=== PATIENT | female | born 1935 | race Caucasian/White ===

== ENCOUNTER → 2017-12-25 10:55 | Outpatient (CLI) | payer MEDICARE, SELFPAY ==
--- NOTE | 2017-12-25 10:12 | HPBI_ITS ---
MAMMOGRAPHY - BILATERAL SCREENING REASON FOR EXAM: Female, 82 years old. Routine annual screening examination. PERTINENT HISTORY: Aunt with breast cancer. TECHNIQUE: Digital bilateral breast deja (3D mammographic acquisition) in the CC and MLO projections. 2-D mediolateral oblique (MLO) and craniocaudad (CC) views of both breasts were obtained. CAD: Full Field Digital Mammography with Computer Added Detection was performed. COMPARISON: Comparison is made with prior study dated December 15, 2016 and May 06, 2016. FINDINGS: Breast Composition: There are scattered areas of fibroglandular density. There are no dominant masses or suspicious calcifications. Once again, surgical clips are seen in the left axillary region. No other significant abnormalities are identified. There has been no significant change since the prior study. HPBI/SCREENING MAMM (CAD), BILAT IMPRESSION: Stable bilateral screening mammogram. Yearly follow-up mammogram recommended. (A) ASSESSMENT CATEGORY: BIRADS Category 1: Negative. A letter regarding these results will be sent to the patient by the facility within 30 days. Approximately 10% of breast cancers are not detected by mammography. A normal mammogram should not delay biopsy of a clinically suspicious abnormality. [id number] Electronically Signed: Garry Dalal MD at 12:26 EST Tel [phone], Service support ,
== END ==
PROVIDERS: Family Provider Family Medicine; PCP Family Medicine; Visit Provider Family Medicine
DX: Z12.31 Encounter for screening mammogram for malignant neoplasm of breast (principal)
CPT/HCPCS: 77063; 77067

== ENCOUNTER 2018-03-24 10:21 | Emergency (ER) | payer MEDICARE, SELFPAY ==
[2018-03-24 10:23] VITALS: BP 143/72; PULSE 75; RESP 14; TEMP 36.7; O2SAT 99; BMI 27.4
[2018-03-24 10:26] VITALS: BP 143/72; PULSE 74; RESP 14; TEMP 36.7; O2SAT 98
--- NOTE | 2018-03-24 11:04 | RAD_ITS ---
STUDY: X-RAY - RIGHT KNEE REASON FOR EXAM: Female, 82 years old. Pain following a fall. TECHNIQUE: 4 view(s) of the knee. COMPARISON: Comparison is made with prior study dated August 05, 2014. FINDINGS: Normal visualized distal femur. Normal visualized proximal tibia and fibula. Normal proximal tibiofibular articulation. The patient is status post right total knee replacement. There is good alignment. Prepatellar soft tissue swelling. RAD/Knee 4 or More Views IMPRESSION: Prepatellar soft tissue swelling. Status post total knee replacement. Electronically Signed: Garry Dalal MD at 12:25 EDT Tel [phone], Service support ,
--- NOTE | 2018-03-24 11:04 | CT_ITS ---
STUDY: CT BRAIN WITHOUT CONTRAST REASON FOR EXAM: Female, 82 years old. Dizziness. Fall. RADIATION DOSAGE (If Supplied By Facility): CTDIvol = ( 44.99 ) mGy, DLP = ( 745.49 ) mGycm TECHNIQUE: Transaxial CT imaging of the brain was performed without administration of intravenous contrast material. Individualized dose optimization techniques were used for this CT. COMPARISON: None. FINDINGS: Normal soft tissue structures. Normal calvarium. There is mild cerebral atrophy with widening of the extra-axial spaces and ventricular dilatation. Normal white matter tracts of the cerebral hemispheres. Normal basal ganglia and thalami. Normal brainstem. There is mild cerebellar atrophy. There is no intracranial hemorrhage. There are no findings of an acute ischemic infarction. Atherosclerotic calcification of the vertebral arteries and cavernous portion of the internal carotid arteries bilaterally. Normal visualized paranasal sinuses. CT/Brain/Head without Contrast IMPRESSION: Chronic involutional changes of the brain. Electronically Signed: Garry Dalal MD at 12:25 EDT Tel [phone], Service support ,
--- NOTE | 2018-03-24 11:07 | ED.VIS.GEN ---
History of Present Illness Chief Complaint: Fall Informant: Patient Onset: Today - jpta Current Severity: Mild Maximum Severity: Mild Narrative: Patient had a fall after getting up from surgery. She bumped the back of her head and may be twisted or hit her right knee which is a little sore, she has no internal headache or nausea or other focal neurologic symptoms right now. She is alert and oriented. She had back injections, and some type of nerve ablation, she was under general anesthesia for about 30 minutes for that surgery. She recovered uneventfully until she tried to get up and walk to the bathroom, she felt very lightheaded and had either near syncopal or brief syncopal episode, falling and hitting the bed nearby with the back of her head. She is on no anticoagulation. She states that she has been fasting since last night for the surgery, it is 11 AM right now. She took Benadryl prior to the procedure. And she was under general anesthetic. - Past Medical History (1) Dyslipidemia Status: Chronic Comment: bilateral 06/04, Bruna Looney (2) Hypertension Status: Chronic (3) Knee joint replacement status Status: Chronic Past Medical History - Allergies and Home Meds Allergies/Adverse Reactions: Allergies codeine Allergy (Verified 03/24/18 10:22) Rash hydrocodone bitartrate [From Vicodin] Adverse Reaction (Verified 03/24/18 10:22) Nausea meperidine HCl [From Demerol] Adverse Reaction (Verified 03/24/18 10:22) Nausea oxycodone HCl [From Percocet] Adverse Reaction (Verified 03/24/18 10:22) Nausea Home Medications: Home Medications Medication Instructions Recorded Fluticasone 0.05% [Flonase Nasal 1 spray NARES DAILY 12/29/14 [place]] Lansoprazole [Prevacid] 30 mg PO DAILY 12/29/14 Levothyroxine [Synthroid] 50 mcg PO DAILY 12/29/14 Metoprolol(XL)Succ [Toprol Xl 50 mg PO DAILY 12/29/14 (Beta Bhavana)] Nitrofurantoin Macrocrystals 100 mg PO MOWEFR@1000 12/29/14 [Macrobid] Simvastatin [Zocor] 10 mg PO QHS 12/29/14 DiphenhydrAMINE [Benadryl] 25 mg PO Q6H PRN PRN 06/09/15 Vit A/Vit C/Vit E/Zinc/Copper 1 each PO DAILY 06/09/15 [Preservision Areds Softgel] Aspirin 81 mg PO DAILY 08/28/16 Duloxetine Hcl [Cymbalta] 30 mg PO DAILY 03/24/18 Spironolactone [Aldactone] 50 mg PO DAILY 03/24/18 Primary Care Physician: Aaliyah De La Cruz DO [Primary Care Provider] - Surgical History: total knee arthroplasty Lives: Spouse/ Significant Other Smoking Status: Never smoker Review of Systems All systems negative except as indicated Eyes: Denies: Visual changes - bilaterally, Diplopia Cardiovascular: Denies: Chest pain, Palpitations Respiratory: Denies: Dyspnea, Cough Gastrointestinal: Denies: Abdominal pain, Nausea, Vomiting Musculoskeletal: Reports: Extremity Pain - R knee. Denies: Neck pain, Back pain Skin: Reports: Wounds - bruise to back of head. Denies: Rash Neurological: Denies: Headache, Weakness, Parasthesia Physical Exam Vital Signs/Narrative: Vital Signs Temp Pulse Resp BP Pulse Ox 03/24/18 10:26 98.0 F 74 14 143/72 H 98 03/24/18 10:23 98.0 F 75 14 143/72 H 99 General: Well nourished, Well developed Head: Normocephalic, Trauma - occipital scalp contusion w/ small 1-2cm hematoma, no lac, no crepitance/depression Eyes: Perrl, EOMI ENT: Moist mucous membranes, No rhinorrhea Neck: Supple - FROM w/o pain or neuro sx, Nontender Cardiovascular: Regular rate, Regular rhythm, No murmurs Respiratory: No distress, CTA bilaterally, Chest nontender Abdomen: Soft, Nontender, Nondistended, Normal bowel sounds Back: Nontender, Normal Inspection Extremities: No edema, Tenderness - R patella and distal thigh. no hematoma or signs of trauma. FROM at R knee, all ligaments w/o pain or laxity on stressing. Skin: Normal color, No rash Neurological: Alert, Oriented x3, Cranial nerves II-XII grossly intact, Normal Strength, Normal Sensation Psychological: Normal affect Diagnostic/Tx/Re-eval Clinical Impression(s) from Imaging Studies Brain CT 03/24/18 11:04 IMPRESSION: Chronic involutional changes of the brain. Electronically Signed: Garry Dalal MD at 12:25 EDT Tel [phone], Service support , Knee X-Ray 03/24/18 11:04 IMPRESSION: Prepatellar soft tissue swelling. Status post total knee replacement. Electronically Signed: Garry Dalal MD at 12:25 EDT Tel [phone], Service support , - Rhythm Strip Rhythm Strip: Sinus Rhythm Rate: 65 Ectopy: None - EKG 1 Interpretation: Sinus Rhythm, No Acute Injury Pattern, - - inferior Q waves Prior: Unchanged - Medical Decision Making CT and knee x-ray are unremarkable. Reassured about these minor injuries. She drinks some water and we were able to get her up slowly and she felt okay was able to be discharged. I think her symptoms were related to a combination of the anesthesia, being relatively dehydrated because of not drinking this morning prior surgery, and having Benadryl prior to the surgery. Discharged home in stable improved condition. ED Disposition - Plan for ED Patient: Disposition: Home or Assisted Living Chief Complaint: Fall Diagnosis: Closed head injury without concussion, Contusion of right knee, initial encounter, Syncope Instructions: ED Contusion Scalp, ED Near Syncope Vasovagal Referrals: Aaliyah De La Cruz DO [Primary Care Provider] - (2-3 days if not feeling better)
--- NOTE | 2018-03-24 11:11 | EKG12_ITS ---
Test Reason : FALL Blood Pressure : / mmHG Vent. Rate : 067 BPM Atrial Rate : 067 BPM P-R Int : 156 ms QRS Dur : 070 ms QT Int : 406 ms P-R-T Axes : 014 -08 021 degrees QTc Int : 429 ms Normal sinus rhythm Inferior infarct , age undetermined Abnormal ECG Confirmed by SHEYLA TAYLOR, KWABENA ([id number]), communications editor TONI HE ([id number]) on 03/26/2018 1:28:12 PM Referred By: OLE Confirmed By:KWABENA CARRION MD
--- NOTE | 2018-03-24 11:11 | ED.DCSUM_ITS ---
History of Present Illness Chief Complaint: Fall Informant: Patient Onset: Today - jpta Current Severity: Mild Maximum Severity: Mild Narrative: Patient had a fall after getting up from surgery. She bumped the back of her head and may be twisted or hit her right knee which is a little sore, she has no internal headache or nausea or other focal neurologic symptoms right now. She is alert and oriented. She had back injections, and some type of nerve ablation, she was under general anesthesia for about 30 minutes for that surgery. She recovered uneventfully until she tried to get up and walk to the bathroom, she felt very lightheaded and had either near syncopal or brief syncopal episode, falling and hitting the bed nearby with the back of her head. She is on no anticoagulation. She states that she has been fasting since last night for the surgery, it is 11 AM right now. She took Benadryl prior to the procedure. And she was under general anesthetic. - Past Medical History (1) Dyslipidemia Status: Chronic Comment: bilateral 06/04, Bruna Looney (2) Hypertension Status: Chronic (3) Knee joint replacement status Status: Chronic Past Medical History - Allergies and Home Meds Allergies/Adverse Reactions: Allergies codeine Allergy (Verified 03/24/18 10:22) Rash hydrocodone bitartrate [From Vicodin] Adverse Reaction (Verified 03/24/18 10:22) Nausea meperidine HCl [From Demerol] Adverse Reaction (Verified 03/24/18 10:22) Nausea oxycodone HCl [From Percocet] Adverse Reaction (Verified 03/24/18 10:22) Nausea Home Medications: Home Medications Medication Instructions Recorded Fluticasone 0.05% [Flonase Nasal 1 spray NARES DAILY 12/29/14 [place]] Lansoprazole [Prevacid] 30 mg PO DAILY 12/29/14 Levothyroxine [Synthroid] 50 mcg PO DAILY 12/29/14 Metoprolol(XL)Succ [Toprol Xl 50 mg PO DAILY 12/29/14 (Beta Bhavana)] Nitrofurantoin Macrocrystals 100 mg PO MOWEFR@1000 12/29/14 [Macrobid] Simvastatin [Zocor] 10 mg PO QHS 12/29/14 DiphenhydrAMINE [Benadryl] 25 mg PO Q6H PRN PRN 06/09/15 Vit A/Vit C/Vit E/Zinc/Copper 1 each PO DAILY 06/09/15 [Preservision Areds Softgel] Aspirin 81 mg PO DAILY 08/28/16 Duloxetine Hcl [Cymbalta] 30 mg PO DAILY 03/24/18 Spironolactone [Aldactone] 50 mg PO DAILY 03/24/18 Primary Care Physician: Aaliyah De La Cruz DO [Primary Care Provider] - Surgical History: total knee arthroplasty Lives: Spouse/ Significant Other Smoking Status: Never smoker Review of Systems All systems negative except as indicated Eyes: Denies: Visual changes - bilaterally, Diplopia Cardiovascular: Denies: Chest pain, Palpitations Respiratory: Denies: Dyspnea, Cough Gastrointestinal: Denies: Abdominal pain, Nausea, Vomiting Musculoskeletal: Reports: Extremity Pain - R knee. Denies: Neck pain, Back pain Skin: Reports: Wounds - bruise to back of head. Denies: Rash Neurological: Denies: Headache, Weakness, Parasthesia Physical Exam Vital Signs/Narrative: Vital Signs Temp Pulse Resp BP Pulse Ox 03/24/18 10:26 98.0 F 74 14 143/72 H 98 03/24/18 10:23 98.0 F 75 14 143/72 H 99 General: Well nourished, Well developed Head: Normocephalic, Trauma - occipital scalp contusion w/ small 1-2cm hematoma , no lac, no crepitance/depression Eyes: Perrl, EOMI ENT: Moist mucous membranes, No rhinorrhea Neck: Supple - FROM w/o pain or neuro sx, Nontender Cardiovascular: Regular rate, Regular rhythm, No murmurs Respiratory: No distress, CTA bilaterally, Chest nontender Abdomen: Soft, Nontender, Nondistended, Normal bowel sounds Back: Nontender, Normal Inspection Extremities: No edema, Tenderness - R patella and distal thigh. no hematoma or signs of trauma. FROM at R knee, all ligaments w/o pain or laxity on stressing. Skin: Normal color, No rash Neurological: Alert, Oriented x3, Cranial nerves II-XII grossly intact, Normal Strength, Normal Sensation Psychological: Normal affect Diagnostic/Tx/Re-eval Clinical Impression(s) from Imaging Studies Brain CT 03/24/18 11:04 IMPRESSION: Chronic involutional changes of the brain. Electronically Signed: Garry Dalal MD at 12:25 EDT Tel [phone], Service support , Knee X-Ray 03/24/18 11:04 IMPRESSION: Prepatellar soft tissue swelling. Status post total knee replacement. Electronically Signed: Garry Dalal MD at 12:25 EDT Tel [phone], Service support , - Rhythm Strip Rhythm Strip: Sinus Rhythm Rate: 65 Ectopy: None - EKG 1 Interpretation: Sinus Rhythm, No Acute Injury Pattern, - - inferior Q waves Prior: Unchanged - Medical Decision Making CT and knee x-ray are unremarkable. Reassured about these minor injuries. She drinks some water and we were able to get her up slowly and she felt okay was able to be discharged. I think her symptoms were related to a combination of the anesthesia, being relatively dehydrated because of not drinking this morning prior surgery, and having Benadryl prior to the surgery. Discharged home in stable improved condition. ED Disposition - Plan for ED Patient: Disposition: Home or Assisted Living Chief Complaint: Fall Diagnosis: Closed head injury without concussion, Contusion of right knee, initial encounter, Syncope Instructions: ED Contusion Scalp, ED Near Syncope Vasovagal Referrals: Aaliyah De La Cruz DO [Primary Care Provider] - (2-3 days if not feeling better)
[2018-03-24 12:29] VITALS: BP 118/70; PULSE 67; RESP 17; O2SAT 97
[2018-03-24 13:15] VITALS: BP 118/70; PULSE 66; RESP 17; O2SAT 97
== END 2018-03-24 13:29 | disposition home or self-care (01) ==
PROVIDERS: Emergency Provider Emergency Medicine; Family Provider Family Medicine; PCP Family Medicine
DX: S00.03XA Contusion of scalp, initial encounter (principal); S80.01XA Contusion of right knee, initial encounter; W18.39XA Other fall on same level, initial encounter; Y93.01 Activity, walking, marching and hiking; Y92.9 Unspecified place or not applicable; R55 Syncope and collapse; E78.5 Hyperlipidemia, unspecified; I10 Essential (primary) hypertension; Z96.651 Presence of right artificial knee joint; Z79.899 Other long term (current) drug therapy
CPT/HCPCS: 70450; 73564; 93005; 99284

== ENCOUNTER → 2018-03-29 09:56 | Outpatient (CLI) | payer MEDICARE, SELFPAY ==
[2018-03-29 11:06] LABS: AST(SGOT) 19 U/L (15-37); Alanine Aminotransfer ALT/SGPT 29 U/L (13-56); Albumin, Serum 3.9 g/dL (3.2-5.0); Alkaline Phosphatase 54 U/L (45-117); Bilirubin, Direct 0.39 mg/dL (0.00-0.30); Cholesterol 127 mg/dL (200); Globulin 3.1 g/dL (2.2-4.2); High Density Lipoprotein 74 mg/dL; Triglycerides 77 mg/dL; Very Low Density Lipoprotein 15 mg/dL (5-40)
== END ==
PROVIDERS: Physician Assistant Medical; Family Provider Family Medicine; PCP Family Medicine; Visit Provider Internal Medicine Cardiovascular Disease
DX: E78.5 Hyperlipidemia, unspecified (principal); Z79.899 Other long term (current) drug therapy
CPT/HCPCS: 36415; 80061; 80076

== ENCOUNTER → 2018-04-13 08:35 | Outpatient (CLI) | payer MEDICARE, SELFPAY ==
--- NOTE | 2018-04-13 08:35 | DT_ITS ---
This patient was seen during an EMR downtime April 12, 2018 - April 19, 2018. This patient may have a combination of paper and electronic documentation or all paper documentation. All documentation is viewable within the e-chart portion of [employer] for each patient visit.
[2018-04-18 19:24] LABS: Vitamin D,25 Hydroxy 53.8 ng/mL (29.95-100.01)
[2018-04-19 18:57] LABS: ALB/GLOB Ratio 1.4 RATIO (0.9-2.4); AST(SGOT) 17 U/L (15-37); Alkaline Phosphatase 59 U/L (45-117); BUN 28 mg/dL (7-18); BUN/Creat Ratio 26.9 RATIO (10-20); Calcium,Total 8.4 mg/dL (8.5-10.1); Creatinine, Serum 1.04 mg/dL (0.55-1.02); EST Glomerular Filtration Rate 54 mL/min (>60); Est Glom Filt Rate - Afr Amer 65 mL/min (>60); Globulin 2.8 g/dL (2.2-4.2); Glucose 80 mg/dL (74-106); Protein, Total 6.8 g/dL (6.4-8.2)
[2018-04-19 18:58] LABS: Alanine Aminotransfer ALT/SGPT 30 U/L (13-56); Anion Gap 10 (5-15); Chloride 104 mmol/L (98-107); Cholesterol 145 mg/dL (200); High Density Lipoprotein 98 mg/dL; Potassium 4.1 mmol/L (3.5-5.1); Sodium Level 143 mmol/L (136-145); Thyroid Stim Hormone (TSH) 1.89 uIU/mL (0.358-3.74); Triglycerides 72 mg/dL; Very Low Density Lipoprotein 14 mg/dL (5-40)
== END ==
PROVIDERS: Family Provider Family Medicine; PCP Family Medicine; Visit Provider Internal Medicine Endocrinology, Diabetes & Metabolism
DX: E78.2 Mixed hyperlipidemia (principal); E03.8 Other specified hypothyroidism; E55.9 Vitamin D deficiency, unspecified; E83.50 Unspecified disorder of calcium metabolism
CPT/HCPCS: 36415; 80053; 80061; 82306; 84443

== ENCOUNTER 2018-10-05 17:50 | Inpatient (IN) | payer MEDICARE, SELFPAY ==
[2018-10-05 17:51] VITALS: BP 155/71; PULSE 68; RESP 18; TEMP 36.4; O2SAT 99; BMI 28.5
--- NOTE | 2018-10-05 18:13 | CT_ITS ---
STUDY: CT ABDOMEN AND PELVIS WITHOUT CONTRAST REASON FOR EXAM: Female, 82 years old. Left-sided flank pain. RADIATION DOSAGE (If Supplied By Facility): CTDIvol = ( 9.40 ) mGy, DLP = ( 410.95 ) mGycm TECHNIQUE: Transaxial images were obtained from the dome of the diaphragm to the symphysis pubis without oral contrast, and without intravenous contrast. Sagittal and coronal images were reconstructed. Individualized dose optimization techniques were used for this CT. COMPARISON: None. FINDINGS: The visualized lung bases are unremarkable. The visualized heart is mildly enlarged. Normal liver. The gallbladder is contracted. Normal spleen. Normal pancreas. Normal bilateral adrenal glands. Normal right kidney. There is moderate left-sided hydronephrosis and hydroureter secondary to a proximal ureteral calculus near the ureteropelvic junction measuring approximately 8.7 mm in greatest dimension. There is a small hiatal hernia. There is no evidence for dilated bowel, ascites or pneumoperitoneum. The small bowel has a grossly normal appearance. Stool is visible throughout the colon with scattered colonic diverticula. There is non-visualization of the appendix. The abdominal aorta is tortuous with minimal atherosclerotic calcification of the intracranial arteries. Normal inferior vena cava. Normal retroperitoneum. The urinary bladder is not distended. There is absence of the uterus consistent with a prior hysterectomy. 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 There is moderately severe multilevel degenerative disc disease and degenerative arthropathy of the lumbar spine with disc space narrowing and vacuum disc phenomenon. Patient has had laminectomies of L5, L4 and L3. Patient has had surgical fusion of the L3, L4 and L5 vertebral segments with interpedicular screws and rods. CT/Abdomen/Pelvis without Cont IMPRESSION: 1. Moderate left-sided hydronephrosis and hydroureter secondary to proximal ureteral calculus. 2. Colonic diverticulosis. 3. Hiatal hernia. Electronically Signed: Aurea Madrid MD at 19:56 EST , Service support ,
[2018-10-05 18:32] LABS: Mucous, Urine 0 SEEN /hpf (<or=2+)
[2018-10-05] MEDS: Morphine 4 MG/ML Syringe IV ×2 (18:36→20:27)
[2018-10-05] MEDS: Ondansetron 4 MG/2 ML Vial IV ×2 (18:36→18:50)
[2018-10-05 19:15] LABS: Color, Urine Yellow (Yellow); Glucose, Dipstick Normal (Normal); Ketone-Dipstick 5 mg/dl (Negative); Leukocyte Esterase-Dipstick 500 /ul (Negative); Nitrite-Dipstick Negative (Negative); Occult Blood-Urine 150 /ul (Negative); Protein-Dipstick 15 mg/dl (Negative); Specific Gravity, Urine 1.015 (1.002-1.030); Urine Bilirubin Dipstick Negative (Negative); Urine Clarity Sl. Cloudy (Clear); Urine Urobilinogen 1 mg/dl (Normal); Urine pH 6.5 (5.0 - 8.0)
[2018-10-05 19:16] LABS: Bacteria RARE /hpf (None Seen); Red Blood Cells-Urine 0-5 SEEN /hpf (0-5); Squamous Epithelial Cells - UA 0-5 SEEN /hpf (5-10); White Blood Cells 10-25 SEEN /hpf (0-5)
[2018-10-05 19:25] LABS: Anion Gap 6 (5-15); BUN 26 mg/dL (7-18); BUN/Creat Ratio 15.6 RATIO (10-20); Calcium,Total 8.8 mg/dL (8.5-10.1); Chloride 103 mmol/L (98-107); Creatinine, Serum 1.67 mg/dL (0.55-1.02); EST Glomerular Filtration Rate 31 mL/min (>60); Est Glom Filt Rate - Afr Amer 38 mL/min (>60); Estimated Creatinine Clearance 21.48 ml/min; Glucose 105 mg/dL (74-106); Potassium 3.9 mmol/L (3.5-5.1); Sodium Level 138 mmol/L (136-145)
[2018-10-05 19:40] LABS: Absolute Lymphocyte Count 1.97 X10^3/ul (0.83-4.51); Absolute Neutrophil Count 9.5 X10^3/uL (2.0-7.7); Basophil# 0.01 X10^3/uL; Basophil% 0.1 % (0-1); Eosinophil# 0.09 X10^3/uL; Eosinophils% 0.7 % (0-5); Hematocrit 46.3 % (37-47); Hemoglobin 15.9 g/dl (12.0-15.0); Lymphocyte # 1.97 X10^3/ul (4.0); Lymphocyte % 15.7 % (19-41); Mean Corp Hgb Conc 34.3 g/gl (32-36); Mean Corpuscular Hgb 31.1 pg (27.0-32.0); Mean Corpuscular Volume 90.4 fL (81-99); Mean Platelet Vol. 12.5 fl (6.2-12.0); Monocyte# 0.96 X10^3/uL; Monocyte% 7.6 % (0-10); Neutrophil # 9.54 X10^3/uL (2.7-7.7); Neutrophil % 75.8 % (47-70); Platelet Count 205 K/mm3 (150-450); RBC Distribution Width SD 42.8 fl (35.1-43.9); Red Blood Count 5.12 M/mm3 (4.2-5.4); White Blood Count 12.6 K/mm3 (4.4-11.0)
[2018-10-05 19:55] LABS: POSITIVE COUNT NO; POSITIVE DIFFERENTIAL NO; POSITIVE MORPHOLOGY NO
--- NOTE | 2018-10-05 20:17 | ED.DCSUM_ITS ---
- ER Visit Summary Date of Service: 10/05/18 Chief Complaint: Flank pain. History of Present Illness: The patient is a 82 F history of chronic pain management. Mitral valve prolapse. Prior appendectomy, cholecystectomy and hysterectomy. Also prior back surgery with rods. Patient had sudden onset around 1:30 PM this afternoon of left flank pain. Nausea and vomiting x1. No dysuria. No fever. She states this does not feel like a UTI. She called her primary care physician's office who sent her into the ER. She denies any fall or trauma. No weakness to her legs. Physical Examination: Older female vital signs are stable and afebrile. No distress. H EENT exam is unremarkable. Neck nontender. Lungs clear to auscultation bilaterally. Heart regular rhythm no murmur. Abdomen is soft. Mild left-sided tenderness. No peritoneal signs. No pulsatile mass. No hernias. No signs of obstruction. Positive bowel sounds. Patient is moving all 4 extremities. Neurovascular intact. Her back does have reproducible left CVA tenderness. There is no ecchymosis or bruising. No redness or warmth. Neurologically she is awake and alert with no focal motor deficits. Test Results: White count of 12.9. Hemoglobin 15. Electrolytes unremarkable gap is 6. Her BUN is 26 her creatinine is 1.67 previously it was 1. Her urine shows 10-25 white cells 150 occult blood and rare bacteria culture was sent. CT flank shows an 8.7 mm proximal left ureteral stone. With hydroureter and hydronephrosis. Emergency Department Course and Treatment: She was treated with Zofran and morphine for pain. She will be given a second dose of morphine and Zofran. I discussed all test results the patient and her male friend in the room. Treatment Plan: Admit for pain control and possible urologic procedure. I did speak to Dr. Samir Cash of urology and I have the hospitalist on page. Currently the patient is resting comfortably. Disposition: Admission Impression: Acute left flank pain secondary to a left 8.7 mm proximal ureteral stone with hydronephrosis Acute kidney injury This note was generated with [employer] dictation software. It may contain incorrect words, spelling, and punctuation that were not noted in review of the chart prior to signing ED Disposition - Plan for ED Patient: Chief Complaint: Flank Pain Referrals: Aaliyah De La Cruz DO [Primary Care Provider] -
[2018-10-05 20:19] VITALS: BP 127/77; PULSE 82; RESP 16; O2SAT 96
--- NOTE | 2018-10-05 20:21 | PCM.HP.STD ---
Problem List (1) Ureteral calculus, left Status: Acute (2) HUGO (acute kidney injury) Status: Acute History of Present Illness Date of Admission: 10/05/18 Chief Complaint: left flank pain The patient is a 82 year old F with a significant history of CAD; HTN; chronic pain of her back that she follows with Dr. Prieto who presented to the ED because of excruciating left back pain that radiates to her left lower quadrant of her abdomen. The pain started suddenly and has been continuous. Associated with her symptoms is nausea and vomiting. She denies any aggravating factor. At emergency department she received morphine to help with the pain. She denies any fever. ED doctor discussed case with Dr. Cash, urologist who wanted n.p.o. after midnight and possible intervention next day. Left ureteral stone with left hydronephrosis and left hydroureter. Abdominal CT and pelvis confirms Left ureteral stone with left hydronephrosis and left hydroureter We will keep patient n.p.o. and hold her aspirin. Supportive treatment with normal saline IV hydration; IV morphine and IV Zofran. Urology consult. Past Medical History Past Medical History (Chronic Problems): Chronic Problems (Last Reviewed 10/05/18 @ 22:38 by Ramon Cash MD) Palpitation (Chronic) Nonrheumatic mitral (valve) insufficiency (Chronic) Non-rheumatic tricuspid valve insufficiency (Chronic) Hyperlipidemia (Chronic) Hypertension (Chronic) Medical History: Medical History (Last Reviewed 10/05/18 @ 21:14 by Wicho Capellan MD) Nonrheumatic mitral (valve) insufficiency (Chronic) I34.0 Non-rheumatic tricuspid valve insufficiency (Chronic) I36.1 Hyperlipidemia (Chronic) E78.5 Hypertension (Chronic) I10 IBS (irritable bowel syndrome) K58.9 Ureteral reflux N13.70 History of hysterectomy Z90.710 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 Allergies codeine Allergy (Verified 10/05/18 17:56) Rash hydrocodone bitartrate [From Vicodin] Adverse Reaction (Verified 10/05/18 17:56) Nausea meperidine HCl [From Demerol] Adverse Reaction (Verified 10/05/18 17:56) Nausea oxycodone HCl [From Percocet] Adverse Reaction (Verified 10/05/18 17:56) Nausea Home Medications: Ambulatory Orders Medication Instructions Recorded Fluticasone 0.05% [Flonase Nasal 1 spray NARES DAILY 12/29/14 [place]] Lansoprazole [Prevacid] 30 mg PO DAILY 12/29/14 Levothyroxine [Synthroid] 50 mcg PO DAILY 12/29/14 Vit A/Vit C/Vit E/Zinc/Copper 1 ea PO DAILY 06/09/15 [Preservision Areds Softgel] Aspirin 81 mg PO QHS 08/28/16 denosumab 60 mg/mL subcutaneous 60 mg SC [id number] 06/25/18 syringe flaxseed oil 1,000 mg capsule 1,000 mg PO QDAY 06/25/18 magnesium oxide 400 mg (241.3 mg 400 mg PO QDAY tab 06/25/18 magnesium) tablet omega-3 fatty acids 1,000 mg 1,000 mg PO QDAY 06/25/18 capsule pravastatin 20 mg tablet 20 mg PO QHS 06/25/18 Calcium Citrate/Vitamin D3 1 each PO BID 10/05/18 [Citracal-Vit D3 200 mg-250 Tab] Cholecalciferol (Vitamin D3) 1,000 unit PO BID 10/05/18 [Vitamin D3] Cyanocobalamin [Vitamin B12] 1,000 mcg PO DAILY@0800 10/05/18 Gabapentin [Neurontin] 100 mg PO TIDCM 10/05/18 Metoprolol(XL)Succ [Toprol Xl 50 mg PO DAILY 10/05/18 (Beta Bhavana)] Spironolactone [Aldactone] 50 mg PO DAILY 10/05/18 Surgical History: Surgical History (Last Reviewed 10/05/18 @ 21:14 by Wicho Capellan MD) History of ERCP Z98.890 History of appendectomy Z90.49 History of back surgery Z98.890 History of bilateral knee replacement Z96.653 History of partial thyroidectomy Z98.890 History of tonsillectomy and adenoidectomy Z98.890 Hx of cholecystectomy Z90.49 Surgical History: total knee arthroplasty Lives: Spouse/ Significant Other Smoking Status: Never smoker Alcohol: Occasional - *Family History Maternal Family History: Family History (Last Reviewed 10/05/18 @ 21:14 by Wicho Capellan MD) Father Heart disease Aunt Heart disease Grandfather Heart disease Grandmother Heart disease Mother Cancer Review of Systems Constitutional: Denies: Chills, Fever, Weight Change HEENT: Denies: Head Aches, Sinus Congestion, Sinus Drainage Cardiovascular: Denies: Chest Pain, Palpitations Respiratory: Denies: Cough, Shortness of breath at rest, Sputum production Gastrointestinal: Reports: Abdominal Pain, Nausea, Vomiting Genitourinary: Denies: Dysuria Musculoskeletal: Reports: Back Pain. Denies: Joint Pain, Joint Tenderness Skin: Denies: Rash, Wounds Neurological: Denies: Numbness, Tingling, Focal weakness Psychiatric: Denies: Anxiety, Depression, Homicidal Ideations, Suicidal Ideations Hematologic/ Lymphatic: Denies: Easy Bruising, Easy Bleeding VTE Information - Inpt Only VTE Present on Admission: No VTE Mechan Device Prophylaxis: None VTE Pharm Prophylaxis ordered?: Yes Patient Problems: Active and Suspected Problems (Last Reviewed 10/05/18 @ 22:38 by Ramon Cash MD) Ureteral calculus, left (Acute) HUGO (acute kidney injury) (Acute) - Physical Exam General: Alert, Oriented x3, Cooperative HEENT: Atraumatic, PERRLA, EOMI, Normocephalic Neck: Supple, No JVD, Negative Carotid Bruits Lungs: Clear to auscultation, Normal air movement Cardiovascular: Regular rate, No murmurs Abdomen: Bowel Sounds Present, Soft, Non Tender, Tender - Left lower quadrant and left CVA tenderness.. Extremities: No edema, Capillary Refill Less than 3 Seconds Skin: No rashes, No breakdown Musculoskeletal: No Tenderness to Palpation of Joints or Extremities Neurological: Cranial nerves II-XII grossly intact Psych/Mental Status: Normal Affect, Appropriate Vital Signs Temp Pulse Resp BP Pulse Ox 97.5 F L 82 16 127/77 H 96 10/05/18 17:51 10/05/18 20:19 10/05/18 20:19 10/05/18 20:19 10/05/18 20:19 Oxygen Delivery Method Room Air Weight: 73.2 kg Body Mass Index (BMI) 28.5 Laboratory Tests Past 24 Hrs 10/05/18 10/05/18 10/05/18 18:22 18:35 18:35 WBC 12.6 H RBC 5.12 Hgb 15.9 H Hct 46.3 MCV 90.4 MCH 31.1 MCHC 34.3 RDW 13.0 RDW Differential 42.8 Plt Count 205 MPV 12.5 H Immature Gran % (Auto) 0.100 Neut % (Auto) 75.8 H Lymph % (Auto) 15.7 L [place] % (Auto) 7.6 Eos % (Auto) 0.7 Baso % (Auto) 0.1 Absolute Neuts (auto) 9.5 H Absolute Lymphs (auto) 1.97 Total Counted Not Reportable Sodium 138 Potassium 3.9 Chloride 103 Carbon Dioxide 29.0 Anion Gap 6 BUN 26 H Creatinine 1.67 H Estim Creat Clear Calc 21.48 Est GFR (MDRD) Af Amer 38 L Est GFR (MDRD) Non-Af 31 L BUN/Creatinine Ratio 15.6 Glucose 105 Calcium 8.8 Urine Color Yellow Urine Clarity Sl. Cloudy Urine pH 6.5 Ur Specific [place] 1.015 Urine Protein 15 H Urine Glucose (UA) Normal Urine Ketones 5 H Urine Occult Blood 150 H Urine Nitrite Negative Urine Bilirubin Negative Urine Urobilinogen 1 H Ur Leukocyte Esterase 500 H Urine RBC 0-5 SEEN Urine WBC 10-25 SEEN Ur Squamous Epith Cells 0-5 SEEN Urine Bacteria RARE Urine Mucus 0 SEEN Assessment/Plan All Active Problems (Last Reviewed 10/05/18 @ 22:38 by Ramon Cash MD) Ureteral calculus, left (Acute) HUGO (acute kidney injury) (Acute) The patient is a 82 year old F with a significant history of CAD; HTN; chronic pain of her back that she follows with Dr. Prieto; who presented to the ED because of excruciating left back pain that radiates to her left lower quadrant of her abdomen. Left ureteral stone with left hydronephrosis and left hydroureter. Abdominal CT and pelvis confirms Left ureteral stone with left hydronephrosis and left hydroureter We will keep patient n.p.o. and hold her aspirin. Supportive treatment with normal saline IV hydration; IV morphine and IV Zofran. Urology consult. HUGO Baseline creatinine is about 1.2. On admission her creatinine is 1.67. Likely obstructive from ureteral stone. Avoid nephrotoxic's. Urology is planning lithotripsy with possible ureteral stent. Trend BMP HTN On home Aldactone and metoprolol Blood pressure erratic at this time. At the emergency department her blood pressure was 155/71. Patient received IV morphine and her blood pressure was noted to trending down. On the floor her systolic blood pressure was in the 90s. We will hold blood pressure medication at this time. Continue normal saline IV hydration Hypothyroidism Synthroid continued. Hyperlipidemia Pravastatin continued CAD Stable Hold ASA for probable lithotripsy and ureteral stent. Pravastatin continued. DVT Prophylaxis Subcutaneous heparin Code Visit OBSV E&M: 18676 Initial observation care L3
[2018-10-05 21:00] VITALS: BP 127/77; PULSE 82; RESP 16; O2SAT 96
[2018-10-05 21:39] VITALS: BMI 28.3; BMI 28.4
[2018-10-05 22:06] VITALS: BMI 28.3
--- NOTE | 2018-10-05 22:39 | CON.PCM_ITS ---
Reason for Consult Date of Consultation: 10/05/18 Reason for Consultation: Left ureteral calculi with high-grade obstruction History of Present Illness: The patient is a 82 year old female who presented to the emergency room with sudden onset of left severe flank pain CAT scan was done that demonstrated an 8.7 mm stone in the proximal ureter causing high-grade obstruction and hydronephrosis pain was controlled the patient was admitted to the hospital for the obstruction. Past Medical History Past Medical History (Chronic Problems): Chronic Problems (Last Reviewed 10/05/18 @ 21:14 by Wicho Capellan MD) Palpitation (Chronic) Nonrheumatic mitral (valve) insufficiency (Chronic) Non-rheumatic tricuspid valve insufficiency (Chronic) Hyperlipidemia (Chronic) Hypertension (Chronic) Medical History: Medical History (Last Reviewed 10/05/18 @ 22:38 by Ramon Cash MD) Nonrheumatic mitral (valve) insufficiency (Chronic) I34.0 Non-rheumatic tricuspid valve insufficiency (Chronic) I36.1 Hyperlipidemia (Chronic) E78.5 Hypertension (Chronic) I10 IBS (irritable bowel syndrome) K58.9 Ureteral reflux N13.70 History of hysterectomy Z90.710 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 Allergies codeine Allergy (Verified 10/05/18 17:56) Rash hydrocodone bitartrate [From Vicodin] Adverse Reaction (Verified 10/05/18 17:56) Nausea meperidine HCl [From Demerol] Adverse Reaction (Verified 10/05/18 17:56) Nausea oxycodone HCl [From Percocet] Adverse Reaction (Verified 10/05/18 17:56) Nausea Home Medications: Ambulatory Orders Medication Instructions Recorded Fluticasone 0.05% [Flonase Nasal 1 spray NARES DAILY 12/29/14 [place]] Lansoprazole [Prevacid] 30 mg PO DAILY 12/29/14 Levothyroxine [Synthroid] 50 mcg PO DAILY 12/29/14 Vit A/Vit C/Vit E/Zinc/Copper 1 ea PO DAILY 06/09/15 [Preservision Areds Softgel] Aspirin 81 mg PO QHS 08/28/16 denosumab 60 mg/mL subcutaneous 60 mg SC [id number] 06/25/18 syringe flaxseed oil 1,000 mg capsule 1,000 mg PO QDAY 06/25/18 magnesium oxide 400 mg (241.3 mg 400 mg PO QDAY tab 06/25/18 magnesium) tablet omega-3 fatty acids 1,000 mg 1,000 mg PO QDAY 06/25/18 capsule pravastatin 20 mg tablet 20 mg PO QHS 06/25/18 Calcium Citrate/Vitamin D3 1 each PO BID 10/05/18 [Citracal-Vit D3 200 mg-250 Tab] Cholecalciferol (Vitamin D3) 1,000 unit PO BID 10/05/18 [Vitamin D3] Cyanocobalamin [Vitamin B12] 1,000 mcg PO DAILY@0800 10/05/18 Gabapentin [Neurontin] 100 mg PO TIDCM 10/05/18 Metoprolol(XL)Succ [Toprol Xl 50 mg PO DAILY 10/05/18 (Beta Bhavana)] Spironolactone [Aldactone] 50 mg PO DAILY 10/05/18 Surgical History: Surgical History (Last Reviewed 10/05/18 @ 22:38 by Ramon Cash MD) History of ERCP Z98.890 History of appendectomy Z90.49 History of back surgery Z98.890 History of bilateral knee replacement Z96.653 History of partial thyroidectomy Z98.890 History of tonsillectomy and adenoidectomy Z98.890 Hx of cholecystectomy Z90.49 Surgical History: noncontributory, total knee arthroplasty Psychiatric History: No pertinent psych hx 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 Lives: Spouse/ Significant Other Smoking Status: Never smoker Alcohol: Occasional - *Family History Maternal Family History: Family History (Last Reviewed 10/05/18 @ 22:38 by Ramon Cash MD) Father Heart disease Aunt Heart disease Grandfather Heart disease Grandmother Heart disease Mother Cancer Review of Systems Constitutional: Denies: Chills, Fever, Weight Change HEENT: Denies: Head Aches, Sinus Congestion, Sinus Drainage Cardiovascular: Denies: Chest Pain, Palpitations Respiratory: Denies: Cough, Shortness of breath at rest, Sputum production Gastrointestinal: Denies: Abdominal Pain, Nausea, Vomiting Genitourinary: Reports: - - Flank pain left side. Denies: Dysuria Musculoskeletal: Denies: Joint Pain, Joint Tenderness Skin: Denies: Rash, Wounds Neurological: Denies: Numbness, Tingling, Focal weakness Psychiatric: Denies: Anxiety, Depression, Homicidal Ideations, Suicidal Ideations Hematologic/ Lymphatic: Denies: Easy Bruising, Easy Bleeding Physical Exam - Physical Exam Vital Signs Temp 97.5 F L 10/05/18 17:51 Pulse 82 10/05/18 21:00 Resp 16 10/05/18 21:00 BP 127/77 H 10/05/18 21:00 Pulse Ox 96 10/05/18 21:00 Intake & Output 10/03/18 10/04/18 10/05/18 23:59 23:59 23:59 Weight: 72.7 kg General: Alert, Cooperative HEENT: Atraumatic Oral: Moist Mucosa Neck: Supple Lungs: Normal air movement Abdomen: Soft Rectal: Exam deferred Groin: No hernia Skin: No rashes, No breakdown Neurological: Cranial nerves II-XII grossly intact Laboratory Tests Past 24 Hrs 10/05/18 10/05/18 10/05/18 18:22 18:35 18:35 WBC 12.6 H RBC 5.12 Hgb 15.9 H Hct 46.3 MCV 90.4 MCH 31.1 MCHC 34.3 RDW 13.0 RDW Differential 42.8 Plt Count 205 MPV 12.5 H Immature Gran % (Auto) 0.100 Neut % (Auto) 75.8 H Lymph % (Auto) 15.7 L [place] % (Auto) 7.6 Eos % (Auto) 0.7 Baso % (Auto) 0.1 Absolute Neuts (auto) 9.5 H Absolute Lymphs (auto) 1.97 Total Counted Not Reportable Sodium 138 Potassium 3.9 Chloride 103 Carbon Dioxide 29.0 Anion Gap 6 BUN 26 H Creatinine 1.67 H Estim Creat Clear Calc 21.48 Est GFR (MDRD) Af Amer 38 L Est GFR (MDRD) Non-Af 31 L BUN/Creatinine Ratio 15.6 Glucose 105 Calcium 8.8 Urine Color Yellow Urine Clarity Sl. Cloudy Urine pH 6.5 Ur Specific [place] 1.015 Urine Protein 15 H Urine Glucose (UA) Normal Urine Ketones 5 H Urine Occult Blood 150 H Urine Nitrite Negative Urine Bilirubin Negative Urine Urobilinogen 1 H Ur Leukocyte Esterase 500 H Urine RBC 0-5 SEEN Urine WBC 10-25 SEEN Ur Squamous Epith Cells 0-5 SEEN Urine Bacteria RARE Urine Mucus 0 SEEN Assessment/Plan All Active Problems (Last Reviewed 10/05/18 @ 21:14 by Wicho Capellan MD) Ureteral calculus, left (Acute) 82-year-old female with obstructing stone in the left proximal ureter, n.p.o. at midnight, consent for surgery, plan to proceed with left ureteroscopy laser lithotripsy of stone and possible stent placement tomorrow in the operating room.
[2018-10-05] MEDS: 0.9% Normal Saline 1,000 ML 100 ML IV (22:58)
[2018-10-05 23:00] VITALS: BP 114/64; PULSE 115; RESP 18; TEMP 37.6; O2SAT 93
[2018-10-05] MEDS: Heparin Injection (Vial) 5,000 UNIT/ML VIAL 5000 UNIT SC (23:40)
[2018-10-05 23:44] VITALS: BP 94/42; PULSE 108; O2SAT 96
[2018-10-06] VITALS (83 sets, daily range): BP systolic 53–148; BP diastolic 36–84; PULSE 88–123; RESP 12–20; TEMP 36.6–38.2; O2SAT 87–100; BMI 30.9
[2018-10-06] MEDS: 0.9% Normal Saline 1,000 ML 999 ML IV ×3 (01:19→10:56)
--- NOTE | 2018-10-06 05:34 | EKG12_ITS ---
Test Reason : AM EKG Blood Pressure : / mmHG Vent. Rate : 094 BPM Atrial Rate : 094 BPM P-R Int : 134 ms QRS Dur : 072 ms QT Int : 358 ms P-R-T Axes : 030 010 022 degrees QTc Int : 447 ms Normal sinus rhythm Normal ECG No previous ECGs available Confirmed by SHEYLA TAYLOR, KWABENA ([id number]), multimedia editor KALPANA ESPINOZA ([id number]) on 10/08/2018 2:07:59 PM Referred By: Wicho Capellan Confirmed By:KWABENA CARRION MD
[2018-10-06] MEDS: 0.9% NaCl Peripheral Flush Adult/Peds IV ×6 (06:05→23:38)
[2018-10-06] MEDS: Morphine 2 MG/ML Syringe IV (06:05)
[2018-10-06] MEDS: Levothyroxine 50 MCG Tablet PO (06:14)
[2018-10-06 06:24] LABS: Anion Gap 10 (5-15); BUN 32 mg/dL (7-18); Calcium,Total 7.3 mg/dL (8.5-10.1); Chloride 109 mmol/L (98-107); EST Glomerular Filtration Rate 25 mL/min (>60); Est Glom Filt Rate - Afr Amer 31 mL/min (>60); Estimated Creatinine Clearance 17.94 ml/min; Glucose 91 mg/dL (74-106); Sodium Level 143 mmol/L (136-145)
[2018-10-06 07:08] LABS: Absolute Lymphocyte Count 0.28 X10^3/ul (0.83-4.51); Absolute Neutrophil Count 14.5 X10^3/uL (2.0-7.7); Eosinophil# 0.01 X10^3/uL; Eosinophils% 0.1 % (0-5); Hematocrit 38.4 % (37-47); Hemoglobin 12.6 g/dl (12.0-15.0); Lymphocyte # 0.28 X10^3/ul (4.0); Lymphocyte % 1.8 % (19-41); Mean Corp Hgb Conc 32.8 g/gl (32-36); Mean Corpuscular Volume 91.4 fL (81-99); Mean Platelet Vol. 11.7 fl (6.2-12.0); Monocyte# 0.43 X10^3/uL; Monocyte% 2.8 % (0-10); Neutrophil # 14.45 X10^3/uL (2.7-7.7); Platelet Count 104 K/mm3 (150-450); RBC Distribution Width CV 13.1 % (11.6-14.6); RBC Distribution Width SD 43.8 fl (35.1-43.9); White Blood Count 15.2 K/mm3 (4.4-11.0)
[2018-10-06 07:12] LABS: Differential Indicated SCAN CRITERIA MET; POSITIVE COUNT NO; POSITIVE DIFFERENTIAL YES; POSITIVE MORPHOLOGY NO
[2018-10-06 07:28] LABS: Thyroid Stim Hormone (TSH) 0.73 uIU/mL (0.358-3.74)
[2018-10-06] MEDS: Fluticasone 0.05% 1 SPRAY NASAL.SRY NASAL (08:43)
[2018-10-06] MEDS: Ceftriaxone 1 GM/50 ML BAG IV (10:47)
--- NOTE | 2018-10-06 11:10 | PCM.PN.HOSP ---
Patient Problems: Active and Suspected Problems (Last Reviewed 10/05/18 @ 22:38 by Ramon Cash MD) Ureteral calculus, left (Acute) HUGO (acute kidney injury) (Acute) Subjective: Patient seen and examined. She was admitted overnight with a complaint of left flank pain is been managed for left ureteric calculus with hydronephrosis. Patient said pain was well controlled and denied any fever chills, cough or chest pain, shortness of breath, abdominal pain, any diarrhea vomiting. Review of systems otherwise negative. About 2 hours after initial review, I was informed the patient was hypotensive. Blood pressure was running in the 70s systolic initially and did not respond to fluid boluses. She received about a total of 1.5 L but blood pressure was still in the 60s systolic. Patient complained of feeling lethargic and lightheaded but denied any fever chills, cough or chest pain, shortness of breath, abdominal pain, diarrhea vomiting. According to nurse, patient had had a spike in temperature this morning. I had started her on IV ceftriaxone and drawn blood cultures prior to blood pressure dropping. Decision was made to transfer patient up to ICU to be managed for septic shock likely due to infected ureteric calculus. Lactic acid ordered. Vitals/I&O's: Vital Signs Temp Pulse Resp BP Pulse Ox 99.2 F H 88 16 53/37 L 94 10/06/18 10:30 10/06/18 11:00 10/06/18 11:00 10/06/18 11:00 10/06/18 11:00 Oxygen Flow Rate (L/min) 4 Oxygen Delivery Method Nasal Cannula Weight: 160 lb 4.417 oz Body Mass Index (BMI) 28.3 Orthostatic Vital Signs Start: 10/06/18 03:24 Freq: q24h Status: Active Protocol: Activity Type Activity Date Activity User E-Sign Co-Sign Detail Recorded Client Recorded Date Recorded By Document 10/06/18 03:26 MM [id number] 10/06/18 03:27 MM 10/06/18 03:26 Orthostatic Vitals Standing -Blood Pressure (90/60-120/80) 87/56 L -Extremity Use Right Arm -Pulse Rate (60-100) 97 Sitting -Blood Pressure (90/60-120/80) 80/51 L -Extremity Use Right Arm -Pulse Rate (60-100) 94 Lying -Blood Pressure (90/60-120/80) 74/44 L -Extremity Use Right Arm -Pulse Rate (60-100) 91 Intake and Output for Last 24 Hours 10/04/18 10/05/18 10/06/18 23:59 23:59 23:59 Intake Total 591 / 591 1456 / 1456 Output Total 100 / 100 100 / 100 Balance 491 / 491 1356 / 1356 General: Alert, Oriented x3, Cooperative, Lethargic HEENT: Atraumatic, PERRLA, EOMI, Normocephalic Oral: Dry Mucosa Neck: Supple, No JVD, Negative Carotid Bruits Lungs: Clear to auscultation, Normal air movement, No rhonchi, No wheeze, No rales Cardiovascular: Regular rate, Regular Rhythm, Normal S1, Normal S2, No murmurs Abdomen: Bowel Sounds Present, Soft, Non-Distended, No Hepato-splenomegaly, - - mild right lower quadrant tenderness, no guarding or rebound tenderness Extremities: No clubbing, No cyanosis, No edema, Capillary Refill Less than 3 Seconds Skin: No rashes, No breakdown Musculoskeletal: No Tenderness to Palpation of Joints or Extremities Lymphatic: No Cervical, Supraclavicular, or Inguinal Adenopathy Neurological: Cranial nerves II-XII grossly intact, Neuro grossly intact, Motor Exam 5/5 strength throughout Psych/Mental Status: Normal Affect, Appropriate, Alert and oriented to time, place, person, mood and affect Laboratory Results 10/05/18 18:22: Urine Color Yellow, Urine Clarity Sl. Cloudy, Urine pH 6.5, Ur Specific [place] 1.015, Urine Protein 15 H, Urine Glucose (UA) Normal, Urine Ketones 5 H, Urine Occult Blood 150 H, Urine Nitrite Negative, Urine Bilirubin Negative, Urine Urobilinogen 1 H, Ur Leukocyte Esterase 500 H, Urine RBC 0-5 SEEN, Urine WBC 10-25 SEEN, Ur Squamous Epith Cells 0-5 SEEN, Urine Bacteria RARE, Urine Mucus 0 SEEN 10/05/18 18:35: WBC 12.6 H, RBC 5.12, Hgb 15.9 H, Hct 46.3, MCV 90.4, MCH 31.1, MCHC 34.3, RDW 13.0, RDW Differential 42.8, Plt Count 205, MPV 12.5 H, Immature Gran % (Auto) 0.100, Neut % (Auto) 75.8 H, Lymph % (Auto) 15.7 L, [place] % (Auto) 7.6, Eos % (Auto) 0.7, Baso % (Auto) 0.1, Absolute Neuts (auto) 9.5 H, Absolute Lymphs (auto) 1.97, Total Counted Not Reportable 10/05/18 18:35: Sodium 138, Potassium 3.9, Chloride 103, Carbon Dioxide 29.0, Anion Gap 6, BUN 26 H, Creatinine 1.67 H, Estim Creat Clear Calc 21.48, Est GFR (MDRD) Af Amer 38 L, Est GFR (MDRD) Non-Af 31 L, BUN/Creatinine Ratio 15.6, Glucose 105, Calcium 8.8 10/06/18 05:30: WBC 15.2 H, RBC 4.20, Hgb 12.6, Hct 38.4, MCV 91.4, MCH 30.0, MCHC 32.8, RDW 13.1, RDW Differential 43.8, Plt Count 104 L, MPV 11.7, Immature Gran % (Auto) 0.300, Neut % (Auto) 95.0 H, Lymph % (Auto) 1.8 L, [place] % (Auto) 2.8, Eos % (Auto) 0.1, Baso % (Auto) 0.0, Absolute Neuts (auto) 14.5 H, Absolute Lymphs (auto) 0.28 L, Total Counted Not Reportable 10/06/18 05:30: Sodium 143, Potassium 4.0, Chloride 109 H, Carbon Dioxide 24.0, Anion Gap 10, BUN 32 H, Creatinine 2.00 H, Estim Creat Clear Calc 17.94, Est GFR (MDRD) Af Amer 31 L, Est GFR (MDRD) Non-Af 25 L, BUN/Creatinine Ratio 16.0, Glucose 91, Calcium 7.3 L 10/06/18 05:30: TSH 0.73 Diagnostic Data Abdomen/Pelvis CT 10/05/18 18:13 IMPRESSION: 1. Moderate left-sided hydronephrosis and hydroureter secondary to proximal ureteral calculus. 2. Colonic diverticulosis. 3. Hiatal hernia. Electronically Signed: Aurea Madrid MD at 19:56 EST , Service support , Current Medications Fluticasone Propionate (Flonase Nasal [place]) 1 spray NASAL DAILY [facility] Last Admin: 10/06/18 08:43 Dose: 1 spray Gabapentin (Neurontin) 100 mg PO TIDCM [facility] Last Admin: 10/06/18 08:30 Dose: Not Given Heparin Sodium (Porcine) (Heparin Na) 5,000 unit SC Q12 [facility] Last Admin: 10/06/18 08:30 Dose: Not Given Sodium Chloride () 1,000 mls @ 100 mls/hr IV .Q10H [facility] Stop: 10/06/18 20:48 Last Admin: 10/05/18 22:58 Dose: 100 mls/hr Ceftriaxone Sodium (Rocephin) 1 gm in 50 mls @ 100 mls/hr IV Q12 [facility] Last Admin: 10/06/18 10:47 Dose: 100 mls/hr Sodium Chloride () 1,000 mls @ 999 mls/hr IV .Q1H1M ONE Stop: 10/06/18 11:56 Levothyroxine Sodium (Synthroid) 50 mcg PO DAILY@0600 [facility] Last Admin: 10/06/18 06:14 Dose: 50 mcg Magnesium Hydroxide (Milk Of Magnesia) 30 ml PO DAILY PRN PRN PRN Reason: Constipation Morphine Sulfate () 1 - 2 mg IV Q4H PRN PRN PRN Reason: PAIN Last Admin: 10/06/18 06:05 Dose: 2 mg Multivitamins/Minerals (Healthy [facility]) [facility] Ondansetron HCl (Zofran) 4 mg IV Q6H PRN PRN PRN Reason: NAUSEA/VOMITING Pantoprazole Sodium (Protonix) 40 mg PO DAILY [facility] Pravastatin Sodium (Pravachol) 20 mg PO QHS [facility] Sodium Chloride () 5 - 30 ml IV UD PRN PRN Reason: SALINE FLUSH Last Admin: 10/06/18 06:05 Dose: 10 ml Medical Necessity - Tobacco Use Smoking Status: Never smoker Assessment/Plan All Active Problems (Last Reviewed 10/05/18 @ 22:38 by Ramon Cash MD) Ureteral calculus, left (Acute) HUGO (acute kidney injury) (Acute) 1. Septic shock due to infected left ureteric calculi and possible pyelonephritis Patient's temperature has peaked 9 9.6 Fahrenheit today she had had a low-grade fever since admission. She is also tachycardic and white cell count trended up from 12.6 on admission yesterday to 15.2 today. Patient went into shock today with blood pressure going as low as 53/37. blood cultures x 2 ordered; urine culture pending SIRS criteria is 2/4 (tachycardia and leucocytosis) started on IV ceftriaxone 1gram q12 this morning will hydrate with IVF NS @ 30cc/kg/hr per sepsis protocol. Stat lactic acid ordered. Will transfer to ICU emergently May need broadening of antibiotic coverage. Consult jewel waxer May require pressors for hemodynamic support 2. Left ureteric calculi with left hydronephrosis and hydroureter diagnosed per abdominopelvic CT- showed left 8.7mm ureteric stone Currently n.p.o. Aspirin on hold. On IV fluids, IV Zofran IV morphine. Discussed with urology, neurology had wanted to take it down for stent today. I however discussed with Dr. Cash that patient was quite unstable and would need to be stabilized before any surgical intervention. urology on board 3. HUGO likely pre-renal due to septic shock 0.6 on admission at trended up to 2. Baseline is around 1.1. Being hydrated as under 1. will monitor kidney function; will get urine electrolytes 4. Hypertension on aldactone and metoprolol. WIll hold BP meds o/a of septic shock 5. Hyperlipidemia: on pravastatin 6. Hypothyroidism; on synthroid 7. CAD: stable. On aspirin and statin. 8. Osteoporosis: on denosumab 8. DVT prophylaxis: heparin GI prophylaxis: on lansoprazole Code Visit Inpatient E&M: 17311 [facility] L3
--- NOTE | 2018-10-06 11:14 | PN_ITS ---
Patient Problems: Active and Suspected Problems (Last Reviewed 10/05/18 @ 22:38 by Ramon Cash MD) Ureteral calculus, left (Acute) HUGO (acute kidney injury) (Acute) Subjective: Patient seen and examined. She was admitted overnight with a complaint of left flank pain is been managed for left ureteric calculus with hydronephrosis. Patient said pain was well controlled and denied any fever chills, cough or chest pain, shortness of breath, abdominal pain, any diarrhea vomiting. Review of systems otherwise negative. About 2 hours after initial review, I was informed the patient was hypotensive. Blood pressure was running in the 70s systolic initially and did not respond to fluid boluses. She received about a total of 1.5 L but blood pressure was still in the 60s systolic. Patient complained of feeling lethargic and lightheaded but denied any fever chills, cough or chest pain, shortness of breath, abdominal pain, diarrhea vomiting. According to nurse, patient had had a spike in temperature this morning. I had started her on IV ceftriaxone and drawn blood cultures prior to blood pressure dropping. Decision was made to transfer patient up to ICU to be managed for septic shock likely due to infected ureteric calculus. Lactic acid ordered. Vitals/I&O's: Vital Signs Temp Pulse Resp BP Pulse Ox 99.2 F H 88 16 53/37 L 94 10/06/18 10:30 10/06/18 11:00 10/06/18 11:00 10/06/18 11:00 10/06/18 11:00 Oxygen Flow Rate (L/min) 4 Oxygen Delivery Method Nasal Cannula Weight: 160 lb 4.417 oz Body Mass Index (BMI) 28.3 Orthostatic Vital Signs Start: 10/06/18 03:24 Freq: q24h Status: Active Protocol: Activity Type Activity Date Activity User E-Sign Co-Sign Detail Recorded Client Recorded Date Recorded By Document 10/06/18 03:26 MM [id number] 10/06/18 03:27 MM 10/06/18 03:26 Orthostatic Vitals Standing -Blood Pressure (90/60-120/80) 87/56 L -Extremity Use Right Arm -Pulse Rate (60-100) 97 Sitting -Blood Pressure (90/60-120/80) 80/51 L -Extremity Use Right Arm -Pulse Rate (60-100) 94 Lying -Blood Pressure (90/60-120/80) 74/44 L -Extremity Use Right Arm -Pulse Rate (60-100) 91 Intake and Output for Last 24 Hours 10/04/18 10/05/18 10/06/18 23:59 23:59 23:59 Intake Total 591 / 591 1456 / 1456 Output Total 100 / 100 100 / 100 Balance 491 / 491 1356 / 1356 General: Alert, Oriented x3, Cooperative, Lethargic HEENT: Atraumatic, PERRLA, EOMI, Normocephalic Oral: Dry Mucosa Neck: Supple, No JVD, Negative Carotid Bruits Lungs: Clear to auscultation, Normal air movement, No rhonchi, No wheeze, No rales Cardiovascular: Regular rate, Regular Rhythm, Normal S1, Normal S2, No murmurs Abdomen: Bowel Sounds Present, Soft, Non-Distended, No Hepato-splenomegaly, - - mild right lower quadrant tenderness, no guarding or rebound tenderness Extremities: No clubbing, No cyanosis, No edema, Capillary Refill Less than 3 Seconds Skin: No rashes, No breakdown Musculoskeletal: No Tenderness to Palpation of Joints or Extremities Lymphatic: No Cervical, Supraclavicular, or Inguinal Adenopathy Neurological: Cranial nerves II-XII grossly intact, Neuro grossly intact, Motor Exam 5/5 strength throughout Psych/Mental Status: Normal Affect, Appropriate, Alert and oriented to time, place, person, mood and affect Laboratory Results 10/05/18 18:22: Urine Color Yellow, Urine Clarity Sl. Cloudy, Urine pH 6.5, Ur Specific [place] 1.015, Urine Protein 15 H, Urine Glucose (UA) Normal, Urine Ketones 5 H, Urine Occult Blood 150 H, Urine Nitrite Negative, Urine Bilirubin Negative, Urine Urobilinogen 1 H, Ur Leukocyte Esterase 500 H, Urine RBC 0-5 SEEN, Urine WBC 10-25 SEEN, Ur Squamous Epith Cells 0-5 SEEN, Urine Bacteria RARE, Urine Mucus 0 SEEN 10/05/18 18:35: WBC 12.6 H, RBC 5.12, Hgb 15.9 H, Hct 46.3, MCV 90.4, MCH 31.1, MCHC 34.3, RDW 13.0, RDW Differential 42.8, Plt Count 205, MPV 12.5 H, Immature Gran % (Auto) 0.100, Neut % (Auto) 75.8 H, Lymph % (Auto) 15.7 L, [place] % (Auto) 7.6, Eos % (Auto) 0.7, Baso % (Auto) 0.1, Absolute Neuts (auto) 9.5 H, Absolute Lymphs (auto) 1.97, Total Counted Not Reportable 10/05/18 18:35: Sodium 138, Potassium 3.9, Chloride 103, Carbon Dioxide 29.0, Anion Gap 6, BUN 26 H, Creatinine 1.67 H, Estim Creat Clear Calc 21.48, Est GFR (MDRD) Af Amer 38 L, Est GFR (MDRD) Non-Af 31 L, BUN/Creatinine Ratio 15.6, Glucose 105, Calcium 8.8 10/06/18 05:30: WBC 15.2 H, RBC 4.20, Hgb 12.6, Hct 38.4, MCV 91.4, MCH 30.0, MCHC 32.8, RDW 13.1, RDW Differential 43.8, Plt Count 104 L, MPV 11.7, Immature Gran % (Auto) 0.300, Neut % (Auto) 95.0 H, Lymph % (Auto) 1.8 L, [place] % (Auto) 2.8, Eos % (Auto) 0.1, Baso % (Auto) 0.0, Absolute Neuts (auto) 14.5 H, Absolute Lymphs (auto) 0.28 L, Total Counted Not Reportable 10/06/18 05:30: Sodium 143, Potassium 4.0, Chloride 109 H, Carbon Dioxide 24.0, Anion Gap 10, BUN 32 H, Creatinine 2.00 H, Estim Creat Clear Calc 17.94, Est GFR (MDRD) Af Amer 31 L, Est GFR (MDRD) Non-Af 25 L, BUN/Creatinine Ratio 16.0, Glucose 91, Calcium 7.3 L 10/06/18 05:30: TSH 0.73 Diagnostic Data Abdomen/Pelvis CT 10/05/18 18:13 IMPRESSION: 1. Moderate left-sided hydronephrosis and hydroureter secondary to proximal ureteral calculus. 2. Colonic diverticulosis. 3. Hiatal hernia. Electronically Signed: Aurea Madrid MD at 19:56 EST , Service support , Current Medications Fluticasone Propionate (Flonase Nasal [place]) 1 spray NASAL DAILY [facility] Last Admin: 10/06/18 08:43 Dose: 1 spray Gabapentin (Neurontin) 100 mg PO TIDCM [facility] Last Admin: 10/06/18 08:30 Dose: Not Given Heparin Sodium (Porcine) (Heparin Na) 5,000 unit SC Q12 [facility] Last Admin: 10/06/18 08:30 Dose: Not Given Sodium Chloride () 1,000 mls @ 100 mls/hr IV .Q10H [facility] Stop: 10/06/18 20:48 Last Admin: 10/05/18 22:58 Dose: 100 mls/hr Ceftriaxone Sodium (Rocephin) 1 gm in 50 mls @ 100 mls/hr IV Q12 [facility] Last Admin: 10/06/18 10:47 Dose: 100 mls/hr Sodium Chloride () 1,000 mls @ 999 mls/hr IV .Q1H1M [facility] Stop: 10/06/18 11:56 Levothyroxine Sodium (Synthroid) 50 mcg PO DAILY@0600 [facility] Last Admin: 10/06/18 06:14 Dose: 50 mcg Magnesium Hydroxide (Milk Of Magnesia) 30 ml PO DAILY PRN PRN PRN Reason: Constipation Morphine Sulfate () 1 - 2 mg IV Q4H PRN PRN PRN Reason: PAIN Last Admin: 10/06/18 06:05 Dose: 2 mg Multivitamins/Minerals (Healthy Eyes) [facility] Ondansetron HCl (Zofran) 4 mg IV Q6H PRN PRN PRN Reason: NAUSEA/VOMITING Pantoprazole Sodium (Protonix) 40 mg PO DAILY [facility] Pravastatin Sodium (Pravachol) 20 mg PO QHS [facility] Sodium Chloride () 5 - 30 ml IV UD PRN PRN Reason: SALINE FLUSH Last Admin: 10/06/18 06:05 Dose: 10 ml Medical Necessity - Tobacco Use Smoking Status: Never smoker Assessment/Plan All Active Problems (Last Reviewed 10/05/18 @ 22:38 by Ramon Cash MD) Ureteral calculus, left (Acute) HUGO (acute kidney injury) (Acute) 1. Septic shock due to infected left ureteric calculi and possible pyelonephritis * Patient's temperature has peaked 9 9.6 Fahrenheit today she had had a low- grade fever since admission. She is also tachycardic and white cell count trended up from 12.6 on admission yesterday to 15.2 today. * Patient went into shock today with blood pressure going as low as 53/37. * blood cultures x 2 ordered; urine culture pending * SIRS criteria is 2/4 (tachycardia and leucocytosis) * started on IV ceftriaxone 1gram q12 this morning * will hydrate with IVF NS @ 30cc/kg/hr per sepsis protocol. * Stat lactic acid ordered. Will transfer to ICU emergently * May need broadening of antibiotic coverage. * Consult health care consultant * May require pressors for hemodynamic support * 2. Left ureteric calculi with left hydronephrosis and hydroureter * diagnosed per abdominopelvic CT- showed left 8.7mm ureteric stone * Currently n.p.o. Aspirin on hold. On IV fluids, IV Zofran IV morphine. * Discussed with urology, neurology had wanted to take it down for stent today. I however discussed with Dr. Cash that patient was quite unstable and would need to be stabilized before any surgical intervention. * urology on board * 3. HUGO likely pre-renal due to septic shock * 0.6 on admission at trended up to 2. Baseline is around 1.1. * Being hydrated as under 1. * will monitor kidney function; will get urine electrolytes * 4. Hypertension * on aldactone and metoprolol. WIll hold BP meds o/a of septic shock * 5. Hyperlipidemia: on pravastatin 6. Hypothyroidism; on synthroid 7. CAD: stable. On aspirin and statin. 8. Osteoporosis: on denosumab 8. DVT prophylaxis: heparin GI prophylaxis: on lansoprazole Code Visit Inpatient E&M: [id number] [facility] Hosp L3
--- NOTE | 2018-10-06 11:29 | NURSING ---
Called report to Carole MIRANDA in ICU at 1100.
--- NOTE | 2018-10-06 12:11 | RAD_ITS ---
STUDY: X-RAY CHEST REASON FOR EXAM: Female, 82 years old. Central line placement. TECHNIQUE: Single AP portable view of the chest. COMPARISON: Comparison is made with prior examination of December 24, 2016. FINDINGS: A right-sided central line has been placed. The tip is at the junction of the superior vena cava and right atrium. EKG electrodes are seen. There is blunting of the left costophrenic angle with left basilar atelectasis and/or infiltrate. This is new as compared to prior study. There is borderline cardiomegaly. Normal mediastinum and naheed. Normal visualized pulmonary arteries. There is atherosclerotic tortuosity of the aortic arch and descending thoracic aorta. Normal visualized thoracic spine. Normal visualized ribs, clavicles, and shoulders. There is no demonstrated abnormality of the visualized soft tissue structures of the upper abdomen. RAD/CXR for Line Placement IMPRESSION: The tip of the right central line is at the junction of the superior vena cava and right atrium. Pleural parenchymal changes at the left lung base suggestive of either atelectasis and/or early infiltrate. Follow-up is recommended. Electronically Signed: Garry aDlal MD at 12:58 EST Tel [phone], Service support ,
[2018-10-06 12:34] LABS: Lactic Acid 2.3 mmol/L (0.4-2.0)
[2018-10-06 13:00] LABS: International Normalized Ratio 1.4; Prothrombin Time (Protime)PT. 17.2 SECONDS (11.7-14.9)
[2018-10-06 13:02] LABS: Partial Thromboplast Time 54.9 Seconds (24.1-36.2)
--- NOTE | 2018-10-06 13:20 | CASEMGMT ---
LW/POA forms in echart. SW printed forms, placed in chart. LUISA Herrera, GRAIN WEIGHER
--- NOTE | 2018-10-06 14:48 | NURSING ---
[id number] B[address] RE[address]IVEN TO DR RODRIGUEZ AND OR NURSE TAKING PATIENT TO OR AT THIS TIME
[2018-10-06] MEDS: Lidocaine Jelly 2% 20 ML Syringe (URO-JET) 20 APPLIC (15:00)
--- NOTE | 2018-10-06 15:00 | CON.PCM_ITS ---
Problem List (1) Septic shock Status: Acute (2) Ureteral calculus, left Status: Acute (3) HUGO (acute kidney injury) Status: Acute (4) Palpitation Status: Chronic (5) Nonrheumatic mitral (valve) insufficiency Status: Chronic (6) Non-rheumatic tricuspid valve insufficiency Status: Chronic (7) Hyperlipidemia Status: Chronic (8) Hypertension Status: Chronic Reason for Consult Date of Consultation: 10/06/18 Reason for Consultation: Septic shock History of Present Illness: The patient is a 82 year old F, with past medical history listed below, who presented to [facility] on 10/05/2018 secondary to flank pain. Patient reportedly had a sudden onset of left flank pain at 130 on the day of presentation. This was followed by nausea and vomiting. There is no dysuria or fever reported. Patient had called her primary care physician, but was sent to the ER for evaluation. While in the emergency room, patient was noted to have left CVA tenderness. Leukocytosis of 12.9 and an elevated creatinine of 1.67, baseline 1 and a hemoglobin of 15. CT scan of the abdomen had shown an 8.7 mm proximal left ureteral stone with hydroureter and hydronephrosis. Patient was admitted to the regular medical floor and initiated on antibiotics. This morning, patient was noted to have progressive hypotension. Patient had received fluid boluses, but persisted and hypotension. Patient was transferred to the intensive care unit. On my evaluation, patient reported that her pain was still present and unchanged. Patient denied any hematuria, nausea or vomiting. Patient did state that she had some numbness of her left hand, but no change in muscle strength. Given patient's persistent hypotension, a right IJ was inserted and patient was initiated on Levophed therapy. Did discuss with patient's son and significant other at the bedside. Past Medical History Past Medical History (Chronic Problems): Chronic Problems (Last Reviewed 10/05/18 @ 22:38 by Ramon Cash MD) Palpitation (Chronic) Nonrheumatic mitral (valve) insufficiency (Chronic) Non-rheumatic tricuspid valve insufficiency (Chronic) Hyperlipidemia (Chronic) Hypertension (Chronic) Medical History: Medical History (Last Reviewed 10/05/18 @ 22:38 by Ramon Cash MD) Nonrheumatic mitral (valve) insufficiency (Chronic) I34.0 Non-rheumatic tricuspid valve insufficiency (Chronic) I36.1 Hyperlipidemia (Chronic) E78.5 Hypertension (Chronic) I10 IBS (irritable bowel syndrome) K58.9 Ureteral reflux N13.70 History of hysterectomy Z90.710 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 Allergies codeine Allergy (Verified 10/05/18 17:56) Rash hydrocodone bitartrate [From Vicodin] Adverse Reaction (Verified 10/05/18 17:56) Nausea meperidine HCl [From Demerol] Adverse Reaction (Verified 10/05/18 17:56) Nausea oxycodone HCl [From Percocet] Adverse Reaction (Verified 10/05/18 17:56) Nausea Home Medications: Ambulatory Orders Medication Instructions Recorded Fluticasone 0.05% [Flonase Nasal 1 spray NARES DAILY 12/29/14 [place]] Lansoprazole [Prevacid] 30 mg PO DAILY 12/29/14 Levothyroxine [Synthroid] 50 mcg PO DAILY 12/29/14 Vit A/Vit C/Vit E/Zinc/Copper 1 ea PO DAILY 06/09/15 [Preservision Areds Softgel] Aspirin 81 mg PO QHS 08/28/16 denosumab 60 mg/mL subcutaneous 60 mg SC [id number] 06/25/18 syringe flaxseed oil 1,000 mg capsule 1,000 mg PO QDAY 06/25/18 magnesium oxide 400 mg (241.3 mg 400 mg PO QDAY tab 06/25/18 magnesium) tablet omega-3 fatty acids 1,000 mg 1,000 mg PO QDAY 06/25/18 capsule pravastatin 20 mg tablet 20 mg PO QHS 06/25/18 Calcium Citrate/Vitamin D3 1 each PO BID 10/05/18 [Citracal-Vit D3 200 mg-250 Tab] Cholecalciferol (Vitamin D3) 1,000 unit PO BID 10/05/18 [Vitamin D3] Cyanocobalamin [Vitamin B12] 1,000 mcg PO DAILY@0800 10/05/18 Gabapentin [Neurontin] 100 mg PO TIDCM 10/05/18 Metoprolol(XL)Succ [Toprol Xl 50 mg PO DAILY 10/05/18 (Beta Bhavana)] Spironolactone [Aldactone] 50 mg PO DAILY 10/05/18 Surgical History: Surgical History (Last Reviewed 10/05/18 @ 22:38 by Ramon Cash MD) History of ERCP Z98.890 History of appendectomy Z90.49 History of back surgery Z98.890 History of bilateral knee replacement Z96.653 History of partial thyroidectomy Z98.890 History of tonsillectomy and adenoidectomy Z98.890 Hx of cholecystectomy Z90.49 Surgical History: total knee arthroplasty Lives: Spouse/ Significant Other Smoking Status: Never smoker Alcohol: Occasional - *Family History Maternal Family History: Family History (Last Reviewed 10/05/18 @ 22:38 by Ramon Cash MD) Father Heart disease Aunt Heart disease Grandfather Heart disease Grandmother Heart disease Mother Cancer Review of Systems Comment: Review of systems otherwise negative x10 systems Patient Problems: Active and Suspected Problems (Last Reviewed 10/05/18 @ 22:38 by Ramon Cash MD) Ureteral calculus, left (Acute) HUGO (acute kidney injury) (Acute) Septic shock (Acute) Objective: All imaging was personally reviewed. Agree with formal interpretation. Central line note After confirmation of informed consent both IJ's were visualized using ultrasound guidance. The right was chosen. Area was prepped in a sterile fashion. Localized IJ using ultrasound and cannulated using a modified Seldinger technique under direct supervision with ultrasound. Nonpulsatile dark blood was noted. Central line was placed and return was noted from all ports. Central line was secured using 2 interrupted silk sutures. Placement was verified using chest x-ray and no complications including pneumothorax. Nurse was informed of okay to use. - Physical Exam General: Alert, Oriented x3, Cooperative, No apparent distress, Well developed, Well nourished, - - Appears stated age. No conversational dyspnea. HEENT: Atraumatic, PERRLA, EOMI, Normocephalic, - - No scleral icterus or injection noted. Oral: Moist Mucosa, No Gingival or Mucosal Lesions/ Ulcerations Neck: Supple, No JVD, No Nodes, Trachea Midline Lungs: No rhonchi, No wheeze, No rales, Diminished, - - Symmetric expansion. No dullness to percussion. Cardiovascular: Regular rate, Regular Rhythm, Normal S1, Normal S2, No murmurs, No rub noted, No Gallop Abdomen: Bowel Sounds Present, Soft, Non-Distended, Tender - Left flank Extremities: No clubbing, No cyanosis, No edema, Capillary Refill Less than 3 Seconds Skin: No rashes, No breakdown Musculoskeletal: No Tenderness to Palpation of Joints or Extremities Lymphatic: No Cervical, Supraclavicular, or Inguinal Adenopathy Neurological: Cranial nerves II-XII grossly intact, Neuro grossly intact, Motor Exam 5/5 strength throughout Psych/Mental Status: Alert and oriented to time, place, person, mood and affect Vital Signs Temp Pulse Resp BP Pulse Ox 36.9 C 94 16 87/60 L 94 10/06/18 13:05 10/06/18 14:45 10/06/18 14:05 10/06/18 14:45 10/06/18 14:32 Oxygen Flow Rate (L/min) 5 Oxygen Delivery Method Nasal Cannula Weight: 79.3 kg Body Mass Index (BMI) 30.9 Orthostatic Vital Signs Start: 10/06/18 03:24 Freq: q24h Status: Active Protocol: Activity Type Activity Date Activity User E-Sign Co-Sign Detail Recorded Client Recorded Date Recorded By Document 10/06/18 03:26 MM [id number] 10/06/18 03:27 MM 10/06/18 03:26 Orthostatic Vitals Standing -Blood Pressure (90/60-120/80) 87/56 L -Extremity Use Right Arm -Pulse Rate (60-100) 97 Sitting -Blood Pressure (90/60-120/80) 80/51 L -Extremity Use Right Arm -Pulse Rate (60-100) 94 Lying -Blood Pressure (90/60-120/80) 74/44 L -Extremity Use Right Arm -Pulse Rate (60-100) 91 Intake and Output for Last 24 Hours 10/04/18 10/05/18 10/06/18 23:59 23:59 23:59 Intake Total 591 / 591 4863 / 4863 Output Total 100 / 100 100 / 100 Balance 491 / 491 4763 / 4763 Laboratory Tests Past 24 Hrs 10/05/18 10/05/18 10/05/18 18:22 18:35 18:35 WBC 12.6 H RBC 5.12 Hgb 15.9 H Hct 46.3 MCV 90.4 MCH 31.1 MCHC 34.3 RDW 13.0 RDW Differential 42.8 Plt Count 205 MPV 12.5 H Immature Gran % (Auto) 0.100 Neut % (Auto) 75.8 H Lymph % (Auto) 15.7 L [place] % (Auto) 7.6 Eos % (Auto) 0.7 Baso % (Auto) 0.1 Absolute Neuts (auto) 9.5 H Absolute Lymphs (auto) 1.97 Total Counted Not Reportable PT INR APTT Sodium 138 Potassium 3.9 Chloride 103 Carbon Dioxide 29.0 Anion Gap 6 BUN 26 H Creatinine 1.67 H Estim Creat Clear Calc 21.48 Est GFR (MDRD) Af Amer 38 L Est GFR (MDRD) Non-Af 31 L BUN/Creatinine Ratio 15.6 Glucose 105 Lactic Acid Calcium 8.8 TSH Urine Color Yellow Urine Clarity Sl. Cloudy Urine pH 6.5 Ur Specific [place] 1.015 Urine Protein 15 H Urine Glucose (UA) Normal Urine Ketones 5 H Urine Occult Blood 150 H Urine Nitrite Negative Urine Bilirubin Negative Urine Urobilinogen 1 H Ur Leukocyte Esterase 500 H Urine RBC 0-5 SEEN Urine WBC 10-25 SEEN Ur Squamous Epith Cells 0-5 SEEN Urine Bacteria RARE Urine Mucus 0 SEEN 10/06/18 10/06/18 10/06/18 05:30 05:30 05:30 WBC 15.2 H RBC 4.20 Hgb 12.6 Hct 38.4 MCV 91.4 MCH 30.0 MCHC 32.8 RDW 13.1 RDW Differential 43.8 Plt Count 104 L MPV 11.7 Immature Gran % (Auto) 0.300 Neut % (Auto) 95.0 H Lymph % (Auto) 1.8 L [place] % (Auto) 2.8 Eos % (Auto) 0.1 Baso % (Auto) 0.0 Absolute Neuts (auto) 14.5 H Absolute Lymphs (auto) 0.28 L Total Counted Not Reportable PT INR APTT Sodium 143 Potassium 4.0 Chloride 109 H Carbon Dioxide 24.0 Anion Gap 10 BUN 32 H Creatinine 2.00 H Estim Creat Clear Calc 17.94 Est GFR (MDRD) Af Amer 31 L Est GFR (MDRD) Non-Af 25 L BUN/Creatinine Ratio 16.0 Glucose 91 Lactic Acid Calcium 7.3 L TSH 0.73 Urine Color Urine Clarity Urine pH Ur Specific [place] Urine Protein Urine Glucose (UA) Urine Ketones Urine Occult Blood Urine Nitrite Urine Bilirubin Urine Urobilinogen Ur Leukocyte Esterase Urine RBC Urine WBC Ur Squamous Epith Cells Urine Bacteria Urine Mucus 10/06/18 10/06/18 11:50 12:30 WBC RBC Hgb Hct MCV MCH MCHC RDW RDW Differential Plt Count MPV Immature Gran % (Auto) Neut % (Auto) Lymph % (Auto) [place] % (Auto) Eos % (Auto) Baso % (Auto) Absolute Neuts (auto) Absolute Lymphs (auto) Total Counted PT 17.2 H INR 1.4 APTT 54.9 H Sodium Potassium Chloride Carbon Dioxide Anion Gap BUN Creatinine Estim Creat Clear Calc Est GFR (MDRD) Af Amer Est GFR (MDRD) Non-Af BUN/Creatinine Ratio Glucose Lactic Acid 2.3 H Calcium TSH Urine Color Urine Clarity Urine pH Ur Specific [place] Urine Protein Urine Glucose (UA) Urine Ketones Urine Occult Blood Urine Nitrite Urine Bilirubin Urine Urobilinogen Ur Leukocyte Esterase Urine RBC Urine WBC Ur Squamous Epith Cells Urine Bacteria Urine Mucus Clinical Impression(s) from Imaging Studies Abdomen/Pelvis CT 10/05/18 18:13 IMPRESSION: 1. Moderate left-sided hydronephrosis and hydroureter secondary to proximal ureteral calculus. 2. Colonic diverticulosis. 3. Hiatal hernia. Electronically Signed: Aurea Madrid MD at 19:56 EST , Service support , Chest X-Ray 10/06/18 12:11 IMPRESSION: The tip of the right central line is at the junction of the superior vena cava and right atrium. Pleural parenchymal changes at the left lung base suggestive of either atelectasis and/or early infiltrate. Follow-up is recommended. Electronically Signed: Garry Dalal MD at 12:58 EST Tel [phone], Service support , Assessment/Plan Active and Suspected Problems (Last Reviewed 10/05/18 @ 22:38 by Ramon Cash MD) Ureteral calculus, left (Acute) HUGO (acute kidney injury) (Acute) Septic shock (Acute) RECOMMENDATIONS: 1. Limit fluid resuscitation 2. Continue Levophed as necessary 3. Wean oxygen as tolerated 4. Surgical stent placement to relieve obstruction 5. Potential BiPAP rescue 6. Empiric antibiotics IMPRESSIONS: 1. Septic shock secondary to obstructive uropathy She is currently on empiric ceftriaxone. Patient does not have any recent antibiotics that would suggest resistance pattern. Patient has received 30 cc/kg fluid resuscitation. Patient has been placed on pressor therapy. Lactate is slightly elevated and will need to be repeated. Patient is starting to have some rales on exam, so will attempt to hold on continued aggressive fluid res uscitation. 2. Acute kidney injury secondary to septic shock and obstructive uropathy Since baseline creatinine is approximately 1. Patient does have an obstructive uropathy on the left and decreased blood pressure. We will continue to monitor. Patient does not have any indication for renal replacement therapy at this time, but this will need to be followed closely. Patient does have an indwelling Escobar for monitoring urine output. 3. Possible congestive heart failure/CAD Patient has received significant fluids today, but appears to be developing rales on exam. Patient had an echocardiogram in 2014 that showed no significant issues. Will repeat echocardiogram for evaluation of possible congestive heart failure. EKG showed no ST elevations. 4. Elevated PTT Unclear etiology. Patient does not report using anticoagulants at baseline. Patient has had a significant drop in platelets. Will need to monitor for DIC given patient's septic shock. 5. Hypertension/hypothyroidism/osteoporosis/advanced age Complicates care, management, recovery and prognosis. Hold antihypertensive medications given acute status. TIME: 45 minutes critical care time spent addressing patient's septic shock, acute kidney injury, elevated PTT, review of all data and collaboration with care team (11 AM to 3 PM) Code Visit [id number]: [id number] Critical care first hour
[2018-10-06 15:05] LABS: Reflex Lactate? N
--- NOTE | 2018-10-06 15:21 | OP.PCM_ITS ---
Report of Operation Date of Procedure: 10/06/18 Pre-Operative Diagnosis: Left obstructing ureteral calculi with hydronephrosis septic shock, sepsis from stone Post-Operative Diagnosis: Same Surgery/Procedure Performed:: Cystoscopy and left stent placement Description of Surgical Findings:: 82-year-old female presented to the hospital with severe left flank pain from a stone that was causing obstruction in the mid left ureter she is clinically stable and admitted, was admitted for pain control and was put on the schedule for the following day for ureteroscopy and laser however in the morning she spiked a high fever blood pressure dropped she was transferred to the ICU stabilized at this point we decided to place a stent in the left side to unobstruct the kidney and want to treat the stone at a later setting. 82-year-old female taken back to the operating room after induction of MAC local anesthesia catheter was removed I then went into the bladder with a 21 [place] rigid cystourethroscope, and then placed lidocaine jelly into the bladder, I then went into the bladder with a 21 [place] rigid cystourethroscope, I advanced a wire up the left ureter with a Glidewire and then over the Glidewire advanced a stent 6 [place]ian by 26 cm stent pulled the wire and the stent coiled in the kidney bladder good position we then placed the catheter back in the patient's bladder and her anesthesia is being reversed and she is clinically stable she will be transferred back to the ICU. Type of Anesthesia:: Local MAC - Admit VTE Documentation VTE Present on Admission: No
[2018-10-06] MEDS: Gabapentin 100 MG Capsule PO (16:31)
[2018-10-06] MEDS: fentaNYL 100 MCG/2 ML Ampul 50 MCG IV (16:31)
[2018-10-06] MEDS: Pravastatin 20 MG Tablet PO (21:25)
[2018-10-06] MEDS: Heparin Injection (Vial) 5,000 UNIT/ML VIAL 5000 UNIT SC (21:26)
[2018-10-06] MEDS: Piperacil/Tazobactam 3.375 GM/50 ML ML IV (21:26)
[2018-10-06 22:17] LABS: Reflex Lactate? Y
[2018-10-07] VITALS (42 sets, daily range): BP systolic 83–102; BP diastolic 49–79; PULSE 92–104; RESP 11–26; TEMP 36.8–37.7; O2SAT 7–98
[2018-10-07 00:28] LABS: Lactic Acid 2.4 mmol/L (0.4-2.0)
[2018-10-07 04:31] LABS: Hematocrit 38.4 % (37-47); Hemoglobin 12.9 g/dl (12.0-15.0); Mean Corp Hgb Conc 33.6 g/gl (32-36); Mean Corpuscular Hgb 31.2 pg (27.0-32.0); Mean Corpuscular Volume 92.8 fL (81-99); Mean Platelet Vol. 11.9 fl (6.2-12.0); Platelet Count 76 K/mm3 (150-450); RBC Distribution Width CV 13.8 % (11.6-14.6); RBC Distribution Width SD 46.1 fl (35.1-43.9); Red Blood Count 4.14 M/mm3 (4.2-5.4); White Blood Count 24.5 K/mm3 (4.4-11.0)
[2018-10-07 04:43] LABS: BUN 37 mg/dL (7-18); Creatinine, Serum 1.82 mg/dL (0.55-1.02); Estimated Creatinine Clearance 19.71 ml/min; Glucose 59 mg/dL (74-106)
[2018-10-07 04:44] LABS: Anion Gap 10 (5-15); BUN/Creat Ratio 20.3 RATIO (10-20); Calcium,Total 6.7 mg/dL (8.5-10.1); Chloride 110 mmol/L (98-107); EST Glomerular Filtration Rate 28 mL/min (>60); Est Glom Filt Rate - Afr Amer 34 mL/min (>60); Potassium 4.5 mmol/L (3.5-5.1); Sodium Level 141 mmol/L (136-145)
[2018-10-07 05:21] LABS: Differential Indicated MANUAL DIFF; POSITIVE COUNT YES; POSITIVE DIFFERENTIAL YES; POSITIVE MORPHOLOGY YES
[2018-10-07 05:33] LABS: Lymphocyte 8 % (19-41); Metamyelocyte 7 % (0-1); Monocyte 4 % (0-10); Neutrophil-Band 33 % (0-5); Neutrophil-Segmented 48 % (47-70); Total Cells Counted 100 (MANUAL DIFF)
[2018-10-07 05:36] LABS: Absolute Lymphocyte Count 1.96 X10^3/ul (0.83-4.51); Absolute Neutrophil Count 21.6 X10^3/uL (2.0-7.7)
[2018-10-07 05:39] LABS: Platelet Estimate MOD DEC (ADEQ)
[2018-10-07 05:42] LABS: Red Cell Morphology NORM C+C NORMAL (NORM C&C)
[2018-10-07] MEDS: Levothyroxine 50 MCG Tablet PO (06:24)
[2018-10-07] MEDS: Acetaminophen 325 MG Tablet 650 MG PO ×2 (06:35→17:05)
[2018-10-07 06:40] LABS: Bedside Glucose 60 mg/dL (70-110)
--- NOTE | 2018-10-07 07:25 | PCM.PN.HOSP ---
Patient Problems: Active and Suspected Problems (Last Reviewed 10/05/18 @ 22:38 by Ramon Cash MD) Ureteral calculus, left (Acute) HUGO (acute kidney injury) (Acute) Septic shock (Acute) Subjective: Patient was seen and examined. Blood pressure is slightly improved; remains on low-dose Levophed. She feels improved. Complains of left lower quadrant pain. Denies fever or chills. 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s from yesterday growing gram-negative therese lactose spoon maker, repeat blood cultures are pending Objective: General: Alert, Oriented x3, Cooperative HEENT: Atraumatic, PERRLA, EOMI, Normocephalic Oral: Dry Mucosa Neck: Supple, No JVD, Negative Carotid Bruits Lungs: Clear to auscultation, Normal air movement, No rhonchi, No wheeze, No rales Cardiovascular: Regular rate, Regular Rhythm, Normal S1, Normal S2, No murmurs Abdomen: Bowel Sounds Present, Soft, Non-Distended, No Hepato-splenomegaly, - - moderate right lower quadrant tenderness, with guarding but no RBT Extremities: No edema Skin: No rashes, No breakdown Musculoskeletal: No Tenderness to Palpation of Joints or Extremities Lymphatic: No Cervical, Supraclavicular, or Inguinal Adenopathy Neurological: Cranial nerves II-XII grossly intact, Neuro grossly intact, Motor Exam 5/5 strength throughout Psych/Mental Status: Normal Affect, Appropriate, Alert and oriented to time, place, person, mood and affect Vitals/I&O's: Vital Signs Temp Pulse Resp BP Pulse Ox 98.9 F 98 15 99/58 L 97 10/07/18 07:00 10/07/18 07:00 10/07/18 07:00 10/07/18 07:00 10/07/18 07:00 Oxygen Flow Rate (L/min) 2 Oxygen Delivery Method Nasal Cannula Weight: 79.3 kg Body Mass Index (BMI) 30.9 Finger Stick Blood Glucose 60 Orthostatic Vital Signs Start: 10/06/18 03:24 Freq: q24h Status: Active Protocol: Activity Type Activity Date Activity User E-Sign Co-Sign Detail Recorded Client Recorded Date Recorded By Document 10/06/18 03:26 MM [id number] 10/06/18 03:27 MM 10/06/18 03:26 Orthostatic Vitals Standing -Blood Pressure (90/60-120/80 mm Hg) 87/56 L -Extremity Use Right Arm -Pulse Rate (60-100 beats/min) 97 Sitting -Blood Pressure (90/60-120/80 mm Hg) 80/51 L -Extremity Use Right Arm -Pulse Rate (60-100 beats/min) 94 Lying -Blood Pressure (90/60-120/80 mm Hg) 74/44 L -Extremity Use Right Arm -Pulse Rate (60-100 beats/min) 91 Intake and Output for Last 24 Hours 10/05/18 10/06/18 10/07/18 23:59 23:59 23:59 Intake Total 591 / 591 5343 / 5343 471.6 / 471.6 Output Total 100 / 100 650 / 650 695 / 695 Balance 491 / 491 4693 / 4693 -223.4 / -223.4 Microbiology Past 72 Hours 10/06/18 09:01 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 (Wb) - Left Wrist 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 - Preliminary 10/06/18 09:01 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 (Wb) - Right Hand 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 - Preliminary Laboratory Results 10/06/18 05:30: TSH 0.73 10/06/18 11:50: Lactic Acid 2.3 H 10/06/18 12:30: PT 17.2 H, INR 1.4, APTT 54.9 H 10/06/18 16:15: Lactic Acid 2.0 10/06/18 23:40: Lactic Acid 2.4 H 10/07/18 04:00: WBC 24.5 H, RBC 4.14 L, Hgb 12.9, Hct 38.4, MCV 92.8, MCH 31.2, MCHC 33.6, RDW 13.8, RDW Differential 46.1 H, Plt Count 76 L, MPV 11.9, Neut % (Auto) Not Reportable, Absolute Neuts (auto) 21.6 H, Absolute Lymphs (auto) 1.96, Total Counted 100, Neutrophils % (Manual) 48, Band Neutrophils % 33 H, Lymphocytes % (Manual) 8 L, Monocytes % (Manual) 4, Metamyelocytes % 7 H, Diff Path Review March, Platelet Estimate MOD DEC, RBC Morphology NORM C+C 10/07/18 04:00: Sodium 141, Potassium 4.5, Chloride 110 H, Carbon Dioxide 21.0, Anion Gap 10, BUN 37 H, Creatinine 1.82 H, Estim Creat Clear Calc 19.71, Est GFR (MDRD) Af Amer 34 L, Est GFR (MDRD) Non-Af 28 L, BUN/Creatinine Ratio 20.3 H, Glucose 59 L, Calcium 6.7 L 10/07/18 06:32: POC Glucose 60 L Current Medications Acetaminophen (Tylenol) 650 mg PO Q6H PRN PRN PRN Reason: Fever > 100.4 Last Admin: 10/07/18 06:35 Dose: 650 mg Fentanyl Citrate (Sublimaze (100mcg Ampule)) 50 mcg IV Q2H PRN PRN PRN Reason: PAIN Last Admin: 10/06/18 16:31 Dose: 50 mcg Fluticasone Propionate (Flonase Nasal [place]) 1 spray NASAL DAILY [facility] Last Admin: 10/06/18 08:43 Dose: 1 spray Gabapentin (Neurontin) 100 mg PO TIDCM [facility] Last Admin: 10/06/18 16:31 Dose: 100 mg Heparin Sodium (Porcine) (Heparin Na) 5,000 unit SC Q12 [facility] Last Admin: 10/06/18 21:26 Dose: 5,000 unit Norepinephrine Bitartrate 8 mg (/ Dextrose) 258 mls @ 9.68 mls/hr IV .[id number] [facility] Last Admin: 10/06/18 22:36 Dose: 9.68 mls/hr Sodium Chloride () 250 mls @ 15 mls/hr IV .[id number] PRN PRN Reason: SALINE FLUSH Sodium Chloride () 250 mls @ 15 mls/hr IV .[id number] PRN PRN Reason: SALINE FLUSH Piperacillin Sod/Tazobactam Sod (Zosyn) 3.375 gm in 50 mls @ 12.5 mls/hr IV Q12 [facility] Levothyroxine Sodium (Synthroid) 50 mcg PO DAILY@0600 [facility] Last Admin: 10/07/18 06:24 Dose: 50 mcg Magnesium Hydroxide (Milk Of Magnesia) 30 ml PO DAILY PRN PRN PRN Reason: Constipation Morphine Sulfate () 1 - 2 mg IV Q4H PRN PRN PRN Reason: PAIN Last Admin: 10/06/18 06:05 Dose: 2 mg Multivitamins/Minerals (Healthy Eyes) [facility] Last Admin: 10/06/18 11:30 Dose: Not Given Ondansetron HCl (Zofran) 4 mg IV Q6H PRN PRN PRN Reason: NAUSEA/VOMITING Pantoprazole Sodium (Protonix) 40 mg PO DAILY [facility] Last Admin: 10/06/18 11:30 Dose: Not Given Pravastatin Sodium (Pravachol) 20 mg PO QHS [facility] Last Admin: 10/06/18 21:25 Dose: 20 mg Sodium Chloride () 5 - 15 ml IV UD PRN PRN Reason: SALINE FLUSH Last Admin: 10/06/18 23:38 Dose: 10 ml Medical Necessity - Tobacco Use Smoking Status: Never smoker Assessment/Plan All Active Problems (Last Reviewed 10/05/18 @ 22:38 by Ramon Cash MD) Ureteral calculus, left (Acute) HUGO (acute kidney injury) (Acute) Septic shock (Acute) 82-year-old female with past medical history of hypertension, hyperlipidemia, hypothyroidism, CAD omitted with complaints of left flank pain and found to have a left ureteric calculus with left hydronephrosis. Patient subsequently developed hypotension and was admitted to ICU and managed as septic shock. She had cystoscopy and left stent removal done on 10/06/18. 1. Septic shock secondary to infected left ureteric calculi, blood cultures growing gram-negative rods, urine culture pending, WBC count remains high Being managed in ICU, on low-dose Levophed, critical care consulted, will continue on IV Zosyn, will monitor patient 2. Left ureteric calculi with left hydronephrosis/hydroureter, status post cystoscopy and left stent placement, monitor urine output 3. HUGO likely secondary to prerenal/post renal from renal calculus, slightly improved, Baseline creatinine from chart review is 1.0-1.2 Will continue to trend 4. Hypertension, now hypotensive from septic shock, blood pressure meds on hold 5. Thrombocytopenia, acute, drop in blood from 205 on 10/05/18 to 76, will hold Heparin for now, will monitor. 6. Hyperlipidemia, on statin 7. Hypothyroidism, on Synthroid 8. CAD, on aspirin and statin 9. Osteoporosis 10. DVT PPx- Heparin SC 11. GI prophylaxis - On PPI Code Visit Inpatient E&M: [id number] [facility] Hosp
--- NOTE | 2018-10-07 07:26 | PCM.PN.INT ---
Subjective: Patient did okay overnight. Patient has required flushing of her Escobar secondary to sediment a couple times overnight. Patient reports improvement subjectively, but still with body aches. No chest pain is been reported. Patient did report some dizziness this morning, but was found to be hypoglycemic. General: Alert, Oriented x3, Cooperative, No apparent distress, - - Obese. Speaking in full sentences. HEENT: Atraumatic, PERRLA, EOMI, Normocephalic, - - Slight scleral injection without icterus. Oral: No Gingival or Mucosal Lesions/ Ulcerations, Dry Mucosa Neck: Supple, No JVD, No Nodes, Trachea Midline Lungs: Clear to auscultation, Normal air movement, No rhonchi, No wheeze, No rales Cardiovascular: Regular rate, Regular Rhythm, Normal S1, Normal S2, No murmurs, No rub noted, No Gallop Abdomen: Bowel Sounds Present, Soft, Non Tender, Non-Distended, Obese Extremities: No clubbing, No cyanosis, Capillary Refill Less than 3 Seconds, Edema Skin: - - No significant change compared to previous Musculoskeletal: No Tenderness to Palpation of Joints or Extremities Lymphatic: No Cervical, Supraclavicular, or Inguinal Adenopathy Neurological: Cranial nerves II-XII grossly intact, Neuro grossly intact, Motor Exam 5/5 strength throughout Psych/Mental Status: Alert and oriented to time, place, person, mood and affect Vital Signs Temp Pulse Resp BP Pulse Ox 37.2 C 98 15 99/58 L 97 10/07/18 07:00 10/07/18 07:00 10/07/18 07:00 10/07/18 07:00 10/07/18 07:00 Oxygen Flow Rate (L/min) 2 Oxygen Delivery Method Nasal Cannula Weight: 79.3 kg Body Mass Index (BMI) 30.9 Finger Stick Blood Glucose 60 Orthostatic Vital Signs Start: 10/06/18 03:24 Freq: q24h Status: Active Protocol: Activity Type Activity Date Activity User E-Sign Co-Sign Detail Recorded Client Recorded Date Recorded By Document 10/06/18 03:26 MM [id number] 10/06/18 03:27 MM 10/06/18 03:26 Orthostatic Vitals Standing -Blood Pressure (90/60-120/80) 87/56 L -Extremity Use Right Arm -Pulse Rate (60-100) 97 Sitting -Blood Pressure (90/60-120/80) 80/51 L -Extremity Use Right Arm -Pulse Rate (60-100) 94 Lying -Blood Pressure (90/60-120/80) 74/44 L -Extremity Use Right Arm -Pulse Rate (60-100) 91 Intake and Output for Last 24 Hours 10/05/18 10/06/18 10/07/18 23:59 23:59 23:59 Intake Total 591 / 591 5343 / 5343 471.6 / 471.6 Output Total 100 / 100 650 / 650 695 / 695 Balance 491 / 491 4693 / 4693 -223.4 / -223.4 Labs (Last 48 Hours) 10/05/18 10/05/18 10/05/18 18:22 18:35 18:35 WBC 12.6 H RBC 5.12 Hgb 15.9 H Hct 46.3 MCV 90.4 MCH 31.1 MCHC 34.3 RDW 13.0 RDW Differential 42.8 Plt Count 205 MPV 12.5 H Immature Gran % (Auto) 0.100 Neut % (Auto) 75.8 H Lymph % (Auto) 15.7 L [place] % (Auto) 7.6 Eos % (Auto) 0.7 Baso % (Auto) 0.1 Absolute Neuts (auto) 9.5 H Absolute Lymphs (auto) 1.97 Total Counted Not Reportable Neutrophils % (Manual) Band Neutrophils % Lymphocytes % (Manual) Monocytes % (Manual) Metamyelocytes % Diff Path Review Platelet Estimate RBC Morphology PT INR APTT Sodium 138 Potassium 3.9 Chloride 103 Carbon Dioxide 29.0 Anion Gap 6 BUN 26 H Creatinine 1.67 H Estim Creat Clear Calc 21.48 Est GFR (MDRD) Af Amer 38 L Est GFR (MDRD) Non-Af 31 L BUN/Creatinine Ratio 15.6 Glucose 105 Lactic Acid Calcium 8.8 TSH Urine Color Yellow Urine Clarity Sl. Cloudy Urine pH 6.5 Ur Specific [place] 1.015 Urine Protein 15 H Urine Glucose (UA) Normal Urine Ketones 5 H Urine Occult Blood 150 H Urine Nitrite Negative Urine Bilirubin Negative Urine Urobilinogen 1 H Ur Leukocyte Esterase 500 H Urine RBC 0-5 SEEN Urine WBC 10-25 SEEN Ur Squamous Epith Cells 0-5 SEEN Urine Bacteria RARE Urine Mucus 0 SEEN POC Glucose 10/06/18 10/06/18 10/06/18 05:30 05:30 05:30 WBC 15.2 H RBC 4.20 Hgb 12.6 Hct 38.4 MCV 91.4 MCH 30.0 MCHC 32.8 RDW 13.1 RDW Differential 43.8 Plt Count 104 L MPV 11.7 Immature Gran % (Auto) 0.300 Neut % (Auto) 95.0 H Lymph % (Auto) 1.8 L [place] % (Auto) 2.8 Eos % (Auto) 0.1 Baso % (Auto) 0.0 Absolute Neuts (auto) 14.5 H Absolute Lymphs (auto) 0.28 L Total Counted Not Reportable Neutrophils % (Manual) Band Neutrophils % Lymphocytes % (Manual) Monocytes % (Manual) Metamyelocytes % Diff Path Review Platelet Estimate RBC Morphology PT INR APTT Sodium 143 Potassium 4.0 Chloride 109 H Carbon Dioxide 24.0 Anion Gap 10 BUN 32 H Creatinine 2.00 H Estim Creat Clear Calc 17.94 Est GFR (MDRD) Af Amer 31 L Est GFR (MDRD) Non-Af 25 L BUN/Creatinine Ratio 16.0 Glucose 91 Lactic Acid Calcium 7.3 L TSH 0.73 Urine Color Urine Clarity Urine pH Ur Specific [place] Urine Protein Urine Glucose (UA) Urine Ketones Urine Occult Blood Urine Nitrite Urine Bilirubin Urine Urobilinogen Ur Leukocyte Esterase Urine RBC Urine WBC Ur Squamous Epith Cells Urine Bacteria Urine Mucus POC Glucose 10/06/18 10/06/18 10/06/18 11:50 12:30 16:15 WBC RBC Hgb Hct MCV MCH MCHC RDW RDW Differential Plt Count MPV Immature Gran % (Auto) Neut % (Auto) Lymph % (Auto) [place] % (Auto) Eos % (Auto) Baso % (Auto) Absolute Neuts (auto) Absolute Lymphs (auto) Total Counted Neutrophils % (Manual) Band Neutrophils % Lymphocytes % (Manual) Monocytes % (Manual) Metamyelocytes % Diff Path Review Platelet Estimate RBC Morphology PT 17.2 H INR 1.4 APTT 54.9 H Sodium Potassium Chloride Carbon Dioxide Anion Gap BUN Creatinine Estim Creat Clear Calc Est GFR (MDRD) Af Amer Est GFR (MDRD) Non-Af BUN/Creatinine Ratio Glucose Lactic Acid 2.3 H 2.0 Calcium TSH Urine Color Urine Clarity Urine pH Ur Specific [place] Urine Protein Urine Glucose (UA) Urine Ketones Urine Occult Blood Urine Nitrite Urine Bilirubin Urine Urobilinogen Ur Leukocyte Esterase Urine RBC Urine WBC Ur Squamous Epith Cells Urine Bacteria Urine Mucus POC Glucose 10/06/18 10/07/18 10/07/18 23:40 04:00 04:00 WBC 24.5 H RBC 4.14 L Hgb 12.9 Hct 38.4 MCV 92.8 MCH 31.2 MCHC 33.6 RDW 13.8 RDW Differential 46.1 H Plt Count 76 L MPV 11.9 Immature Gran % (Auto) Neut % (Auto) Not Reportable Lymph % (Auto) [place] % (Auto) Eos % (Auto) Baso % (Auto) Absolute Neuts (auto) 21.6 H Absolute Lymphs (auto) 1.96 Total Counted 100 Neutrophils % (Manual) 48 Band Neutrophils % 33 H Lymphocytes % (Manual) 8 L Monocytes % (Manual) 4 Metamyelocytes % 7 H Diff Path Review May foll Platelet Estimate MOD DEC RBC Morphology NORM C+C PT INR APTT Sodium 141 Potassium 4.5 Chloride 110 H Carbon Dioxide 21.0 Anion Gap 10 BUN 37 H Creatinine 1.82 H Estim Creat Clear Calc 19.71 Est GFR (MDRD) Af Amer 34 L Est GFR (MDRD) Non-Af 28 L BUN/Creatinine Ratio 20.3 H Glucose 59 L Lactic Acid 2.4 H Calcium 6.7 L TSH Urine Color Urine Clarity Urine pH Ur Specific [place] Urine Protein Urine Glucose (UA) Urine Ketones Urine Occult Blood Urine Nitrite Urine Bilirubin Urine Urobilinogen Ur Leukocyte Esterase Urine RBC Urine WBC Ur Squamous Epith Cells Urine Bacteria Urine Mucus POC Glucose 10/07/18 06:32 WBC RBC Hgb Hct MCV MCH MCHC RDW RDW Differential Plt Count MPV Immature Gran % (Auto) Neut % (Auto) Lymph % (Auto) [place] % (Auto) Eos % (Auto) Baso % (Auto) Absolute Neuts (auto) Absolute Lymphs (auto) Total Counted Neutrophils % (Manual) Band Neutrophils % Lymphocytes % (Manual) Monocytes % (Manual) Metamyelocytes % Diff Path Review Platelet Estimate RBC Morphology PT INR APTT Sodium Potassium Chloride Carbon Dioxide Anion Gap BUN Creatinine Estim Creat Clear Calc Est GFR (MDRD) Af Amer Est GFR (MDRD) Non-Af BUN/Creatinine Ratio Glucose Lactic Acid Calcium TSH Urine Color Urine Clarity Urine pH Ur Specific [place] Urine Protein Urine Glucose (UA) Urine Ketones Urine Occult Blood Urine Nitrite Urine Bilirubin Urine Urobilinogen Ur Leukocyte Esterase Urine RBC Urine WBC Ur Squamous Epith Cells Urine Bacteria Urine Mucus POC Glucose 60 L Microbiology 10/06/18 09:01 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 (Wb) - Left Wrist 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 - Preliminary 10/06/18 09:01 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 (Wb) - Right Hand 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 - Preliminary Clinical Impression(s) from Imaging Studies Chest X-Ray 10/06/18 12:11 IMPRESSION: The tip of the right central line is at the junction of the superior vena cava and right atrium. Pleural parenchymal changes at the left lung base suggestive of either atelectasis and/or early infiltrate. Follow-up is recommended. Electronically Signed: Garry Dalal MD at 12:58 EST Tel [phone], Service support , Medical Necessity - Tobacco Use Smoking Status: Never smoker Assessment/Plan All Active Problems (Last Reviewed 10/05/18 @ 22:38 by Ramon Cash MD) Ureteral calculus, left (Acute) HUGO (acute kidney injury) (Acute) Septic shock (Acute) RECOMMENDATIONS: 1. Okay to advance p.o. diet 2. Wean Levophed as tolerated 3. Wean oxygen as tolerated 4. Escobar removal per urology 5. Continue empiric antibiotics IMPRESSIONS: 1. Septic shock secondary to obstructive uropathy Patient is currently on empiric Zosyn. Patient does not have any recent antibiotics that would suggest resistance pattern. Patient's pressor requirements has improved overnight. We will continue to wean as tolerated. Would continue to limit fluid boluses given patient's hypoxia overnight. We will continue to wean oxygen as tolerated. 2. Acute kidney injury secondary to septic shock and obstructive uropathy Since baseline creatinine is approximately 1. Patient does have an obstructive uropathy on the left and decreased blood pressure. We will continue to monitor. Stent placed yesterday. Patient has had a need for Escobar irrigation twice overnight. Defer to urology on removal of Escobar catheter. 3. Possible congestive heart failure/CAD Patient has received significant fluids today, but appears to be developing rales on exam. Patient had an echocardiogram in 2014 that showed no significant issues. Echocardiogram is currently pending. EKG showed no ST elevations. 4. Elevated PTT Unclear etiology. Patient does not report using anticoagulants at baseline. Patient has had a significant drop in platelets. Will need to monitor for DIC given patient's septic shock. 5. Hypertension/hypothyroidism/osteoporosis/advanced age/hypoglycemia Complicates care, management, recovery and prognosis. Hold antihypertensive medications given acute status. Unclear etiology of patient's hypoglycemia. Patient has responded to p.o. We will attempt to advance diet and see if this resolves lower blood sugars. TIME: 32 minutes critical care time spent addressing patient's septic shock, acute kidney injury, elevated PTT, review of all data and collaboration with care team (6 AM to 7:30 AM) Code Visit 9xxxx: [id number] Critical care first hour
[2018-10-07] MEDS: Piperacil/Tazobactam 3.375 GM/50 ML ML IV ×2 (10:38→21:25)
[2018-10-07] MEDS: Gabapentin 100 MG Capsule PO (10:38)
[2018-10-07] MEDS: Pantoprazole Sodium 40 MG Tablet PO (10:38)
[2018-10-07] MEDS: 0.9% NaCl Peripheral Flush Adult/Peds IV ×3 (10:39→20:31)
[2018-10-07] MEDS: oxyCODONE 5 MG Tablet PO (11:53)
[2018-10-07] MEDS: Ondansetron 4 MG/2 ML Vial IV ×2 (11:53→17:21)
[2018-10-07 13:04] LABS: Pathologist Review Reviewed
--- NOTE | 2018-10-07 13:06 | CASEMGMT ---
SW met with pt, dgt and significant other in room and completed assessment. Pt lives in single story home with significant other who does not work and is able to assist pt as needed. Prior to hospitalization pt was independent with ADLs and IADLS and is driving. Pt does go to [facility] [facility] 3x week and has not previously had HHS but has been in [facility] in the past. Pt has a shower chair, BSC, WW, and can but is not currently using DME. PCP is Dr. De La Cruz and she also sees Drs. Montilla, Isidro and Concetta (delphi developer). Pt does have a living will and a HC POA on record and pt confirms this information as correct. Pt plans to return to her home upon d/c from [facility]. Pt sig other can assist as needed and pt dgt from [place] is currently here and plans to stay with pt for short time as well. No d/c needs identified at this time. Pt aware that SW will remain available should needs arise. Plan: Home with significant other and daughter, no needs DEVAUGHN Pacheco
--- NOTE | 2018-10-07 17:33 | NURSING ---
PATIENT GIVEN GABAPENTIN AND TYLENOL MEDICATION. SEVERAL MINUTES LATER PATIENT VOMITED UP THE GABAPENTIN CAPSULE. ZOFRAN GIVEN.
[2018-10-07] MEDS: proMETHazine 25 MG/ML Syringe 6.25 MG IV (20:31)
[2018-10-07] MEDS: Pravastatin 20 MG Tablet PO (21:26)
[2018-10-08] VITALS (19 sets, daily range): BP systolic 86–119; BP diastolic 56–76; PULSE 93–106; RESP 11–18; TEMP 36.6–37; O2SAT 90–96
[2018-10-08 04:13] LABS: Absolute Neutrophil Count 18.5 X10^3/uL (2.0-7.7); Basophil# 0.02 X10^3/uL; Basophil% 0.1 % (0-1); Eosinophil# 0.02 X10^3/uL; Eosinophils% 0.1 % (0-5); Hematocrit 35.8 % (37-47); Hemoglobin 12.3 g/dl (12.0-15.0); Lymphocyte % 3.9 % (19-41); Mean Corp Hgb Conc 34.4 g/gl (32-36); Mean Corpuscular Hgb 31.3 pg (27.0-32.0); Mean Corpuscular Volume 91.1 fL (81-99); Monocyte# 0.62 X10^3/uL; Monocyte% 3.1 % (0-10); Neutrophil # 18.45 X10^3/uL (2.7-7.7); Neutrophil % 90.8 % (47-70); POSITIVE COUNT YES; POSITIVE DIFFERENTIAL NO; POSITIVE MORPHOLOGY YES; Platelet Count 71 K/mm3 (150-450); RBC Distribution Width CV 13.5 % (11.6-14.6); RBC Distribution Width SD 44.6 fl (35.1-43.9); Red Blood Count 3.93 M/mm3 (4.2-5.4); White Blood Count 20.3 K/mm3 (4.4-11.0)
[2018-10-08 04:14] LABS: Differential Indicated SCAN CRITERIA MET
[2018-10-08 04:46] LABS: Anion Gap 11 (5-15); BUN 32 mg/dL (7-18); BUN/Creat Ratio 24.6 RATIO (10-20); Calcium,Total 7.1 mg/dL (8.5-10.1); Chloride 111 mmol/L (98-107); EST Glomerular Filtration Rate 42 mL/min (>60); Est Glom Filt Rate - Afr Amer 50 mL/min (>60); Glucose 76 mg/dL (74-106); Magnesium 2.5 mg/dL (1.6-2.6); Phosphorus 1.8 mg/dL (2.5-4.9); Potassium 4.2 mmol/L (3.5-5.1); Sodium Level 144 mmol/L (136-145)
[2018-10-08] MEDS: Levothyroxine 50 MCG Tablet PO (05:20)
--- NOTE | 2018-10-08 07:10 | PN_ITS ---
Subjective: Patient did well overnight. Patient has been off of pressors since yesterday morning. Escobar has been removed. Patient is having polyuria, but denies dysuria. Mild clots have been noted per nursing, but patient states abdominal pain is much improved. Patient was noted to desaturate with sleep, so supplemental oxygen was added overnight. General: Alert, Oriented x3, Cooperative, No apparent distress, - - Obese. Speaking in full sentences. HEENT: Atraumatic, PERRLA, EOMI, Normocephalic Oral: Moist Mucosa, No Gingival or Mucosal Lesions/ Ulcerations Neck: Supple, No JVD, No Nodes, Trachea Midline Lungs: No rhonchi, No wheeze, No rales, Diminished, - - Symmetric expansion. No dullness to percussion. Cardiovascular: Regular rate, Regular Rhythm, Normal S1, Normal S2, No murmurs, No rub noted, No Gallop Abdomen: Bowel Sounds Present, Soft, Non Tender, Non-Distended, Obese Extremities: No clubbing, No cyanosis, Capillary Refill Less than 3 Seconds, Edema Skin: No rashes, No breakdown Musculoskeletal: No Tenderness to Palpation of Joints or Extremities Lymphatic: No Cervical, Supraclavicular, or Inguinal Adenopathy Neurological: Cranial nerves II-XII grossly intact, Neuro grossly intact, Motor Exam 5/5 strength throughout Psych/Mental Status: Alert and oriented to time, place, person, mood and affect Vital Signs Temp Pulse Resp BP Pulse Ox 37.0 C 96 15 106/62 96 10/08/18 00:00 10/08/18 06:00 10/08/18 06:00 10/08/18 06:00 10/08/18 06:00 Oxygen Flow Rate (L/min) 2 Oxygen Delivery Method Nasal Cannula Weight: 79.3 kg Body Mass Index (BMI) 30.9 Finger Stick Blood Glucose 60 Orthostatic Vital Signs Start: 10/06/18 03:24 Freq: q24h Status: Active Protocol: Activity Type Activity Date Activity User E-Sign Co-Sign Detail Recorded Client Recorded Date Recorded By Document 10/06/18 03:26 MM [id number] 10/06/18 03:27 MM 10/06/18 03:26 Orthostatic Vitals Standing -Blood Pressure (90/60-120/80) 87/56 L -Extremity Use Right Arm -Pulse Rate (60-100) 97 Sitting -Blood Pressure (90/60-120/80) 80/51 L -Extremity Use Right Arm -Pulse Rate (60-100) 94 Lying -Blood Pressure (90/60-120/80) 74/44 L -Extremity Use Right Arm -Pulse Rate (60-100) 91 Intake and Output for Last 24 Hours 10/06/18 10/07/18 10/08/18 23:59 23:59 23:59 Intake Total 5343 / 5343 995.1 / 995.1 138.2 / 138.2 Output Total 650 / 650 2620 / 2620 425 / 425 Balance 4693 / 4693 -1624.9 / -1624.9 -286.8 / -286.8 Labs (Last 48 Hours) 10/06/18 10/06/18 10/06/18 05:30 05:30 11:50 WBC 15.2 H RBC 4.20 Hgb 12.6 Hct 38.4 MCV 91.4 MCH 30.0 MCHC 32.8 RDW 13.1 RDW Differential 43.8 Plt Count 104 L MPV 11.7 Immature Gran % (Auto) 0.300 Neut % (Auto) 95.0 H Lymph % (Auto) 1.8 L [place] % (Auto) 2.8 Eos % (Auto) 0.1 Baso % (Auto) 0.0 Absolute Neuts (auto) 14.5 H Absolute Lymphs (auto) 0.28 L Total Counted Not Reportable Neutrophils % (Manual) Band Neutrophils % Lymphocytes % (Manual) Monocytes % (Manual) Metamyelocytes % Diff Path Review Platelet Estimate RBC Morphology PT INR APTT Sodium Potassium Chloride Carbon Dioxide Anion Gap BUN Creatinine Estim Creat Clear Calc Est GFR (MDRD) Af Amer Est GFR (MDRD) Non-Af BUN/Creatinine Ratio Glucose Lactic Acid 2.3 H Calcium Phosphorus Magnesium TSH 0.73 POC Glucose 10/06/18 10/06/18 10/06/18 12:30 16:15 23:40 WBC RBC Hgb Hct MCV MCH MCHC RDW RDW Differential Plt Count MPV Immature Gran % (Auto) Neut % (Auto) Lymph % (Auto) [place] % (Auto) Eos % (Auto) Baso % (Auto) Absolute Neuts (auto) Absolute Lymphs (auto) Total Counted Neutrophils % (Manual) Band Neutrophils % Lymphocytes % (Manual) Monocytes % (Manual) Metamyelocytes % Diff Path Review Platelet Estimate RBC Morphology PT 17.2 H INR 1.4 APTT 54.9 H Sodium Potassium Chloride Carbon Dioxide Anion Gap BUN Creatinine Estim Creat Clear Calc Est GFR (MDRD) Af Amer Est GFR (MDRD) Non-Af BUN/Creatinine Ratio Glucose Lactic Acid 2.0 2.4 H Calcium Phosphorus Magnesium TSH POC Glucose 10/07/18 10/07/18 10/07/18 04:00 04:00 06:32 WBC 24.5 H RBC 4.14 L Hgb 12.9 Hct 38.4 MCV 92.8 MCH 31.2 MCHC 33.6 RDW 13.8 RDW Differential 46.1 H Plt Count 76 L MPV 11.9 Immature Gran % (Auto) Neut % (Auto) Not Reportable Lymph % (Auto) [place] % (Auto) Eos % (Auto) Baso % (Auto) Absolute Neuts (auto) 21.6 H Absolute Lymphs (auto) 1.96 Total Counted 100 Neutrophils % (Manual) 48 Band Neutrophils % 33 H Lymphocytes % (Manual) 8 L Monocytes % (Manual) 4 Metamyelocytes % 7 H Diff Path Review Reviewed Platelet Estimate MOD DEC RBC Morphology NORM C+C PT INR APTT Sodium 141 Potassium 4.5 Chloride 110 H Carbon Dioxide 21.0 Anion Gap 10 BUN 37 H Creatinine 1.82 H Estim Creat Clear Calc 19.71 Est GFR (MDRD) Af Amer 34 L Est GFR (MDRD) Non-Af 28 L BUN/Creatinine Ratio 20.3 H Glucose 59 L Lactic Acid Calcium 6.7 L Phosphorus Magnesium TSH POC Glucose 60 L 10/08/18 10/08/18 04:00 04:00 WBC 20.3 H RBC 3.93 L Hgb 12.3 Hct 35.8 L MCV 91.1 MCH 31.3 MCHC 34.4 RDW 13.5 RDW Differential 44.6 H Plt Count 71 L MPV 12.0 Immature Gran % (Auto) 2.000 H Neut % (Auto) 90.8 H Lymph % (Auto) 3.9 L [place] % (Auto) 3.1 Eos % (Auto) 0.1 Baso % (Auto) 0.1 Absolute Neuts (auto) 18.5 H Absolute Lymphs (auto) 0.80 L Total Counted Not Reportable Neutrophils % (Manual) Band Neutrophils % Lymphocytes % (Manual) Monocytes % (Manual) Metamyelocytes % Diff Path Review May foll Platelet Estimate RBC Morphology PT INR APTT Sodium 144 Potassium 4.2 Chloride 111 H Carbon Dioxide 22.0 Anion Gap 11 BUN 32 H Creatinine 1.30 H Estim Creat Clear Calc 27.60 Est GFR (MDRD) Af Amer 50 L Est GFR (MDRD) Non-Af 42 L BUN/Creatinine Ratio 24.6 H Glucose 76 Lactic Acid Calcium 7.1 L Phosphorus 1.8 L Magnesium 2.5 TSH POC Glucose Microbiology 10/05/18 18:22 Urine, Clean Catch Urine Culture - Final Gram negative therese Mixed Gram Pos & Gram Neg Org 10/06/18 09:01 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 (Wb) - Right Hand 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 Okay to advance p.o. diet 2. Narrow antibiotic spectrum once to but he is available 3. Wean oxygen as tolerated 4. Hold on diuretic therapy for now, possibly Lasix in the future 5. Continue empiric antibiotics 6. Okay to leave the intensive care unit from my perspective IMPRESSIONS: 1. Septic shock secondary to obstructive uropathy Patient is currently on empiric Zosyn. Patient does not have any recent antibiotics that would suggest resistance pattern. Patient's pressor are resolved. Patient does have a gram-negative growing in the urine and blood. Leukocytosis appears to be improving. Await sensitivities and then likely narrow antibiotic spectrum. 2. Acute kidney injury secondary to septic shock and obstructive uropathy Since baseline creatinine is approximately 1. Patient does have an obstructive uropathy on the left and decreased blood pressure. We will continue to monitor. Stent placed during this hospitalization. Mild clots noted, but no signs of obstruction. 3. Possible congestive heart failure/CAD Possibly obtain echocardiogram in the future. If patient is still requiring supplemental oxygen tomorrow, anticipate giving Lasix. Patient is currently in the polyuric phase of ATN. 4. Elevated PTT Unclear etiology. Patient does not report using anticoagulants at baseline. Patient has had a significant drop in platelets. Anticipate discontinuation of Zosyn later today. 5. Hypertension/hypothyroidism/osteoporosis/advanced age/hypoglycemia Complicates care, management, recovery and prognosis. Would continue to hold antihypertensive medications given acute status. Unclear etiology of patient's hypoglycemia. Patient has responded to p.o. We will attempt to advance diet and see if this resolves lower blood sugars. Code Visit Inpatient E&M: 40808 Subs Hosp L3
[2018-10-08] MEDS: Pantoprazole Sodium 40 MG Tablet PO (08:40)
[2018-10-08] MEDS: Gabapentin 100 MG Capsule PO ×3 (08:40→17:37)
[2018-10-08] MEDS: Fluticasone 0.05% 1 SPRAY NASAL.SRY NASAL (08:41)
[2018-10-08] MEDS: 0.9% NaCl Peripheral Flush Adult/Peds IV ×2 (08:49→08:50)
[2018-10-08] MEDS: proMETHazine 25 MG/ML Syringe 6.25 MG IV (08:50)
--- NOTE | 2018-10-08 08:51 | PCM.PN.HOSP ---
Patient Problems: Active and Suspected Problems (Last Reviewed 10/05/18 @ 22:38 by Ramon Cash MD) Ureteral calculus, left (Acute) HUGO (acute kidney injury) (Acute) Septic shock (Acute) Subjective: Patient seen and examined. She feels improved. No fevers or chills. She feels less bloated. Has not moved her bowels. Has been passing gas. She voided a couple of times that was bloody with clots. Objective: Physical exam: General: Alert, Oriented x3, Cooperative HEENT: Atraumatic, PERRLA, EOMI, Normocephalic Oral: Dry Mucosa Neck: Supple, No JVD, Negative Carotid Bruits Lungs: Clear to auscultation, Normal air movement, No rhonchi, No wheeze, No rales Cardiovascular: Regular rate, Regular Rhythm, Normal S1, Normal S2, No murmurs Abdomen: Bowel Sounds Present, Soft, Non-Distended, No Hepato-splenomegaly, - - moderate right lower quadrant tenderness, with guarding but no RBT Extremities: No edema Skin: No rashes, No breakdown Musculoskeletal: No Tenderness to Palpation of Joints or Extremities Lymphatic: No Cervical, Supraclavicular, or Inguinal Adenopathy Neurological: Cranial nerves II-XII grossly intact, Neuro grossly intact, Motor Exam 5/5 strength throughout Psych/Mental Status: Normal Affect, Appropriate, Alert and oriented to time, place, person, mood and affect Vitals/I&O's: Vital Signs Temp Pulse Resp BP Pulse Ox 98.6 F 96 15 106/62 96 10/08/18 00:00 10/08/18 06:00 10/08/18 06:00 10/08/18 06:00 10/08/18 06:00 Oxygen Flow Rate (L/min) 2 Oxygen Delivery Method Nasal Cannula Weight: 79.3 kg Body Mass Index (BMI) 30.9 Finger Stick Blood Glucose 60 Orthostatic Vital Signs Start: 10/06/18 03:24 Freq: q24h Status: Active Protocol: Activity Type Activity Date Activity User E-Sign Co-Sign Detail Recorded Client Recorded Date Recorded By Document 10/06/18 03:26 MM [id number] 10/06/18 03:27 MM 10/06/18 03:26 Orthostatic Vitals Standing -Blood Pressure (90/60-120/80) 87/56 L -Extremity Use Right Arm -Pulse Rate (60-100) 97 Sitting -Blood Pressure (90/60-120/80) 80/51 L -Extremity Use Right Arm -Pulse Rate (60-100) 94 Lying -Blood Pressure (90/60-120/80) 74/44 L -Extremity Use Right Arm -Pulse Rate (60-100) 91 Intake and Output for Last 24 Hours 10/06/18 10/07/18 10/08/18 23:59 23:59 23:59 Intake Total 5343 / 5343 995.1 / 995.1 138.2 / 138.2 Output Total 650 / 650 2620 / 2620 425 / 425 Balance 4693 / 4693 -1624.9 / -1624.9 -286.8 / -286.8 Microbiology Past 72 Hours 10/06/18 09:01 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 (Wb) - Left Wrist 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 - 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 10/06/18 09:01 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 (Wb) - Right Hand 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 - Final Klebsiella pneumoniae sp pneum 10/05/18 18:22 Urine, Clean Catch Urine Culture - Final Gram negative therese Mixed Gram Pos & Gram Neg Org Laboratory Results 10/07/18 04:00: Diff Path Review Reviewed 10/08/18 04:00: WBC 20.3 H, RBC 3.93 L, Hgb 12.3, Hct 35.8 L, MCV 91.1, MCH 31.3, MCHC 34.4, RDW 13.5, RDW Differential 44.6 H, Plt Count 71 L, MPV 12.0, Immature Gran % (Auto) 2.000 H, Neut % (Auto) 90.8 H, Lymph % (Auto) 3.9 L, [place] % (Auto) 3.1, Eos % (Auto) 0.1, Baso % (Auto) 0.1, Absolute Neuts (auto) 18.5 H, Absolute Lymphs (auto) 0.80 L, Total Counted Not Reportable, Diff Path Review March10/08/18 04:00: Sodium 144, Potassium 4.2, Chloride 111 H, Carbon Dioxide 22.0, Anion Gap 11, BUN 32 H, Creatinine 1.30 H, Estim Creat Clear Calc 27.60, Est GFR (MDRD) Af Amer 50 L, Est GFR (MDRD) Non-Af 42 L, BUN/Creatinine Ratio 24.6 H, Glucose 76, Calcium 7.1 L, Phosphorus 1.8 L, Magnesium 2.5 Current Medications Acetaminophen (Tylenol) 650 mg PO Q6H PRN PRN PRN Reason: Fever > 100.4 Last Admin: 10/07/18 17:05 Dose: 650 mg Fentanyl Citrate (Sublimaze (100mcg Ampule)) 50 mcg IV Q2H PRN PRN PRN Reason: PAIN Last Admin: 10/06/18 16:31 Dose: 50 mcg Fluticasone Propionate (Flonase Nasal [place]) 1 spray NASAL DAILY [facility] Last Admin: 10/08/18 08:41 Dose: 1 spray Gabapentin (Neurontin) 100 mg PO TIDCM [facility] Last Admin: 10/08/18 08:40 Dose: 100 mg Norepinephrine Bitartrate 8 mg (/ Dextrose) 258 mls @ 9.68 mls/hr IV .[id number] [facility] Last Admin: 10/07/18 16:11 Dose: Not Given Sodium Chloride () 250 mls @ 15 mls/hr IV .[id number] PRN PRN Reason: SALINE FLUSH Sodium Chloride () 250 mls @ 15 mls/hr IV .[id number] PRN PRN Reason: SALINE FLUSH Piperacillin Sod/Tazobactam Sod (Zosyn) 3.375 gm in 50 mls @ 12.5 mls/hr IV Q12 [facility] Last Admin: 10/07/18 21:25 Dose: 12.5 mls/hr Levothyroxine Sodium (Synthroid) 50 mcg PO DAILY@0600 [facility] Last Admin: 10/08/18 05:20 Dose: 50 mcg Magnesium Hydroxide (Milk Of Magnesia) 30 ml PO DAILY PRN PRN PRN Reason: Constipation Morphine Sulfate () 1 - 2 mg IV Q4H PRN PRN PRN Reason: PAIN Last Admin: 10/06/18 06:05 Dose: 2 mg Multivitamins/Minerals (Healthy [facility]) [facility] Last Admin: 10/08/18 08:40 Dose: 1 tablet Ondansetron HCl (Zofran) 4 mg IV Q6H PRN PRN PRN Reason: NAUSEA/VOMITING Last Admin: 10/07/18 17:21 Dose: 4 mg Oxycodone HCl (Oxyir) 5 mg PO Q4H PRN PRN PRN Reason: SEVERE PAIN (6-10) Last Admin: 10/07/18 11:53 Dose: 5 mg Pantoprazole Sodium (Protonix) 40 mg PO DAILY [facility] Last Admin: 10/08/18 08:40 Dose: 40 mg Pravastatin Sodium (Pravachol) 20 mg PO QHS [facility] Last Admin: 10/07/18 21:26 Dose: 20 mg Promethazine HCl (Phenergan) 6.25 mg IV Q6H PRN PRN PRN Reason: NAUSEA/VOMITING Last Admin: 10/08/18 08:50 Dose: 6.25 mg Sodium Chloride () 5 - 15 ml IV UD PRN PRN Reason: SALINE FLUSH Last Admin: 10/08/18 08:50 Dose: 15 ml Medical Necessity - Tobacco Use Smoking Status: Never smoker Assessment/Plan All Active Problems (Last Reviewed 10/05/18 @ 22:38 by Ramon Cash MD) Ureteral calculus, left (Acute) HUGO (acute kidney injury) (Acute) Septic shock (Acute) 82-year-old female with past medical history of hypertension, hyperlipidemia, hypothyroidism, CAD omitted with complaints of left flank pain and found to have a left ureteric calculus with left hydronephrosis. Patient subsequently developed hypotension and was admitted to ICU and managed as septic shock. She had cystoscopy and left stent removal done on 10/06/18. 1. Septic shock secondary to infected left ureteric calculi, blood cultures growing Klebsiella pneumoniae, pansensitive urine culture growing mixed organisms, WBC count only improvement, off Levophed since 10 AM yesterday, on IV Zosyn Was switched to Levaquin IV 2. Left ureteric calculi with left hydronephrosis/hydroureter, status post cystoscopy and left stent placement, urology consulted, will follow recommendation 3. HUGO likely secondary to prerenal/post renal from renal calculus, resolving, creatinine currently at 1.30 Baseline creatinine from chart review is 1.0-1.2 4. Hypertension, blood pressures on hold on account of septic shock on presentation, will continue to monitor off medications, will resume blood pressure meds when blood pressure climbs up. 5. Thrombocytopenia, acute, likely medication related/sepsis, platelet count is 71 down from 76, heparin discontinued, will discontinue Zosyn also 6. Hyperlipidemia, on statin 7. Hypothyroidism, on Synthroid 8. CAD, on aspirin and statin 9. Osteoporosis 10. DVT PPx- Heparin SC 11. GI prophylaxis - On PPI 12. Disposition: Transfer to [facility] floor; anticipate discharge in 24-48 hours. Code Visit Inpatient E&M: 31336 Subs Hosp L2
--- NOTE | 2018-10-08 08:57 | PN_ITS ---
Patient Problems: Active and Suspected Problems (Last Reviewed 10/05/18 @ 22:38 by Ramon Cash MD) Ureteral calculus, left (Acute) HUGO (acute kidney injury) (Acute) Septic shock (Acute) Subjective: Patient seen and examined. She feels improved. No fevers or chills. She feels less bloated. Has not moved her bowels. Has been passing gas. She voided a couple of times that was bloody with clots. Objective: Physical exam: General: Alert, Oriented x3, Cooperative HEENT: Atraumatic, PERRLA, EOMI, Normocephalic Oral: Dry Mucosa Neck: Supple, No JVD, Negative Carotid Bruits Lungs: Clear to auscultation, Normal air movement, No rhonchi, No wheeze, No rales Cardiovascular: Regular rate, Regular Rhythm, Normal S1, Normal S2, No murmurs Abdomen: Bowel Sounds Present, Soft, Non-Distended, No Hepato-splenomegaly, - - moderate right lower quadrant tenderness, with guarding but no RBT Extremities: No edema Skin: No rashes, No breakdown Musculoskeletal: No Tenderness to Palpation of Joints or Extremities Lymphatic: No Cervical, Supraclavicular, or Inguinal Adenopathy Neurological: Cranial nerves II-XII grossly intact, Neuro grossly intact, Motor Exam 5/5 strength throughout Psych/Mental Status: Normal Affect, Appropriate, Alert and oriented to time, place, person, mood and affect Vitals/I&O's: Vital Signs Temp Pulse Resp BP Pulse Ox 98.6 F 96 15 106/62 96 10/08/18 00:00 10/08/18 06:00 10/08/18 06:00 10/08/18 06:00 10/08/18 06:00 Oxygen Flow Rate (L/min) 2 Oxygen Delivery Method Nasal Cannula Weight: 79.3 kg Body Mass Index (BMI) 30.9 Finger Stick Blood Glucose 60 Orthostatic Vital Signs Start: 10/06/18 03:24 Freq: q24h Status: Active Protocol: Activity Type Activity Date Activity User E-Sign Co-Sign Detail Recorded Client Recorded Date Recorded By Document 10/06/18 03:26 MM [id number] 10/06/18 03:27 MM 10/06/18 03:26 Orthostatic Vitals Standing -Blood Pressure (90/60-120/80) 87/56 L -Extremity Use Right Arm -Pulse Rate (60-100) 97 Sitting -Blood Pressure (90/60-120/80) 80/51 L -Extremity Use Right Arm -Pulse Rate (60-100) 94 Lying -Blood Pressure (90/60-120/80) 74/44 L -Extremity Use Right Arm -Pulse Rate (60-100) 91 Intake and Output for Last 24 Hours 10/06/18 10/07/18 10/08/18 23:59 23:59 23:59 Intake Total 5343 / 5343 995.1 / 995.1 138.2 / 138.2 Output Total 650 / 650 2620 / 2620 425 / 425 Balance 4693 / 4693 -1624.9 / -1624.9 -286.8 / -286.8 Microbiology Past 72 Hours 10/06/18 09:01 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 (Wb) - Left Wrist 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 - 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 10/06/18 09:01 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 (Wb) - Right Hand 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 - Final Klebsiella pneumoniae sp pneum 10/05/18 18:22 Urine, Clean Catch Urine Culture - Final Gram negative therese Mixed Gram Pos & Gram Neg Org Laboratory Results 10/07/18 04:00: Diff Path Review Reviewed 10/08/18 04:00: WBC 20.3 H, RBC 3.93 L, Hgb 12.3, Hct 35.8 L, MCV 91.1, MCH 31.3, MCHC 34.4, RDW 13.5, RDW Differential 44.6 H, Plt Count 71 L, MPV 12.0, Immature Gran % (Auto) 2.000 H, Neut % (Auto) 90.8 H, Lymph % (Auto) 3.9 L, [place] % (Auto) 3.1, Eos % (Auto) 0.1, Baso % (Auto) 0.1, Absolute Neuts (auto) 18.5 H, Absolute Lymphs (auto) 0.80 L, Total Counted Not Reportable, Diff Path Review March10/08/18 04:00: Sodium 144, Potassium 4.2, Chloride 111 H, Carbon Dioxide 22.0, Anion Gap 11, BUN 32 H, Creatinine 1.30 H, Estim Creat Clear Calc 27.60, Est GFR (MDRD) Af Amer 50 L, Est GFR (MDRD) Non-Af 42 L, BUN/Creatinine Ratio 24.6 H, G lucose 76, Calcium 7.1 L, Phosphorus 1.8 L, Magnesium 2.5 Current Medications Acetaminophen (Tylenol) 650 mg PO Q6H PRN PRN PRN Reason: Fever > 100.4 Last Admin: 10/07/18 17:05 Dose: 650 mg Fentanyl Citrate (Sublimaze (100mcg Ampule)) 50 mcg IV Q2H PRN PRN PRN Reason: PAIN Last Admin: 10/06/18 16:31 Dose: 50 mcg Fluticasone Propionate (Flonase Nasal [place]) 1 spray NASAL DAILY [facility] Last Admin: 10/08/18 08:41 Dose: 1 spray Gabapentin (Neurontin) 100 mg PO TIDCM [facility] Last Admin: 10/08/18 08:40 Dose: 100 mg Norepinephrine Bitartrate 8 mg (/ Dextrose) 258 mls @ 9.68 mls/hr IV .[id number] [facility] Last Admin: 10/07/18 16:11 Dose: Not Given Sodium Chloride () 250 mls @ 15 mls/hr IV .[id number] PRN PRN Reason: SALINE FLUSH Sodium Chloride () 250 mls @ 15 mls/hr IV .[id number] PRN PRN Reason: SALINE FLUSH Piperacillin Sod/Tazobactam Sod (Zosyn) 3.375 gm in 50 mls @ 12.5 mls/hr IV Q12 [facility] Last Admin: 10/07/18 21:25 Dose: 12.5 mls/hr Levothyroxine Sodium (Synthroid) 50 mcg PO DAILY@0600 [facility] Last Admin: 10/08/18 05:20 Dose: 50 mcg Magnesium Hydroxide (Milk Of Magnesia) 30 ml PO DAILY PRN PRN PRN Reason: Constipation Morphine Sulfate () 1 - 2 mg IV Q4H PRN PRN PRN Reason: PAIN Last Admin: 10/06/18 06:05 Dose: 2 mg [facility]itamins[facility]inerals [facility] Last Admin: 10/08/18 08:40 Dose: 1 tablet Ondansetron HCl (Zofran) 4 mg IV Q6H PRN PRN PRN Reason: NAUSEA/VOMITING Last Admin: 10/07/18 17:21 Dose: 4 mg Oxycodone HCl (Oxyir) 5 mg PO Q4H PRN PRN PRN Reason: SEVERE PAIN (6-08/18) Last Admin: 10/07/18 11:53 Dose: 5 mg Pantoprazole Sodium (Protonix) 40 mg PO DAILY [facility] Last Admin: 10/08/18 08:40 Dose: 40 mg Pravastatin Sodium (Pravachol) 20 mg PO QHS [facility] Last Admin: 10/07/18 21:26 Dose: 20 mg Promethazine HCl (Phenergan) 6.25 mg IV Q6H PRN PRN PRN Reason: NAUSEA/VOMITING Last Admin: 10/08/18 08:50 Dose: 6.25 mg Sodium Chloride () 5 - 15 ml IV UD PRN PRN Reason: SALINE FLUSH Last Admin: 10/08/18 08:50 Dose: 15 ml Medical Necessity - Tobacco Use Smoking Status: Never smoker Assessment/Plan All Active Problems (Last Reviewed 10/05/18 @ 22:38 by Ramon Cash MD) Ureteral calculus, left (Acute) HUGO (acute kidney injury) (Acute) Septic shock (Acute) 82-year-old female with past medical history of hypertension, hyperlipidemia, hypothyroidism, CAD omitted with complaints of left flank pain and found to have a left ureteric calculus with left hydronephrosis. Patient subsequently developed hypotension and was admitted to ICU and managed as septic shock. She had cystoscopy and left stent removal done on 10/06/18. 1. Septic shock secondary to infected left ureteric calculi, blood cultures growing Klebsiella pneumoniae, pansensitive urine culture growing mixed organisms, WBC count only improvement, off Levophed since 10 AM yesterday, on IV Zosyn Was switched to Levaquin IV 2. Left ureteric calculi with left hydronephrosis/hydroureter, status post cystoscopy and left stent placement, urology consulted, will follow recommendation 3. HUGO likely secondary to prerenal/post renal from renal calculus, resolving, creatinine currently at 1.30 Baseline creatinine from chart review is 1.0-1.2 4. Hypertension, blood pressures on hold on account of septic shock on presentation, will continue to monitor off medications, will resume blood pressure meds when blood pressure climbs up. 5. Thrombocytopenia, acute, likely medication related/sepsis, platelet count is 71 down from 76, heparin discontinued, will discontinue Zosyn also 6. Hyperlipidemia, on statin 7. Hypothyroidism, on Synthroid 8. CAD, on aspirin and statin 9. Osteoporosis 10. DVT PPx- Heparin SC 11. GI prophylaxis - On PPI 12. Disposition: Transfer to [facility] floor; anticipate discharge in 24-48 hours. Code Visit Inpatient E&M: [id number] Subs Hosp L2
--- NOTE | 2018-10-08 09:48 | CASEMGMT ---
SW spoke w/pt, pt's fiance and daughter are also present. SW reviewed discharge plan w/pt and family. Though pt states she is not feeling well this morning, she does feel she will be able to manage at home at discharge. Pt states her fiance will be able to help her at home. SW asked pt about home health care, pt declined referral, states that she goes to [facility] 2-3 times per week at [facility]. SW let pt and family know should any discharge needs arise, SW is available. Otherwise, no homegoing needs anticipated. LUISA Herrera, HOUSE PAINTING INSTRUCTOR
[2018-10-08] MEDS: oxyCODONE 5 MG Tablet PO ×2 (11:27→22:00)
[2018-10-08] MEDS: levoFLOXacin IV 750 MG/150 ML BAG 100 MG IV (12:23)
[2018-10-08 12:25] LABS: Pathologist Review Reviewed
--- NOTE | 2018-10-08 14:31 | NURSING ---
PTS BP 92/65, ASYMPTOMATIC. TEXT TO DR LANGSTON TO MAKE HER AWARE.
--- NOTE | 2018-10-08 15:09 | NURSING ---
DR LANGSTON ON DEPARTMENT, SPOKE TO HER ABOUT PTS BP - ORDERED TO CONTINUE TO MONITOR & ENC PO FLUIDS.
[2018-10-08] MEDS: Pravastatin 20 MG Tablet PO (22:00)
[2018-10-09 02:08] VITALS: BP 112/67; PULSE 87; RESP 16; TEMP 36.3; O2SAT 93
[2018-10-09 03:58] VITALS: PULSE 89
[2018-10-09] MEDS: Levothyroxine 50 MCG Tablet PO (05:04)
[2018-10-09] MEDS: 0.9% NaCl Peripheral Flush Adult/Peds IV (05:05)
[2018-10-09] MEDS: Pantoprazole Sodium 40 MG Tablet PO (05:31)
[2018-10-09 07:53] LABS: Absolute Lymphocyte Count 1.53 X10^3/ul (0.83-4.51); Absolute Neutrophil Count 13.8 X10^3/uL (2.0-7.7); Basophil# 0.03 X10^3/uL; Basophil% 0.2 % (0-1); Eosinophil# 0.15 X10^3/uL; Eosinophils% 0.9 % (0-5); Hematocrit 37.1 % (37-47); Hemoglobin 12.6 g/dl (12.0-15.0); Lymphocyte # 1.53 X10^3/ul (4.0); Mean Corpuscular Hgb 30.2 pg (27.0-32.0); Mean Platelet Vol. 11.4 fl (6.2-12.0); Monocyte# 1.29 X10^3/uL; Monocyte% 7.6 % (0-10); Neutrophil # 13.83 X10^3/uL (2.7-7.7); Neutrophil % 81.2 % (47-70); Platelet Count 87 K/mm3 (150-450); RBC Distribution Width SD 45.7 fl (35.1-43.9); Red Blood Count 4.17 M/mm3 (4.2-5.4)
[2018-10-09 07:55] LABS: Differential Indicated SCAN CRITERIA MET; POSITIVE COUNT NO; POSITIVE DIFFERENTIAL NO; POSITIVE MORPHOLOGY YES
[2018-10-09 08:06] LABS: Anion Gap 8 (5-15); BUN 20 mg/dL (7-18); BUN/Creat Ratio 21.3 RATIO (10-20); Calcium,Total 7.3 mg/dL (8.5-10.1); Chloride 110 mmol/L (98-107); Creatinine, Serum 0.94 mg/dL (0.55-1.02); EST Glomerular Filtration Rate 61 mL/min (>60); Est Glom Filt Rate - Afr Amer 73 mL/min (>60); Estimated Creatinine Clearance 38.17 ml/min; Glucose 82 mg/dL (74-106); Sodium Level 143 mmol/L (136-145)
[2018-10-09 08:18] VITALS: BP 110/70; PULSE 87; RESP 16; TEMP 36.6; O2SAT 94
[2018-10-09] MEDS: Gabapentin 100 MG Capsule PO ×2 (08:22→11:54)
[2018-10-09] MEDS: Fluticasone 0.05% 1 SPRAY NASAL.SRY NASAL (08:22)
--- NOTE | 2018-10-09 08:46 | PCM.PROGNOTE ---
Patient Problems: Active and Suspected Problems (Last Reviewed 10/05/18 @ 22:38 by Ramon Cash MD) Ureteral calculus, left (Acute) HUGO (acute kidney injury) (Acute) Septic shock (Acute) Subjective: Patient transferred out of the intensive care unit yesterday. No hemodynamic instability has been reported. Patient reports subjective improvement in overall condition. Patient reports polyuria has improved. - Physical Exam General: Alert, Oriented x3, Cooperative, No apparent distress, Well developed, Well nourished, - - Speaking in full sentences. HEENT: Atraumatic, PERRLA, EOMI, Normocephalic, - - No scleral icterus or injection noted. Oral: Moist Mucosa, No Gingival or Mucosal Lesions/ Ulcerations Neck: Supple, No JVD, No Nodes, Trachea Midline Lungs: Clear to auscultation, Normal air movement, No rhonchi, No wheeze, No rales Cardiovascular: Regular rate, Regular Rhythm, Normal S1, Normal S2, No murmurs, No rub noted, No Gallop Abdomen: Bowel Sounds Present, Soft, Non Tender, Non-Distended Extremities: No clubbing, No cyanosis, No edema, Capillary Refill Less than 3 Seconds Skin: No rashes, No breakdown Musculoskeletal: No Tenderness to Palpation of Joints or Extremities Lymphatic: No Cervical, Supraclavicular, or Inguinal Adenopathy Neurological: Cranial nerves II-XII grossly intact, Neuro grossly intact, Motor Exam 5/5 strength throughout Psych/Mental Status: Alert and oriented to time, place, person, mood and affect Vital Signs Temp Pulse Resp BP Pulse Ox 36.6 C 87 16 110/70 94 10/09/18 08:18 10/09/18 08:18 10/09/18 08:18 10/09/18 08:18 10/09/18 08:18 Oxygen Flow Rate (L/min) 2 Oxygen Delivery Method Room Air Weight: 79.3 kg Body Mass Index (BMI) 30.9 Finger Stick Blood Glucose 60 Intake and Output for Last 24 Hours 10/07/18 10/08/18 10/09/18 23:59 23:59 23:59 Intake Total 995.1 / 995.1 1958.2 / 1958.2 500 / 500 Output Total 2620 / 2620 2525 / 2525 500 / 500 Balance -1624.9 / -1624.9 -566.8 / -566.8 0 / 0 Microbiology Past 72 Hours 10/06/18 12:30 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 - Preliminary 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 (Wb) - Line Draw No growth in 48 hours. 10/06/18 11:50 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 - Preliminary 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 (Wb) - Anticubital Right No growth in 48 hours. 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 10/06/18 09:01 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 - Final 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 (Wb) - Right Hand Klebsiella pneumoniae sp pneum 10/05/18 18:22 Urine Culture - Final Urine, Clean Catch Gram negative therese Mixed Gram Pos & Gram Neg Org Laboratory Tests Past 24 Hrs 10/08/18 10/09/18 10/09/18 04:00 07:08 07:08 WBC 17.0 H RBC 4.17 L Hgb 12.6 Hct 37.1 MCV 89.0 MCH 30.2 MCHC 34.0 RDW 14.0 RDW Differential 45.7 H Plt Count 87 L MPV 11.4 Immature Gran % (Auto) 1.100 H Neut % (Auto) 81.2 H Lymph % (Auto) 9.0 L Coffey % (Auto) 7.6 Eos % (Auto) 0.9 Baso % (Auto) 0.2 Absolute Neuts (auto) 13.8 H Absolute Lymphs (auto) 1.53 Total Counted Not Reportable Diff Path Review Reviewed Sodium 143 Potassium 4.0 Chloride 110 H Carbon Dioxide 25.0 Anion Gap 8 BUN 20 H Creatinine 0.94 Estim Creat Clear Calc 38.17 Est GFR (MDRD) Af Amer 73 Est GFR (MDRD) Non-Af 61 BUN/Creatinine Ratio 21.3 H Glucose 82 Calcium 7.3 L Medical Necessity - Tobacco Use Smoking Status: Never smoker Assessment/Plan All Active Problems (Last Reviewed 10/05/18 @ 22:38 by Ramon Cash MD) Ureteral calculus, left (Acute) HUGO (acute kidney injury) (Acute) Septic shock (Acute) RECOMMENDATIONS: 1. Okay to transition to p.o. antibiotics from my perspective 2. Okay to reinitiate baseline medications 3. Hemodynamically stable on room air. Will sign off from a critical care perspective 4. No outpatient pulmonary/critical care follow-up as indicated. IMPRESSIONS: 1. Septic shock secondary to obstructive uropathy Patient was transitioned to Levaquin therapy yesterday. Patient appears to be tolerating this well. Likely reasonable to de-escalate patient's pain medication, so fentanyl will be discontinued. Patient can likely reinitiate on home blood pressure medications at this time. 2. Acute kidney injury secondary to septic shock and obstructive uropathy Resolved, but defer to urology on stents with stone. Patient does have an obstructive uropathy on the left and decreased blood pressure. We will continue to monitor. Stent placed during this hospitalization. 3. Possible congestive heart failure/CAD Possibly obtain echocardiogram in the future. No Lasix is indicated. Patient is currently in the polyuric phase of ATN. 4. Elevated PTT Unclear etiology. Patient does not report using anticoagulants at baseline. Consider outpatient repeat to ensure normalization. 5. Hypertension/hypothyroidism/osteoporosis/advanced age/hypoglycemia Complicates care, management, recovery and prognosis. Would continue to hold antihypertensive medications given acute status. Unclear etiology of patient's hypoglycemia. Patient has responded to p.o. Code Visit Inpatient E&M: 05065 Subs Hosp L2
[2018-10-09 11:35] VITALS: BP 114/67; PULSE 87; RESP 16; TEMP 36.9; O2SAT 95
--- NOTE | 2018-10-09 11:35 | DCINST_ITS ---
- Discharge Diagnoses Current Active Problems: Current Active and Chronic Problems (Last Reviewed 10/05/18 @ 22:38 by Ramon Cash MD) Ureteral calculus, left (Acute) HUGO (acute kidney injury) (Acute) Septic shock (Acute) Reason(s) for Visit for Discharge Instructions: Fever, flank pain You will use the following diet at home:: Cardiac Your food should be the consistency of: Regular Your liquids should be the consistency of: Regular/Thin Discharge Activity: Return to Normal Activity Additional Instructions: Complete your antibiotics. Continue to remain active. You may take tylenol for the flank pain or apply some topical analgesic or heating pad to your left flank. Cointinue to be active. Use your walker when ambulating. Follow-up with your primary doctor in 1 week and also your urologist as scheduled. Take note of changes to your blood pressure medications. You should take your BP daily and take your medications when your BP remains above 120-130 consistently. Allergies/Adverse Reactions: Allergies codeine Allergy (Verified 10/05/18 17:56) Rash hydrocodone bitartrate [From Vicodin] Adverse Reaction (Verified 10/05/18 17:56) Nausea meperidine HCl [From Demerol] Adverse Reaction (Verified 10/05/18 17:56) Nausea oxycodone HCl [From Percocet] Adverse Reaction (Verified 10/05/18 17:56) Nausea Medications to take at Discharge Fluticasone 0.05% [Flonase Nasal [place]] 1 spray NARES DAILY 12/29/14 Lansoprazole [Prevacid] 30 mg PO DAILY 12/29/14 Levothyroxine [Synthroid] 50 mcg PO DAILY 12/29/14 Vit A/Vit C/Vit E/Zinc/Copper [Preservision Areds Softgel] 1 ea PO DAILY 06/09/15 Aspirin 81 mg PO QHS 08/28/16 denosumab 60 mg/mL subcutaneous syringe 60 mg SC [id number] 06/25/18 flaxseed oil 1,000 mg capsule 1,000 mg PO QDAY 06/25/18 magnesium oxide 400 mg (241.3 mg magnesium) tablet 400 mg PO QDAY tab 06/25/18 omega-3 fatty acids 1,000 mg capsule 1,000 mg PO QDAY 06/25/18 pravastatin 20 mg tablet 20 mg PO QHS 06/25/18 Calcium Citrate/Vitamin D3 [Citracal-Vit D3 200 mg-250 Tab] 1 each PO BID 10/05/18 Cholecalciferol (Vitamin D3) [Vitamin D3] 1,000 unit PO BID 10/05/18 Cyanocobalamin [Vitamin B12] 1,000 mcg PO DAILY@0800 10/05/18 Gabapentin [Neurontin] 100 mg PO TIDCM 10/05/18 Acetaminophen [Tylenol Tablet] 650 mg PO Q6H PRN PRN tablet 10/09/18 Levofloxacin [Levaquin] 750 mg PO QODAY #4 tablet 10/09/18 Metoprolol(XL)Succ [Toprol Xl (Beta Bhavana)] 12.5 mg PO DAILY #30 tablet 10/09/18 The following prescriptions were given: Levofloxacin [Levaquin] 750 mg PO DAILY #7 tablet Primary Care Physician: Aaliyah De La Cruz DO [Primary Care Provider] - Please follow up with your Primary Care Physician in: within 1-2 weeks Test Results: Test results from this visit will be discussed in further detail at your follow- up appointment, if applicable. Please Follow Up With: Ramon Cash MD When: as scheduled Proposed Discharge Date: 10/09/18
--- NOTE | 2018-10-09 12:02 | PCM.DC.SUM ---
Discharge Date and Diagnosis - Problem List Patient Problems: Active and Suspected Problems (Last Reviewed 10/05/18 @ 22:38 by Ramon Cash MD) Ureteral calculus, left (Acute) HUGO (acute kidney injury) (Acute) Septic shock (Acute) Date of Admission: 10/05/18 Date of Discharge: 10/09/18 - Primary Discharge Diagnosis Active and Suspected Problems (Last Reviewed 10/05/18 @ 22:38 by Ramon Cash MD) Septic shock Ureteral calculus, left (Acute) HUGO (acute kidney injury) (Acute) Thrombocytopenia - Secondary Discharge Diagnosis Chronic Problems (Last Reviewed 10/05/18 @ 22:38 by Ramon Cash MD) Palpitation (Chronic) Nonrheumatic mitral (valve) insufficiency (Chronic) Non-rheumatic tricuspid valve insufficiency (Chronic) Hyperlipidemia (Chronic) Hypertension (Chronic) Hospital Course and Treatment Imaging Results: Clinical Impression(s) from Imaging Studies Abdomen/Pelvis CT 10/05/18 18:13 IMPRESSION: 1. Moderate left-sided hydronephrosis and hydroureter secondary to proximal ureteral calculus. 2. Colonic diverticulosis. 3. Hiatal hernia. Electronically Signed: Aurea Madrid MD at 19:56 EST , Service support , Chest X-Ray 10/06/18 12:11 IMPRESSION: The tip of the right central line is at the junction of the superior vena cava and right atrium. Pleural parenchymal changes at the left lung base suggestive of either atelectasis and/or early infiltrate. Follow-up is recommended. Electronically Signed: Garry Dalal MD at 12:58 EST Tel [phone], Service support , Critical care Urology Operations: None Procedures: - - Cystoscopy with left stent placement on 10/06/18 Summary of Care Provided: 2-year-old female with past medical history of hypertension, hyperlipidemia, hypothyroidism, CAD omitted with complaints of left flank pain and found to have a left ureteric calculus with left hydronephrosis. Patient subsequently developed hypotension and was admitted to ICU and managed as septic shock. She had cystoscopy and left stent removal done on 10/06/18. Hospital management was as follows: 1. Septic shock secondary to infected left ureteric calculi, blood cultures growing Klebsiella pneumoniae, pansensitive urine culture growing mixed organisms, WBC count was elevated, trended down with treatment, patient was managed in the ICU on a low-dose Levophed. Improved after 48 hours of treatment. Started initially on IV Zosyn, transitioned to IV Levaquin and discharged with p.o. Levaquin renal dosed 2. Left ureteric calculi with left hydronephrosis/hydroureter, status post cystoscopy and left stent placement, urology consulted, will up in the outpatient for renal stent removal. 3. HUGO likely secondary to prerenal/post renal from renal calculus, resolved, patient's baseline creatinine is between 1.0-1.2. She was admitted with a creatinine of 1.67 that increased to 2.0. Creatinine improved with hydration and stent placement. It is less likely that patient had ATN. Creatinine at discharge was 0.94. She was encouraged to keep hydrating herself. Repeat blood work within a week 4. Hypertension: Patient was initially hypotensive on arrival, home blood pressure medications were held, patient remained relatively hypotensive, she was asymptomatic. On discharge, she was prescribed metoprolol 12.5 mg p.o. daily, she was asked to measure her blood pressure every day, and start on the above medication if she gets blood pressure readings more than 120s and 130s. She will follow-up with her primary care doctor within a week for blood pressure evaluation. 5. Thrombocytopenia, acute, likely medication related/sepsis. Platelet count on admission was around 200, dropped to the 70s with IV antibiotics and heparin , these were discontinued, platelet count increased. Patient Problems: Active and Suspected Problems (Last Reviewed 10/05/18 @ 22:38 by Ramon Cash MD) Ureteral calculus, left (Acute) HUGO (acute kidney injury) (Acute) Septic shock (Acute) Subjective: On the day of discharge, patient felt improved. Has been ambulating with a walker. Denied any fever or chills or dizziness. Has slight right flank pain. Objective: Physical exam: General: Alert, Oriented x3, Cooperative HEENT: Atraumatic, PERRLA, EOMI, Normocephalic Oral: Dry Mucosa Neck: Supple, No JVD, Negative Carotid Bruits Lungs: Clear to auscultation, Normal air movement, No rhonchi, No wheeze, No rales Cardiovascular: Regular rate, Regular Rhythm, Normal S1, Normal S2, No murmurs Abdomen: Bowel Sounds Present, Soft, Non-Distended, No Hepato-splenomegaly, - - mild right lower quadrant tenderness, without guarding or rebound tenderness Extremities: No edema Skin: No rashes, No breakdown Musculoskeletal: No Tenderness to Palpation of Joints or Extremities Lymphatic: No Cervical, Supraclavicular, or Inguinal Adenopathy Neurological: Cranial nerves II-XII grossly intact, Neuro grossly intact, Motor Exam 5/5 strength throughout Psych/Mental Status: Normal Affect, Appropriate, Alert and oriented to time, place, person, mood and affect - Physical Exam Vital Signs Temp Pulse Resp BP Pulse Ox 97.9 F 87 16 110/70 94 10/09/18 08:18 10/09/18 08:18 10/09/18 08:18 10/09/18 08:18 10/09/18 08:18 Oxygen Flow Rate (L/min) 2 Oxygen Delivery Method Room Air Weight: 79.3 kg Body Mass Index (BMI) 30.9 Finger Stick Blood Glucose 60 Intake and Output for Last 24 Hours 10/07/18 10/08/18 10/09/18 23:59 23:59 23:59 Intake Total 995.1 / 995.1 1958.2 / 1958.2 620 / 620 Output Total 2620 / 2620 2525 / 2525 1000 / 1000 Balance -1624.9 / -1624.9 -566.8 / -566.8 -380 / -380 Microbiology Past 72 Hours 10/06/18 12:30 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 - Preliminary 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 (Wb) - Line Draw No growth in 48 hours. 10/06/18 11:50 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 - Preliminary 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 (Wb) - Anticubital Right No growth in 48 hours. 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 10/06/18 09:01 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 - Final 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 (Wb) - Right Hand Klebsiella pneumoniae sp pneum 10/05/18 18:22 Urine Culture - Final Urine, Clean Catch Gram negative therese Mixed Gram Pos & Gram Neg Org Laboratory Tests Past 24 Hrs 10/08/18 10/09/18 10/09/18 04:00 07:08 07:08 WBC 17.0 H RBC 4.17 L Hgb 12.6 Hct 37.1 MCV 89.0 MCH 30.2 MCHC 34.0 RDW 14.0 RDW Differential 45.7 H Plt Count 87 L MPV 11.4 Immature Gran % (Auto) 1.100 H Neut % (Auto) 81.2 H Lymph % (Auto) 9.0 L Wright % (Auto) 7.6 Eos % (Auto) 0.9 Baso % (Auto) 0.2 Absolute Neuts (auto) 13.8 H Absolute Lymphs (auto) 1.53 Total Counted Not Reportable Diff Path Review Reviewed Sodium 143 Potassium 4.0 Chloride 110 H Carbon Dioxide 25.0 Anion Gap 8 BUN 20 H Creatinine 0.94 Estim Creat Clear Calc 38.17 Est GFR (MDRD) Af Amer 73 Est GFR (MDRD) Non-Af 61 BUN/Creatinine Ratio 21.3 H Glucose 82 Calcium 7.3 L Discharge Diet: Low fat/ Low Cholesterol, 2000 mg Sodium Diet Discharge Activity: Return to Normal Activity Home Medications: Medications to take at Discharge Fluticasone 0.05% [Flonase Nasal [place]] 1 spray NARES DAILY 12/29/14 Lansoprazole [Prevacid] 30 mg PO DAILY 12/29/14 Levothyroxine [Synthroid] 50 mcg PO DAILY 12/29/14 Vit A/Vit C/Vit E/Zinc/Copper [Preservision Areds Softgel] 1 ea PO DAILY 06/09/15 Aspirin 81 mg PO QHS 08/28/16 denosumab 60 mg/mL subcutaneous syringe 60 mg SC [id number] 06/25/18 flaxseed oil 1,000 mg capsule 1,000 mg PO QDAY 06/25/18 magnesium oxide 400 mg (241.3 mg magnesium) tablet 400 mg PO QDAY tab 06/25/18 omega-3 fatty acids 1,000 mg capsule 1,000 mg PO QDAY 06/25/18 pravastatin 20 mg tablet 20 mg PO QHS 06/25/18 Calcium Citrate/Vitamin D3 [Citracal-Vit D3 200 mg-250 Tab] 1 each PO BID 10/05/18 Cholecalciferol (Vitamin D3) [Vitamin D3] 1,000 unit PO BID 10/05/18 Cyanocobalamin [Vitamin B12] 1,000 mcg PO DAILY@0800 10/05/18 Gabapentin [Neurontin] 100 mg PO TIDCM 10/05/18 Acetaminophen [Tylenol Tablet] 650 mg PO Q6H PRN PRN tablet 10/09/18 Levofloxacin [Levaquin] 750 mg PO QODAY #4 tablet 10/09/18 Metoprolol(XL)Succ [Toprol Xl (Beta Bhavana)] 12.5 mg PO DAILY #30 tablet 10/09/18 Following Prescrptions Were Given to Patient: Levofloxacin [Levaquin] 750 mg PO QODAY #4 tablet Metoprolol(XL)Succ [Toprol Xl (Beta Bhavana)] 12.5 mg PO DAILY #30 tablet Primary Care Physician: Aaliyah De La Cruz DO [Primary Care Provider] - Please follow up with your Primary Care Physician in: within 1-2 weeks Please Follow Up With: Ramon Cash MD When: as scheduled Disposition: Home Minutes spent on discharge:: 40 Patient Condition:: Stable Medical Necessity - Tobacco Use Smoking Status: Never smoker Tobacco Use: Non-smoker Meaningful Use Info Meaningful Use Diagnoses (Choose all that apply): None applicable Code Visit Inpatient E&M: 94098 Disch Hosp
--- NOTE | 2018-10-11 12:18 | CASEMGMT ---
RN CM Discharge Follow-up Phone Call: SURINDER: Michael Strata: 4 Call Date: 10/11/18 Discharge Date: 10/09/18 Time of Call: 1215 Duration: 0 ? Admitting Diagnosis: Sepsis secondary to infected ureteral calculi This RN CM attempted to contact pt in regard to discharge follow-up. Voicemail received an message left requesting a return call if pt has questions or concerns. Keiry Carrillo RN
--- NOTE | 2018-10-11 12:47 | CASEMGMT ---
This RN CM received a return call from pt. Pt expressed concerns regarding her discharge and her blood pressure. Pt reports having had taken her blood pressure repeatedly this AM with readings obtained with the systolic running 130's-140's. Pt states she has taken her 1/2 tab of Toprol (equal to 12.5mg) as prescribed upon discharge. Pt states she has also had a headache this AM for which she has taken tylenol and she has swelling of her feet and is not able to see her ankles. Pt states she is off of the diuretic that she had taken prior to admission as directed at discharge. Pt states she has made an appointment with her PCP Dr. De La Cruz for 10/14 and has called them this morning in regard to the swelling of her feet, her blood pressure and her headache. She is awaiting a return call. Pt states she has been laying on the couch with her feet elevated. No SOB noted during the conversation. Reassured pt regarding her blood pressure and encouraged pt to continue to elevate feet and await direction from Dr. De La Cruz in regard to her diuretic. Pt states they do have the order for a recheck of her labs. Discussed levaquin dosing. Pt was able to obtain the antibiotic and noted the bottle reads to take every other day. Pt's daughter did get on the phone and read the bottle to me. Pt is taking it in this manner. Pt states prescription was submitted erroneously to [facility] and requested this RN contact [facility] to cancel this order. This RN has placed a call to [facility] to cancel this order. Time of call: 0925 Duration: 15 minutes + call to [facility] Keiry Carrillo RN
== END 2018-10-09 13:10 | disposition home or self-care (01) | DRG 659 ==
LOC: ED 18:34 → MS3 21:03 → ICU 10-06 11:33 → MS2 10-08 09:58
PROVIDERS: Anesthesiology; Internal Medicine Critical Care Medicine; Student in an Organized Health Care Education/Training Program; Urology; Admitting Provider Hospitalist; Emergency Provider Emergency Medicine; Family Provider Family Medicine; PCP Family Medicine; Referring Provider Hospitalist; Visit Provider Internal Medicine
PROC: 0TJ98ZZ Inspection of Ureter, Via Natural or Artificial Opening Endoscopic (ICD-10-PCS; CPT 52352; principal; 2018-10-06 09:55)
DX: N17.9 Acute kidney failure, unspecified (principal); A41.59 Other Gram-negative sepsis; R65.21 Severe sepsis with septic shock; N13.6 Pyonephrosis; D69.6 Thrombocytopenia, unspecified; E03.9 Hypothyroidism, unspecified; E16.2 Hypoglycemia, unspecified; E78.5 Hyperlipidemia, unspecified; I10 Essential (primary) hypertension; I25.10 Atherosclerotic heart disease of native coronary artery without angina pectoris; I36.1 Nonrheumatic tricuspid (valve) insufficiency; M81.0 Age-related osteoporosis without current pathological fracture; Z79.82 Long term (current) use of aspirin; Z90.49 Acquired absence of other specified parts of digestive tract; Z90.710 Acquired absence of both cervix and uterus; Z79.899 Other long term (current) drug therapy
CPT/HCPCS: 36415; 71045; 74176; 76000; 80048; 81001; 82962; 83605; 83735; 84100; 84443; 85025; 85610; 85730; 87040; 87077; 87086; 87088; 87186; 93005; 97162; 97165; 97530; 97535; 99285; J7030; J7040; A4216; C1751; C1769; C2617; J2405

== ENCOUNTER → 2018-10-13 13:56 | Outpatient (CLI) | payer MEDICARE, SELFPAY ==
[2018-10-06 11:30] VITALS: BMI 30.9
[2018-10-13 15:31] LABS: Anion Gap 7 (5-15); BUN 15 mg/dL (7-18); BUN/Creat Ratio 15.6 RATIO (10-20); Calcium,Total 8.5 mg/dL (8.5-10.1); Chloride 106 mmol/L (98-107); Creatinine, Serum 0.96 mg/dL (0.55-1.02); EST Glomerular Filtration Rate 59 mL/min (>60); Est Glom Filt Rate - Afr Amer 71 mL/min (>60); Glucose 89 mg/dL (74-106); Potassium 3.5 mmol/L (3.5-5.1); Sodium Level 141 mmol/L (136-145)
== END ==
PROVIDERS: Family Provider Family Medicine; PCP Family Medicine; Referring Provider Internal Medicine; Visit Provider Internal Medicine
DX: N17.9 Acute kidney failure, unspecified (principal)
CPT/HCPCS: 36415; 80048

== ENCOUNTER → 2018-10-21 15:09 | Outpatient (CLI) | payer MEDICARE, SELFPAY ==
[2018-10-06 11:30] VITALS: BMI 30.9
[2018-10-21 17:24] LABS: Absolute Lymphocyte Count 2.17 X10^3/ul (0.83-4.51); Absolute Neutrophil Count 2.8 X10^3/uL (2.0-7.7); Basophil# 0.02 X10^3/uL; Basophil% 0.3 % (0-1); Eosinophil# 0.08 X10^3/uL; Eosinophils% 1.4 % (0-5); Hematocrit 40.4 % (37-47); Hemoglobin 13.4 g/dl (12.0-15.0); Lymphocyte # 2.17 X10^3/ul (4.0); Lymphocyte % 37.9 % (19-41); Mean Corp Hgb Conc 33.2 g/gl (32-36); Mean Corpuscular Hgb 30.4 pg (27.0-32.0); Mean Corpuscular Volume 91.6 fL (81-99); Mean Platelet Vol. 11.5 fl (6.2-12.0); Monocyte# 0.67 X10^3/uL; Monocyte% 11.7 % (0-10); Neutrophil # 2.77 X10^3/uL (2.7-7.7); Neutrophil % 48.4 % (47-70); Platelet Count 488 K/mm3 (150-450); RBC Distribution Width SD 45.7 fl (35.1-43.9); Red Blood Count 4.41 M/mm3 (4.2-5.4); White Blood Count 5.7 K/mm3 (4.4-11.0)
[2018-10-21 17:25] LABS: POSITIVE COUNT NO; POSITIVE DIFFERENTIAL NO; POSITIVE MORPHOLOGY NO
[2018-10-21 18:22] LABS: Anion Gap 10 (5-15); BUN 15 mg/dL (7-18); BUN/Creat Ratio 13.5 RATIO (10-20); Calcium,Total 8.7 mg/dL (8.5-10.1); Chloride 107 mmol/L (98-107); Creatinine, Serum 1.11 mg/dL (0.55-1.02); EST Glomerular Filtration Rate 50 mL/min (>60); Est Glom Filt Rate - Afr Amer 60 mL/min (>60); Glucose 87 mg/dL (74-106); Potassium 4.1 mmol/L (3.5-5.1); Sodium Level 142 mmol/L (136-145)
--- OUTSIDE RECORDS SUMMARY | 2018-12-07 12:47 | XMS RPT_ITS ---
:1935 Author Organization OHIP Support Name Relationship Address Phone LES, BOBBY Unavailable [address] + [place] [address] R Unavailable Unavailable Unavailable LES, BOBBY Unavailable [address] + [place] [address] R Unavailable Unavailable Unavailable LES, BOBBY Unavailable [address] + [place] [address] R Unavailable Unavailable Unavailable LES, BOBBY Unavailable [address] + [place] [address] R Unavailable Unavailable Unavailable LES, BOBBY Unavailable [address] + [place] [address] R Unavailable Unavailable Unavailable LES, BOBBY Unavailable [address] + [place] [address] R Unavailable Unavailable Unavailable LES, BOBBY Unavailable [address] + [place] [address] R Unavailable Unavailable Unavailable LES, BOBBY Unavailable [address] + [place] [address] R Unavailable Unavailable Unavailable LES, BOBBY Unavailable [address] + [place] [address] R Unavailable Unavailable Unavailable LES, BOBBY Unavailable [address] + [place] [address] R Unavailable Unavailable Unavailable LES, BOBBY Unavailable [address] + [place] [address] R Unavailable Unavailable Unavailable LES, BOBBY Unavailable [address] + [place] [address] R Unavailable Unavailable Unavailable LES, BOBBY Unavailable [address] + [place] [address] R Unavailable Unavailable Unavailable LES, BOBBY Unavailable [address] + [place] [address] R Unavailable Unavailable Unavailable LES, BOBBY Unavailable [address] + [place] [address] R Unavailable Unavailable Unavailable LES, BOBBY Unavailable [address] + [place] [address] R Unavailable Unavailable Unavailable LES, BOBBY Unavailable [address] + [place] [address] R Unavailable Unavailable Unavailable LES, BOBBY Unavailable [address] + [place] [address] R Unavailable Unavailable Unavailable LES, BOBBY Unavailable [address] + [place] [address] R Unavailable Unavailable Unavailable LES, BOBBY Unavailable [address] + [place] [address] R Unavailable Unavailable Unavailable LES, BOBBY Unavailable [address] + [place] [address] R Unavailable Unavailable Unavailable LES, BOBBY Unavailable [address] + [place] [address] R Unavailable Unavailable Unavailable LES, BOBBY Unavailable [address] + [place] [address] R Unavailable Unavailable Unavailable LES, BOBBY Unavailable [address] + [place] [address] R Unavailable Unavailable Unavailable Care Team Providers Name Role Phone Malys, Aaliyah Attending Unavailable Malys, Aaliyah Referring Unavailable Malys, Aaliyah Primary Care Unavailable Malys, Aaliyah Attending Unavailable Malys, Aaliyah Primary Care Unavailable Malys, Aaliyah Referring Unavailable Geoff Murray Attending Unavailable Malys, Aaliyah Primary Care Unavailable Eladia, Iker Attending Unavailable Wicoh Capellan Referring Unavailable Arnaud Schneider Attending Unavailable Arnaud Schneider Referring Unavailable Malys, Aaliyah Primary Care Unavailable Ramon Cash Attending Unavailable ShaileshRamon Referring Unavailable Malys, Aaliyah Primary Care Unavailable Malys, Aaliyah Attending Unavailable Malys, Aaliyah Referring Unavailable Malys, Aaliyah Primary Care Unavailable Malys, Aaliyah Primary Care Unavailable RAFFY HANDY Attending Unavailable Eladia, Iker Attending Unavailable [place], [place] Referring Unavailable Malys, Aaliyah Primary Care Unavailable WARREN SANCHEZ Attending Unavailable WARREN SANCHEZ Referring Unavailable Malys, Aaliyah Primary Care Unavailable Negin Frazier Attending Unavailable EladiaIker fuchs Attending Unavailable Malys, Aaliyah Referring Unavailable Malys, Aaliyah Primary Care Unavailable Malys, Aaliyah Primary Care Unavailable Agyepong, Iwcho Admitting Unavailable Agyepong, Wicho Referring Unavailable Shailesh, Frank Consulting Unavailable Paintsil, Pitkin Attending Unavailable Wily, Leonel Consulting Unavailable Agyepong, Wicho Admitting Unavailable Agyepong, Wicho Attending Unavailable Agyepong, Wicho Referring Unavailable Malys, Aaliyah Primary Care Unavailable Shailesh, Frank Consulting Unavailable Agyepong, Wicho Consulting Unavailable Agyepong, Wicho Admitting Unavailable Koram, Viri Jada Attending Unavailable Agyepong, Wicho Referring Unavailable Malys, Aaliyah Primary Care Unavailable Shailesh, Frank Consulting Unavailable Koram, Viri Jada Consulting Unavailable Agyepong, Wicho Admitting Unavailable Wily, Leonel Attending Unavailable Agyepong, Wicho Referring Unavailable Malys, Aaliyah Primary Care Unavailable Shailesh, Frank Consulting Unavailable Wily, Leonel Consulting Unavailable Koram, Viri Jada Consulting Unavailable Agyepong, Wicho Admitting Unavailable Paintsil, Pitkin Attending Unavailable Agyepong, Wicho Referring Unavailable Malys, Aaliyah Primary Care Unavailable Shailesh, Frank Consulting Unavailable Wily, Leonel Consulting Unavailable Paintsil, Pitkin Consulting Unavailable Agyepong, Wicho Admitting Unavailable Wily, Leonel Attending Unavailable Agyepong, Wicho Referring Unavailable Malys, Aaliyah Primary Care Unavailable Shailesh, Frank Consulting Unavailable Wily, Leonel Consulting Unavailable Paintsil, Pitkin Consulting Unavailable Agyepong, Wicho Admitting Unavailable Wily, Leonel Attending Unavailable Agyepong, Wicho Referring Unavailable Malys, Aaliyah Primary Care Unavailable Shailesh, Frank Consulting Unavailable Wily, Leonel Consulting Unavailable Paintsil, Pitkin Consulting Unavailable Agyepong, Wicho Admitting Unavailable Paintsil, Pitkin Attending Unavailable Agyepong, Wicho Referring Unavailable Malys, Aaliyah Primary Care Unavailable Shailesh, Frank Consulting Unavailable Wily, Leonel Consulting Unavailable Paintsil, Pitkin Consulting Unavailable Agyepong, Wicho Admitting Unavailable Wily, Leonel Attending Unavailable Agyepong, Wicho Referring Unavailable Malys, Aaliyah Primary Care Unavailable Shailesh, Frank Consulting Unavailable Wily, Leonel Consulting Unavailable Paintsil, Pitkin Consulting Unavailable Agyepong, Wicho Admitting Unavailable Paintsil, Pitkin Attending Unavailable Agyepong, Wicho Referring Unavailable Malys, Aaliyah Primary Care Unavailable Shailesh, Frank Consulting Unavailable Wily, Leonel Consulting Unavailable Paintsil, Pitkin Consulting Unavailable Paintsil, Pitkin Attending Unavailable Paintsil, Pitkin Referring Unavailable Malys, Aaliyah Primary Care Unavailable Shailesh, Ramon Dawson Attending Unavailable Shailesh, Frank Referring Unavailable Malys, Aaliyah Primary Care Unavailable PROBLEMS PROBLEMS DATE TYPE CONDITION / CODE ATTENDING STATUS SOURCE 11/15/2018 Unknown N20.0 - Calculus of Ramon Cash Active [place] kidney / [facility] N20.0(ICD-10) Hospital Repository 11/15/2018 Unknown R82.998 - Other ShaileshRamon Active [place] abnormal findings in [facility] urine / Hospital R82.998(ICD-10) Repository 10/21/2018 Unknown A41.9 - Sepsis, Malys, Aaliyah Active [place] unspecified organism Community / A41.9(ICD-10) Hospital Repository 10/21/2018 Unknown N17.9 - Acute kidney Malys, Aaliyah Active [place] failure, unspecified Community / N17.9(ICD-10) Hospital Repository 06/25/2018 Unknown I10 - Essential Eladia, [place] Active [place] (primary) Community hypertension / Hospital I10(ICD-10) Repository 06/25/2018 Unknown E78.5 - Eladia, [place] Active [place] Hyperlipidemia, Community unspecified / Hospital E78.5(ICD-10) Repository 05/05/2018 Unknown 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 Submit a new specimen if indicated. Performed By: #### M100.0650 #### [facility] [address] [place], [address] ABDOMEN SINGLE VIEW Observed: 11/15/2018 Status: F Source: [place] 12:08 PM [facility] REPOSITORY [facility] Imaging Services [address] [place] [address] Abdomen Single View MR#: [id number] Acct: [id number] Name: VLADIMIR BARAJAS Rep #: [id number] : 1935 F 83 From: Rell Moyer DO PCP: Aaliyah De La Cruz DO Status: REG CLI Study: Abdomen Single View Date of Exam: 11/15/18 Exam# [id number] Ordering Dr: Ramon Cash MD STUDY: X-RAY - ABDOMEN/PELVIS REASON FOR EXAM: Female, 83 years old. Left-sided kidney stone, follow-up TECHNIQUE: Single AP view of the abdomen / pelvis. COMPARISON: None. FINDINGS: There is a moderate amount of colonic fecal material. There is no demonstrated free abdominal air. The visualized liver, spleen and kidneys are grossly normal in size and morphology. No clearly evident left-sided renal stone. Normal soft tissue structures. Postsurgical changes of the lumbar spine RAD/Abdomen Single View IMPRESSION: Mild constipation. No clearly identified left renal or ureteral stone. Electronically Signed: Rell Moyer DO at 12:46 EST Tel , Service support , CC: Ramon Cash MD; Aaliyah De La Cruz DO Billing Representative: Signed SHOULDER MIN 2 VIEWS Observed: 11/11/2018 Status: F Source: [place] 1:23 PM [facility] REPOSITORY [facility] Imaging Services [address] [place] [address] Shoulder min 2 Views MR#: [id number] Acct: [id number] Name: VLADIMIR BARAJAS Rep #: [id number] : 1935 F 83 From: Stephen Langston MD PCP: Aaliyah De La Cruz DO Status: REG CLI Study: Shoulder min 2 Views Date of Exam: 11/11/18 Exam# [id number] Ordering Dr: [place]ud Schneider MD STUDY: X-RAY - RIGHT SHOULDER REASON FOR EXAM: Female, 83 years old. Pain TECHNIQUE: 4 view(s) of the shoulder. COMPARISON: None. FINDINGS: There is no evidence of fracture or dislocation. There are mild degenerative changes. There are no radiodense foreign bodies. RAD/Shoulder min 2 Views IMPRESSION: No fracture or dislocation. Mild degenerative changes. Electronically Signed: Stephen Langston, at 15:34 EST Tel , Service support , CC: Ar[place]ud Schneider; Aaliyah De La Cruz DO Billing Representative: Signed OPERATIVE REPORT Observed: 10/29/2018 Status: F Source: [place] 12:49 PM [facility] REPOSITORY [facility] Medical Records Department [address] [place] [address] Operative Report 10/29/18 1247 MR#: [id number] Acct: [id number] Name: VLADIMIR ABRAJAS Rep #: [id number] : 1935 83 From: Ramon Cash MD PCP: Aaliyah De La Cruz DO Status: REG SDC Y Location: [place] [address] Report of Operation Date of Procedure: 10/29/18 Pre-Operative Diagnosis: Left ureteral calculi at the left UPJ status post stent Post-Operative Diagnosis: Same Surgery/Procedure Performed:: Cystoscopy, left ureteroscopy laser lithotripsy of stone and removal of stent Description of Surgical Findings:: 83-year-old female taken back to the operating room after smooth induction of general anesthesia she was placed supine on the table, urethra and vaginal area prepped and draped in usual sterile fashion, went into the bladder with a 21 Martiniquais rigid cystourethroscope, grabbed the existing stent, advanced a wire up the stent left the wire in place next to the wire went in with the flexible ureteroscope was able to get up the ureter all the way there is no stone along the course of the ureter and in the UPJ in the left side there was a stone I used a 200 m laser fiber with energy settings of 0.6 J and 10 Hz and laser the stone little tiny pieces there is also some small fragments in the upper pole midpole these were laser little tiny pieces once a stent was dissected successfully lasered on the left tiny pieces that should pass on her own work my way down the ureter remove the wire drain the bladder and the patient anesthetic was reversed taken back to PACU good condition she will follow-up in a few weeks. Type of Anesthesia:: General Drains: none - Admit VTE Documentation VTE Present on Admission: No VTE Mechan Device Prophylaxis: SCD's 10/29/18 1249 <Electronically signed by Ramon Cash MD> Date Ramon Cash MD CC: Ramon Cash MD; Aaliyah De La Cruz DO Signed DISCHARGE INSTRUCTION Observed: 10/29/2018 Status: F Source: [place] 12:47 PM [facility] REPOSITORY [facility] Medical Records Department [address] [place] [address] Instructions for Home/Discharge Instructions 10/29/18 1246 MR#: [id number] Acct: [id number] Name: VLADIMIR BARAJAS Rep #: [id number] : 1935 83 From: Ramon Cash MD PCP: Aaliyah De La Cruz DO Status: REG [facility] Discharge Diet: Light diet - advance as tolerated Discharge Activity: Return to Normal Activity Call your doctor if you observe: Fever of 101 or Higher Instructions: Treating Kidney Stones: Ureteroscopic Stone Removal Allergies/Adverse Reactions: Allergies codeine Allergy (Verified 10/22/18 13:32) Rash hydrocodone bitartrate [From Vicodin] Adverse Reaction (Verified 10/22/18 13:32) Nausea meperidine HCl [From Demerol] Adverse Reaction (Verified 10/22/18 13:32) Nausea morphine Adverse Reaction (Verified 10/22/18 13:32) Vomiting oxycodone HCl [From Percocet] Adverse Reaction (Verified 10/22/18 13:32) Nausea Medications to take at Discharge Fluticasone 0.05% [Flonase Nasal [place]] 1 spray NARES DAILY 12/29/14 Lansoprazole [Prevacid] 30 mg PO DAILY 12/29/14 Levothyroxine [Synthroid] 50 mcg PO DAILY 12/29/14 Vit A/Vit C/Vit E/Zinc/Copper [Preservision Areds Softgel] 1 ea PO BID 06/09/15 Aspirin 81 mg PO QHS 08/28/16 denosumab 60 mg/mL subcutaneous syringe 60 mg SC [id number] 06/25/18 flaxseed oil 1,000 mg capsule 1,000 mg PO QDAY 06/25/18 magnesium oxide 400 mg (241.3 mg magnesium) tablet 400 mg PO QDAY tab 06/25/18 omega-3 fatty acids 1,000 mg capsule 1,000 mg PO QDAY 06/25/18 pravastatin 20 mg tablet 20 mg PO QHS 06/25/18 Calcium Citrate/Vitamin D3 [Citracal-Vit D3 200 mg-250 Tab] 1 each PO BID 10/05/18 Cholecalciferol (Vitamin D3) [Vitamin D3] 1,000 unit PO BID 10/05/18 Cyanocobalamin [Vitamin B12] 1,000 mcg PO DAILY@0800 10/05/18 Gabapentin [Neurontin] 200 mg PO TIDCM 10/05/18 Acetaminophen [Tylenol Tablet] 650 mg PO Q6H PRN PRN tablet 10/09/18 Glucosam/Roberto-Msm1/C/Martín/Bosw [Osteo Bi-Flex Caplet] 1 each PO BID 10/22/18 Metoprolol Succinate [Toprol Xl] 50 mg PO DAILY 10/22/18 Spironolactone [Aldactone] 50 mg PO DAILY 10/22/18 Primary Care Physician: Aaliyah De La Cruz DO [Primary Care Provider] - Test Results: Test results from this visit will be discussed in further detail at your follow-up appointment, if applicable. Please Follow Up With: Ramon Cash MD When: in 2 weeks, please call to make an appointment. 10/29/18 1247 <Electronically signed by Ramon Cash MD> Date Ramon Cash MD CC: Aaliyah De La Cruz DO Signed CBC W/DIFF, AUTOMATED Collected: 10/26/2018 Status: F Source: [place] 10:49 AM [facility] REPOSITORY TYPE CODE TESTS RESULT OUT OF RANGE REFERENCE UNITS LAB L100.1000 4.4-11.0 K/mm3 Normal WBC 5.4 LAB L100.1200 4.2-5.4 M/mm3 Normal RBC 4.85 LAB L100.1300 12.0-15.0 g/dl Normal HGB 14.3 LAB L100.1400 37-47 % Normal HCT 44.1 LAB L100.1500 81-99 fL Normal MCV 90.9 LAB L100.1600 27.0-32.0 pg Normal MCH 29.5 LAB L100.1700 32-36 g/gl Normal MCHC 32.4 LAB L100.1810 11.6-14.6 % Normal RDW CV 13.6 LAB L100.1820 35.1-43.9 fl High RDW SD 44.9 LAB L100.1900 150-450 K/mm3 Normal PLT 397 LAB L100.2000 6.2-12.0 fl Normal MPV 11.2 LAB L100.2100 47-70 % Normal NEUT% 51.0 LAB L100.2200 19-41 % Normal LY% 35.1 LAB L100.2300 0-10 % High MONO% 12.2 LAB L100.2400 0-5 % Normal EO% 1.3 LAB L100.2500 0-1 % Normal BASO% 0.2 LAB L100.2550 0.0-0.9 % Normal IM GRAN % 0.200 Result Comment: IG% - Immature Granulocytes (promyelocytes, myelocytes and metamyelocytes) > 1% indicates that a LEFT SHIFT is Present. LAB L100.2620 2.0-7.7 X10 3/uL Normal Absolute Neut 2.8 LAB L100.2720 0.83-4.51 X10 3/ul Normal Absolute Lymph 1.90 Performed By: #### L100.0100 #### [facility] [address] [place], [address] BASIC METABOLIC Collected: 10/26/2018 Status: F Source: [place] PROFILE (BMP) 10:49 AM [facility] REPOSITORY TYPE CODE TESTS RESULT OUT OF RANGE REFERENCE UNITS LAB L501.0100 74-106 mg/dL Normal GLU 90 Result Comment: Please note revised GLUCOSE reference range effective 2017. LAB L501.1000 7-18 mg/dL Normal BUN 13 LAB L501.1100 0.55-1.02 mg/dL High CREAT,SERUM 1.12 Result Comment: The validity of the calculated GFR AND GFRAA in patients over 70 years has not been determined. Clinical correlation is essential. LAB L501.1110 >60 mL/min Low EST GFR 49 Result Comment: Non- GFR Calc LAB L501.1115 >60 mL/min Normal EST GFR - AA 60 Result Comment: GFR Calc LAB L501.1300 10-20 RATIO Normal BUN/CRE 11.6 LAB L501.2200 8.5-10.1 mg/dL CA Normal 9.3 LAB L501.5300 136-145 mmol/L NA Normal 141 LAB L501.5600 3.5-5.1 mmol/L K Normal 4.1 LAB L501.5900 98-107 mmol/L CL Normal 102 LAB L501.6100 21.0-32.0 mmol/L Normal CO2 30.0 LAB L501.6200 5-15 Normal GAP 9 Performed By: #### L500.2500 #### [facility] [address] [place], [address] CBC W/DIFF, AUTOMATED Collected: 10/21/2018 Status: F Source: [place] 3:26 PM [facility] REPOSITORY TYPE CODE TESTS RESULT OUT OF RANGE REFERENCE UNITS LAB L100.1000 4.4-11.0 K/mm3 Normal WBC 5.7 LAB L100.1200 4.2-5.4 M/mm3 Normal RBC 4.41 LAB L100.1300 12.0-15.0 g/dl Normal HGB 13.4 LAB L100.1400 37-47 % Normal HCT 40.4 LAB L100.1500 81-99 fL Normal MCV 91.6 LAB L100.1600 27.0-32.0 pg Normal MCH 30.4 LAB L100.1700 32-36 g/gl Normal MCHC 33.2 LAB L100.1810 11.6-14.6 % Normal RDW CV 14.0 LAB L100.1820 35.1-43.9 fl High RDW SD 45.7 LAB L100.1900 150-450 K/mm3 High PLT 488 LAB L100.2000 6.2-12.0 fl Normal MPV 11.5 LAB L100.2100 47-70 % Normal NEUT% 48.4 LAB L100.2200 19-41 % Normal LY% 37.9 LAB L100.2300 0-10 % High MONO% 11.7 LAB L100.2400 0-5 % Normal EO% 1.4 LAB L100.2500 0-1 % Normal BASO% 0.3 LAB L100.2550 0.0-0.9 % Normal IM GRAN % 0.300 Result Comment: IG% - Immature Granulocytes (promyelocytes, myelocytes and metamyelocytes) > 1% indicates that a LEFT SHIFT is Present. LAB L100.2620 2.0-7.7 X10 3/uL Normal Absolute Neut 2.8 LAB L100.2720 0.83-4.51 X10 3/ul Normal Absolute Lymph 2.17 Performed By: #### L100.0100 #### [facility] [address] [place], [place], [id number] BASIC METABOLIC Collected: 10/21/2018 Status: F Source: [place] PROFILE (BMP) 3:26 PM [facility] REPOSITORY TYPE CODE TESTS RESULT OUT OF RANGE REFERENCE UNITS LAB L501.0100 74-106 mg/dL Normal GLU 87 Result Comment: Please note revised GLUCOSE reference range effective 2017. LAB L501.1000 7-18 mg/dL Normal BUN 15 LAB L501.1100 0.55-1.02 mg/dL High CREAT,SERUM 1.11 Result Comment: The validity of the calculated GFR AND GFRAA in patients over 70 years has not been determined. Clinical correlation is essential. LAB L501.1110 >60 mL/min Low EST GFR 50 Result Comment: Non- GFR Calc LAB L501.1115 >60 mL/min Normal EST GFR - AA 60 Result Comment: GFR Calc LAB L501.1300 10-20 RATIO Normal BUN/CRE 13.5 LAB L501.2200 8.5-10.1 mg/dL CA Normal 8.7 LAB L501.5300 136-145 mmol/L NA Normal 142 LAB L501.5600 3.5-5.1 mmol/L K Normal 4.1 LAB L501.5900 98-107 mmol/L CL Normal 107 LAB L501.6100 21.0-32.0 mmol/L Normal CO2 25.0 LAB L501.6200 5-15 Normal GAP 10 Performed By: #### L500.2500 #### [facility] [address] [place], [address] BASIC METABOLIC Collected: 10/13/2018 Status: F Source: [place] PROFILE (BMP) 2:00 PM [facility] REPOSITORY Order Comment: Send Results To: pcp Reason for Laboratory Test FOLLOW-UP ON HUGO TYPE CODE TESTS RESULT OUT OF RANGE REFERENCE UNITS LAB L501.0100 74-106 mg/dL Normal GLU 89 Result Comment: Please note revised GLUCOSE reference range effective 2017. LAB L501.1000 7-18 mg/dL Normal BUN 15 LAB L501.1100 0.55-1.02 mg/dL Normal CREAT,SERUM 0.96 Result Comment: The validity of the calculated GFR AND GFRAA in patients over 70 years has not been determined. Clinical correlation is essential. LAB L501.1110 >60 mL/min Low EST GFR 59 Result Comment: Non- GFR Calc LAB L501.1115 >60 mL/min Normal EST GFR - AA 71 Result Comment: GFR Calc LAB L501.1300 10-20 RATIO Normal BUN/CRE 15.6 LAB L501.2200 8.5-10.1 mg/dL CA Normal 8.5 LAB L501.5300 136-145 mmol/L NA Normal 141 LAB L501.5600 3.5-5.1 mmol/L K Normal 3.5 LAB L501.5900 98-107 mmol/L CL Normal 106 LAB L501.6100 21.0-32.0 mmol/L Normal CO2 28.0 LAB L501.6200 5-15 Normal GAP 7 Performed By: #### L500.2500 #### [facility] [address] [facility] [place], [address] DISCHARGE SUMMARY Observed: 10/09/2018 Status: F Source: [place] 1:02 PM [facility] REPOSITORY [facility] Medical Records Department [address] [place] [address] Discharge Summary 10/09/18 1202 MR#: [id number] Acct: [id number] Name: VLADIMIR BARAJAS Rep #: [id number] : 1935 82 From: Roseann Lentz MD PCP: Aaliyah De La Cruz DO Status: ADM IN Location: [place] [id number] Discharge Date and Diagnosis - Problem List Patient Problems: Active and Suspected Problems (Last Reviewed 10/05/18 @ 22:38 by Ramon Cash MD) Ureteral calculus, left (Acute) HUGO (acute kidney injury) (Acute) Septic shock (Acute) Date of Admission: 10/05/18 Date of Discharge: 10/09/18 - Primary Discharge Diagnosis Active and Suspected Problems (Last Reviewed 10/05/18 @ 22:38 by Ramon Cash MD) Septic shock Ureteral calculus, left (Acute) HUGO (acute kidney injury) (Acute) Thrombocytopenia - Secondary Discharge Diagnosis Chronic Problems (Last Reviewed 10/05/18 @ 22:38 by Ramon Cash MD) Palpitation (Chronic) Nonrheumatic mitral (valve) insufficiency (Chronic) Non-rheumatic tricuspid valve insufficiency (Chronic) Hyperlipidemia (Chronic) Hypertension (Chronic) Hospital Course and Treatment Imaging Results: Clinical Impression(s) from Imaging Studies Abdomen/Pelvis CT 10/05/18 18:13 IMPRESSION: 1. Moderate left-sided hydronephrosis and hydroureter secondary to proximal ureteral calculus. 2. Colonic diverticulosis. 3. Hiatal hernia. Electronically Signed: Aurea Madrid MD at 19:56 EST , Service support , Chest X-Ray 10/06/18 12:11 IMPRESSION: The tip of the right central line is at the junction of the superior vena cava and right atrium. Pleural parenchymal changes at the left lung base suggestive of either atelectasis and/or early infiltrate. Follow-up is recommended. Electronically Signed: Garry Dalal MD at 12:58 EST Tel [phone], Service support , Critical care Urology Operations: None Procedures: - - Cystoscopy with left stent placement on 10/06/18 Summary of Care Provided: 2-year-old female with past medical history of hypertension, hyperlipidemia, hypothyroidism, CAD omitted with complaints of left flank pain and found to have a left ureteric calculus with left hydronephrosis. Patient subsequently developed hypotension and was admitted to ICU and managed as septic shock. She had cystoscopy and left stent removal done on 10/06/18. Hospital management was as follows: 1. Septic shock secondary to infected left ureteric calculi, blood cultures growing Klebsiella pneumoniae, pansensitive urine culture growing mixed organisms, WBC count was elevated, trended down with treatment, patient was managed in the ICU on a low-dose Levophed. Improved after 48 hours of treatment. Started initially on IV Zosyn, transitioned to IV Levaquin and discharged with p.o. Levaquin renal dosed 2. Left ureteric calculi with left hydronephrosis/hydroureter, status post cystoscopy and left stent placement, urology consulted, will up in the outpatient for renal stent removal. 3. HUGO likely secondary to prerenal/post renal from renal calculus, resolved, patient's baseline creatinine is between 1.0-1.2. She was admitted with a creatinine of 1.67 that increased to 2.0. Creatinine improved with hydration and stent placement. It is less likely that patient had ATN. Creatinine at discharge was 0.94. She was encouraged to keep hydrating herself. Repeat blood work within a week 4. Hypertension: Patient was initially hypotensive on arrival, home blood pressure medications were held, patient remained relatively hypotensive, she was asymptomatic. On discharge, she was prescribed metoprolol 12.5 mg p.o. daily, she was asked to measure her blood pressure every day, and start on the above medication if she gets blood pressure readings more than 120s and 130s. She will follow-up with her primary care doctor within a week for blood pressure evaluation. 5. Thrombocytopenia, acute, likely medication related/sepsis. Platelet count on admission was around 200, dropped to the 70s with IV antibiotics and heparin , these were discontinued, platelet count increased. Patient Problems: Active and Suspected Problems (Last Reviewed 10/05/18 @ 22:38 by Ramon Cash MD) Ureteral calculus, left (Acute) HUGO (acute kidney injury) (Acute) Septic shock (Acute) Subjective: On the day of discharge, patient felt improved. Has been ambulating with a walker. Denied any fever or chills or dizziness. Has slight right flank pain. Objective: Physical exam: General: Alert, Oriented x3, Cooperative HEENT: Atraumatic, PERRLA, EOMI, Normocephalic Oral: Dry Mucosa Neck: Supple, No JVD, Negative Carotid Bruits Lungs: Clear to auscultation, Normal air movement, No rhonchi, No wheeze, No rales Cardiovascular: Regular rate, Regular Rhythm, Normal S1, Normal S2, No murmurs Abdomen: Bowel Sounds Present, Soft, Non-Distended, No Hepato- splenomegaly, - - mild right lower quadrant tenderness, without guarding or rebound tenderness Extremities: No edema Skin: No rashes, No breakdown Musculoskeletal: No Tenderness to Palpation of Joints or Extremities Lymphatic: No Cervical, Supraclavicular, or Inguinal Adenopathy Neurological: Cranial nerves II-XII grossly intact, Neuro grossly intact, Motor Exam 5/5 strength throughout Psych/Mental Status: Normal Affect, Appropriate, Alert and oriented to time, place, person, mood and affect - Physical Exam Vital Signs Temp Pulse Resp BP Pulse Ox 97.9 F 87 16 110/70 94 10/09/18 08:18 10/09/18 08:18 10/09/18 08:18 10/09/18 08:18 10/09/18 08:18 Oxygen Flow Rate (L/min) 2 Oxygen Delivery Method Room Air Weight: 79.3 kg Body Mass Index (BMI) 30.9 Finger Stick Blood Glucose 60 Intake and Output for Last 24 Hours Microbiology Past 72 Hours 10/06/18 12:30 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 - Preliminary 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 (Wb) - Line Draw No growth in 48 hours. 10/06/18 11:50 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 - Preliminary Laboratory Tests Past 24 Hrs Discharge Diet: Low fat/ Low Cholesterol, 2000 mg Sodium Diet Discharge Activity: Return to Normal Activity Home Medications: Medications to take at Discharge Fluticasone 0.05% [Flonase Nasal [place]] 1 spray NARES DAILY 12/29/14 Lansoprazole [Prevacid] 30 mg PO DAILY 12/29/14 Levothyroxine [Synthroid] 50 mcg PO DAILY 12/29/14 Vit A/Vit C/Vit E/Zinc/Copper [Preservision Areds Softgel] 1 ea PO DAILY 06/09/15 Aspirin 81 mg PO QHS 08/28/16 denosumab 60 mg/mL subcutaneous syringe 60 mg SC [id number] 06/25/18 flaxseed oil 1,000 mg capsule 1,000 mg PO QDAY 06/25/18 magnesium oxide 400 mg (241.3 mg magnesium) tablet 400 mg PO QDAY tab 06/25/18 omega-3 fatty acids 1,000 mg capsule 1,000 mg PO QDAY 06/25/18 pravastatin 20 mg tablet 20 mg PO QHS 06/25/18 Calcium Citrate/Vitamin D3 [Citracal-Vit D3 200 mg-250 Tab] 1 each PO BID 10/05/18 Cholecalciferol (Vitamin D3) [Vitamin D3] 1,000 unit PO BID 10/05/18 Cyanocobalamin [Vitamin B12] 1,000 mcg PO DAILY@0800 10/05/18 Gabapentin [Neurontin] 100 mg PO TIDCM 10/05/18 Acetaminophen [Tylenol Tablet] 650 mg PO Q6H PRN PRN tablet 10/09/18 Levofloxacin [Levaquin] 750 mg PO QODAY #4 tablet 10/09/18 Metoprolol(XL)Succ [Toprol Xl (Beta Krysten)] 12.5 mg PO DAILY #30 tablet 10/09/18 Following Prescrptions Were Given to Patient: Levofloxacin [Levaquin] 750 mg PO QODAY #4 tablet Metoprolol(XL)Succ [Toprol Xl (Beta Krysten)] 12.5 mg PO DAILY #30 tablet Primary Care Physician: Aaliyah De La Cruz DO [Primary Care Provider] - Please follow up with your Primary Care Physician in: within 1-2 weeks Please Follow Up With: Ramon Cash MD When: as scheduled Disposition: Home Minutes spent on discharge:: 40 Patient Condition:: Stable Medical Necessity - Tobacco Use Smoking Status: Never smoker Tobacco Use: Non-smoker Meaningful Use Info Meaningful Use Diagnoses (Choose all that apply): None applicable Code Visit Inpatient E AND M: 42856 Disch Hosp 10/09/18 1302 <Electronically signed by Roseann Lentz MD> Date Roseann Lentz MD Cosigner Signature (if applicable): Date CC: Roseann Lentz MD; Aaliyah De La Cruz DO Signed DISCHARGE INSTRUCTION Observed: 10/09/2018 Status: F Source: [place] 12:01 PM [facility] [place] REPOSITORY [facility] Medical Records Department [address] [place] [id number] Instructions for Home/Discharge Instructions 10/09/18 1135 MR#: [id number] Acct: [id number] Name: VLADIMIR BARAJAS Rep #: [id number] : 1935 82 From: Roseann Lentz MD PCP: Aaliyah De La Cruz DO Status: ADM IN - Discharge Diagnoses Current Active Problems: Current Active and Chronic Problems (Last Reviewed 10/05/18 @ 22:38 by Ramon Cash MD) Ureteral calculus, left (Acute) HUGO (acute kidney injury) (Acute) Septic shock (Acute) Reason(s) for Visit for Discharge Instructions: Fever, flank pain You will use the following diet at home:: Cardiac Your food should be the consistency of: Regular Your liquids should be the consistency of: Regular/Thin Discharge Activity: Return to Normal Activity Additional Instructions: Complete your antibiotics. Continue to remain active. You may take tylenol for the flank pain or apply some topical analgesic or heating pad to your left flank. Cointinue to be active. Use your walker when ambulating. Follow- up with your primary doctor in 1 week and also your urologist as scheduled. Take note of changes to your blood pressure medications. You should take your BP daily and take your medications when your BP remains above 120-130 consistently. Allergies/Adverse Reactions: Allergies codeine Allergy (Verified 10/05/18 17:56) Rash hydrocodone bitartrate [From Vicodin] Adverse Reaction (Verified 10/05/18 17:56) Nausea meperidine HCl [From Demerol] Adverse Reaction (Verified 10/05/18 17:56) Nausea oxycodone HCl [From Percocet] Adverse Reaction (Verified 10/05/18 17:56) Nausea Medications to take at Discharge Fluticasone 0.05% [Flonase Nasal [place]] 1 spray NARES DAILY 12/29/14 Lansoprazole [Prevacid] 30 mg PO DAILY 12/29/14 Levothyroxine [Synthroid] 50 mcg PO DAILY 12/29/14 Vit A/Vit C/Vit E/Zinc/Copper [Preservision Areds Softgel] 1 ea PO DAILY 06/09/15 Aspirin 81 mg PO QHS 08/28/16 denosumab 60 mg/mL subcutaneous syringe 60 mg SC [id number] 06/25/18 flaxseed oil 1,000 mg capsule 1,000 mg PO QDAY 06/25/18 magnesium oxide 400 mg (241.3 mg magnesium) tablet 400 mg PO QDAY tab 06/25/18 omega-3 fatty acids 1,000 mg capsule 1,000 mg PO QDAY 06/25/18 pravastatin 20 mg tablet 20 mg PO QHS 06/25/18 Calcium Citrate/Vitamin D3 [Citracal-Vit D3 200 mg-250 Tab] 1 each PO BID 10/05/18 Cholecalciferol (Vitamin D3) [Vitamin D3] 1,000 unit PO BID 10/05/18 Cyanocobalamin [Vitamin B12] 1,000 mcg PO DAILY@0800 10/05/18 Gabapentin [Neurontin] 100 mg PO TIDCM 10/05/18 Acetaminophen [Tylenol Tablet] 650 mg PO Q6H PRN PRN tablet 10/09/18 Levofloxacin [Levaquin] 750 mg PO QODAY #4 tablet 10/09/18 Metoprolol(XL)Succ [Toprol Xl (Beta Krysten)] 12.5 mg PO DAILY #30 tablet 10/09/18 The following prescriptions were given: Levofloxacin [Levaquin] 750 mg PO DAILY #7 tablet Primary Care Physician: Aaliyah De La Cruz DO [Primary Care Provider] - Please follow up with your Primary Care Physician in: within 1-2 weeks Test Results: Test results from this visit will be discussed in further detail at your follow-up appointment, if applicable. Please Follow Up With: Ramon Cash MD When: as scheduled Proposed Discharge Date: 10/09/18 10/09/18 1201 <Electronically signed by Roseann Lentz MD> Date Roseann Lentz MD CC: Leonel Julien MD; Ramon Cash MD; Aaliyah De La Cruz DO CBC W/DIFF, AUTOMATED Collected: 10/09/2018 Status: F Source: [place] 7:08 AM [facility] REPOSITORY TYPE CODE TESTS RESULT OUT OF RANGE REFERENCE UNITS LAB L100.1000 4.4-11.0 K/mm3 High WBC 17.0 LAB L100.1200 4.2-5.4 M/mm3 Low RBC 4.17 LAB L100.1300 12.0-15.0 g/dl Normal HGB 12.6 LAB L100.1400 37-47 % Normal HCT 37.1 LAB L100.1500 81-99 fL Normal MCV 89.0 LAB L100.1600 27.0-32.0 pg Normal MCH 30.2 LAB L100.1700 32-36 g/gl Normal MCHC 34.0 LAB L100.1810 11.6-14.6 % Normal RDW CV 14.0 LAB L100.1820 35.1-43.9 fl High RDW SD 45.7 LAB L100.1900 150-450 K/mm3 Low PLT 87 LAB L100.2000 6.2-12.0 fl Normal MPV 11.4 LAB L100.2100 47-70 % High NEUT% 81.2 LAB L100.2200 19-41 % Low LY% 9.0 LAB L100.2300 0-10 % Normal MONO% 7.6 LAB L100.2400 0-5 % Normal EO% 0.9 LAB L100.2500 0-1 % Normal BASO% 0.2 LAB L100.2550 0.0-0.9 % High IM GRAN % 1.100 Result Comment: IG% - Immature Granulocytes (promyelocytes, myelocytes and metamyelocytes) > 1% indicates that a LEFT SHIFT is Present. LAB L100.2620 2.0-7.7 X10 3/uL High Absolute Neut 13.8 LAB L100.2720 0.83-4.51 X10 3/ul Normal Absolute Lymph 1.53 Performed By: #### L100.0100 #### [facility] [address] [place], [address] BASIC METABOLIC Collected: 10/09/2018 Status: F Source: [place] PROFILE ([facility]) 7:08 AM [facility] REPOSITORY TYPE CODE TESTS RESULT OUT OF RANGE REFERENCE UNITS LAB L501.0100 74-106 mg/dL Normal GLU 82 Result Comment: Please note revised GLUCOSE reference range effective 2017. LAB L501.1000 7-18 mg/dL High BUN 20 LAB L501.1100 0.55-1.02 mg/dL Normal CREAT,SERUM 0.94 Result Comment: The validity of the calculated GFR AND GFRAA in patients over 70 years has not been determined. Clinical correlation is essential. LAB L501.1110 >60 mL/min Normal EST GFR 61 Result Comment: Non- GFR Calc LAB L501.1115 >60 mL/min Normal EST GFR - AA 73 Result Comment: GFR Calc LAB L501.1255 ml/min Normal Estimated CRCL 38.17 LAB L501.1300 10-20 RATIO High BUN/CRE 21.3 LAB L501.2200 8.5-10 mg/dL Low .1 CA 7.3 LAB L501.5300 136-14 mmol/L Normal 5 NA 143 LAB L501.5600 3.5-5. mmol/L Normal 1 K 4.0 LAB L501.5900 98-107 mmol/L High CL 110 LAB L501.6100 21.0-3 mmol/L Normal 2.0 CO2 25.0 LAB L501.6200 5-15 Normal GAP 8 Performed By: #### L500.2500 #### [facility] [address] [place], [address] 12 LEAD ELECTROCARDIOGRAM Observed: 10/08/2018 Status: F Source: [place] 2:08 PM [facility] [place] REPOSITORY [facility] Cardiovascular Services [address] [place] [address] 12 Lead EKG 10/06/18 0545 MR#: [id number] Acct: [id number] Name: VLADIMIR BARAJAS Rep #: [id number] : 1935 82 From: Iker Montilla MD Attending Dr: Roseann Lentz MD Status: ADM IN Ordering Dr: Davion Girard MD Date: 10/06/18 Location: [facility] [place] Sex: F C Admitted: 10/05/18 Test Reason : AM EKG Blood Pressure : / mmHG Vent. Rate : 094 BPM Atrial Rate : 094 BPM P-R Int : 134 ms QRS Dur : 072 ms QT Int : 358 ms P-R-T Axes : 030 010 022 degrees QTc Int : 447 ms Normal sinus rhythm Normal ECG No previous ECGs available Confirmed by ELADIA TAYLOR, IKER ([id number]), content editor KALPANA ESPINOZA ([id number]) on 10/08/2018 2:07:59 PM Referred By: Wicho Capellan Confirmed By:IKER MONTILLA MD 10/08/18 1408 Date Iker Montilla MD CC: Roseann Lentz MD; Davion Girard MD; Wicho Capellan MD; Aaliyah De La Cruz DO Signed CBC W/DIFF, AUTOMATED Collected: 10/08/2018 Status: C Source: [place] 4:00 AM [facility] [place] REPOSITORY TYPE CODE TESTS RESULT OUT OF RANGE REFERENCE UNITS LAB L100.1000 4.4-11.0 K/mm3 High WBC 20.3 LAB L100.1200 4.2-5.4 M/mm3 Low RBC 3.93 LAB L100.1300 12.0-15.0 g/dl Normal HGB 12.3 LAB L100.1400 37-47 % Low HCT 35.8 LAB L100.1500 81-99 fL Normal MCV 91.1 LAB L100.1600 27.0-32.0 pg Normal MCH 31.3 LAB L100.1700 32-36 g/gl Normal MCHC 34.4 LAB L100.1810 11.6-14.6 % Normal RDW CV 13.5 LAB L100.1820 35.1-43.9 fl High RDW SD 44.6 LAB L100.1900 150-450 K/mm3 Low PLT 71 LAB L100.2000 6.2-12.0 fl Normal MPV 12.0 LAB L100.2100 47-70 % High NEUT% 90.8 LAB L100.2200 19-41 % Low LY% 3.9 LAB L100.2300 0-10 % Normal MONO% 3.1 LAB L100.2400 0-5 % Normal EO% 0.1 LAB L100.2500 0-1 % Normal BASO% 0.1 LAB L100.2550 0.0-0.9 % High IM GRAN % 2.000 Result Comment: IG% - Immature Granulocytes (promyelocytes, myelocytes and metamyelocytes) > 1% indicates that a LEFT SHIFT is Present. LAB L100.2620 2.0-7.7 X10 3/uL High Absolute Neut 18.5 LAB L100.2720 0.83-4.51 X10 3/ul Low Absolute Lymph 0.80 LAB L100.9900 Normal PATH REV Reviewed Result Comment: Neutrophilic leukocytosis with left shift. Thrombocytopenia. Clinical correlation necessary. Daron Vance M.D. 10/08/18 AMENDED REPORT 10/08/18 1225 PATH REV previously reported as: March haley Performed By: #### L100.0100 #### [facility] [address] [place], [address] BASIC METABOLIC Collected: 10/08/2018 Status: F Source: [place] PROFILE (B[place]) 4:00 AM [facility] REPOSITORY TYPE CODE TESTS RESULT OUT OF RANGE REFERENCE UNITS LAB L501.0100 74-106 mg/dL Normal GLU 76 Result Comment: Please note revised GLUCOSE reference range effective 2017. LAB L501.1000 7-18 mg/dL High BUN 32 LAB L501.1100 0.55-1.02 mg/dL High CREAT,SERUM 1.30 Result Comment: The validity of the calculated GFR AND GFRAA in patients over 70 years has not been determined. Clinical correlation is essential. LAB L501.1110 >60 mL/min Low EST GFR 42 Result Comment: Non- GFR Calc LAB L501.1115 >60 mL/min Low EST GFR - AA 50 Result Comment: GFR Calc LAB L501.1255 ml/min Normal Estimated CRCL 27.60 LAB L501.1300 10-20 RATIO High BUN/CRE 24.6 LAB L501.2200 8.5-10 mg/dL Low .1 CA 7.1 LAB L501.5300 136-14 mmol/L Normal 5 NA 144 LAB L501.5600 3.5-5. mmol/L Normal 1 K 4.2 LAB L501.5900 98-107 mmol/L High CL 111 LAB L501.6100 21.0-3 mmol/L Normal 2.0 CO2 22.0 LAB L501.6200 5-15 Normal GAP 11 Performed By: #### L500.2500, L501.2300, L501.5200 #### [facility] [address] [place], [place], [id number] PHOSPHORUS Collected: 10/08/2018 Status: F Source: [place] 4:00 AM [facility] REPOSITORY TYPE CODE TESTS RESULT OUT OF RANGE REFERENCE UNITS LAB L501.2300 2.5-4.9 mg/dL Low PHOS 1.8 Performed By: #### L500.2500, L501.2300, L501.5200 #### [facility] [address] [place], [place], [address] MAGNESIUM Collected: 10/08/2018 Status: F Source: [place] 4:00 AM [facility] REPOSITORY TYPE CODE TESTS RESULT OUT OF RANGE REFERENCE UNITS LAB L501.5200 1.6-2.6 mg/dL Normal MG 2.5 Performed By: #### L500.2500, L501.2300, L501.5200 #### [facility] [address] [place], [address] BEDSIDE GLUCOSE Collected: 10/07/2018 Status: F Source: [place] 6:32 AM [facility] REPOSITORY TYPE CODE TESTS RESULT OUT OF REFERENCE UNITS RANGE LAB L501.080 70-110 mg/dL Low BEDSIDE GLU 60 Result Comment: MANAGEMENT OF PATIENT CARE PER NURSING PROTOCOL Performed By: #### L501.080 #### [facility] Point of Care [address] [place] [address] CONSULTATION Observed: 10/07/2018 Status: F Source: [place] 5:44 AM [facility] REPOSITORY [facility] Medical Records Department [address] [facility] [place] [address] Consultation 10/06/18 1456 MR#: [id number] Acct: [id number] Name: VLADIMIR BARAJAS Rep #: [id number] : 1935 82 From: Leonel Julien MD PCP: Aaliyah De La Cruz DO Status: ADM IN Y Location: ICU ICU- Problem List (1) Septic shock Status: Acute (2) Ureteral calculus, left Status: Acute (3) HUGO (acute kidney injury) Status: Acute (4) Palpitation Status: Chronic (5) Nonrheumatic mitral (valve) insufficiency Status: Chronic (6) Non-rheumatic tricuspid valve insufficiency Status: Chronic (7) Hyperlipidemia Status: Chronic (8) Hypertension Status: Chronic Reason for Consult Date of Consultation: 10/06/18 Reason for Consultation: Septic shock History of Present Illness: The patient is a 82 year old F, with past medical history listed below, who presented to [facility] on 10/05/2018 secondary to flank pain. Patient reportedly had a sudden onset of left flank pain at 130 on the day of presentation. This was followed by nausea and vomiting. There is no dysuria or fever reported. Patient had called her primary care physician, but was sent to the ER for evaluation. While in the emergency room, patient was noted to have left CVA tenderness. Leukocytosis of 12.9 and an elevated creatinine of 1.67, baseline 1 and a hemoglobin of 15. CT scan of the abdomen had shown an 8.7 mm proximal left ureteral stone with hydroureter and hydronephrosis. Patient was admitted to the regular medical floor and initiated on antibiotics. This morning, patient was noted to have progressive hypotension. Patient had received fluid boluses, but persisted and hypotension. Patient was transferred to the intensive care unit. On my evaluation, patient reported that her pain was still present and unchanged. Patient denied any hematuria, nausea or vomiting. Patient did state that she had some numbness of her left hand, but no change in muscle strength. Given patient's persistent hypotension, a right IJ was inserted and patient was initiated on Levophed therapy. Did discuss with patient's son and significant other at the bedside. Past Medical History Past Medical History (Chronic Problems): Chronic Problems (Last Reviewed 10/05/18 @ 22:38 by Ramon Cash MD) Palpitation (Chronic) Nonrheumatic mitral (valve) insufficiency (Chronic) Non-rheumatic tricuspid valve insufficiency (Chronic) Hyperlipidemia (Chronic) Hypertension (Chronic) Medical History: Medical History (Last Reviewed 10/05/18 @ 22:38 by Ramon Cash MD) Nonrheumatic mitral (valve) insufficiency (Chronic) I34.0 Non-rheumatic tricuspid valve insufficiency (Chronic) I36.1 Hyperlipidemia (Chronic) E78.5 Hypertension (Chronic) I10 IBS (irritable bowel syndrome) K58.9 Ureteral reflux N13.70 History of hysterectomy Z90.710 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 Allergies codeine Allergy (Verified 10/05/18 17:56) Rash hydrocodone bitartrate [From Vicodin] Adverse Reaction (Verified 10/05/18 17:56) Nausea meperidine HCl [From Demerol] Adverse Reaction (Verified 10/05/18 17:56) Nausea oxycodone HCl [From Percocet] Adverse Reaction (Verified 10/05/18 17:56) Nausea Home Medications: Ambulatory Orders Medication Instructions Recorded Fluticasone 0.05% [Flonase Nasal 1 spray NARES DAILY 12/29/14 Surgical History: Surgical History (Last Reviewed 10/05/18 @ 22:38 by Ramon Cash MD) History of ERCP Z98.890 History of appendectomy Z90.49 History of back surgery Z98.890 History of bilateral knee replacement Z96.653 History of partial thyroidectomy Z98.890 History of tonsillectomy and adenoidectomy Z98.890 Hx of cholecystectomy Z90.49 Surgical History: total knee arthroplasty Lives: Spouse/ Significant Other Smoking Status: Never smoker Alcohol: Occasional - *Family History Maternal Family History: Family History (Last Reviewed 10/05/18 @ 22:38 by Ramon Cash MD) Father Heart disease Aunt Heart disease Grandfather Heart disease Grandmother Heart disease Mother Cancer Review of Systems Comment: Review of systems otherwise negative x10 systems Patient Problems: Active and Suspected Problems (Last Reviewed 10/05/18 @ 22:38 by Ramon Cash MD) Ureteral calculus, left (Acute) HUGO (acute kidney injury) (Acute) Septic shock (Acute) Objective: All imaging was personally reviewed. Agree with formal interpretation. Central line note After confirmation of informed consent both IJ's were visualized using ultrasound guidance. The right was chosen. Area was prepped in a sterile fashion. Localized IJ using ultrasound and cannulated using a modified Seldinger technique under direct supervision with ultrasound. Nonpulsatile dark blood was noted. Central line was placed and return was noted from all ports. Central line was secured using 2 interrupted silk sutures. Placement was verified using chest x-ray and no complications including pneumothorax. Nurse was informed of okay to use. - Physical Exam General: Alert, Oriented x3, Cooperative, No apparent distress, Well developed, Well nourished, - - Appears stated age. No conversational dyspnea. HEENT: Atraumatic, PERRLA, EOMI, Normocephalic, - - No scleral icterus or injection noted. Oral: Moist Mucosa, No Gingival or Mucosal Lesions/ Ulcerations Neck: Supple, No JVD, No Nodes, Trachea Midline Lungs: No rhonchi, No wheeze, No rales, Diminished, - - Symmetric expansion. No dullness to percussion. Cardiovascular: Regular rate, Regular Rhythm, Normal S1, Normal S2, No murmurs, No rub noted, No Gallop Abdomen: Bowel Sounds Present, Soft, Non-Distended, Tender - Left flank Extremities: No clubbing, No cyanosis, No edema, Capillary Refill Less than 3 Seconds Skin: No rashes, No breakdown Musculoskeletal: No Tenderness to Palpation of Joints or Extremities Lymphatic: No Cervical, Supraclavicular, or Inguinal Adenopathy Neurological: Cranial nerves II-XII grossly intact, Neuro grossly intact, Motor Exam 5/5 strength throughout Psych/Mental Status: Alert and oriented to time, place, person, mood and affect Vital Signs Temp Pulse Resp BP Pulse Ox 36.9 C 94 16 87/60 L 94 10/06/18 13:05 10/06/18 14:45 10/06/18 14:05 10/06/18 14:45 10/06/18 14:32 Oxygen Flow Rate (L/min) 5 Oxygen Delivery Method Nasal Cannula Weight: 79.3 kg Body Mass Index (BMI) 30.9 Orthostatic Vital Signs Start: 10/06/18 03:24 Freq: q24h Status: Active Protocol: Activity Type Activity Date Activity User E-Sign Co-Sign Detail Recorded Client Recorded Date Recorded By Document 10/06/18 03:26 MM [id number] 10/06/18 03:27 MM Orthostatic Vitals Standing -Blood Pressure (90/60-120/80) 87/56 L -Extremity Use Right Arm -Pulse Rate (60-100) 97 Sitting -Blood Pressure (90/60-120/80) 80/51 L Intake and Output for Last 24 Hours Intake Total 591 / 591 4863 / 4863 Output Total 100 / 100 100 / 100 Balance 491 / 491 4763 / 4763 Laboratory Tests Past 24 Hrs WBC 12.6 H RBC 5.12 Hgb 15.9 H Hct 46.3 WBC 15.2 H RBC 4.20 Hgb 12.6 Hct 38.4 MCV 91.4 MCH 30.0 MCHC 32.8 RDW 13.1 RDW Differential 43.8 WBC RBC Hgb Hct MCV MCH MCHC RDW RDW Differential Plt Count MPV Immature Gran % (Auto) Clinical Impression(s) from Imaging Studies Abdomen/Pelvis CT 10/05/18 18:13 IMPRESSION: 1. Moderate left-sided hydronephrosis and hydroureter secondary to proximal ureteral calculus. 2. Colonic diverticulosis. 3. Hiatal hernia. Electronically Signed: Aurea Madrid MD at 19:56 EST , Service support , Chest X-Ray 10/06/18 12:11 IMPRESSION: The tip of the right central line is at the junction of the superior vena cava and right atrium. Pleural parenchymal changes at the left lung base suggestive of either atelectasis and/or early infiltrate. Follow-up is recommended. Electronically Signed: Garry Dalal MD at 12:58 EST Tel [phone], Service support , Assessment/Plan Active and Suspected Problems (Last Reviewed 10/05/18 @ 22:38 by Ramon Cash MD) Ureteral calculus, left (Acute) HUGO (acute kidney injury) (Acute) Septic shock (Acute) RECOMMENDATIONS: 1. Limit fluid resuscitation 2. Continue Levophed as necessary 3. Wean oxygen as tolerated 4. Surgical stent placement to relieve obstruction 5. Potential BiPAP rescue 6. Empiric antibiotics IMPRESSIONS: 1. Septic shock secondary to obstructive uropathy She is currently on empiric ceftriaxone. Patient does not have any recent antibiotics that would suggest resistance pattern. Patient has received 30 cc/kg fluid resuscitation. Patient has been placed on pressor therapy. Lactate is slightly elevated and will need to be repeated. Patient is starting to have some rales on exam, so will attempt to hold on continued aggressive fluid resuscitation. 2. Acute kidney injury secondary to septic shock and obstructive uropathy Since baseline creatinine is approximately 1. Patient does have an obstructive uropathy on the left and decreased blood pressure. We will continue to monitor. Patient does not have any indication for renal replacement therapy at this time, but this will need to be followed closely. Patient does have an indwelling Escobar for monitoring urine output. 3. Possible congestive heart failure/CAD Patient has received significant fluids today, but appears to be developing rales on exam. Patient had an echocardiogram in 2014 that showed no significant issues. Will repeat echocardiogram for evaluation of possible congestive heart failure. EKG showed no ST elevations. 4. Elevated PTT Unclear etiology. Patient does not report using anticoagulants at baseline. Patient has had a significant drop in platelets. Will need to monitor for DIC given patient's septic shock. 5. Hypertension/hypothyroidism/osteoporosis/advanced age Complicates care, management, recovery and prognosis. Hold antihypertensive medications given acute status. TIME: 45 minutes critical care time spent addressing patient's septic shock, acute kidney injury, elevated PTT, review of all data and collaboration with care team (11 AM to 3 PM) Code Visit 9xxxx: [id number] Critical care first hour 10/07/18 0544 <Electronically signed by Leonel Julien MD> Date Leonel Julien MD Cosigner Signature (if applicable): Date CC: Leonel Julien MD; Wicho Capellan MD; Ramon Cash MD; Aaliyah De La Cruz DO Signed BASIC METABOLIC Collected: 10/07/2018 Status: F Source: IRENA PROFILE (BMP) 4:00 AM [facility] REPOSITORY TYPE CODE TESTS RESULT OUT OF RANGE REFERENCE UNITS LAB L501.0100 74-106 mg/dL Low GLU 59 Result Comment: Please note revised GLUCOSE reference range effective 2017. LAB L501.1000 7-18 mg/dL High BUN 37 LAB L501.1100 0.55-1.02 mg/dL High CREAT,SERUM 1.82 Result Comment: The validity of the calculated GFR AND GFRAA in patients over 70 years has not been determined. Clinical correlation is essential. LAB L501.1110 >60 mL/min Low EST GFR 28 Result Comment: Non- GFR Calc LAB L501.1115 >60 mL/min Low EST GFR - AA 34 Result Comment: GFR Calc LAB L501.1255 ml/min Normal Estimated CRCL 19.71 LAB L501.1300 10-20 RATIO High BUN/CRE 20.3 LAB L501.2200 8.5-10 mg/dL Low .1 CA 6.7 LAB L501.5300 136-14 mmol/L Normal 5 NA 141 LAB L501.5600 3.5-5. mmol/L Normal 1 K 4.5 LAB L501.5900 98-107 mmol/L High CL 110 LAB L501.6100 21.0-3 mmol/L Normal 2.0 CO2 21.0 LAB L501.6200 5-15 Normal GAP 10 Performed By: #### L500.2500 #### [facility] [address] [place], [place], [id number] CBC W/DIFF, AUTOMATED Collected: 10/07/2018 Status: C Source: IRENA 4:00 AM [facility] REPOSITORY TYPE CODE TESTS RESULT OUT OF RANGE REFERENCE UNITS LAB L100.1000 4.4-11.0 K/mm3 High WBC 24.5 LAB L100.1200 4.2-5.4 M/mm3 Low RBC 4.14 LAB L100.1300 12.0-15.0 g/dl Normal HGB 12.9 LAB L100.1400 37-47 % Normal HCT 38.4 LAB L100.1500 81-99 fL Normal MCV 92.8 LAB L100.1600 27.0-32.0 pg Normal MCH 31.2 LAB L100.1700 32-36 g/gl Normal MCHC 33.6 LAB L100.1810 11.6-14.6 % Normal RDW CV 13.8 LAB L100.1820 35.1-43.9 fl High RDW SD 46.1 LAB L100.1900 150-450 K/mm3 Low 76 PLT LAB L100.2000 6.2-12.0 fl Normal MPV 11.9 LAB L100.3100 MANUAL DIFF Normal CELLS COUNTED 100 LAB L100.3200 47-70 % 48 Normal SEGS LAB L100.3300 0-5 % High 33 BAND LAB L100.3400 0-1 % High 7 META LAB L100.3800 19-41 % Low 8 LYMPH LAB L100.3900 0-10 % 4 Normal MONOCYTE LAB L100.2620 2.0-7.7 X10 3/uL High Absolute Neut 21.6 LAB L100.2720 0.83-4.51 X10 3/ul Normal Absolute Lymph 1.96 LAB L100.5500 ADEQ Normal PLT EST MOD DEC LAB L100.7000 NORM C AND C NORMAL Normal RED CELL MORPH NORM C+C LAB L100.9900 Normal PATH REV Reviewed Result Comment: Leukocytosis and Neutrophilic left shift. Thrombocytopenia. Clinical correlation necessary. Daron Vance M.D. 10/07/18 AMENDED REPORT 10/07/18 1304 PATH REV previously reported as: May foll Performed By: #### L100.0100 #### [facility] [address] [facility] [place], [address] LACTIC ACID Collected: 10/06/2018 Status: F Source: S[place] 11:40 PM [facility] REPOSITORY TYPE CODE TESTS RESULT OUT OF REFERENCE UNITS RANGE LAB L503.6005 0.4-2.0 mmol/L High LACTIC ACID 2.4 Result Comment: Critical Result(s) Called at: 00:29:41 10/07/2018 by: TRIPP LIZARRAGA to Theresa Salamanca Performed By: #### L503.6005 #### [facility] [address] [place], [address] LACTIC ACID Collected: 10/06/2018 Status: F Source: [place] 4:15 PM [facility] REPOSITORY Order Comment: Yes/No query for Sepsis Lactate Rule Y TYPE CODE TESTS RESULT OUT OF RANGE REFERENCE UNITS LAB L503.6005 0.4-2.0 mmol/L Normal LACTIC ACID 2.0 Result Comment: [facility] BY [facility] 10-06-18 AT 1839PM READ BACK BY SAME Performed By: #### L503.6005 #### [facility] [address] [facility] [place], [address] OPERATIVE REPORT Observed: 10/06/2018 Status: F Source: [place] 3:21 PM [facility] REPOSITORY [facility] Medical Records Department [address] [place] [address] Operative Report 10/06/18 1518 MR#: [id number] Acct: [id number] Name: VLADIMIR BARAJAS Rep #: [id number] : 1935 82 From: Ramon Cash MD PCP: Aaliyah De La Cruz DO Status: ADM IN Y Location: ICU ICU09- Report of Operation Date of Procedure: 10/06/18 Pre-Operative Diagnosis: Left obstructing ureteral calculi with hydronephrosis septic shock, sepsis from stone Post-Operative Diagnosis: Same Surgery/Procedure Performed:: Cystoscopy and left stent placement Description of Surgical Findings:: 82-year-old female presented to the hospital with severe left flank pain from a stone that was causing obstruction in the mid left ureter she is clinically stable and admitted, was admitted for pain control and was put on the schedule for the following day for ureteroscopy and laser however in the morning she spiked a high fever blood pressure dropped she was transferred to the ICU stabilized at this point we decided to place a stent in the left side to unobstruct the kidney and want to treat the stone at a later setting. 82-year-old female taken back to the operating room after induction of MAC local anesthesia catheter was removed I then went into the bladder with a 21 Martiniquais rigid cystourethroscope, and then placed lidocaine jelly into the bladder, I then went into the bladder with a 21 Martiniquais rigid cystourethroscope, I advanced a wire up the left ureter with a Glidewire and then over the Glidewire advanced a stent 6 Martiniquais by 26 cm stent pulled the wire and the stent coiled in the kidney bladder good position we then placed the catheter back in the patient's bladder and her anesthesia is being reversed and she is clinically stable she will be transferred back to the ICU. Type of Anesthesia:: Local MAC - Admit VTE Documentation VTE Present on Admission: No 10/06/18 1521 <Electronically signed by Ramon Cash MD> Date Ramon Cash MD CC: Wicho Capellan MD; Ramon Cash MD; Aaliyah De La Cruz DO Signed PROTHROMBIN TIME W/INR Collected: 10/06/2018 Status: F Source: S[place] 12:30 PM [facility] REPOSITORY TYPE CODE TESTS RESULT OUT OF RANGE REFERENCE UNITS LAB L300.4150 11.7-14.9 SECONDS High PROTIME 17.2 LAB L300.4200 Normal INR 1.4 Performed By: #### L300.3900, L300.4310 #### [facility] [address] [place], [address] PARTIAL THROMBOPLAST Collected: 10/06/2018 Status: F Source: [place] TIME 12:30 PM [facility] REPOSITORY TYPE CODE TESTS RESULT OUT OF REFERENCE UNITS RANGE LAB L300.4310 24.1-36.2 Seconds High PTT 54.9 Performed By: #### L300.3900, L300.4310 #### [facility] [address] [place], [address] Observed: 10/06/2018 Status: F Source: IRENA CULTURE, BLOOD (WB) 12:30 PM [facility] REPOSITORY Has pt arrived? Y BC No growth in 5 days. Performed By: #### M200.1000 #### [facility] [address] [place], [address] CXR FOR LINE PLACEMENT Observed: 10/06/2018 Status: F Source: IRENA 12:12 PM [facility] REPOSITORY [facility] Imaging Services [address] [place] [address] CXR for Line Placement MR#: [id number] Acct: [id number] Name: VLADIMIR BARAJAS Rep #: [id number] : 1935 F 82 From: Garry Dalal MD PCP: Aaliyah De La Cruz DO Status: ADM IN Study: CXR for Line Placement Date of Exam: 10/06/18 Exam# [id number] Ordering Dr: Leonel Julien MD STUDY: X-RAY CHEST REASON FOR EXAM: Female, 82 years old. Central line placement. TECHNIQUE: Single AP portable view of the chest. COMPARISON: Comparison is made with prior examination of December 24, 2016. FINDINGS: A right-sided central line has been placed. The tip is at the junction of the superior vena cava and right atrium. EKG electrodes are seen. There is blunting of the left costophrenic angle with left basilar atelectasis and/or infiltrate. This is new as compared to prior study. There is borderline cardiomegaly. Normal mediastinum and naheed. Normal visualized pulmonary arteries. There is atherosclerotic tortuosity of the aortic arch and descending thoracic aorta. Normal visualized thoracic spine. Normal visualized ribs, clavicles, and shoulders. There is no demonstrated abnormality of the visualized soft tissue structures of the upper abdomen. RAD/CXR for Line Placement IMPRESSION: The tip of the right central line is at the junction of the superior vena cava and right atrium. Pleural parenchymal changes at the left lung base suggestive of either atelectasis and/or early infiltrate. Follow-up is recommended. Electronically Signed: Garry Dalal MD at 12:58 EST Tel [phone], Service support , CC: Leonel Julien MD; Aaliyah De La Cruz DO Billing Representative: Signed LACTIC ACID Collected: 10/06/2018 Status: F Source: IRENA 11:50 AM [facility] REPOSITORY Order Comment: Yes/No query for Sepsis Lactate Rule Y TYPE CODE TESTS RESULT OUT OF REFERENCE UNITS RANGE LAB L503.6005 0.4-2.0 mmol/L High LACTIC ACID 2.3 Result Comment: Critical Result(s) Called at: 12:33:42 10/06/2018 by: Danny Cardoso to Cuate Bang RN (ICU). Performed By: #### L503.6005 #### [facility] [address] [facility] [place], [address] Observed: 10/06/2018 Status: F Source: IRENA CULTURE, BLOOD (WB) 11:50 AM [facility] REPOSITORY Has pt arrived? Y BC No growth in 5 days. Performed By: #### M200.1000 #### [facility] [address] [facility] [facility] [place], [address] Observed: 10/06/2018 Status: F Source: IRENA CULTURE, BLOOD (WB) 9:01 AM [facility] REPOSITORY Has pt arrived? Y BC CORRECTED ANAEROBIC GRAM STAIN: GRAM NEGATIVE RODS RESULTS CALLED TO SAIRAORROW 10/06/181956 Aggie Blair. REPORT READ BACK BY SAME. CORRECTED AEROBIC BOTTLE GRAM STAIN: GRAM NEGATIVE RODS CORRECTED GRAM STAIN RESULTS CALLED TO ELIGIO ALVAREZ 10/07/18 08 Carla Rodriguez. REPORT READ BACK BY SAME. ORGANISM 1: Klebsiella pneumoniae sp pneum Amount Growth Growth Klebsiella pneumoniae sp pneum: REACTION Amikacin $ <=2 S Amoxacillin/Clavulanic Acid $ <=2 S Ampicillin $ >=32 R Ampicillin/Sulbactam $ 4 S Aztreonam $$$ <=1 S Cefazolin $ <=4 S Cefepime $ <=1 S Ceftriaxone $ <=1 S Ciprofloxacin $ <=0.25 S ESBL - Ertapenim $$$ <=0.5 S Gentamicin $ <=1 S Imipenem *NF <=0.25 S Levofloxacin $ <=0.12 S Meropenem $ <=0.25 S Piperacillin/Tazobactam $$ <=4 S Tobramycin $ <=1 S Trimethoprim/Sulfametho $ >=320 R (NF) indicates non-formulary drug at [facility]. Approval by Infectious Disease Specialist required before non-formulary drugs may be ordered and/or dispensed. Performed By: #### M200.1000 #### [facility] [address] [place], [address] Observed: 10/06/2018 Status: F Source: SPOKANE CULTURE, BLOOD (WB) 9:01 AM [facility] REPOSITORY Has pt arrived? Y BC CORRECTED ANAEROBIC BOTTLE GRAM STAIN: GRAM NEGATIVE RODS RESULTS CALLED TO DMORROW 10/06/18 195 Aggie Blair. REPORT READ BACK BY SAME. CORRECTED AEROBIC BOTTLE GRAM STAIN: GRAM NEGATIVE RODS CORRECTED GRAM STAIN RESULTS CALLED TO ELIGIO ALVAREZ 10/07/18 0825 Carla Rodriguez. 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, [address] BASIC METABOLIC Collected: 10/06/2018 Status: F Source: IRENA PROFILE (BMP) 5:30 AM [facility] REPOSITORY TYPE CODE TESTS RESULT OUT OF RANGE REFERENCE UNITS LAB L501.0100 74-106 mg/dL Normal GLU 91 Result Comment: Please note revised GLUCOSE reference range effective 2017. LAB L501.1000 7-18 mg/dL High BUN 32 LAB L501.1100 0.55-1.02 mg/dL High CREAT,SERUM 2.00 Result Comment: The validity of the calculated GFR AND GFRAA in patients over 70 years has not been determined. Clinical correlation is essential. LAB L501.1110 >60 mL/min Low EST GFR 25 Result Comment: Non- GFR Calc LAB L501.1115 >60 mL/min Low EST GFR - AA 31 Result Comment: GFR Calc LAB L501.1255 ml/min Normal Estimated CRCL 17.94 LAB L501.1300 10-20 RATIO Normal BUN/CRE 16.0 LAB L501.2200 8.5-10 mg/dL Low .1 CA 7.3 LAB L501.5300 136-14 mmol/L Normal 5 NA 143 LAB L501.5600 3.5-5. mmol/L Normal 1 K 4.0 LAB L501.5900 98-107 mmol/L High CL 109 LAB L501.6100 21.0-3 mmol/L Normal 2.0 CO2 24.0 LAB L501.6200 5-15 Normal GAP 10 Performed By: #### L500.2500 #### [facility] [address] [place], [place], [address] CBC W/DIFF, AUTOMATED Collected: 10/06/2018 Status: F Source: [place] 5:30 AM [facility] REPOSITORY TYPE CODE TESTS RESULT OUT OF RANGE REFERENCE UNITS LAB L100.1000 4.4-11.0 K/mm3 High WBC 15.2 LAB L100.1200 4.2-5.4 M/mm3 Normal RBC 4.20 LAB L100.1300 12.0-15.0 g/dl Normal HGB 12.6 LAB L100.1400 37-47 % Normal HCT 38.4 LAB L100.1500 81-99 fL Normal MCV 91.4 LAB L100.1600 27.0-32.0 pg Normal MCH 30.0 LAB L100.1700 32-36 g/gl Normal MCHC 32.8 LAB L100.1810 11.6-14.6 % Normal RDW CV 13.1 LAB L100.1820 35.1-43.9 fl Normal RDW SD 43.8 LAB L100.1900 150-450 K/mm3 Low PLT 104 LAB L100.2000 6.2-12.0 fl Normal MPV 11.7 LAB L100.2100 47-70 % High NEUT% 95.0 LAB L100.2200 19-41 % Low LY% 1.8 LAB L100.2300 0-10 % Normal MONO% 2.8 LAB L100.2400 0-5 % Normal EO% 0.1 LAB L100.2500 0-1 % Normal BASO% 0.0 LAB L100.2550 0.0-0.9 % Normal IM GRAN % 0.300 Result Comment: IG% - Immature Granulocytes (promyelocytes, myelocytes and metamyelocytes) > 1% indicates that a LEFT SHIFT is Present. LAB L100.2620 2.0-7.7 X10 3/uL High Absolute Neut 14.5 LAB L100.2720 0.83-4.51 X10 3/ul Low Absolute Lymph 0.28 Performed By: #### L100.0100 #### [facility] [address] [place], [address] THYROID STIM HORMONE Collected: 10/06/2018 Status: F Source: SPOKANE (TSH) 5:30 AM [facility] REPOSITORY Order Comment: Comments: pt having surgery add on to AM lab TYPE CODE TESTS RESULT OUT OF RANGE REFERENCE UNITS LAB L501.9520 0.358-3.74 uIU/mL Normal TSH 0.73 Performed By: #### L501.9520 #### [facility] [address] [place], [address] HISTORY AND PHYSICAL Observed: 10/06/2018 Status: F Source: IRENA EXAM 3:18 AM [facility] REPOSITORY [facility] Medical Records Department [address] [place] [address] History and Physical 10/05/182020 MR#: [id number] Acct: [id number] Name: VLADIMIR BARAJAS Rep #: [id number] : 1935 82 From: Wicho Capellan MD PCP: Aaliyah De La Cruz DO Status: ADM PATRIZIA Y Location: [place] [address] Problem List (1) Ureteral calculus, left Status: Acute (2) HUGO (acute kidney injury) Status: Acute History of Present Illness Date of Admission: 10/05/18 Chief Complaint: left flank pain The patient is a 82 year old F with a significant history of CAD; HTN; chronic pain of her back that she follows with Dr. Prieto who presented to the ED because of excruciating left back pain that radiates to her left lower quadrant of her abdomen. The pain started suddenly and has been continuous. Associated with her symptoms is nausea and vomiting. She denies any aggravating factor. At emergency department she received morphine to help with the pain. She denies any fever. ED doctor discussed case with Dr. Cash, urologist who wanted n.p.o. after midnight and possible intervention next day. Left ureteral stone with left hydronephrosis and left hydroureter. Abdominal CT and pelvis confirms Left ureteral stone with left hydronephrosis and left hydroureter We will keep patient n.p.o. and hold her aspirin. Supportive treatment with normal saline IV hydration; IV morphine and IV Zofran. Urology consult. Past Medical History Past Medical History (Chronic Problems): Chronic Problems (Last Reviewed 10/05/18 @ 22:38 by Ramon Cash MD) Palpitation (Chronic) Nonrheumatic mitral (valve) insufficiency (Chronic) Non-rheumatic tricuspid valve insufficiency (Chronic) Hyperlipidemia (Chronic) Hypertension (Chronic) Medical History: Medical History (Last Reviewed 10/05/18 @ 21:14 by Wicho Capellan MD) Nonrheumatic mitral (valve) insufficiency (Chronic) I34.0 Non-rheumatic tricuspid valve insufficiency (Chronic) I36.1 Hyperlipidemia (Chronic) E78.5 Hypertension (Chronic) I10 IBS (irritable bowel syndrome) K58.9 Ureteral reflux N13.70 History of hysterectomy Z90.710 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 Allergies codeine Allergy (Verified 10/05/18 17:56) Rash hydrocodone bitartrate [From Vicodin] Adverse Reaction (Verified 10/05/18 17:56) Nausea meperidine HCl [From Demerol] Adverse Reaction (Verified 10/05/18 17:56) Nausea oxycodone HCl [From Percocet] Adverse Reaction (Verified 10/05/18 17:56) Nausea Home Medications: Ambulatory Orders Medication Instructions Recorded Fluticasone 0.05% [Flonase Nasal 1 spray NARES DAILY 12/29/14 Surgical History: Surgical History (Last Reviewed 10/05/18 @ 21:14 by Wicho Capellan MD) History of ERCP Z98.890 History of appendectomy Z90.49 History of back surgery Z98.890 History of bilateral knee replacement Z96.653 History of partial thyroidectomy Z98.890 History of tonsillectomy and adenoidectomy Z98.890 Hx of cholecystectomy Z90.49 Surgical History: total knee arthroplasty Lives: Spouse/ Significant Other Smoking Status: Never smoker Alcohol: Occasional - *Family History Maternal Family History: Family History (Last Reviewed 10/05/18 @ 21:14 by Wicho Capellan MD) Father Heart disease Aunt Heart disease Grandfather Heart disease Grandmother Heart disease Mother Cancer Review of Systems Constitutional: Denies: Chills, Fever, Weight Change HEENT: Denies: Head Aches, Sinus Congestion, Sinus Drainage Cardiovascular: Denies: Chest Pain, Palpitations Respiratory: Denies: Cough, Shortness of breath at rest, Sputum production Gastrointestinal: Reports: Abdominal Pain, Nausea, Vomiting Genitourinary: Denies: Dysuria Musculoskeletal: Reports: Back Pain. Denies: Joint Pain, Joint Tenderness Skin: Denies: Rash, Wounds Neurological: Denies: Numbness, Tingling, Focal weakness Psychiatric: Denies: Anxiety, Depression, Homicidal Ideations, Suicidal Ideations Hematologic/ Lymphatic: Denies: Easy Bruising, Easy Bleeding VTE Information - Inpt Only VTE Present on Admission: No VTE Mechan Device Prophylaxis: None VTE Pharm Prophylaxis ordered?: Yes Patient Problems: Active and Suspected Problems (Last Reviewed 10/05/18 @ 22:38 by Ramon Cash MD) Ureteral calculus, left (Acute) HUGO (acute kidney injury) (Acute) - Physical Exam General: Alert, Oriented x3, Cooperative HEENT: Atraumatic, PERRLA, EOMI, Normocephalic Neck: Supple, No JVD, Negative Carotid Bruits Lungs: Clear to auscultation, Normal air movement Cardiovascular: Regular rate, No murmurs Abdomen: Bowel Sounds Present, Soft, Non Tender, Tender - Left lower quadrant and left CVA tenderness.. Extremities: No edema, Capillary Refill Less than 3 Seconds Skin: No rashes, No breakdown Musculoskeletal: No Tenderness to Palpation of Joints or Extremities Neurological: Cranial nerves II-XII grossly intact Psych/Mental Status: Normal Affect, Appropriate Vital Signs Temp Pulse Resp BP Pulse Ox 97.5 F L 82 16 127/77 H 96 10/05/18 17:51 10/05/18 20:19 10/05/18 20:19 10/05/18 20:19 10/05/18 20:19 Oxygen Delivery Method Room Air Weight: 73.2 kg Body Mass Index (BMI) 28.5 Laboratory Tests Past 24 Hrs Assessment/Plan All Active Problems (Last Reviewed 10/05/18 @ 22:38 by Ramon Cash MD) Ureteral calculus, left (Acute) HUGO (acute kidney injury) (Acute) The patient is a 82 year old F with a significant history of CAD; HTN; chronic pain of her back that she follows with Dr. Prieto; who presented to the ED because of excruciating left back pain that radiates to her left lower quadrant of her abdomen. Left ureteral stone with left hydronephrosis and left hydroureter. Abdominal CT and pelvis confirms Left ureteral stone with left hydronephrosis and left hydroureter We will keep patient n.p.o. and hold her aspirin. Supportive treatment with normal saline IV hydration; IV morphine and IV Zofran. Urology consult. HUGO Baseline creatinine is about 1.2. On admission her creatinine is 1.67. Likely obstructive from ureteral stone. Avoid nephrotoxic's. Urology is planning lithotripsy with possible ureteral stent. Trend BMP HTN On home Aldactone and metoprolol Blood pressure erratic at this time. At the emergency department her blood pressure was 155/71. Patient received IV morphine and her blood pressure was noted to trending down. On the floor her systolic blood pressure was in the 90s. We will hold blood pressure medication at this time. Continue normal saline IV hydration Hypothyroidism Synthroid continued. Hyperlipidemia Pravastatin continued CAD Stable Hold ASA for probable lithotripsy and ureteral stent. Pravastatin continued. DVT Prophylaxis Subcutaneous heparin Code Visit OBSV E AND M: [id number] Initial observation care L3 10/06/188 <Electronically signed by Wicho Capellan MD> Date Wicho Capellan MD Cosigner Signature: Date (if applicable) CC: Wicho Capellan MD; Aaliyah De La Cruz DO Signed EMERGENCY DEPARTMENT Observed: 10/05/2018 Status: F Source: [place] SUMMARY 11:04 PM [facility] REPOSITORY [facility] Medical Records Department [address] [place] [address] Emergency Department Summary 10/05/182011 MR#: [id number] Acct: [id number] Name: VLADIMIR BARAJAS Rep #: [id number] : 1935 82 From: Arnaud Newby MD PCP: Aaliyah De La Cruz DO Status: ADM PATRIZIA - ER Visit Summary Date of Service: 10/05/18 Chief Complaint: Flank pain. History of Present Illness: The patient is a 82 F history of chronic pain management. Mitral valve prolapse. Prior appendectomy, cholecystectomy and hysterectomy. Also prior back surgery with rods. Patient had sudden onset around 1:30 PM this afternoon of left flank pain. Nausea and vomiting x1. No dysuria. No fever. She states this does not feel like a UTI. She called her primary care physician's office who sent her into the ER. She denies any fall or trauma. No weakness to her legs. Physical Examination: Older female vital signs are stable and afebrile. No distress. H EENT exam is unremarkable. Neck nontender. Lungs clear to auscultation bilaterally. Heart regular rhythm no murmur. Abdomen is soft. Mild left-sided tenderness. No peritoneal signs. No pulsatile mass. No hernias. No signs of obstruction. Positive bowel sounds. Patient is moving all 4 extremities. Neurovascular intact. Her back does have reproducible left CVA tenderness. There is no ecchymosis or bruising. No redness or warmth. Neurologically she is awake and alert with no focal motor deficits. Test Results: White count of 12.9. Hemoglobin 15. Electrolytes unremarkable gap is 6. Her BUN is 26 her creatinine is 1.67 previously it was 1. Her urine shows 10-25 white cells 150 occult blood and rare bacteria culture was sent. CT flank shows an 8.7 mm proximal left ureteral stone. With hydroureter and hydronephrosis. Emergency Department Course and Treatment: She was treated with Zofran and morphine for pain. She will be given a second dose of morphine and Zofran. I discussed all test results the patient and her male friend in the room. Treatment Plan: Admit for pain control and possible urologic procedure. I did speak to Dr. Samir Cash of urology and I have the hospitalist on page. Currently the patient is resting comfortably. Disposition: Admission Impression: Acute left flank pain secondary to a left 8.7 mm proximal ureteral stone with hydronephrosis Acute kidney injury This note was generated with [employer]vest dictation software. It may contain incorrect words, spelling, and punctuation that were not noted in review of the chart prior to signing ED Disposition - Plan for ED Patient: Chief Complaint: Flank Pain Referrals: Aaliyah De La Cruz, [Primary Care Provider] - What to do if you have Problems For any increased pain, shortness of breath, bleeding, nausea or vomiting, chest pain, or any unexpected problems, contact your Primary Care Provider. Call [facility] ([phone]) or report to the closest Emergency Room. Call 911 if necessary. 10/05/18 4131 <Electronically signed by Arnaud Newby MD> Date Arnaud Newby MD Cosigner Signature (If Indicated): Date CC: Aaliyah De La Cruz DO CONSULTATION Observed: 10/05/2018 Status: F Source: [place] 10:39 PM [facility] REPOSITORY [facility] Medical Records Department [address] [place] [address] Consultation 10/05/182236 MR#: [id number] Acct: [id number] Name: VLADIMIR BARAJAS Rep #: [id number] : 1935 82 From: Ramon Cash MD PCP: Aaliyah De La Cruz DO Status: ADM PATRIZIA Y Location: LA3 [id number] Reason for Consult Date of Consultation: 10/05/18 Reason for Consultation: Left ureteral calculi with high-grade obstruction History of Present Illness: The patient is a 82 year old female who presented to the emergency room with sudden onset of left severe flank pain CAT scan was done that demonstrated an 8.7 mm stone in the proximal ureter causing high-grade obstruction and hydronephrosis pain was controlled the patient was admitted to the hospital for the obstruction. Past Medical History Past Medical History (Chronic Problems): Chronic Problems (Last Reviewed 10/05/18 @ 21:14 by Wicho Capellan MD) Palpitation (Chronic) Nonrheumatic mitral (valve) insufficiency (Chronic) Non-rheumatic tricuspid valve insufficiency (Chronic) Hyperlipidemia (Chronic) Hypertension (Chronic) Medical History: Medical History (Last Reviewed 10/05/18 @ 22:38 by Ramon Cash MD) Nonrheumatic mitral (valve) insufficiency (Chronic) I34.0 Non-rheumatic tricuspid valve insufficiency (Chronic) I36.1 Hyperlipidemia (Chronic) E78.5 Hypertension (Chronic) I10 IBS (irritable bowel syndrome) K58.9 Ureteral reflux N13.70 History of hysterectomy Z90.710 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 Allergies codeine Allergy (Verified 10/05/18 17:56) Rash hydrocodone bitartrate [From Vicodin] Adverse Reaction (Verified 10/05/18 17:56) Nausea meperidine HCl [From Demerol] Adverse Reaction (Verified 10/05/18 17:56) Nausea oxycodone HCl [From Percocet] Adverse Reaction (Verified 10/05/18 17:56) Nausea Home Medications: Ambulatory Orders Medication Instructions Recorded Fluticasone 0.05% [Flonase Nasal 1 spray NARES DAILY 12/29/14 Surgical History: Surgical History (Last Reviewed 10/05/18 @ 22:38 by Ramon Cash MD) History of ERCP Z98.890 History of appendectomy Z90.49 History of back surgery Z98.890 History of bilateral knee replacement Z96.653 History of partial thyroidectomy Z98.890 History of tonsillectomy and adenoidectomy Z98.890 Hx of cholecystectomy Z90.49 Surgical History: noncontributory, total knee arthroplasty Psychiatric History: No pertinent psych hx [employer]ER History: No pertinent [employer] history Lives: Spouse/ Significant Other Smoking Status: Never smoker Alcohol: Occasional - *Family History Maternal Family History: Family History (Last Reviewed 10/05/18 @ 22:38 by Ramon Cash MD) Father Heart disease Aunt Heart disease Grandfather Heart disease Grandmother Heart disease Mother Cancer Review of Systems Constitutional: Denies: Chills, Fever, Weight Change HEENT: Denies: Head Aches, Sinus Congestion, Sinus Drainage Cardiovascular: Denies: Chest Pain, Palpitations Respiratory: Denies: Cough, Shortness of breath at rest, Sputum production Gastrointestinal: Denies: Abdominal Pain, Nausea, Vomiting Genitourinary: Reports: - - Flank pain left side. Denies: Dysuria Musculoskeletal: Denies: Joint Pain, Joint Tenderness Skin: Denies: Rash, Wounds Neurological: Denies: Numbness, Tingling, Focal weakness Psychiatric: Denies: Anxiety, Depression, Homicidal Ideations, Suicidal Ideations Hematologic/ Lymphatic: Denies: Easy Bruising, Easy Bleeding Physical Exam - Physical Exam Vital Signs Temp 97.5 F L 10/05/18 17:51 Pulse 82 10/05/18 21:00 Resp 16 10/05/18 21:00 BP 127/77 H 10/05/18 21:00 Pulse Ox 96 10/05/18 21:00 Intake AND Output Weight: 72.7 kg General: Alert, Cooperative HEENT: Atraumatic Oral: Moist Mucosa Neck: Supple Lungs: Normal air movement Abdomen: Soft Rectal: Exam deferred Groin: No hernia Skin: No rashes, No breakdown Neurological: Cranial nerves II-XII grossly intact Laboratory Tests Past 24 Hrs Assessment/Plan All Active Problems (Last Reviewed 10/05/18 @ 21:14 by Wicho Capellan MD) Ureteral calculus, left (Acute) 82-year-old female with obstructing stone in the left proximal ureter, n.p.o. at midnight, consent for surgery, plan to proceed with left ureteroscopy laser lithotripsy of stone and possible stent placement tomorrow in the operating room. 10/05/18 8482 <Electronically signed by Ramon Cash MD> Date Ramon Cash MD Cosigner Signature (if applicable): Date CC: Wicho Capellan MD; Ramon Cash MD; Aaliyah De La Cruz DO Signed BASIC METABOLIC Collected: 10/05/2018 Status: F Source: [place] PROFILE ([facility]) 6:35 PM [facility] REPOSITORY TYPE CODE TESTS RESULT OUT OF RANGE REFERENCE UNITS LAB L501.0100 74-106 mg/dL Normal GLU 105 Result Comment: Fasting Glucose result from 100 to 125 mg/dL suggests IMPAIRED HOMEOSTASIS per A.D.A. criteria. Please note revised GLUCOSE reference range effective 2017. LAB L501.1000 7-18 mg/dL High BUN 26 LAB L501.1100 0.55-1.02 mg/dL High CREAT,SERUM 1.67 Result Comment: The validity of the calculated GFR AND GFRAA in patients over 70 years has not been determined. Clinical correlation is essential. LAB L501.1110 >60 mL/min Low EST GFR 31 Result Comment: Non- GFR Calc LAB L501.1115 >60 mL/min Low EST GFR - AA 38 Result Comment: GFR Calc LAB L501.1255 ml/min Normal Estimated CRCL 21.48 LAB L501.1300 10-20 RATIO Normal BUN/CRE 15.6 LAB L501.2200 8.5-10 mg/dL Normal .1 CA 8.8 LAB L501.5300 136-14 mmol/L Normal 5 NA 138 LAB L501.5600 3.5-5. mmol/L Normal 1 K 3.9 Result Comment: Moderate Hemolysis, Result may be falsely increased. LAB L501.5900 98-107 mmol/L Normal CL 103 LAB L501.6100 21.0-32.0 mmol/L Normal CO2 29.0 LAB L501.6200 5-15 Normal 6 GAP Performed By: #### L500.2500 #### [facility] [address] [place], [place], [address] CBC W/DIFF, AUTOMATED Collected: 10/05/2018 Status: F Source: [place] 6:35 PM [facility] REPOSITORY TYPE CODE TESTS RESULT OUT OF RANGE REFERENCE UNITS LAB L100.1000 4.4-11.0 K/mm3 High WBC 12.6 LAB L100.1200 4.2-5.4 M/mm3 Normal RBC 5.12 LAB L100.1300 12.0-15.0 g/dl High HGB 15.9 LAB L100.1400 37-47 % Normal HCT 46.3 LAB L100.1500 81-99 fL Normal MCV 90.4 LAB L100.1600 27.0-32.0 pg Normal MCH 31.1 LAB L100.1700 32-36 g/gl Normal MCHC 34.3 LAB L100.1810 11.6-14.6 % Normal RDW CV 13.0 LAB L100.1820 35.1-43.9 fl Normal RDW SD 42.8 LAB L100.1900 150-450 K/mm3 Normal PLT 205 LAB L100.2000 6.2-12.0 fl High MPV 12.5 LAB L100.2100 47-70 % High NEUT% 75.8 LAB L100.2200 19-41 % Low LY% 15.7 LAB L100.2300 0-10 % Normal MONO% 7.6 LAB L100.2400 0-5 % Normal EO% 0.7 LAB L100.2500 0-1 % Normal BASO% 0.1 LAB L100.2550 0.0-0.9 % Normal IM GRAN % 0.100 Result Comment: IG% - Immature Granulocytes (promyelocytes, myelocytes and metamyelocytes) > 1% indicates that a LEFT SHIFT is Present. LAB L100.2620 2.0-7.7 X10 3/uL High Absolute Neut 9.5 LAB L100.2720 0.83-4.51 X10 3/ul Normal Absolute Lymph 1.97 Performed By: #### L100.0100 #### [facility] [address] [place], [place], [address] URINALYSIS, COMPLETE Collected: 10/05/2018 Status: F Source: [place] 6:22 PM [facility] REPOSITORY Order Comment: Order Date: 10/05/18 How was Urine Obtained? CLEAN CATCH TYPE CODE TESTS RESULT OUT OF RANGE REFERENCE UNITS LAB L400.3000 Yellow COLOR Normal Yellow LAB L400.3050 Clear Normal CLARITY Sl. Cloudy LAB L400.3200 Normal mg/dl Normal GLUCOSE, UR Normal LAB L400.3300 Negative mg/dL Normal BILIRUBIN URINE Negative LAB L400.3400 Negative mg/dl High 5 KETONE UR LAB L400.3465 1.002-1.030 Normal SP.GR. DIPSTX 1.015 LAB L400.3550 5.0 - 8.0 pH UR Normal 6.5 LAB L400.3600 Negative mg/dl High PROT 15 DIPSTX LAB L400.3700 Normal mg/dl High 1 UROBILI LAB L400.3750 Negative Normal NITRITE UR Negative LAB L400.3780 Negative /ul High OCCULT BLOOD-UR 150 LAB L400.3800 Negative /ul High LEUK ESTERASE 500 LAB L400.4050 0-5 /hpf WBC Normal 10-25 SEEN LAB L400.4100 0-5 /hpf Normal RBC-UA 0-5 SEEN LAB L400.4150 5-10 /hpf SQUAM Normal EPI 0-5 SEEN LAB L400.4300 None Seen /hpf Normal BACTERIA RARE LAB L400.4350 <or=2+ /hpf 0 Normal MUCUS, URINE SEEN Performed By: #### L400.0001 #### [facility] [address] [place] [address]. [place], [place], [id number] Observed: 10/05/2018 Status: F Source: [place] CULTURE, URINE 6:22 PM [facility] REPOSITORY Order Date: 10/05/18 Urine Culture ORGANISM 1: Gram negative therese [place] Count 80,000-100,000 ORGANISM 2: Mixed Gram Pos AND Gram Neg Org [place] Count 1000-10,000 MIX CULTURE Mixed contaminants. Submit a new specimen if indicated. Performed By: #### M100.0650 #### [facility] [address] [place] [address], [id number] ABDOMEN/PELVIS WITHOUT Observed: 10/05/2018 Status: F Source: [place] CONT 6:15 PM [facility] REPOSITORY [facility] Imaging Services [address] [place] [address] Abdomen/Pelvis without Cont MR#: [id number] Acct: [id number] Name: VLADIMIR BARAJAS Rep #: [id number] : 1935 F 82 From: Aurea Madrid MD PCP: Aaliyah De La Cruz DO Status: REG ER Study: Abdomen/Pelvis without Cont Date of Exam: 10/05/18 Exam# [id number] Ordering Dr: Arnaud Newby MD STUDY: CT ABDOMEN AND PELVIS WITHOUT CONTRAST REASON FOR EXAM: Female, 82 years old. Left-sided flank pain. RADIATION DOSAGE (If Supplied By Facility): CTDIvol = ( 9.40 ) mGy, DLP = ( 410.95 ) mGycm TECHNIQUE: Transaxial images were obtained from the dome of the diaphragm to the symphysis pubis without oral contrast, and without intravenous contrast. Sagittal and coronal images were reconstructed. Individualized dose optimization techniques were used for this CT. COMPARISON: None. FINDINGS: The visualized lung bases are unremarkable. The visualized heart is mildly enlarged. Normal liver. The gallbladder is contracted. Normal spleen. Normal pancreas. Normal bilateral adrenal glands. Normal right kidney. There is moderate left-sided hydronephrosis and hydroureter secondary to a proximal ureteral calculus near the ureteropelvic junction measuring approximately 8.7 mm in greatest dimension. There is a small hiatal hernia. There is no evidence for dilated bowel, ascites or pneumoperitoneum. The small bowel has a grossly normal appearance. Stool is visible throughout the colon with scattered colonic diverticula. There is non-visualization of the appendix. The abdominal aorta is tortuous with minimal atherosclerotic calcification of the intracranial arteries. Normal inferior vena cava. Normal retroperitoneum. The urinary bladder is not distended. There is absence of the uterus consistent with a prior hysterectomy. 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 There is moderately severe multilevel degenerative disc disease and degenerative arthropathy of the lumbar spine with disc space narrowing and vacuum disc phenomenon. Patient has had laminectomies of L5, L4 and L3. Patient has had surgical fusion of the L3, L4 and L5 vertebral segments with interpedicular screws and rods. CT/Abdomen/Pelvis without Cont IMPRESSION: 1. Moderate left-sided hydronephrosis and hydroureter secondary to proximal ureteral calculus. 2. Colonic diverticulosis. 3. Hiatal hernia. Electronically Signed: Aurea Madrid MD at 19:56 EST , Service support , CC: Arnaud Newby MD; Aaliyah De La Cruz DO Billing Representative: Signed CARDIOLOGY VISIT Observed: 06/25/2018 Status: F Source: [place] REPORT 10:27 AM [facility] REPOSITORY [facility] [address] [place] [address]. [address] [place] [address] OFFICE VISIT Date of Service: 06/25/18 MR#: [id number] Acct: [id number] Name: VLADIMIR BARAJAS Rep #: [id number] : 1935 Provider: Iker Montilla MD Age/Sex: 82/F Location: [place] Status: Signed HPI HPI Chief Complaint: Follow-up visit. Details: VLADIMIR BARAJAS, is a 82 F who presents to the office today for a follow-up visit. She is a lady with no documented obstructive coronary disease a history of palpitations who has successfully undergone knee surgery. She returns for routine follow-up visit she does have a history of hypertension. She denies any chest pain or shortness breath or paroxysmal nocturnal dyspnea or pedal edema. She has not had any neck arm or jaw discomfort suggest angina no other major cardiac complaints. Her physical exam today demonstrates clear lung rios regular rate and rhythm and no pedal edema her blood pressure is under excellent control. Intake Vital Signs06/25/18 Height 5 ft 3 in 06/25/18 Weight: 153 lb 06/25/18 Body Mass Index (BMI) 27.1 06/25/18 Blood Pressure 124/60 06/25/18 Respiratory Rate 18 06/25/18 Pulse Rate 74 Intake Visit Reasons: 6 M FU (9 mo we r/s from 5-24) Allergies codeine Allergy (Verified 06/25/18 10:05) Rash hydrocodone bitartrate [From Vicodin] Adverse Reaction (Verified 06/25/18 10:05) Nausea meperidine HCl [From Demerol] Adverse Reaction (Verified 06/25/18 10:05) Nausea oxycodone HCl [From Percocet] Adverse Reaction (Verified 06/25/18 10:05) Nausea Medications Fluticasone 0.05% [Flonase Nasal [place]] 1 spray NARES DAILY 12/29/14 [History Confirmed 06/25/18] Lansoprazole [Prevacid] 30 mg PO DAILY 12/29/14 [History Confirmed 06/25/18] Levothyroxine [Synthroid] 50 mcg PO DAILY 12/29/14 [History Confirmed 06/25/18] Nitrofurantoin Macrocrystals [Macrobid] 100 mg PO MOWEFR@1000 12/29/14 [History Confirmed 06/25/18] DiphenhydrAMINE [Benadryl] 25 mg PO Q6H PRN PRN 06/09/15 [History Confirmed 06/25/18] Vit A/Vit C/Vit E/Zinc/Copper [Preservision Areds Softgel] 1 ea PO DAILY 06/09/15 [History Confirmed 06/25/18] Aspirin 81 mg PO DAILY 08/28/16 [History Confirmed 06/25/18] Duloxetine Hcl [Cymbalta] 30 mg PO DAILY 03/24/18 [History Confirmed 06/25/18] metoprolol succinate ER 50 mg tablet,extended release 24 hr 50 mg PO DAILY #90 tab 04/09/18 [Rx Confirmed 06/25/18] denosumab 60 mg/mL subcutaneous syringe 60 mg SC [id number] 06/25/18 [History Confirmed 06/25/18] flaxseed oil 1,000 mg capsule 1,000 mg PO QDAY 06/25/18 [History Confirmed 06/25/18] magnesium oxide 400 mg tablet 400 mg PO QDAY tab 06/25/18 [History Confirmed 06/25/18] omega-3 fatty acids 1,000 mg capsule 1,000 mg PO QDAY 06/25/18 [History Confirmed 06/25/18] pravastatin 20 mg tablet 20 mg PO QDAY 06/25/18 [History Confirmed 06/25/18] spironolactone 50 mg tablet 50 mg PO DAILY #90 tab 06/25/18 [Rx Confirmed 06/25/18] REPLACED BY [facility] Medical History Nonrheumatic mitral (valve) insufficiency (Chronic) Non-rheumatic tricuspid valve insufficiency (Chronic) Hyperlipidemia (Chronic) Hypertension (Chronic) IBS (irritable bowel syndrome) (Chronic) Ureteral reflux (Chronic) Parathyroid adenoma (Resolved) Surgical History History of ERCP (Resolved) History of appendectomy (Resolved) History of back surgery (Resolved) History of bilateral knee replacement (Resolved) History of hysterectomy (Resolved) History of partial thyroidectomy (Resolved) History of tonsillectomy and adenoidectomy (Resolved) Hx of cholecystectomy (Resolved) Family History Father Heart disease Aunt Heart disease Grandfather Heart disease Grandmother Heart disease Mother Cancer Social History Smoking Status: Never smoker alcohol intake: current alcohol intake frequency: holidays/special occasions only Alcohol type: wine, beer ROS Const Const: Negative for fatigue, weakness, difficulty sleeping, frequent falls, excessive sweating or headache(s) Eyes Eyes: Negative for loss of peripheral vision, transient loss of vision, blurry vision, tunnel vision or double vision ENT ENT: Negative for headache(s), dizziness, Nosebleed/epistaxis or balance problems Cardio Chest Pain: No Palpitations: Yes (Occasional) feels like its: skipping Edema: None Muscle aches with walking: None Resp Respiratory: Negative for SOB with activity, SOB at rest, SOB orthopnea\SOB lying down, paroxysmal nocturnal dyspnea or Cough GI GI: Negative nausea, heartburn, black,tarry stools or vomiting : Negative for hematuria Musc Musc: Negative for muscle aches/ myalgia, muscle weakness, joint pain (chronic back pain) or balance problems Skin Skin: Negative non-healing lesions, unusual bruising or rash Neuro Neuro: Negative for weakness, frequent falls, headache(s), blurry vision, double vision, dizziness, lightheadedness, orthostatic symptoms, near syncope, syncope or lack of coordination Gerry Hematologic/Lymphatic: Negative for easy bruising or easy bleeding Endo Endo: Negative for fatigue, excessive sweating or increased thirst/drinking Psych Psych: Negative for anxiety or depression Allergy Allergy/Immunology: Negative for hives, Negative for rash Cardiology Exam Const Appearance: cooperative, healthy appearing, well developed, well groomed and no acute distress Nutritional Appearance: well nourished and average body habitus Orientation: alert, awake and oriented x3 Head Head: normal to inspection, normocephalic and atraumatic Ears: hearing grossly normal bilaterally and external ears normal Nose: external nose normal, nasal mucous membranes and turbinates normal, nares normal, septum normal, no nasal discharge Face and Sinus: face symmetric Mouth: oral mucosae normal, tongue normal, oropharynx normal and moist mucous membranes Teeth and gingiva: dentition normal Throat: posterior oropharynx normal, tonsils normal and uvula midline Eyes General: appearance normal, both eyes and all related structures Eyelids: eyelids normal Conjunctivae: conjunctivae normal Pupils: PERRL, normal by confrontation and accommodation normal EOM: EOM intact bilaterally Neck Neck: normal visual inspection, trachea midline and no JVD JVD: +5 Carotids: normal carotid upstroke and bounding pulses Chest Chest inspection: normal inspection of the chest, symmetric chest movement and normal respiratory effort Auscultation: Bilateral: Clear to Auscultation Cardio Palpation: normal PMI Rate: regular rate Rhythm: regular rhythm Heart sounds: S1 normal, S2 normal and normal, physiologic split S2; negative rub, gallop or murmur GI GI: normal to inspection, soft, no hepatosplenomegaly and bowel sounds present Neuro General: alert, awake, oriented x3, no focal sensory deficit, gait normal and moves all extremities Skin Skin: no rashes or lesions noted Extremities Pulses: Normal: Right Femoral Pulse, Left Femoral Pulse, Right Dorsalis Pedis Pulse, Left Dorsalis Pedis Pulse, Right Posterior Tibial Pulse, Left Posterior Tibial Pulse, Right Radial Pulse, Left Radial Pulse Lower Extremity Edema: None: Bilateral Musculoskel Musculoskeletal: No joint tenderness Psych Psychological: normal affect Assessment AND Plan 1. Hypertension I10 Plan Her blood pressure appears to be under excellent control on her current regimen. My recommendation is for her to continue the same without as making any changes. She is still on the spironolactone together with the beta-krysten. 2. Hyperlipidemia E78.5 Plan Her lipid profile is excellent with a total cholesterol 145, LDL of 33 and HDL of 98. She will remain on the low-dose of the statin as well as omega-3 fish oil and I will like to see her again on a yearly basis. Plan Detail Other Medications New: Follow Up 1 Year (geriatrics physician) Coding Level of Care Code Off vis,est,level 3 Diagnoses Hypertension I10 Hyperlipidemia E78.5 Coding Level of Care Code Off vis,est,level 3 Diagnoses Hypertension I10 Hyperlipidemia E78.5 06/25/18 1027 <Electronically signed by Iker Montilla MD> Date Iker Montilla MD Cosigner Signature: Date (if applicable) CC: Aaliyah De La Cruz DO DOWNTIME REPORT Observed: 04/29/2018 Status: F Source: [place] 12:16 PM [facility] REPOSITORY [facility] Medical Records Department [address] [place] [address] Downtime Report MR#: [id number] Acct: [id number] Name: VLADIMIR BARAJAS Rep #: [id number] : 1935 82 From: Dimitry Madrid PCP: Aaliyah De La Cruz DO Status: REG CLI This patient was seen during an EMR downtime April 12, 2018 - April 19, 2018. This patient may have a combination of paper and electronic documentation or all paper documentation. All documentation is viewable within the e-chart portion of [facility] for each patient visit. COMPREHENSIVE METABOLIC Collected: 04/13/2018 Status: F Source: [place] [facility] 12:00 AM [facility] REPOSITORY Order Comment: RESULT(S) PREVIOUSLY REPORTED ON MANUAL REQUISITION DURING DOWNTIME. TYPE CODE TESTS RESULT OUT OF RANGE REFERENCE UNITS LAB L501.0100 74-106 mg/dL Normal GLU 80 Result Comment: Please note revised GLUCOSE reference range effective 2017. LAB L501.1000 7-18 mg/dL High BUN 28 LAB L501.1100 0.55-1.02 mg/dL High CREAT,SERUM 1.04 Result Comment: The validity of the calculated GFR AND GFRAA in patients over 70 years has not been determined. Clinical correlation is essential. LAB L501.1110 >60 mL/min Low EST GFR 54 LAB L501.1115 >60 mL/min Normal EST GFR - AA 65 LAB L501.1300 10-20 RATIO High BUN/CRE 26.9 LAB L501.1500 6.4-8.2 g/dL Normal T PROT 6.8 LAB L501.1800 3.2-5.0 g/dL Normal ALB 4.0 LAB L501.1950 2.2-4.2 g/dL Normal GLOB 2.8 LAB L501.2000 0.9-2.4 RATIO Normal A/G 1.4 LAB L501.2200 8.5-10.1 mg/dL Low CA 8.4 LAB L501.4100 15-37 U/L Normal AST 17 LAB L501.4305 45-117 U/L Normal ALK P 59 LAB L501.4405 13-56 U/L Normal ALT 30 LAB L501.4600 0.20-1.00 mg/dL High T BILI 1.40 LAB L501.5300 136-145 mmol/L Normal NA 143 LAB L501.5600 3.5-5.1 mmol/L Normal K 4.1 LAB L501.5900 98-107 mmol/L Normal CL 104 LAB L501.6100 21.0-32.0 mmol/L Normal CO2 29.0 LAB L501.6200 5-15 Normal GAP 10 Performed By: #### L500.4050, L500.4100, L501.9520 #### [facility] [address] [place], [place], [address] LIPID PROFILE Collected: 04/13/2018 Status: F Source: [place] 12:00 AM [facility] REPOSITORY Order Comment: RESULT(S) PREVIOUSLY REPORTED ON MANUAL REQUISITION DURING DOWNTIME. TYPE CODE TESTS RESULT OUT OF RANGE REFERENCE UNITS LAB L501.4900 200 mg/dL Normal CHOL 145 Result Comment: <200 mg/dL Desirable 200-240 mg/dL Borderline >240 mg/dL High Risk LAB L501.5000 mg/dL Normal TRIG 72 Result Comment: The drugs N-Acetylcysteine and Metamizole may falsely depress this assay. Serum Triglycerides Reference Interval Normal <150 mg/dL Borderline high 150 - 199 mg/dL High 200 - 499 mg/dL Very High > or = 500 mg/dL LAB L501.6400 mg/dL Normal HDL 98 Result Comment: The drugs N-Acetylcysteine and Metamizole may falsely depress this assay. Reference Range HDL <40 mg/dL Low HDL Cholesterol HDL >or= 60 mg/dL High HDL Cholesterol LAB L501.6500 0-130 mg/dL Normal LDL 33 LAB L501.6600 5-40 mg/dL Normal VLDL 14 Performed By: #### L500.4050, L500.4100, L501.9520 #### [facility] [address] [place], [place], [address] THYROID STIM HORMONE Collected: 04/13/2018 Status: F Source: [place] (TSH) 12:00 AM [facility] REPOSITORY Order Comment: RESULT(S) PREVIOUSLY REPORTED ON MANUAL REQUISITION DURING DOWNTIME. TYPE CODE TESTS RESULT OUT OF RANGE REFERENCE UNITS LAB L501.9520 0.358-3.74 uIU/mL Normal TSH 1.89 Performed By: #### L500.4050, L500.4100, L501.9520 #### [facility] [address] [place], [place], [address] VITAMIN D,25 HYDROXY Collected: 04/13/2018 Status: F Source: IRE[place] 12:00 AM [facility] REPOSITORY TYPE CODE TESTS RESULT OUT OF RANGE REFERENCE UNITS LAB L506.1000 29.95-100.01 ng/mL Normal Vitamin D 53.8 25-OH Result Comment: Vitamin D 25(OH) Status Range Deficiency <20 ng/mL (50nmol/L) Insuffciency 20 - 30 ng/mL (50 - 75 nmol/L) Sufficiency 30 - 100 ng/mL (75 - 250 nmol/L) Toxicity >100 ng/mL (>250 nmol/L) Performed By: #### L506.1000 #### [facility] [address] [place], [place], [address] LIVER PROFILE Collected: 03/29/2018 Status: F Source: IRE[place] 10:02 AM [facility] REPOSITORY Order Comment: Order Date: 03/28/17 Order Info: 0788-1 - *Hepatic Function Panel Order Info: [id number] - *Lipid Profile CC PCP Comments: 12 hours fasting, may have water. TYPE CODE TESTS RESULT OUT OF RANGE REFERENCE UNITS LAB L501.1500 6.4-8.2 g/dL Normal T PROT 7.0 LAB L501.1800 3.2-5.0 g/dL Normal ALB 3.9 LAB L501.1950 2.2-4.2 g/dL Normal GLOB 3.1 LAB L501.4100 15-37 U/L Normal AST 19 LAB L501.4305 45-117 U/L Normal ALK P 54 LAB L501.4405 13-56 U/L Normal ALT 29 LAB L501.4600 0.20-1.00 mg/dL High T BILI 1.60 LAB L501.4700 0.00-0.30 mg/dL High D BILI 0.39 Performed By: #### L500.3400 #### [facility] [address] [place], [address] LIPID PROFILE Collected: 03/29/2018 Status: F Source: IRENA 10:02 AM [facility] REPOSITORY Order Comment: Order Date: 03/28/17 Order Info: 0788-1 - *Hepatic Function Panel Order Info: [id number] - *Lipid Profile CC PCP Comments: 12 hours fasting, may have water. TYPE CODE TESTS RESULT OUT OF RANGE REFERENCE UNITS LAB L501.4900 200 mg/dL Normal CHOL 127 Result Comment: <200 mg/dL Desirable 200-240 mg/dL Borderline >240 mg/dL High Risk LAB L501.5000 mg/dL Normal TRIG 77 Result Comment: The drugs N-Acetylcysteine and Metamizole may falsely depress this assay. Serum Triglycerides Reference Interval Normal <150 mg/dL Borderline high 150 - 199 mg/dL High 200 - 499 mg/dL Very High > or = 500 mg/dL LAB L501.6400 mg/dL Normal HDL 74 Result Comment: The drugs N-Acetylcysteine and Metamizole may falsely depress this assay. Reference Range HDL <40 mg/dL Low HDL Cholesterol HDL >or= 60 mg/dL High HDL Cholesterol LAB L501.6500 0-130 mg/dL Normal LDL 38 LAB L501.6600 5-40 mg/dL Normal VLDL 15 Performed By: #### L500.4100 #### [facility] [address] [place], [address] 12 LEAD ELECTROCARDIOGRAM Observed: 03/26/2018 Status: F Source: [place] 1:28 PM [facility] Cardiovascular Services [address] [place] [address] 12 Lead EKG 03/24/18 1156 MR#: [id number] Acct: [id number] Name: KARLVLADIMIR Hernandez Rep #: [id number] : 1935 82 From: Iker Montilla MD Attending Dr: Status: DEP ER Ordering Dr: Raffy Handy MD Date: 03/24/18 Location: ED Sex: F C Admitted: Test Reason : FALL Blood Pressure : / mmHG Vent. Rate : 067 BPM Atrial Rate : 067 BPM P-R Int : 156 ms QRS Dur : 070 ms QT Int : 406 ms P-R-T Axes : 014 -08 021 degrees QTc Int : 429 ms Normal sinus rhythm Inferior infarct , age undetermined Abnormal ECG Confirmed by ELADIA TAYLOR, IKER ([id number]), content editor TONI MADRID ([id number]) on 03/26/2018 1:28:12 PM Referred By: OLE Confirmed By:IKER MONTILLA MD 03/26/18 1328 Date Iker Montilla MD CC: RAFFY HANDY MD; Aaliyah Pulido EMERGENCY DEPARTMENT Observed: 03/24/2018 Status: F Source: [place] SUMMARY 12:43 PM [facility] Medical Records Department [address] [address] Emergency Department Summary 03/24/18 1107 MR#: [id number] Acct: [id number] Name: VLADIMIR BARAJAS Rep #: [id number] : 1935 82 From: Raffy Handy MD PCP: Aaliyah De La Cruz DO Status: REG ER History of Present Illness Chief Complaint: Fall Informant: Patient Onset: Today - jpta Current Severity: Mild Maximum Severity: Mild Narrative: Patient had a fall after getting up from surgery. She bumped the back of her head and may be twisted or hit her right knee which is a little sore, she has no internal headache or nausea or other focal neurologic symptoms right now. She is alert and oriented. She had back injections, and some type of nerve ablation, she was under general anesthesia for about 30 minutes for that surgery. She recovered uneventfully until she tried to get up and walk to the bathroom, she felt very lightheaded and had either near syncopal or brief syncopal episode, falling and hitting the bed nearby with the back of her head. She is on no anticoagulation. She states that she has been fasting since last night for the surgery, it is 11 AM right now. She took Benadryl prior to the procedure. And she was under general anesthetic. - Past Medical History (1) Dyslipidemia Status: Chronic Comment: bilateral 06/04, Bruna Looney (2) Hypertension Status: Chronic (3) Knee joint replacement status Status: Chronic Past Medical History - Allergies and Home Meds Allergies/Adverse Reactions: Allergies codeine Allergy (Verified 03/24/18 10:22) Rash hydrocodone bitartrate [From Vicodin] Adverse Reaction (Verified 03/24/18 10:22) Nausea meperidine HCl [From Demerol] Adverse Reaction (Verified 03/24/18 10:22) Nausea oxycodone HCl [From Percocet] Adverse Reaction (Verified 03/24/18 10:22) Nausea Home Medications: Home Medications Medication Instructions Recorded Fluticasone 0.05% [Flonase Nasal 1 spray NARES DAILY 12/29/14 Primary Care Physician: Aaliyah De La Cruz DO [Primary Care Provider] - Surgical History: total knee arthroplasty Lives: Spouse/ Significant Other Smoking Status: Never smoker Review of Systems All systems negative except as indicated Eyes: Denies: Visual changes - bilaterally, Diplopia Cardiovascular: Denies: Chest pain, Palpitations Respiratory: Denies: Dyspnea, Cough Gastrointestinal: Denies: Abdominal pain, Nausea, Vomiting Musculoskeletal: Reports: Extremity Pain - R knee. Denies: Neck pain, Back pain Skin: Reports: Wounds - bruise to back of head. Denies: Rash Neurological: Denies: Headache, Weakness, Parasthesia Physical Exam Vital Signs/Narrative: Vital Signs 03/24/18 10:26 98.0 F 74 14 143/72 H 98 03/24/18 10:23 98.0 F 75 14 143/72 H 99 General: Well nourished, Well developed Head: Normocephalic, Trauma - occipital scalp contusion w/ small 1-2cm hematoma, no lac, no crepitance/depression Eyes: Perrl, EOMI ENT: Moist mucous membranes, No rhinorrhea Neck: Supple - FROM w/o pain or neuro sx, Nontender Cardiovascular: Regular rate, Regular rhythm, No murmurs Respiratory: No distress, CTA bilaterally, Chest nontender Abdomen: Soft, Nontender, Nondistended, Normal bowel sounds Back: Nontender, Normal Inspection Extremities: No edema, Tenderness - R patella and distal thigh. no hematoma or signs of trauma. FROM at R knee, all ligaments w/o pain or laxity on stressing. Skin: Normal color, No rash Neurological: Alert, Oriented x3, Cranial nerves II-XII grossly intact, Normal Strength, Normal Sensation Psychological: Normal affect Diagnostic/Tx/Re-eval Clinical Impression(s) from Imaging Studies Brain CT 03/24/18 11:04 IMPRESSION: Chronic involutional changes of the brain. Electronically Signed: Garry Dalal MD at 12:25 EDT Tel [phone], Service support , Knee X-Ray 03/24/18 11:04 IMPRESSION: Prepatellar soft tissue swelling. Status post total knee replacement. Electronically Signed: Garry Dalal MD at 12:25 EDT Tel [phone], Service support , - Rhythm Strip Rhythm Strip: Sinus Rhythm Rate: 65 Ectopy: None - EKG 1 Interpretation: Sinus Rhythm, No Acute Injury Pattern, - - inferior Q waves Prior: Unchanged - Medical Decision Making CT and knee x-ray are unremarkable. Reassured about these minor injuries. She drinks some water and we were able to get her up slowly and she felt okay was able to be discharged. I think her symptoms were related to a combination of the anesthesia, being relatively dehydrated because of not drinking this morning prior surgery, and having Benadryl prior to the surgery. Discharged home in stable improved condition. ED Disposition - Plan for ED Patient: Disposition: Home or Assisted Living Chief Complaint: Fall Diagnosis: Closed head injury without concussion, Contusion of right knee, initial encounter, Syncope Instructions: ED Contusion Scalp, ED Near Syncope Vasovagal Referrals: Aaliyah De La Cruz DO [Primary Care Provider] - (2-3 days if not feeling better) What to do if you have Problems For any increased pain, shortness of breath, bleeding, nausea or vomiting, chest pain, or any unexpected problems, contact your Primary Care Provider. Call [facility] ([phone]) or report to the closest Emergency Room. Call 911 if necessary. 03/24/18 1243 <Electronically signed by Raffy Handy MD> Date Raffy Handy MD Cosigner Signature (If Indicated): Date CC: Aaliyah De La Cruz DO KNEE 4 OR MORE Observed: 03/24/2018 Status: F Source: [facility] 11:05 AM [facility] REPOSITORY [facility] Imaging Services [address] [place] [address] Knee 4 or More Views MR#: [id number] Acct: [id number] Name: VLADIMIR BARAJAS Rep #: [id number] : 1935 F 82 From: Garry Dalal MD PCP: Aaliyah De La Cruz DO Status: REG ER Study: Knee 4 or More Views Date of Exam: 03/24/18 Exam# [id number] Ordering Dr: Raffy Handy MD STUDY: X-RAY - RIGHT KNEE REASON FOR EXAM: Female, 82 years old. Pain following a fall. TECHNIQUE: 4 view(s) of the knee. COMPARISON: Comparison is made with prior study dated August 05, 2014. FINDINGS: Normal visualized distal femur. Normal visualized proximal tibia and fibula. Normal proximal tibiofibular articulation. The patient is status post right total knee replacement. There is good alignment. Prepatellar soft tissue swelling. RAD/Knee 4 or More Views IMPRESSION: Prepatellar soft tissue swelling. Status post total knee replacement. Electronically Signed: Garry Dalal MD at 12:25 EDT Tel [phone], Service support , CC: RAFFY HANDY MD; Aaliyah De La Cruz DO Billing Representative: Signed BRAIN/HEAD WITHOUT Observed: 03/24/2018 Status: F Source: [place] CONTRAST 11:05 AM [facility] REPOSITORY [facility] Imaging Services [address] [place] [address] Brain/Head without Contrast MR#: [id number] Acct: [id number] Name: VLADIMIR BARAJAS Rep #: [id number] : 1935 F 82 From: Garry Dalal MD PCP: Aaliyah De La Cruz DO Status: REG ER Study: Brain/Head without Contrast Date of Exam: 03/24/18 Exam# [id number] Ordering Dr: Raffy Handy MD STUDY: CT BRAIN WITHOUT CONTRAST REASON FOR EXAM: Female, 82 years old. Dizziness. Fall. RADIATION DOSAGE (If Supplied By Facility): CTDIvol = ( 44.99 ) mGy, DLP = ( 745.49 ) mGycm TECHNIQUE: Transaxial CT imaging of the brain was performed without administration of intravenous contrast material. Individualized dose optimization techniques were used for this CT. COMPARISON: None. FINDINGS: Normal soft tissue structures. Normal calvarium. There is mild cerebral atrophy with widening of the extra- axial spaces and ventricular dilatation. Normal white matter tracts of the cerebral hemispheres. Normal basal ganglia and thalami. Normal brainstem. There is mild cerebellar atrophy. There is no intracranial hemorrhage. There are no findings of an acute ischemic infarction. Atherosclerotic calcification of the vertebral arteries and cavernous portion of the internal carotid arteries bilaterally. Normal visualized paranasal sinuses. CT/Brain/Head without Contrast IMPRESSION: Chronic involutional changes of the brain. Electronically Signed: Garry Dalal MD at 12:25 EDT Tel [phone], Service support , CC: RAFFY HANDY MD; Aaliyah De La Cruz DO Billing Representative: Signed SCREENING MAMM (CAD), Observed: 12/25/2017 Status: F Source: [place] BILAT 10:12 AM [facility] REPOSITORY [facility] Imaging Services [address] [place] [address] SCREENING MAMM (CAD), BILAT MR#: [id number] Acct: [id number] Name: VLADIMIR BARAJAS Rep #: [id number] : 1935 F 82 From: Garry Dalal MD PCP: Aaliyah De La Cruz DO Status: REG CL Study: SCREENING MAMM (CAD), BILAT Date of Exam: 12/25/17 Exam# [id number] Ordering Dr: Aaliyah De La Cruz DO MAMMOGRAPHY - BILATERAL SCREENING REASON FOR EXAM: Female, 82 years old. Routine annual screening examination. PERTINENT HISTORY: Aunt with breast cancer. TECHNIQUE: Digital bilateral breast deja (3D mammographic acquisition) in the CC and MLO projections. 2-D mediolateral oblique (MLO) and craniocaudad (CC) views of both breasts were obtained. CAD: Full Field Digital Mammography with Computer Added Detection was performed. COMPARISON: Comparison is made with prior study dated December 15, 2016 and May 06, 2016. FINDINGS: Breast Composition: There are scattered areas of fibroglandular density. There are no dominant masses or suspicious calcifications. Once again, surgical clips are seen in the left axillary region. No other significant abnormalities are identified. There has been no significant change since the prior study. HPBI/SCREENING MAMM (CAD), BILAT IMPRESSION: Stable bilateral screening mammogram. Yearly follow-up mammogram recommended. (A) ASSESSMENT CATEGORY: BIRADS Category 1: Negative. A letter regarding these results will be sent to the patient by the facility within 30 days. Approximately 10% of breast cancers are not detected by mammography. A normal mammogram should not delay biopsy of a clinically suspicious abnormality. [id number] Electronically Signed: Garry Dalal MD at 12:26 EST Tel [phone], Service support , CC: Aaliyah De La Cruz DO Billing Representative: Signed ALLERGIES ALLERGIES DATE TYPE / CODE NAME / CODE REACTION SEVERITY SOURCE 10/22/2018 Drug meperidine Nausea Unknown [place] Allergy/416 HCl/[id number](RXN [address]) Repository 10/22/2018 Drug hydrocodone Nausea Unknown [place] Allergy/416 bitartrate/U991968 [place] [address]([place] [address]([facility] ED CT) Repository 10/22/2018 Drug oxycodone Nausea Unknown [place] Allergy/416 HCl/[id number](RXN [address]) Repository 10/22/2018 Drug codeine/[id number] Rash Unknown [place] Allergy/416 (RXNORM) [place] 282832([facility] ED CT) Repository 10/22/2018 Drug morphine/[id number] Vomiting Unknown [place] Allergy/416 5(RXNORM) [place] [address]([facility]) Repository ENCOUNTERS ENCOUNTERS ADMIT/DISCHARGE ACCOUNT ADMITTING ENCOUNTER LOCATION SOURCE NUMBER CLASS 11/15/2018 [id number] Ambulatory [place] [facility] ing:RAD.FUTUR Repository E 11/11/2018 [id number] Ambulatory [place] 9 [facility] ing:LAB Repository 10/29/2018/ [id number] Ambulatory [place] 8 9 [facility] ing:SDC Repository 10/26/2018 [id number] Ambulatory [place] 1 [facility] ing:LAB.FUTUR Repository E 10/21/2018 [id number] Ambulatory [place] 6 [facility] ing:LAB Repository 10/13/2018 [id number] Ambulatory [place] 5 [facility] ing:LAB Repository 10/05/2018/ [id number] Ambulatory BMSBuilding:W [place] 8 4 [facility] Repository 10/05/2018/ [id number] [place], Inpatient [place] 8 5 [place] Encounter [facility] ing:DB1Drxg: Repository RW667Niw: 1 10/05/2018 [id number] [place], Ambulatory BMSBuilding:B [place] 4 [place] MS.[facility] Repository 10/05/2018 [id number] [place], Ambulatory BMSBuilding:B [place] 2 [place] MS.[facility] Repository 10/05/2018 [id number] [place], Ambulatory BMSBuilding:B [place] 2 [place] MS.[facility] Repository 10/05/2018 [id number] [place], Ambulatory BMSBuilding:B [place] 2 [place] [facility] 10/05/2018 [id number] [place], Ambulatory BMSBuilding:B [place] 5 [place] [facility] 10/05/2018 [id number] [place], Ambulatory BMSBuilding:B [place] 1 [place] MS.[facility] Repository 10/05/2018 [id number] [place], Ambulatory BMSBuilding:B [place] 1 [place] MS.CF.[facility] Repository 10/05/2018 [id number] [place], Ambulatory BMSBuilding:B [place] 7 [place] MS.[facility] Repository 10/05/2018 [id number] [place], Ambulatory BMSBuilding:B [place] 8 [place] MS.[facility] Repository 06/25/2018/ [id number] Ambulatory BMSBuilding:B [place] 8 8 [facility] Repository 06/16/2018 [id number] Ambulatory BMSBuilding:B [place] 9 [facility] Repository 04/13/2018 [id number] Ambulatory [place] 7 [facility] ing:LAB Repository 03/29/2018 [id number] Ambulatory [place] 3 [facility] ing:LAB Repository 03/24/2018/ [id number] Emergency [place] 8 4 [facility] ing:ED Repository 12/25/2017 [id number] Ambulatory [place] 8 [facility] ing:BI Repository 12/22/2017 [id number] Ambulatory [place] 1 [facility] ing:LAB.FUTUR Repository E PAYERS PAYERS ENCOUNTER GUARANTOR PAYER SUBSCRIBER SOURCE 11/15/2018 VLADIMIR A Primary VLADIMIR A [place] [id number] DEER Insurance:AETNA ISOMDOB: [facility] Number: [id number] [address]Xld: [id number] Repository Date:3734-04-00[address] [address]ZE: 11/15/2018 Secondary NOT GIVENUNK [place] Insurance:SELF PAY [facility] Number: Effective Repository Date:2018-11-11 11/11/2018 VLADIMIR A Primary VLADIMIR [place] [id number] DEER Insurance:AETNA ISOMDOB: [facility] Number: [id number] Hospital [address]Ujv: [id number] Repository Date:3634-56-83[address]) [address] [address]FY: 11/11/2018 Secondary NOT GIVENUNK [place] Insurance:SELF PAY [facility] Number: Effective Repository Date:2018-11-11 10/29/2018 VLADIMIR A Primary VLADIMIR [place] [id number] DEER Insurance:AETNA [facility] Number: [id number] [place] [address]Ifl: [id number] Repository Date:9007-98-32[address] () [address] [place] [address]PV: 10/29/2018 Secondary NOT GIVENUNK [place] Insurance:SELF PAY [facility] Number: Effective Repository Date:2018-10-08 10/26/2018 VLADIMIR A Primary VLADIMIR [place] [id number] DEER Insurance:AETNA [facility]OMDOB[facility] Number: [id number] [place] [address]Jxd: [id number] Repository Date:1940-43-31[address]T [address] () [address] [address]YZ: 10/26/2018 Secondary NOT GIVENUNK [place] Insurance:SELF PAY [facility] Number: Effective Repository Date:2018-10-25 10/21/2018 VLADIMIR A Primary VLADIMIR [place] [id number] DEER Insurance:AETNA [facility]OMDOB: [facility] Number: [id number] [place] [address]Kkf: [id number] Repository Date:7535-60-47CA [address] () [address] [address]NV: 10/21/2018 Secondary NOT GIVENUNK [place] Insurance:SELF PAY [facility] Number: Effective Repository Date:2018-10-21 10/13/2018 VLADIMIR A Primary VLADIMIR A [place] [id number] DEER Insurance:AETNA ISOMDOB: [facility] Dipak REYESicrussell Number: [id number] Hospital [address]Dgw: [id number] Repository Date:2835-24-91SX [address] () [place] [address]VN: 10/13/2018 Secondary NOT GIVENUNK [place] Insurance:SELF PAY [facility] Number: Effective Repository Date:2018-10-13 10/05/2018 VLADIMIR A Primary VLADIMIR A [place] [id number] [place] Insurance:AETNA ISOMDOB: [facility] GERA, [facility] Number: [id number] Hospital [address]Omp: [id number] Repository Date:4968-60-07XH [address] () [place], [place] [address]NP: 10/05/2018 Secondary NOT GIVENUNK [place] Insurance:SELF PAY [facility] Number: Effective Repository Date:2018-10-05 10/05/2018 VLADIMIR A Primary VLADIMIR A [place] [id number] [place] Insurance:AETNA ISOMDOB: [facility] GERA [facility] Number: [id number] Hospital [place] [address]Vdr: [id number] Repository Date:0424-66-16XT [address] () [place] [address]CX: 10/05/2018 Secondary NOT GIVENUNK [place] Insurance:SELF PAY [facility] Number: Effective Repository Date:2018-10-05 10/05/2018 VLADIMIR A Primary VLADIMIR A [place] [id number] DEER Insurance:AETNA ISOMDOB: [facility] GERA, TRICIAPolic Number: [id number] [place] [address]Sjn: [id number] Repository Date:5740-23-32QF [address] ([address]) [address] [address]BZ: 10/05/2018 Secondary NOT GIVENUNK [place] Insurance:SELF PAY [facility] Number: Effective Repository Date:2018-10-05 10/05/2018 VLADIMIR A Primary VLADIMIR [place] [id number] DEER Insurance:AETNA [facility]: [id number] Hospital [address]Oda: [id number] Repository Date:6846-55-67DQ [address]) [address] [address]EL: 10/05/2018 Secondary NOT GIVENUNK [place] Insurance:SELF PAY [facility] Number: Effective Repository Date:2018-10-05 10/05/2018 VLADIMIR A Primary VLADIMIR [place] [id number] [place] Insurance:AETNA [facility] Number: [id number] Hospital [place] [address]Ixp: [id number] Repository Date:7793-58-29XY [address] ([address]) [place], [place] [address]LF: 10/05/2018 Secondary NOT GIVENUNK [place] Insurance:SELF PAY [facility] Number: Effective Repository Date:2018-10-05 10/05/2018 VLADIMIR A Primary VLADIMIR [place] [id number] DEER Insurance:AETNA [facility]OMDOB: [facility] Number: [id number] [place] [address]Kcx: [id number] Repository Date:6500-19-14FF [address] () [id number] [address]FD: 10/05/2018 Secondary NOT GIVENUNK [place] Insurance:SELF PAY [facility] Number: Effective Repository Date:2018-10-05 10/05/2018 VLADIMIR A Primary VLADIMIR A [place] [id number] [place]ER Insurance:AETNA ISOMDOB: [facility] Peggy REYES Number: [id number] Hospital [address]Ekm: [id number] Repository Date:5652-83-20TK [address] () [address], [place] [address]MX: 10/05/2018 Secondary NOT GIVENUNK [place] Insurance:SELF PAY [facility] Number: Effective Repository Date:2018-10-05 10/05/2018 VLADIMIR A Primary VLADIMIR A [place] [id number] [place] Insurance:AETNA ISOMDOB: [facility] HERBTRICIASelect [facility] Number: [id number] Hospital [address]Ryv: [id number] Repository Date:4310-42-08IO [address] () [place] [address]WM: 10/05/2018 Secondary NOT GIVENUNK Irena Insurance:SELF PAY [facility] Number: Effective Repository Date:2018-10-05 10/05/2018 VLADIMIR A Primary VLADIMIR A Irena [id number] DEER Insurance:AETNA ISOMDOB: [facility] SYMONE [facility] Number: [id number] Hospital [address]Kty: [id number] Repository Date:[id number] [address] () [place] [address]WO: 10/05/2018 Secondary NOT GIVENUNK Irena Insurance:SELF PAY [facility] Number: Effective Repository Date:2018-10-05 10/05/2018 VLADIMIR A Primary VLADIMIR A [place] [id number] DEER Insurance:AETNA ISOMDOB: [facility] GERA, [facility] Number: [id number] [place] [address]Pru: [id number] Repository Date:0730-45-93AB [address] ([address]) [id number] [address]ZH: 10/05/2018 Secondary NOT GIVENUNK [place] Insurance:SELF PAY [facility] INS[facility]ANCESelect [facility] Number: Effective Repository Date:2018-10-05 10/05/2018 VLADIMIR A Primary VLAIDMIR Degroot [place] [id number] DEER Insurance:AETNA ISOMDOB: [facility] MARCIA, TRIC[facility]ADign[facility] Hospitalicy Number: [id number] [address]Pkz: [id number] Repository Date:6871-80-71DK [address] () [id number] [place] [address]FX: 10/05/2018 Secondary NOT GIVENUNK [place] Insurance:SELF PAY [facility] Number: Effective Repository Date:2018-10-05 06/25/2018 VLADIMIR A Primary VLADIMIR A [place] [id number] DEER Insurance:AETNA ISOMDOB: [facility] MARCIA TRICIAPolicy Number: [id number] [place] [address]Vwc: [id number] Repository Date:3385-09-67ZD [address] () [id number] [address]OH: 06/25/2018 Secondary NOT GIVENUNK Irena Insurance:SELF PAY [facility] Number: Effective Repository Date:2018-03-26 06/16/2018 VLADIMIR A Primary VLADIMIR A Irena [id number] DEER Insurance:AETNA ISOMDOB: [facility] MARCIA, TRICIAPolicy Number: [id number] Hospital [place] [id number]: [id number] Repository Date:0665-95-56BF [address] () [address] [address]QF: 06/16/2018 Secondary NOT GIVENUNK [place] Insurance:SELF PAY [facility] Number: Effective Repository Date:2018-06-16 04/13/2018 VLADIMIR A Primary VLADIMIR A [place] [id number] DEER Insurance:AETNA ISOMDOB: [facility] Dipak ASHBYicrussell Number: [id number] Hospital [address]Wvh: [id number] Repository Date:1526-43-87ZO [address] () [place] [address]QH: 04/13/2018 Secondary NOT GIVENUNK [place] Insurance:SELF PAY [facility] Number: Effective Repository Date:2018-04-13 03/29/2018 VLADIMIR A Primary VLADIMIR A Irena [id number] DEER Insurance:AETNA ISOMDOB: [facility] TR[facility]AS[facility] Number: [id number] Hospital [address]Pty: [id number] Repository Date:9607-62-48HC [address] () [place], [place] [address]CZ: 03/29/2018 Secondary NOT GIVENUNK Irena Insurance:SELF PAY [facility] Number: Effective Repository Date:2018-03-29 03/24/2018 Vladimir A Primary Vladimir A [place] [id number] [place] Insurance:AETNA IsomDOB: [facility] gera [facility] Number: [id number] [place] [address]Fzi: [id number] Repository Date:9690-44-87OB [address] () [place], [place] [address]IF: 03/24/2018 Secondary NOT GIVENUNK Irena Insurance:SELF PAY [facility] Number: Effective Repository Date:2018-03-24 12/25/2017 Vladimir A Primary Vladimir A Irena [id number] [place] Insurance:AETNA [facility] Number: [id number] [place] [address]Npr: [id number] Repository Date:2642-26-33ER [address] () [id number] JESUS M[place] [address]TB: 12/25/2017 Secondary NOT GIVENUNK Irena Insurance:SELF PAY [facility] Number: Effective Repository Date:2017-12-02 12/22/2017 Vladimir A Primary NOT GIVENUNK [place] [id number] [place] Insurance:SELF PAY [facility] [address]Rud[facility] Number: Effective Repository Date:2017-12-22 ()
== END ==
PROVIDERS: Family Provider Family Medicine; PCP Family Medicine; Referring Provider Family Medicine; Visit Provider Family Medicine
DX: A41.9 Sepsis, unspecified organism (principal); N17.9 Acute kidney failure, unspecified
CPT/HCPCS: 36415; 80048; 85025

== ENCOUNTER → 2018-10-26 10:44 | Outpatient (CLI) | payer MEDICARE, SELFPAY ==
[2018-10-06 11:30] VITALS: BMI 30.9
[2018-10-26 11:41] LABS: Absolute Neutrophil Count 2.8 X10^3/uL (2.0-7.7); Basophil# 0.01 X10^3/uL; Basophil% 0.2 % (0-1); Eosinophil# 0.07 X10^3/uL; Eosinophils% 1.3 % (0-5); Hematocrit 44.1 % (37-47); Hemoglobin 14.3 g/dl (12.0-15.0); Lymphocyte % 35.1 % (19-41); Mean Corp Hgb Conc 32.4 g/gl (32-36); Mean Corpuscular Hgb 29.5 pg (27.0-32.0); Mean Corpuscular Volume 90.9 fL (81-99); Mean Platelet Vol. 11.2 fl (6.2-12.0); Monocyte# 0.66 X10^3/uL; Monocyte% 12.2 % (0-10); Neutrophil # 2.77 X10^3/uL (2.7-7.7); POSITIVE COUNT NO; POSITIVE DIFFERENTIAL NO; POSITIVE MORPHOLOGY NO; Platelet Count 397 K/mm3 (150-450); RBC Distribution Width CV 13.6 % (11.6-14.6); RBC Distribution Width SD 44.9 fl (35.1-43.9); Red Blood Count 4.85 M/mm3 (4.2-5.4); White Blood Count 5.4 K/mm3 (4.4-11.0)
[2018-10-26 12:04] LABS: Anion Gap 9 (5-15); BUN 13 mg/dL (7-18); BUN/Creat Ratio 11.6 RATIO (10-20); Calcium,Total 9.3 mg/dL (8.5-10.1); Chloride 102 mmol/L (98-107); Creatinine, Serum 1.12 mg/dL (0.55-1.02); EST Glomerular Filtration Rate 49 mL/min (>60); Est Glom Filt Rate - Afr Amer 60 mL/min (>60); Glucose 90 mg/dL (74-106); Potassium 4.1 mmol/L (3.5-5.1); Sodium Level 141 mmol/L (136-145)
--- OUTSIDE RECORDS SUMMARY | 2019-01-27 18:53 | XMS RPT_ITS ---
:1935 Author Organization OHIP Support Name Relationship Address Phone ELS, BOBBY Unavailable [address] + [place] [address] R Unavailable Unavailable Unavailable LES, BOBBY Unavailable [address] + [place] [address] R Unavailable Unavailable Unavailable LES, BOBBY Unavailable [address] + [place] [address] R Unavailable Unavailable Unavailable LES, BOBBY Unavailable [address] + [place] [address] R Unavailable Unavailable Unavailable LES, BOBBY Unavailable [address] + [place] [address] R Unavailable Unavailable Unavailable LES, BOBBY Unavailable [address] + [place] [address] R Unavailable Unavailable Unavailable LES, BOBBY Unavailable [address] + [place] [address] R Unavailable Unavailable Unavailable LES, BOBBY Unavailable [address] + [place] [address] R Unavailable Unavailable Unavailable LES, BOBBY Unavailable [address] + [place] [address] R Unavailable Unavailable Unavailable LES, BOBBY Unavailable [address] + [place] [address] R Unavailable Unavailable Unavailable LES, BOBBY Unavailable [address] + [place] [address] R Unavailable Unavailable Unavailable LES, BOBBY Unavailable [address] + [place] [address] R Unavailable Unavailable Unavailable LES, BOBBY Unavailable [address] + [place] [address] R Unavailable Unavailable Unavailable LES, BOBBY Unavailable [address] + [place] [address] R Unavailable Unavailable Unavailable LES, BOBBY Unavailable [address] + [place] [address] R Unavailable Unavailable Unavailable LES, BOBBY Unavailable [address] + [place] [address] R Unavailable Unavailable Unavailable LES, BOBBY Unavailable [address] + [place] [address] R Unavailable Unavailable Unavailable LES, BOBBY Unavailable [address] + [place] [address] R Unavailable Unavailable Unavailable LES, BOBBY Unavailable [address] + [place] [address] R Unavailable Unavailable Unavailable LES, BOBBY Unavailable [address] + [place] [address] R Unavailable Unavailable Unavailable LES, BOBBY Unavailable [address] + [place] [address] R Unavailable Unavailable Unavailable LES, BOBBY Unavailable [address] + [place] [address] R Unavailable Unavailable Unavailable LES, BOBBY Unavailable [address] + [place] [address] R Unavailable Unavailable Unavailable LES, BOBBY Unavailable [address] + [place] [address] R Unavailable Unavailable Unavailable Care Team Providers Name Role Phone Malys, Aaliyah Attending Unavailable Malys, Aaliyah Referring Unavailable Malys, Aaliyah Primary Care Unavailable Malys, Aaliyah Attending Unavailable Malys, Aaliyah Primary Care Unavailable Malys, Aaliyah Referring Unavailable Eladia, Hodges Attending Unavailable Wicho Capellan Referring Unavailable Arnaud Schneider Attending Unavailable Arnaud Schneider Referring Unavailable Malys, Aaliyah Primary Care Unavailable Geoff Murray Attending Unavailable Malys, Aaliyah Primary Care Unavailable Malys, Aaliyah Attending Unavailable Malys, Aaliyah Referring Unavailable Malys, Aaliyah Primary Care Unavailable Malys, Aaliyah Primary Care Unavailable RAFFY HANDY Attending Unavailable Eladia, Hodges Attending Unavailable Eladia, Iker Referring Unavailable Malys, Aaliyah Primary Care Unavailable WARREN SANCHEZ Attending Unavailable WARREN SANCHEZ Referring Unavailable Malys, Aaliyah Primary Care Unavailable Negin Frazier Attending Unavailable Iker Montilla Attending Unavailable Malys, Aaliyah Referring Unavailable Malys, Aaliyah Primary Care Unavailable ShaileshRamon Attending Unavailable Shailesh, Ramon Dawson Referring Unavailable Malys, Aaliyah Primary Care Unavailable Malys, Aaliyah Primary Care Unavailable Agyepong, Wicho Admitting Unavailable Agyepong, Wicho Referring Unavailable Shailesh, Ramon Dawson Consulting Unavailable Paintsil, [place] Attending Unavailable Wily, Leonel Consulting Unavailable Agyepong, Wicho Admitting Unavailable Agyepong, Wicho Attending Unavailable Agyepong, Wicho Referring Unavailable Malys, Aaliyah Primary Care Unavailable Shailesh, Ramon Dawson Consulting Unavailable Agyepong, Wicho Consulting Unavailable Agyepong, Wicho Admitting Unavailable Koram, Viri Jada Attending Unavailable Agyepong, Wicho Referring Unavailable Malys, Aaliyah Primary Care Unavailable Shailesh, Ramon Dawson Consulting Unavailable Koram, Viri Jada Consulting Unavailable Agyepong, Wicho Admitting Unavailable Wily, Leonel Attending Unavailable Agyepong, Wicho Referring Unavailable Malys, Aaliyah Primary Care Unavailable Shailesh, Ramon Dawson Consulting Unavailable Wily, Leonel Consulting Unavailable Koram, Viri Jada Consulting Unavailable Agyepong, Wicho Admitting Unavailable Paintsil, [place] Attending Unavailable Agyepong, Wicho Referring Unavailable Malys, Aaliyah Primary Care Unavailable Shailesh, Ramon Dawson Consulting Unavailable Wily, Leonel Consulting Unavailable Paintsil, [place] Consulting Unavailable Agyepong, Wicho Admitting Unavailable Wily, Leonel Attending Unavailable Agyepong, Wicho Referring Unavailable Malys, Aaliyah Primary Care Unavailable Shailesh, Ramon Dawson Consulting Unavailable Wily, Leonel Consulting Unavailable Paintsil, [place] Consulting Unavailable Agyepong, Wicho Admitting Unavailable Wily, Leonel Attending Unavailable Agyepong, Wicho Referring Unavailable Malys, Aaliyah Primary Care Unavailable Shailesh, Frank Consulting Unavailable Wily, Leonel Consulting Unavailable Paintsil, [place] Consulting Unavailable Agyepong, Wicho Admitting Unavailable Paintsil, [place] Attending Unavailable Agyepong, Wicho Referring Unavailable Malys, Aaliyah Primary Care Unavailable Shailesh, Ramon Dawson Consulting Unavailable Wily, Leonel Consulting Unavailable Paintsil, [place] Consulting Unavailable Agyepong, Wicho Admitting Unavailable Wily, Leonel Attending Unavailable Agyepong, Wicho Referring Unavailable Malys, Aaliyah Primary Care Unavailable Shailesh, Frank Consulting Unavailable Wily, Leonel Consulting Unavailable Paintsil, [place] Consulting Unavailable Agyepong, Wicho Admitting Unavailable Paintsil, [place] Attending Unavailable Agyepong, Wicho Referring Unavailable Malys, Aaliyah Primary Care Unavailable Shailesh, Frank Consulting Unavailable Wily, Leonel Consulting Unavailable Paintsil, [place] Consulting Unavailable Paintsil, [place] Attending Unavailable Paintsil, [place] Referring Unavailable Malys, Aaliyah Primary Care Unavailable Shailesh, Ramon Dawson Attending Unavailable Shailesh, Frank Referring Unavailable Malys, Aaliyah Primary Care Unavailable PROBLEMS PROBLEMS DATE TYPE CONDITION / CODE ATTENDING STATUS SOURCE 11/15/2018 Unknown N20.0 - Calculus of Ramon Cash Active [place] kidney / [facility] N20.0(ICD-10) Hospital Repository 11/15/2018 Unknown R82.998 - Other ShaileshRamon Active [place] abnormal findings in [facility] urine / Hospital R82.998(ICD-10) Repository 10/21/2018 Unknown A41.9 - Sepsis, Malys, Aaliyah Active [place] unspecified organism Community / A41.9(ICD-10) Hospital Repository 10/21/2018 Unknown N17.9 - Acute kidney Malys, Aaliyah Active [place] failure, unspecified Community / N17.9(ICD-10) Hospital Repository 06/25/2018 Unknown I10 - Essential Eladia, Hodges Active [place] (primary) Community hypertension / Hospital I10(ICD-10) Repository 06/25/2018 Unknown E78.5 - Eladia, I[place] Active [place] Hyperlipidemia, Community unspecified / Hospital E78.5(ICD-10) Repository 05/05/2018 Unknown 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 Submit a new specimen if indicated. Performed By: #### M100.0650 #### [facility] [address] [place], [address] ABDOMEN SINGLE VIEW Observed: 11/15/2018 Status: F Source: [place] 12:08 PM [facility] REPOSITORY [facility] Imaging Services [address] [place] [address] Abdomen Single View MR#: [id number] Acct: [id number] Name: VLADIMIR BARAJAS Rep #: [id number] : 1935 F 83 From: Rell Moyer DO PCP: Aaliyah De La Cruz DO Status: REG CLI Study: Abdomen Single View Date of Exam: 11/15/18 Exam# [id number] Ordering Dr: Ramon Cash MD STUDY: X-RAY [...] Cash MD; Aaliyah De La Cruz DO Tool Shaper Set Up Operator: Signed SHOULDER MIN 2 VIEWS Observed: 11/11/2018 Status: F Source: [place] 1:23 PM [facility] Imaging Services [address] [place] [address] Shoulder min 2 Views MR#: [id number] Acct: [id number] Name: VLADIMIR BARAJAS Rep #: [id number] : 1935 F 83 From: Stephen Langston MD PCP: Aaliyah De La Cruz DO Status: REG CLI Study: Shoulder min 2 Views Date of Exam: 11/11/18 Exam# [id number] Ordering Dr: Arnaud Schneider MD STUDY: X-RAY [...] Arnaud Schneider; Aaliyah De La Cruz DO Tool Shaper Set Up Operator: Signed OPERATIVE REPORT Observed: 10/29/2018 Status: F Source: [place] 12:49 PM [facility] Medical Records Department [address] [facility] [place] [address] Operative Report 10/29/18 1247 MR#: [id number] Acct: [id number] Name: VLADIMIR BARAJAS Rep #: [id number] : 1935 83 From: Ramon Cash MD PCP: Aaliyah De La Cruz DO Status: REG SDC Y Location: [place] [address] Report of Operation Date of Procedure: 10/29/18 [...] went into the bladder with a 21 Jordanian rigid cystourethroscope, grabbed the existing stent, advanced [...] 10/29/2018 Status: F Source: [place] 12:47 PM [facility] Medical Records Department [address] [place] [address] Instructions for Home/Discharge Instructions 10/29/18 1246 MR#: [id number] Acct: [id number] Name: VLADIMIR BARAJAS Rep #: [id number] : 1935 83 From: Ramon Cash MD PCP: Aaliyah De La Cruz DO Status: REG [facility] Discharge Diet: Light diet - advance as [...] take at Discharge Fluticasone 0.05% [Flonase Nasal [place]] 1 spray NARES DAILY 12/29/14 Lansoprazole [Prevacid] 30 mg PO DAILY 12/29/14 Levothyroxine [Synthroid] 50 mcg PO DAILY 12/29/14 Vit A/Vit C/Vit E/Zinc/Copper [Preservision Areds Softgel] 1 ea PO BID 06/09/15 Aspirin 81 mg PO QHS 08/28/16 denosumab 60 mg/mL subcutaneous syringe 60 mg SC [id number] 06/25/18 flaxseed oil 1,000 mg capsule 1,000 [...] 10/26/2018 Status: F Source: [place] 10:49 AM [facility] REPOSITORY TYPE CODE TESTS RESULT OUT OF [...] Lymph 1.90 Performed By: #### L100.0100 #### [facility] [address] [facility] [address] [place], [address] BASIC METABOLIC Collected: 10/26/2018 Status: F Source: [place] PROFILE (BMP) 10:49 AM [facility] REPOSITORY TYPE CODE TESTS RESULT OUT OF [...] GAP 9 Performed By: #### L500.2500 #### [facility] [address] [place], [address] CBC W/DIFF, AUTOMATED Collected: 10/21/2018 Status: F Source: [place] 3:26 PM [facility] REPOSITORY TYPE CODE TESTS RESULT OUT OF [...] Lymph 2.17 Performed By: #### L100.0100 #### [facility] [address] [place], [place], [id number] BASIC METABOLIC Collected: 10/21/2018 Status: F Source: [place] PROFILE (BMP) 3:26 PM [facility] REPOSITORY TYPE CODE TESTS RESULT OUT OF [...] GAP 10 Performed By: #### L500.2500 #### [facility] [address] [place], [address] BASIC METABOLIC Collected: 10/13/2018 Status: F Source: [place] PROFILE (BMP) 2:00 PM [facility] REPOSITORY Order Comment: Send Results To: pcp [...] GAP 7 Performed By: #### L500.2500 #### [facility] [address] [facility] [place], [address] DISCHARGE SUMMARY Observed: 10/09/2018 Status: F Source: [place] 1:02 PM [facility] REPOSIT[facility] Medical Records Department [address] [place] [address] Discharge Summary 10/09/18 1202 MR#: [id number] Acct: [id number] Name: VLADIMIR BARAJAS Rep #: [id number] : 1935 82 From: Roseann Lentz MD PCP: Aaliyah De La Cruz DO Status: ADM IN Location: [place] [id number] Discharge Date and Diagnosis - Problem List [...] Garry Dalal MD at 12:58 EST Tel [phone], Service support , Critical care Urology Operations: [...] take at Discharge Fluticasone 0.05% [Flonase Nasal [place]] 1 spray NARES DAILY 12/29/14 Lansoprazole [Prevacid] 30 mg PO DAILY 12/29/14 Levothyroxine [Synthroid] 50 mcg PO DAILY 12/29/14 Vit A/Vit C/Vit E/Zinc/Copper [Preservision Areds Softgel] 1 ea PO DAILY 06/09/15 Aspirin 81 mg PO QHS 08/28/16 denosumab 60 mg/mL subcutaneous syringe 60 mg SC [id number] 06/25/18 flaxseed oil 1,000 mg capsule 1,000 [...] applicable Code Visit Inpatient E AND M: 96972 Disch Hosp 10/09/18 1302 <Electronically signed by Roseann Lentz MD> Date Roseann Lentz MD Cosigner Signature (if applicable): Date CC: Roseann Lentz MD; Aaliyah De La Cruz DO Signed DISCHARGE INSTRUCTION Observed: 10/09/2018 Status: F Source: [place] 12:01 PM [facility] REPOSITORY [facility] Medical Records Department [address] [place] [address] Instructions for Home/Discharge Instructions 10/09/18 1135 MR#: [id number] Acct: [id number] Name: VLADIMIR BARAJAS Rep #: [id number] : 1935 82 From: Roseann Lentz MD [...] take at Discharge Fluticasone 0.05% [Flonase Nasal [place]] 1 spray NARES DAILY 12/29/14 Lansoprazole [Prevacid] 30 mg PO DAILY 12/29/14 Levothyroxine [Synthroid] 50 mcg PO DAILY 12/29/14 Vit A/Vit C/Vit E/Zinc/Copper [Preservision Areds Softgel] 1 ea PO DAILY 06/09/15 Aspirin 81 mg PO QHS 08/28/16 denosumab 60 mg/mL subcutaneous syringe 60 mg SC [id number] 06/25/18 flaxseed oil 1,000 mg capsule 1,000 [...] 10/09/2018 Status: F Source: [place] 7:08 AM [facility] REPOSITORY TYPE CODE TESTS RESULT OUT OF [...] Lymph 1.53 Performed By: #### L100.0100 #### [facility] [address] [place], [address] BASIC METABOLIC Collected: 10/09/2018 Status: F Source: [place] PROFILE ([facility]) 7:08 AM [facility] REPOSITORY TYPE CODE TESTS RESULT OUT OF [...] GAP 8 Performed By: #### L500.2500 #### [facility] [address] [place], [address] 12 LEAD ELECTROCARDIOGRAM Observed: 10/08/2018 Status: F Source: [place] 2:08 PM [facility] REPOSIT[facility] Cardiovascular Services [address] [place] [address] 12 Lead EKG 10/06/18 0545 MR#: [id number] Acct: [id number] Name: VLADIMIR BARAJAS Rep #: [id number] : 1935 82 From: I[place] Montilla MD Attending Dr: Roseann Lentz MD Status: ADM IN Ordering Dr: Davion Girard MD Date: 10/06/18 Location: [facility] Sex: F C Admitted: 10/05/18 Test Reason [...] available Confirmed by ELADIA TAYLOR, IKER ([id number]), online editor KALPANA ESPINOZA ([id number]) on 10/08/2018 2:07:59 PM Referred By: Wicho Capellan Confirmed By:IKER MONTILLA MD 10/08/18 1408 Date [place] Montilla MD CC: Roseann Lentz MD; Davion Girard MD; Wicho Capellan MD; Aaliyah De La Cruz DO Signed CBC W/DIFF, AUTOMATED Collected: 10/08/2018 Status: C Source: [place] 4:00 AM [facility] REPOSITORY TYPE CODE TESTS RESULT OUT OF [...] March haley Performed By: #### L100.0100 #### [facility] [address] [place], [address] BASIC METABOLIC Collected: 10/08/2018 Status: F Source: [place] PROFILE (BMP) 4:00 AM [facility] REPOSITORY TYPE CODE TESTS RESULT OUT OF [...] Performed By: #### L500.2500, L501.2300, L501.5200 #### [facility] [address] [place], [place], [address] PHOSPHORUS Collected: 10/08/2018 Status: F Source: [place] 4:00 AM [facility] REPOSITORY TYPE CODE TESTS RESULT OUT OF RANGE REFERENCE UNITS LAB L501.2300 2.5-4.9 mg/dL Low PHOS 1.8 Performed By: #### L500.2500, L501.2300, L501.5200 #### [facility] [address] [place], [place], [address] MAGNESIUM Collected: 10/08/2018 Status: F Source: [place] 4:00 AM [facility] REPOSITORY TYPE CODE TESTS RESULT OUT OF RANGE REFERENCE UNITS LAB L501.5200 1.6-2.6 mg/dL Normal MG 2.5 Performed By: #### L500.2500, L501.2300, L501.5200 #### [facility] [address] [place], [address] BEDSIDE GLUCOSE Collected: 10/07/2018 Status: F Source: [place] 6:32 AM [facility] REPOSITORY TYPE CODE TESTS RESULT OUT OF REFERENCE UNITS RANGE LAB L501.080 70-110 mg/dL Low BEDSIDE GLU 60 Result Comment: MANAGEMENT OF PATIENT CARE PER NURSING PROTOCOL Performed By: #### L501.080 #### [facility] Point of Care [address] [facility] [place] [address] CONSULTATION Observed: 10/07/2018 Status: F Source: [place] 5:44 AM [facility] REPOSIT[facility] Medical Records Department [address] [facility] [place] [address] Consultation 10/06/18 1456 MR#: [id number] Acct: [id number] Name: VLADIMIR BARAJAS Rep #: [id number] : 1935 82 From: Leonel Julien MD [...] medical history listed below, who presented to [facility] on 10/05/2018 secondary to flank pain. [...] Date Recorded By Document 10/06/18 03:26 MM [id number] 10/06/18 03:27 MM Orthostatic Vitals Standing -Blood [...] Garry Dalal MD at 12:58 EST Tel [phone], Service support , Assessment/Plan Active and Suspected [...] AM to 3 PM) Code Visit 9xxxx: [id number] Critical care first hour 10/07/18 0544 <Electronically signed by Leonel Julien MD> Date Leonel Julien MD Cosigner Signature (if applicable): Date CC: Leonel Julien MD; Wicho Capellan MD; Ramon Cash MD; Aaliyah De La Cruz DO Signed BASIC METABOLIC Collected: 10/07/2018 Status: F Source: [place] PROFILE (BMP) 4:00 AM [facility] REPOSITORY TYPE CODE TESTS RESULT OUT OF [...] GAP 10 Performed By: #### L500.2500 #### [facility] [address] [place], [place], [address] CBC W/DIFF, AUTOMATED Collected: 10/07/2018 Status: C Source: [place] 4:00 AM [facility] REPOSITORY TYPE CODE TESTS RESULT OUT OF [...] May foll Performed By: #### L100.0100 #### [facility] [address] [facility] [place], [address] LACTIC ACID Collected: 10/06/2018 Status: F Source: [place] 11:40 PM [facility] REPOSITORY TYPE CODE TESTS RESULT OUT OF REFERENCE UNITS RANGE LAB L503.6005 0.4-2.0 mmol/L High LACTIC ACID 2.4 Result Comment: Critical Result(s) Called at: 00:29:41 10/07/2018 by: TRIPP LIZARRAGA to Theresa Salamanca Performed By: #### L503.6005 #### [facility] [address] [place], [address] LACTIC ACID Collected: 10/06/2018 Status: F Source: [place] 4:15 PM [facility] REPOSITORY Order Comment: Yes/No query for Sepsis Lactate Rule Y TYPE CODE TESTS RESULT OUT OF RANGE REFERENCE UNITS LAB L503.6005 0.4-2.0 mmol/L Normal LACTIC ACID 2.0 Result Comment: [facility]ICAL [facility] BY [facility] 10-06-18 AT 1839PM READ BACK BY SAME Performed By: #### L503.6005 #### [facility] [address] [facility] [place], [address] OPERATIVE REPORT Observed: 10/06/2018 Status: F Source: [place] 3:21 PM [facility] REPOSIT[facility] Medical Records Department [address] [place] [address] Operative Report 10/06/18 1518 MR#: [id number] Acct: [id number] Name: VLADIMIR BARAJAS Rep #: [id number] : 1935 82 From: Ramon Cash MD [...] went into the bladder with a 21 Jordanian rigid cystourethroscope, and then placed lidocaine jelly into the bladder, I then went into the bladder with a 21 Jordanian rigid cystourethroscope, I advanced a wire up the left ureter with a Glidewire and then over the Glidewire advanced a stent 6 Jordanian by 26 cm stent pulled the wire [...] TIME W/INR Collected: 10/06/2018 Status: F Source: [place] 12:30 PM [facility] REPOSITORY TYPE CODE TESTS RESULT OUT OF RANGE REFERENCE UNITS LAB L300.4150 11.7-14.9 SECONDS High PROTIME 17.2 LAB L300.4200 Normal INR 1.4 Performed By: #### L300.3900, L300.4310 #### [facility] [address] [place], [address] PARTIAL THROMBOPLAST Collected: 10/06/2018 Status: F Source: [place] TIME 12:30 PM [facility] REPOSITORY TYPE CODE TESTS RESULT OUT OF REFERENCE UNITS RANGE LAB L300.4310 24.1-36.2 Seconds High PTT 54.9 Performed By: #### L300.3900, L300.4310 #### [facility] [address] [place], [address] Observed: 10/06/2018 Status: F Source: [place] CULTURE, BLOOD (WB) 12:30 PM [facility] REPOSITORY Has pt arrived? Y BC No growth in 5 days. Performed By: #### M200.1000 #### [facility] [address] [place], [address] CXR FOR LINE PLACEMENT Observed: 10/06/2018 Status: F Source: [place] 12:12 PM [facility] REPOSITORY [facility] Imaging Services [address] [place] [address] CXR for Line Placement MR#: [id number] Acct: [id number] Name: VLADIMIR BARAJAS Rep #: [id number] : 1935 F 82 From: Garry Dalal MD PCP: Aaliyah De La Cruz DO Status: ADM IN Study: CXR for Line Placement Date of Exam: 10/06/18 Exam# [id number] Ordering Dr: Leonel Julien MD STUDY: X-RAY [...] Garry Dalal MD at 12:58 EST Tel [phone], Service support , CC: Leonel Julien MD; Aaliyah De La Cruz DO Tool Shaper Set Up Operator: Signed LACTIC ACID Collected: 10/06/2018 Status: F Source: [place] 11:50 AM [facility] REPOSITORY Order Comment: Yes/No query for Sepsis Lactate Rule Y TYPE CODE TESTS RESULT OUT OF REFERENCE UNITS RANGE LAB L503.6005 0.4-2.0 mmol/L High LACTIC ACID 2.3 Result Comment: Critical Result(s) Called at: 12:33:42 10/06/2018 by: Danny Cardoso to Cuate Bang RN (ICU). Performed By: #### L503.6005 #### [facility] [address] [facility] [place], [address] Observed: 10/06/2018 Status: F Source: [place] CULTURE, BLOOD (WB) 11:50 AM [facility] REPOSITORY Has pt arrived? Y BC No growth in 5 days. Performed By: #### M200.1000 #### [facility] [address] [facility] [place], [address] Observed: 10/06/2018 Status: F Source: [place] CULTURE, BLOOD (WB) 9:01 AM [facility] REPOSITORY Has pt arrived? Y BC CORRECTED [...] >=320 R (NF) indicates non-formulary drug at [facility]. Approval by Infectious Disease Specialist required before non-formulary drugs may be ordered and/or dispensed. Performed By: #### M200.1000 #### [facility] [address] [facility] [place], [address] Observed: 10/06/2018 Status: F Source: [place] CULTURE, BLOOD (WB) 9:01 AM [facility] REPOSITORY Has pt arrived? Y BC CORRECTED ANAEROBIC BOTTLE GRAM STAIN: GRAM NEGATIVE RODS RESULTS CALLED TO DMORROW 10/06/18 195 Aggie Blair. REPORT READ BACK BY SAME. CORRECTED AEROBIC BOTTLE GRAM STAIN: GRAM NEGATIVE RODS CORRECTED GRAM STAIN RESULTS CALLED TO ELIGIO ALVAREZ 10/07/18 0825 Carla Rodriguez. 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 [address] [address] [place], [address] BASIC METABOLIC Collected: 10/06/2018 Status: F Source: IRENA PROFILE (BMP) 5:30 AM [facility] REPOSITORY TYPE CODE TESTS RESULT OUT OF [...] GAP 10 Performed By: #### L500.2500 #### [facility] [address] [place], [place], [address] CBC W/DIFF, AUTOMATED Collected: 10/06/2018 Status: F Source: [place] 5:30 AM [facility] REPOSITORY TYPE CODE TESTS RESULT OUT OF [...] Lymph 0.28 Performed By: #### L100.0100 #### [facility] [address] [place], [address] THYROID STIM HORMONE Collected: 10/06/2018 Status: F Source: [place] (TSH) 5:30 AM [facility] REPOSITORY Order Comment: Comments: pt having surgery add on to AM lab TYPE CODE TESTS RESULT OUT OF RANGE REFERENCE UNITS LAB L501.9520 0.358-3.74 uIU/mL Normal TSH 0.73 Performed By: #### L501.9520 #### [facility] [address] [place], [address] HISTORY AND PHYSICAL Observed: 10/06/2018 Status: F Source: IRENA EXAM 3:18 AM [facility] REPOSITORY [facility] Medical Records Department [address] [place] [address] History and Physical 10/05/182020 MR#: [id number] Acct: [id number] Name: VLADIMIR BARAJAS Rep #: [id number] : 1935 82 From: Wicho Capellan MD PCP: Aaliyah De La Cruz DO Status: ADM PATRIZIA Y Location: [place] [address] Problem List (1) Ureteral calculus, left Status: [...] heparin Code Visit OBSV E AND M: 88351 Initial observation care L3 10/06/188 <Electronically signed by Wicho Capellan MD> Date Wicho Capellan MD Cosigner Signature: Date (if applicable) CC: [place]o Capellan MD; Aaliyah De La Cruz DO Signed EMERGENCY DEPARTMENT Observed: 10/05/2018 Status: F Source: [place] SUMMARY 11:04 PM [facility] REPOSITORY [facility] Medical Records Department [address] [place] [address] Emergency Department Summary 10/05/182011 MR#: [id number] Acct: [id number] Name: VLADIMIR BARAJAS Rep #: [id number] : 1935 82 From: Arnaud Newby MD [...] kidney injury This note was generated with Object[employer] dictation software. It may contain incorrect words, [...] your Primary Care Provider. Call [facility] ([phone]) or report to the closest Emergency Room. Call 911 if necessary. 10/05/18 9354 <Electronically signed by Arnaud Newby MD> Date Arnaud Newby MD Cosigner Signature (If Indicated): Date CC: Aaliyah De La Cruz DO CONSULTATION Observed: 10/05/2018 Status: F Source: [place] 10:39 PM [facility] REPOSITORY [facility] Medical Records Department [address] [place] [address] Consultation 10/05/182236 MR#: [id number] Acct: [id number] Name: VLADIMIR BARAJAS Rep #: [id number] : 1935 82 From: Ramon Cash MD PCP: Aaliyah De La Cruz DO Status: ADM PATRIZIA Y Location: MD3 [id number] Reason for Consult Date of Consultation: 10/05/18 [...] arthroplasty Psychiatric History: No pertinent psych hx 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 10/05/18 2005 <Electronically signed by Ramon Cash MD> Date Ramon Cash MD Cosigner Signature (if applicable): Date CC: [place]o Capellan MD; Ramon Cash MD; Aaliyah De La Cruz DO Signed BASIC METABOLIC Collected: 10/05/2018 Status: F Source: [place] PROFILE ([facility]) 6:35 PM [facility] REPOSITORY TYPE CODE TESTS RESULT OUT OF [...] 6 GAP Performed By: #### L500.2500 #### [facility] [address] [place], [place], [address] CBC W/DIFF, AUTOMATED Collected: 10/05/2018 Status: F Source: IRENA 6:35 PM [facility] REPOSITORY TYPE CODE TESTS RESULT OUT OF [...] Lymph 1.97 Performed By: #### L100.0100 #### [facility] [address] [place], [place], [address] URINALYSIS, COMPLETE Collected: 10/05/2018 Status: F Source: IRENA 6:22 PM [facility] REPOSITORY Order Comment: Order Date: 10/05/18 How [...] URINE SEEN Performed By: #### L400.0001 #### [facility] [address] [place] [address]. [place], [place], [id number] Observed: 10/05/2018 Status: F Source: IRENA CULTURE, URINE 6:22 PM [facility] REPOSITORY Order Date: 10/05/18 Urine Culture ORGANISM 1: Gram negative therese [place] Count 80,000-100,000 ORGANISM 2: Mixed Gram Pos AND Gram Neg Org [place] Count 1000-10,000 MIX CULTURE Mixed contaminants. Submit a new specimen if indicated. Performed By: #### M100.0650 #### [facility] [address] [place] [address], [id number] ABDOMEN/PELVIS WITHOUT Observed: 10/05/2018 Status: F Source: IRENA CONT 6:15 PM [facility] REPOSITORY [facility] Imaging Services [address] [place] [address] Abdomen/Pelvis without Cont MR#: [id number] Acct: [id number] Name: VLADIMIR BARAJAS Rep #: [id number] : 1935 F 82 From: Aurea Madrid MD PCP: Aaliyah De La Cruz DO Status: REG ER Study: Abdomen/Pelvis without Cont Date of Exam: 10/05/18 Exam# [id number] Ordering Dr: Arnaud Newby MD STUDY: CT [...] Newby MD; Aaliyah De La Cruz DO Tool Shaper Set Up Operator: Signed CARDIOLOGY VISIT Observed: 06/25/2018 Status: F Source: [place] REPORT 10:27 AM [facility] REPOSITORY [facility] [address] [place] [address]. [address] [place] [address] OFFICE VISIT Date of Service: 06/25/18 MR#: [id number] Acct: [id number] Name: VLADIMIR BARAJAS Rep #: [id number] : 1935 Provider: Iker Montilla MD Age/Sex: 82/F Location: [facility] Status: Signed HPI HPI Chief Complaint: Follow-up [...] 10:05) Nausea Medications Fluticasone 0.05% [Flonase Nasal [place]] 1 spray NARES DAILY 12/29/14 [History Confirmed [...] 60 mg/mL subcutaneous syringe 60 mg SC [id number] 06/25/18 [History Confirmed 06/25/18] flaxseed oil 1,000 [...] DAILY #90 tab 06/25/18 [Rx Confirmed 06/25/18] [facility], [facility] Medical History Nonrheumatic mitral (valve) insufficiency (Chronic) [...] Other Medications 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: 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) Coding Level of Care Code Off vis,est,level 3 Diagnoses Hypertension I10 Hyperlipidemia E78.5 Coding Level of Care Code Off vis,est,level 3 Diagnoses Hypertension I10 Hyperlipidemia E78.5 06/25/18 1027 <Electronically signed by Iker Montilla MD> Date Iker Montilla MD Cosigner Signature: Date (if applicable) CC: Aaliyah De La Cruz DO DOWNTIME REPORT Observed: 04/29/2018 Status: F Source: IRENA 12:16 PM [facility] REPOSITORY [facility] Medical Records Department [address] [place] [address] Downtime Report MR#: [id number] Acct: [id number] Name: VLADIMIR BARAJAS Rep #: [id number] : 1935 82 From: Dimitry Madrid PCP: Aaliyah De La Cruz DO Status: REG CLI This patient was seen during an EMR downtime April 12, 2018 - April 19, 2018. This patient may have a combination of paper and electronic documentation or all paper documentation. All documentation is viewable within the e-chart portion of [employer] for each patient visit. COMPREHENSIVE METABOLIC Collected: 04/13/2018 Status: F Source: IRENA [facility] 12:00 AM [facility] REPOSITORY Order Comment: RESULT(S) PREVIOUSLY REPORTED ON [...] Performed By: #### L500.4050, L500.4100, L501.9520 #### [facility] [address] [place], [place], [address] LIPID PROFILE Collected: 04/13/2018 Status: F Source: [place] 12:00 AM [facility] REPOSITORY Order Comment: RESULT(S) PREVIOUSLY REPORTED ON [...] Performed By: #### L500.4050, L500.4100, L501.9520 #### [facility] [address] [place], [place], [address] THYROID STIM HORMONE Collected: 04/13/2018 Status: F Source: IRENA (TSH) 12:00 AM [facility] REPOSITORY Order Comment: RESULT(S) PREVIOUSLY REPORTED ON MANUAL REQUISITION DURING DOWNTIME. TYPE CODE TESTS RESULT OUT OF RANGE REFERENCE UNITS LAB L501.9520 0.358-3.74 uIU/mL Normal TSH 1.89 Performed By: #### L500.4050, L500.4100, L501.9520 #### [facility] [address] [place], [place], [address] VITAMIN D,25 HYDROXY Collected: 04/13/2018 Status: F Source: IRENA 12:00 AM [facility] REPOSITORY TYPE CODE TESTS RESULT OUT OF RANGE REFERENCE UNITS LAB L506.1000 29.95-100.01 ng/mL Normal Vitamin D 53.8 25-OH Result Comment: Vitamin D 25(OH) Status Range Deficiency <20 ng/mL (50nmol/L) Insuffciency 20 - 30 ng/mL (50 - 75 nmol/L) Sufficiency 30 - 100 ng/mL (75 - 250 nmol/L) Toxicity >100 ng/mL (>250 nmol/L) Performed By: #### L506.1000 #### [facility] [address] [place], [place], [address] LIVER PROFILE Collected: 03/29/2018 Status: F Source: IRENA 10:02 AM [facility] REPOSITORY Order Comment: Order Date: 03/28/17 Order Info: 0788-1 - *Hepatic Function Panel Order Info: 23281-8 - *Lipid Profile CC PCP Comments: 12 [...] BILI 0.39 Performed By: #### L500.3400 #### [facility] [address] [place], [address] LIPID PROFILE Collected: 03/29/2018 Status: F Source: IRENA 10:02 AM [facility] REPOSITORY Order Comment: Order Date: 03/28/17 Order Info: 0788-1 - *Hepatic Function Panel Order Info: 65795-5 - *Lipid Profile CC PCP Comments: 12 [...] VLDL 15 Performed By: #### L500.4100 #### [facility] [address] [place], [address] 12 LEAD ELECTROCARDIOGRAM Observed: 03/26/2018 Status: F Source: [place] 1:28 PM [facility] Cardiovascular Services [address] [place] [address] 12 Lead EKG 03/24/18 1156 MR#: [id number] Acct: [id number] Name: KARLVLADIMIR Hernandez Rep #: [id number] : 1935 82 From: Iker Montilla MD [...] ECG Confirmed by ELADIA TAYLOR, IKER ([id number]), online editor TONI MADRID ([id number]) on 03/26/2018 1:28:12 PM Referred By: OLE Confirmed By:IKER MONTILLA MD 03/26/18 1328 Date Iker Montilla MD CC: RAFFY HANDY MD; Aaliyah Pulido EMERGENCY DEPARTMENT Observed: 03/24/2018 Status: F Source: [place] SUMMARY 12:43 PM [facility] Medical Records Department [address] [address] Emergency Department Summary 03/24/18 1107 MR#: [id number] Acct: [id number] Name: VLADIMIR BARAJAS Rep #: [id number] : 1935 82 From: Raffy Handy MD [...] Garry Dalal MD at 12:25 EDT Tel [phone], Service support , Knee X-Ray 03/24/18 11:04 IMPRESSION: Prepatellar soft tissue swelling. Status post total knee replacement. Electronically Signed: Garry Dalal MD at 12:25 EDT Tel [phone], Service support , - Rhythm Strip Rhythm [...] your Primary Care Provider. Call [facility] ([phone]) or report to the closest Emergency Room. Call 911 if necessary. 03/24/18 1243 <Electronically signed by Raffy Handy MD> Date Raffy Handy MD Cosigner Signature (If Indicated): Date CC: Aaliyah De La Cruz DO KNEE 4 OR MORE Observed: 03/24/2018 Status: F Source: [facility] 11:05 AM [facility] REPOSITORY [facility] Imaging Services [address] [place] [address] Knee 4 or More Views MR#: [id number] Acct: [id number] Name: VLADIMIR BARAJAS Rep #: [id number] : 1935 F 82 From: Garry Dalal MD PCP: Aaliyah De La Cruz DO Status: REG ER Study: Knee 4 or More Views Date of Exam: 03/24/18 Exam# [id number] Ordering Dr: Raffy Handy MD STUDY: X-RAY [...] Garry Dalal MD at 12:25 EDT Tel [phone], Service support , CC: RAFFY HANDY MD; Aaliyah De La Cruz DO Tool Shaper Set Up Operator: Signed BRAIN/HEAD WITHOUT Observed: 03/24/2018 Status: F Source: IRENA CONTRAST 11:05 AM [facility] REPOSITORY [facility] Imaging Services [address] [place] [address] Brain/Head without Contrast MR#: [id number] Acct: [id number] Name: VLADIMIR BARAJAS Rep #: [id number] : 1935 F 82 From: Garry Dalal MD PCP: Aaliyah De La Cruz DO Status: REG ER Study: Brain/Head without Contrast Date of Exam: 03/24/18 Exam# [id number] Ordering Dr: Raffy Handy MD STUDY: CT [...] Garry Dalal MD at 12:25 EDT Tel [phone], Service support , CC: RAFFY HANDY MD; Aaliyah De La Cruz DO Tool Shaper Set Up Operator: Signed SCREENING MAMM (CAD), Observed: 12/25/2017 Status: F Source: [place] BILAT 10:12 AM [facility] REPOSITORY [facility] Imaging Services [address] [place] [address] SCREENING MAMM (CAD), BILAT MR#: [id number] Acct: [id number] Name: VLADIMIR BARAJAS Rep #: [id number] : 1935 F 82 From: Garry Dalal MD PCP: Aaliyah De La Cruz DO Status: REG CL Study: SCREENING MAMM (CAD), BILAT Date of Exam: 12/25/17 Exam# [id number] Ordering Dr: Aaliyah De La Cruz DO [...] delay biopsy of a clinically suspicious abnormality. [id number] Electronically Signed: Garry Dalal MD at 12:26 EST Tel [phone], Service support , CC: Aaliyah De La Cruz DO Tool Shaper Set Up Operator: Signed ALLERGIES ALLERGIES DATE TYPE / CODE NAME / CODE REACTION SEVERITY SOURCE 10/22/2018 Drug meperidine Nausea Unknown [place] Allergy/416 HCl/[id number](RXN [address]) Repository 10/22/2018 Drug hydrocodone Nausea Unknown [place] Allergy/416 bitartrate/O967083 [place] [address]([place] [address]([facility] ED CT) Repository 10/22/2018 Drug oxycodone Nausea Unknown [place] Allergy/416 HCl/[id number](RXN [address]) Repository 10/22/2018 Drug codeine/[id number] Rash Unknown [place] Allergy/416 (RXNORM) [place] [address]([facility] ED CT) Repository 10/22/2018 Drug morphine/R66588744 Vomiting Unknown [place] Allergy/416 5(RXNORM) [place] [address]([facility]) Repository ENCOUNTERS ENCOUNTERS ADMIT/DISCHARGE ACCOUNT ADMITTING ENCOUNTER LOCATION SOURCE NUMBER CLASS 11/15/2018 [id number] Ambulatory [place] 2 [facility] ing:RAD.FUTUR Repository E 11/11/2018 [id number] Ambulatory [place] 9 [facility] ing:LAB Repository 10/29/2018/ [id number] Ambulatory [place] I[place] 8 9 [facility] ing:SDC Repository 10/26/2018 [id number] Ambulatory [place]rena 1 [facility] ing:LAB.FUTUR Repository E 10/21/2018 [id number] Ambulatory [place] 6 [facility] ing:LAB Repository 10/13/2018 [id number] Ambulatory [place] 5 [facility] ing:LAB Repository 10/05/2018/ [id number] Ambulatory BMSBuilding:W [place] 8 4 [facility] Repository 10/05/2018/ [id number] Agyepong, Inpatient [place] I[place] 8 5 [place] Encounter [facility] ing:SD3Xquu: Repository XK125Kux: 1 10/05/2018 [id number] Agyepong, Ambulatory BMSBuilding:B [place] 4 [place] MS.[facility] Repository 10/05/2018 [id number] [place], Ambulatory BMSBuilding:B [place] 2 [place] MS.CF.[facility] Repository 10/05/2018 [id number] Agyep[place], Ambulatory BMSBuilding:B [place] 2 [place] MS.[facility] Repository 10/05/2018 [id number] [place], Ambulatory BMSBuilding:B [place] 2 [place] [facility] 10/05/2018 [id number] Agyep[place], Ambulatory BMSBuilding:B [place] 5 [place] [facility] 10/05/2018 [id number] Agyep[place], Ambulatory BMSBuilding:B [place] 1 [place] MS.[facility] Repository 10/05/2018 [id number] Agyep[place], Ambulatory BMSBuilding:B [place] 1 [place] MS.CF.[facility] Repository 10/05/2018 [id number] Agyepong, Ambulatory BMSBuilding:B [place] 7 [place] MS.[facility] Repository 10/05/2018 [id number] Agyep[place], Ambulatory BMSBuilding:B [place] 8 [place] MS.[facility] Repository 06/25/2018/ [id number] Ambulatory BMSBuilding:B [place] 8 8 MS.[facility] Repository 06/16/2018 [id number] Ambulatory BMSBuilding:B [place] 9 MS.[facility] Repository 04/13/2018 [id number] Ambulatory [place] 7 [facility] ing:LAB Repository 03/29/2018 [id number] Ambulatory [place] 3 [facility] ing:LAB Repository 03/24/2018/ [id number] Emergency [place] Irena 8 4 [facility] ing:ED Repository 12/25/2017 [id number] Ambulatory [place]rena 8 [facility] ing:BI Repository 12/22/2017 [id number] Ambulatory [place] 1 [facility] ing:LAB.FUTUR Repository E PAYERS PAYERS ENCOUNTER GUARANTOR PAYER SUBSCRIBER SOURCE 11/15/2018 VLADIMIR A Primary VLADIMIR A [place] [id number] DEER Insurance:AETNA ISOMDOB: [facility] Number: [id number] [facility] [address]Ixk: [id number] Repository Date:5704-19-20[address] [address]WL: 11/15/2018 Secondary NOT GIVENUNK [place] Insurance:SELF PAY [facility] Number: Effective Repository Date:2018-11-11 11/11/2018 VLADIMIR A Primary VLADIMIR Degroot [place] [id number] DEER Insurance:AETNA ISOMDOB: [facility] Number: [id number] New Mexico Medical Center [address]Urg: [id number] Repository Date:1959-76-81[address] [place] [address]RC: 11/11/2018 Secondary NOT GIVENUNK [place] Insurance:SELF PAY [facility] Number: Effective Repository Date:2018-11-11 10/29/2018 VLADIMIR A Primary VLADIMIR [place] [id number] DEER Insurance:AETNA [facility] Number: [id number] [place] [address]Mbr: [id number] Repository Date:5520-24-61[address] [place] [address]HI: 10/29/2018 Secondary NOT GIVENUNK [place] Insurance:SELF PAY [facility] Number: Effective Repository Date:2018-10-08 10/26/2018 VLADIMIR A Primary VLADIMIR Degroot [place] [id number] DEER Insurance:AETNA ISOMDOB: [facility] Number: [id number] [place] [address]Kka: [id number] Repository Date:6257-78-00GM [address] () [address] [place] [address]ZE: 10/26/2018 Secondary NOT GIVENUNK [place] Insurance:SELF PAY [facility] Number: Effective Repository Date:2018-10-25 10/21/2018 VLADIMIR A Primary VLADIMIR [place] [id number] DEER Insurance:AETNA ISOMDOB: [facility] Number: [id number] [place] [address]Qqo: [id number] Repository Date:6045-65-07PM [address] () [address] [place] [address]QL: 10/21/2018 Secondary NOT GIVENUNK [place] Insurance:SELF PAY [facility] Number: Effective Repository Date:2018-10-21 10/13/2018 VLADIMIR A Primary VLADIMIR A [place] [id number] DEER Insurance:AETNA ISOMDOB: [facility] Dipak REYESicrussell Number: [id number] New Mexico Medical Center [address]Rai: [id number] Repository Date:8022-68-48LU [address] () [place] [address]BT: 10/13/2018 Secondary NOT GIVENUNK [place] Insurance:SELF PAY [facility] Number: Effective Repository Date:2018-10-13 10/05/2018 VLADIMIR A Primary VLADIMIR A [place] [id number] DEER Insurance:AETNA ISOMDOB: [facility] GERA, [facility] Number: [id number] [facility] Medical Center [address]Omd: [id number] Repository Date:9527-78-25EV [address] () [place], [place] [address]FZ: 10/05/2018 Secondary NOT GIVENUNK [place] Insurance:SELF PAY [facility] Number: Effective Repository Date:2018-10-05 10/05/2018 VLADIMIR A Primary VLADIMIR A [place] [id number] DEER Insurance:AETNA ISOMDOB: [facility] GERA [facility] Phoenixic[facility]ussell Number: [id number] Hospital [place] [address]Ihg: [id number] Repository Date:1141-05-35HE [address] () [place], [place] [address]UY: 10/05/2018 Secondary NOT GIVENUNK [place] Insurance:SELF PAY [facility] Number: Effective Repository Date:2018-10-05 10/05/2018 VLADIMIR A Primary VLADIMIR A [place] [id number] DEER Insurance:AETNA ISOMDOB: [facility] GERA, TRICIAPolic Number: [id number] [place] [address]Dff: [id number] Repository Date:6560-70-88XH [address]OX (HP) [address] [address]UM: 10/05/2018 Secondary NOT GIVENUNK [place] Insurance:SELF PAY [facility] Number: Effective Repository Date:2018-10-05 10/05/2018 VLADIMIR A Primary VLADIMIR Deg[place] [id number] DEER Insurance:AETNA [facility]OMDOB[facility] Number: [id number] New Mexico Medical Center [address]Yno: [id number] Repository Date:7557-53-62OF [address] ([address]) [address] [address]LA: 10/05/2018 Secondary NOT GIVENUNK [place] Insurance:SELF PAY [facility] Number: Effective Repository Date:2018-10-05 10/05/2018 VLADIMIR A Primary VLADIMIR Degroot [place] [id number] DEER Insurance:AETNA [facility] Number: [id number] [place] [address]Pqc: [id number] Repository Date:9099-97-94OS [address] ([address]) [place] [address]OT: 10/05/2018 Secondary NOT GIVENUNK [place] Insurance:SELF PAY [facility] Number: Effective Repository Date:2018-10-05 10/05/2018 VLADIMIR A Primary VLADIMIR Degroot [place] [id number] DEER Insurance:AETNA ISOMDOB: [facility] Number: [id number] [place] [address]Nvx: [id number] Repository Date:4080-77-22YS [address] () [address]QE [place] [address]EQ: 10/05/2018 Secondary NOT GIVENUNK [place] Insurance:SELF PAY [facility] Number: Effective Repository Date:2018-10-05 10/05/2018 VLADIMIR A Primary VLADIMIR A [place] [id number] DEER Insurance:AETNA ISOMDOB: [facility] Peggy REYES Number: [id number] New Mexico Medical Center [address]Ypl: [id number] Repository Date:1429-56-88IS [address] () [place] [address]AR: 10/05/2018 Secondary NOT GIVENUNK [place] Insurance:SELF PAY [facility] Number: Effective Repository Date:2018-10-05 10/05/2018 VLADIMIR A Primary VLADIMIR A [place] [id number] DEER Insurance:AETNA ISOMDOB: [facility] HERBTRICIAThe Children'S Hospital Foundation Number: [id number] New [facility] Medical Center [address]Bak: [id number] Repository Date:7428-32-37DE [address] () [place] [address]JX: 10/05/2018 Secondary NOT GIVENUNK [place] Insurance:SELF PAY [facility] Number: Effective Repository Date:2018-10-05 10/05/2018 VLADIMIR A Primary VLADIMIR A [place] [id number] DEER Insurance:AETNA ISOMDOB: [facility] SYMONE TRICIAThe [facility] Number: [id number] [facility] Medical Center [address]Cbh: [id number] Repository Date:0252-74-27NR [address] () [place], [place] [address]HK: 10/05/2018 Secondary NOT GIVENUNK [place] Insurance:SELF PAY [facility] Number: Effective Repository Date:2018-10-05 10/05/2018 VLADIMIR A Primary VLADIMIR A [place] [id number] DEER Insurance:AETNA ISOMDOB: [facility] GERA, TRICIAVeter[facility] Health Administration [facility] Phoenixic Number: [id number] [place] [address]Ooi: [id number] Repository Date:5902-26-72VJ [address] ([address]) [address] [address]MD: 10/05/2018 Secondary NOT GIVENUNK [place] Insurance:SELF PAY [facility] Number: Effective Repository Date:2018-10-05 10/05/2018 VLADIMIR A Primary VLADIMIR [place] [id number] DEER Insurance:AETNA ISOMDOB: [facility] MARCIA, [facility] [place] Number: [id number] [place] [id number]: [id number] Repository Date:[id number] [address] () [address] [place] [phone]: 10/05/2018 Secondary NOT GIVENUNK [place] Insurance:SELF PAY [facility] Number: Effective Repository Date:2018-10-05 06/25/2018 VLADIMIR A Primary VLADIMIR A [place] [id number] DEER Insurance:AETNA ISOMDOB: [facility] MARCIA TRICIAPolicy Number: [id number] Hospital [place] [id number]: [id number] Repository Date:[id number] [address] () [id number] [address]SV: 06/25/2018 Secondary NOT GIVENUNK [place] Insurance:SELF PAY [facility] Number: Effective Repository Date:2018-03-26 06/16/2018 VLADIMIR A Primary VLADIMIR A [place] [id number] [place] Insurance:AETNA ISOMDOB: [facility] MARCIA, TRICIAPolicy Number: [id number] Hospital [place] [id number]: [id number] Repository Date:[id number] [address] () [id number] [place] [id number]: 06/16/2018 Secondary NOT GIVENUNK [place] Insurance:SELF PAY [facility] Number: Effective Repository Date:2018-06-16 04/13/2018 VLADIMIR A Primary VLADIMIR A [place] [id number] DEER Insurance:AETNA ISOMDOB: [facility] Dipak ASHBYicrussell Number: [id number] [facility] [address]Olw: [id number] Repository Date:[id number] [address] () [place] [address]RF: 04/13/2018 Secondary NOT GIVENUNK [place] Insurance:SELF PAY [facility] Number: Effective Repository Date:2018-04-13 03/29/2018 VLADIMIR A Primary VLADIMIR A [place] [id number] [place] Insurance:AETNA ISOMDOB: [facility] Number: [id number] [facility] Medical [facility] [address]Mkp: [id number] Repository Date:[id number] [address] () [place], [place] [address]KB: 03/29/2018 Secondary NOT GIVENUNK [place] Insurance:SELF PAY [facility] Number: Effective Repository Date:2018-03-29 03/24/2018 Vladimir A Primary Vladimir A [place] [id number] [place] Insurance:AETNA IsomDOB: [facility] gera [facility] Number: [id number] [place] [id number]: [id number] Repository Date:[id number] [address] () [place], [place] [address]CD: 03/24/2018 Secondary NOT GIVENUNK [place] Insurance:SELF PAY [facility] Number: Effective Repository Date:2018-03-24 12/25/2017 Vladimir A Primary Vladimir A [place] [id number] [place] Insurance:AETNA [facility]DOB[facility] Number: [id number] [place] [id number]: [id number] Repository Date:[id number] [address] () [id number] JESUS MALLORY [id number]: 12/25/2017 Secondary NOT GIVENUNK [place] Insurance:SELF PAY [facility] Number: Effective Repository Date:2017-12-02 12/22/2017 Vladimir A Primary NOT GIVENUNK [place] [id number] [place] Insurance:SELF PAY [facility] [address]Gbv: Number: Effective Repository Date:2017-12-22 ()
== END ==
PROVIDERS: Family Provider Family Medicine; PCP Family Medicine; Referring Provider Family Medicine; Visit Provider Family Medicine
DX: A41.9 Sepsis, unspecified organism (principal); N17.9 Acute kidney failure, unspecified
CPT/HCPCS: 36415; 80048; 85025

== ENCOUNTER 2018-10-29 07:42 | Day surgery (SDC) | payer MEDICARE, SELFPAY ==
[2018-10-06 11:30] VITALS: BMI 30.9
[2018-10-29] VITALS (7 sets, daily range): BP systolic 98–131; BP diastolic 57–70; PULSE 53–71; RESP 16; TEMP 36.2–36.8; O2SAT 95–99; BMI 27.2
[2018-10-29] MEDS: Cefazolin 2 GM in 0.9% Normal Saline 100 ML IV (12:20)
--- NOTE | 2018-10-29 12:47 | DCINST_ITS ---
Discharge Diet: Light diet - advance as tolerated Discharge Activity: Return to Normal Activity Call your doctor if you observe: Fever of 101 or Higher Instructions: Treating Kidney Stones: Ureteroscopic Stone Removal Allergies/Adverse Reactions: Allergies codeine Allergy (Verified 10/22/18 13:32) Rash hydrocodone bitartrate [From Vicodin] Adverse Reaction (Verified 10/22/18 13:32) Nausea meperidine HCl [From Demerol] Adverse Reaction (Verified 10/22/18 13:32) Nausea morphine Adverse Reaction (Verified 10/22/18 13:32) Vomiting oxycodone HCl [From Percocet] Adverse Reaction (Verified 10/22/18 13:32) Nausea Medications to take at Discharge Fluticasone 0.05% [Flonase Nasal [place]] 1 spray NARES DAILY 12/29/14 Lansoprazole [Prevacid] 30 mg PO DAILY 12/29/14 Levothyroxine [Synthroid] 50 mcg PO DAILY 12/29/14 Vit A/Vit C/Vit E/Zinc/Copper [Preservision Areds Softgel] 1 ea PO BID 06/09/15 Aspirin 81 mg PO QHS 08/28/16 denosumab 60 mg/mL subcutaneous syringe 60 mg SC [id number] 06/25/18 flaxseed oil 1,000 mg capsule 1,000 mg PO QDAY 06/25/18 magnesium oxide 400 mg (241.3 mg magnesium) tablet 400 mg PO QDAY tab 06/25/18 omega-3 fatty acids 1,000 mg capsule 1,000 mg PO QDAY 06/25/18 pravastatin 20 mg tablet 20 mg PO QHS 06/25/18 Calcium Citrate/Vitamin D3 [Citracal-Vit D3 200 mg-250 Tab] 1 each PO BID 10/05/18 Cholecalciferol (Vitamin D3) [Vitamin D3] 1,000 unit PO BID 10/05/18 Cyanocobalamin [Vitamin B12] 1,000 mcg PO DAILY@0800 10/05/18 Gabapentin [Neurontin] 200 mg PO TIDCM 10/05/18 Acetaminophen [Tylenol Tablet] 650 mg PO Q6H PRN PRN tablet 10/09/18 Glucosam/Roberto-Msm1/C/Martín/Bosw [Osteo Bi-Flex Caplet] 1 each PO BID 10/22/18 Metoprolol Succinate [Toprol Xl] 50 mg PO DAILY 10/22/18 Spironolactone [Aldactone] 50 mg PO DAILY 10/22/18 Primary Care Physician: Aaliyah De La Cruz DO [Primary Care Provider] - Test Results: Test results from this visit will be discussed in further detail at your follow- up appointment, if applicable. Please Follow Up With: Ramon Cash MD When: in 2 weeks, please call to make an appointment.
--- NOTE | 2018-10-29 12:49 | OP.PCM_ITS ---
Report of Operation Date of Procedure: 10/29/18 Pre-Operative Diagnosis: Left ureteral calculi at the left UPJ status post stent Post-Operative Diagnosis: Same Surgery/Procedure Performed:: Cystoscopy, left ureteroscopy laser lithotripsy of stone and removal of stent Description of Surgical Findings:: 83-year-old female taken back to the operating room after smooth induction of general anesthesia she was placed supine on the table, urethra and vaginal area prepped and draped in usual sterile fashion, went into the bladder with a 21 [place] rigid cystourethroscope, grabbed the existing stent, advanced a wire up the stent left the wire in place next to the wire went in with the flexible ureteroscope was able to get up the ureter all the way there is no stone along the course of the ureter and in the UPJ in the left side there was a stone I used a 200 ?m laser fiber with energy settings of 0.6 J and 10 Hz and laser the stone little tiny pieces there is also some small fragments in the upper pole midpole these were laser little tiny pieces once a stent was dissected successfully lasered on the left tiny pieces that should pass on her own work my way down the ureter remove the wire drain the bladder and the patient anesthetic was reversed taken back to PACU good condition she will follow-up in a few weeks. Type of Anesthesia:: General Drains: none - Admit VTE Documentation VTE Present on Admission: No VTE Mechan Device Prophylaxis: SCD's
== END 2018-10-29 15:08 | disposition home or self-care (01) ==
LOC: SDC 07:51 → AC 08:20
PROVIDERS: Family Provider Family Medicine; PCP Family Medicine; Referring Provider Urology; Visit Provider Urology
PROC: 0TJ98ZZ Inspection of Ureter, Via Natural or Artificial Opening Endoscopic (ICD-10-PCS; CPT 52352; principal; 2018-10-29 09:50)
DX: N20.1 Calculus of ureter (principal); N28.1 Cyst of kidney, acquired; Q62.7 Congenital vesico-uretero-renal reflux; I10 Essential (primary) hypertension; E78.00 Pure hypercholesterolemia, unspecified; E03.9 Hypothyroidism, unspecified; E55.9 Vitamin D deficiency, unspecified; K21.9 Gastro-esophageal reflux disease without esophagitis; M81.0 Age-related osteoporosis without current pathological fracture; Z87.442 Personal history of urinary calculi; Z87.440 Personal history of urinary (tract) infections; Z79.899 Other long term (current) drug therapy; Z79.82 Long term (current) use of aspirin
CPT/HCPCS: 00862; 52353; J7120; C1769; J2405

== ENCOUNTER → 2018-11-11 13:15 | Outpatient (CLI) | payer MEDICARE, SELFPAY ==
[2018-10-29 08:08] VITALS: BMI 27.2
--- NOTE | 2018-11-11 13:22 | RAD_ITS ---
STUDY: X-RAY - RIGHT SHOULDER REASON FOR EXAM: Female, 83 years old. Pain TECHNIQUE: 4 view(s) of the shoulder. COMPARISON: None. FINDINGS: There is no evidence of fracture or dislocation. There are mild degenerative changes. There are no radiodense foreign bodies. RAD/Shoulder min 2 Views IMPRESSION: No fracture or dislocation. Mild degenerative changes. Electronically Signed: Stephen Langston, at 15:34 EST Tel , Service support ,
== END ==
PROVIDERS: Family Provider Family Medicine; PCP Family Medicine; Referring Provider Anesthesiology Pain Medicine; Visit Provider Anesthesiology Pain Medicine
DX: M19.011 Primary osteoarthritis, right shoulder (principal)
CPT/HCPCS: 73030

== ENCOUNTER → 2018-11-15 10:42 | Outpatient (CLI) | payer MEDICARE, SELFPAY ==
[2018-10-29 08:08] VITALS: BMI 27.2
--- NOTE | 2018-11-15 12:08 | RAD_ITS ---
STUDY: X-RAY - ABDOMEN/PELVIS REASON FOR EXAM: Female, 83 years old. Left-sided kidney stone, follow-up TECHNIQUE: Single AP view of the abdomen / pelvis. COMPARISON: None. FINDINGS: There is a moderate amount of colonic fecal material. There is no demonstrated free abdominal air. The visualized liver, spleen and kidneys are grossly normal in size and morphology. No clearly evident left-sided renal stone. Normal soft tissue structures. Postsurgical changes of the lumbar spine RAD/Abdomen Single View IMPRESSION: Mild constipation. No clearly identified left renal or ureteral stone. Electronically Signed: Rell Moyer DO at 12:46 EST Tel , Service support ,
== END ==
PROVIDERS: Family Provider Family Medicine; PCP Family Medicine; Referring Provider Urology; Visit Provider Urology
DX: N20.0 Calculus of kidney (principal); R82.998 Other abnormal findings in urine
CPT/HCPCS: 74018; 87086; 87088

== ENCOUNTER → 2018-12-13 13:10 | Outpatient (CLI) | payer MEDICARE, SELFPAY ==
[2018-10-29 08:08] VITALS: BMI 27.2
[2018-12-13 14:16] LABS: Vitamin D,25 Hydroxy 47.7 ng/mL (29.95-100.01)
[2018-12-13 14:17] LABS: PTHIN 35.1 pg/mL (18.4-80.1)
[2018-12-13 14:18] LABS: ALB/GLOB Ratio 1.2 RATIO (0.9-2.4); AST(SGOT) 23 U/L (15-37); Alanine Aminotransfer ALT/SGPT 30 U/L (13-56); Albumin, Serum 3.8 g/dL (3.2-5.0); Alkaline Phosphatase 57 U/L (45-117); Anion Gap 7 (5-15); BUN 17 mg/dL (7-18); BUN/Creat Ratio 15.2 RATIO (10-20); Calcium,Total 8.4 mg/dL (8.5-10.1); Chloride 108 mmol/L (98-107); Creatinine, Serum 1.12 mg/dL (0.55-1.02); EST Glomerular Filtration Rate 49 mL/min (>60); Est Glom Filt Rate - Afr Amer 60 mL/min (>60); Globulin 3.2 g/dL (2.2-4.2); Glucose 91 mg/dL (74-106); Potassium 4.1 mmol/L (3.5-5.1); Sodium Level 141 mmol/L (136-145); Thyroid Stim Hormone (TSH) 1.39 uIU/mL (0.358-3.74)
== END ==
PROVIDERS: Family Provider Family Medicine; PCP Family Medicine; Referring Provider Internal Medicine Endocrinology, Diabetes & Metabolism; Visit Provider Internal Medicine Endocrinology, Diabetes & Metabolism
DX: N17.9 Acute kidney failure, unspecified (principal); E03.8 Other specified hypothyroidism; E21.1 Secondary hyperparathyroidism, not elsewhere classified; E55.9 Vitamin D deficiency, unspecified
CPT/HCPCS: 36415; 80053; 82306; 83970; 84443

== ENCOUNTER → 2019-01-18 08:05 | Outpatient (CLI) | payer MEDICARE, SELFPAY ==
[2018-10-29 08:08] VITALS: BMI 27.2
== END ==
PROVIDERS: Family Provider Family Medicine; PCP Family Medicine; Referring Provider Nurse Practitioner Adult Health; Visit Provider Nurse Practitioner Adult Health
DX: N20.0 Calculus of kidney (principal)

== ENCOUNTER → 2019-01-25 14:29 | Outpatient (CLI) | payer MEDICARE, SELFPAY ==
[2018-10-29 08:08] VITALS: BMI 27.2
--- NOTE | 2019-01-25 15:11 | BI_ITS ---
MAMMOGRAPHY - BILATERAL SCREENING 3-D LUDY SYNTHESIS REASON FOR EXAM: Female, 83 years old. Bilateral Screening 3-D tomosynthesis PERTINENT HISTORY: Family history of breast cancer in maternal aunt at age 80. Left lymph node removed in December 2010.. TECHNIQUE: 2-D mammograms and 3-D Ludy synthesis of the breast (s) were performed. CAD was performed. COMPARISON: December 25, 2017, December 15, 2016 FINDINGS: The breast composition is almost entirely fat. Scattered benign calcifications are stable. No dense spiculated masses or suspicious microcalcifications are identified. No architectural distortion is identified. There is no skin thickening or retraction. There are stable surgical clips in the left axilla. There has been no significant change since the prior study. BI/SCREENING MAMM (CAD), BILAT IMPRESSION: No mammographic signs of malignancy. Routine yearly mammograms recommended. ASSESSMENT CATEGORY: BIRADS Category 2: Benign. A letter regarding these results will be sent to the patient by the facility within 30 days. FOLLOW UP RECOMMENDATION: Yearly follow up mammogram recommended. (A) Approximately 10% of breast cancers are not detected by mammography. A normal mammogram should not delay biopsy of a clinically suspicious abnormality. Electronically Signed: Sly Child MD at 12:43 EDT , Service support ,
[2019-01-25 16:34] LABS: ALB/GLOB Ratio 1.3 RATIO (0.9-2.4); AST(SGOT) 20 U/L (15-37); Alanine Aminotransfer ALT/SGPT 27 U/L (13-56); Albumin, Serum 3.8 g/dL (3.2-5.0); Alkaline Phosphatase 51 U/L (45-117); Anion Gap 4 (5-15); BUN 19 mg/dL (7-18); BUN/Creat Ratio 16.5 RATIO (10-20); Calcium,Total 8.2 mg/dL (8.5-10.1); Chloride 108 mmol/L (98-107); Creatinine, Serum 1.15 mg/dL (0.55-1.02); EST Glomerular Filtration Rate 48 mL/min (>60); Est Glom Filt Rate - Afr Amer 58 mL/min (>60); Glucose 96 mg/dL (74-106); Magnesium 2.3 mg/dL (1.6-2.6); Potassium 4.1 mmol/L (3.5-5.1); Protein, Total 6.8 g/dL (6.4-8.2); Sodium Level 140 mmol/L (136-145); Thyroid Stim Hormone (TSH) 0.97 uIU/mL (0.358-3.74)
== END ==
PROVIDERS: Family Provider Family Medicine; PCP Family Medicine; Referring Provider Family Medicine; Visit Provider Family Medicine
DX: Z12.31 Encounter for screening mammogram for malignant neoplasm of breast (principal); E03.8 Other specified hypothyroidism; M81.0 Age-related osteoporosis without current pathological fracture; E61.2 Magnesium deficiency
CPT/HCPCS: 36415; 77063; 77067; 80053; 83735; 84443

== ENCOUNTER → 2019-02-07 12:37 | Outpatient (CLI) | payer MEDICARE, SELFPAY ==
[2018-10-29 08:08] VITALS: BMI 27.2
[2019-02-07 12:52] LABS: Bacteria 0 SEEN /hpf (None Seen); Mucous, Urine 0 SEEN /hpf (<or=2+); Red Blood Cells-Urine 0 SEEN /hpf (0-5)
[2019-02-07 14:26] LABS: Color, Urine Yellow (Yellow); Glucose, Dipstick Normal (Normal); Ketone-Dipstick Negative (Negative); Leukocyte Esterase-Dipstick Negative /ul (Negative); Nitrite-Dipstick Negative (Negative); Occult Blood-Urine Negative /ul (Negative); Protein-Dipstick Negative (Negative); Specific Gravity, Urine 1.005 (1.002-1.030); Urine Bilirubin Dipstick Negative (Negative); Urine Clarity Clear (Clear); Urine Urobilinogen Normal (Normal)
[2019-02-07 14:46] LABS: Squamous Epithelial Cells - UA 0-5 SEEN /hpf (5-10); White Blood Cells 0-5 SEEN /hpf (0-5)
[2019-02-07 14:51] LABS: Anion Gap 8 (5-15); BUN 20 mg/dL (7-18); BUN/Creat Ratio 17.5 RATIO (10-20); Calcium,Total 8.6 mg/dL (8.5-10.1); Chloride 105 mmol/L (98-107); Creatinine, Serum 1.14 mg/dL (0.55-1.02); EST Glomerular Filtration Rate 48 mL/min (>60); Est Glom Filt Rate - Afr Amer 59 mL/min (>60); Glucose 86 mg/dL (74-106); Potassium 4.2 mmol/L (3.5-5.1); Sodium Level 141 mmol/L (136-145)
== END ==
PROVIDERS: Family Provider Family Medicine; PCP Family Medicine
DX: E03.8 Other specified hypothyroidism (principal); M81.0 Age-related osteoporosis without current pathological fracture
CPT/HCPCS: 36415; 80048; 81001

== ENCOUNTER → 2019-03-29 15:24 | Outpatient (CLI) | payer MEDICARE, SELFPAY ==
[2018-10-29 08:08] VITALS: BMI 27.2
[2019-03-25 10:58] LABS: BUN 17 mg/dL (7-18); Creatinine, Serum 1.32 mg/dL (0.55-1.02); Glucose 94 mg/dL (74-106)
[2019-03-25 10:59] LABS: Anion Gap 6 (5-15); BUN/Creat Ratio 12.9 RATIO (10-20); Calcium,Total 9.7 mg/dL (8.5-10.1); Chloride 105 mmol/L (98-107); EST Glomerular Filtration Rate 41 mL/min (>60); Est Glom Filt Rate - Afr Amer 49 mL/min (>60); Potassium 4.6 mmol/L (3.5-5.1); Sodium Level 141 mmol/L (136-145)
--- NOTE | 2019-03-29 15:38 | MRI_ITS ---
STUDY: MRI LUMBAR SPINE WITHOUT CONTRAST REASON FOR EXAM: Female, 83 years old. Post laminectomy syndrome. Degenerative disc disease. TECHNIQUE: Standardized fat and water weighted pulse sequences were obtained in the sagittal and axial planes. COMPARISON: November 04, 2016. FINDINGS: Lumbar lordosis fairly well preserved. Minimal stable scoliosis. Conus medullaris terminates normally at the T12-L1 level. No acute fracture line. No dislocation. No acute cortical destruction. Posterior spinal fixation at L3 and L4 with multilevel corresponding laminectomy. Thin postoperative seroma at the region of the surgical site (sagittal image 9 series 2). T12-L1: Minimal endplate spondylosis. Shallow disc bulge without central canal narrowing. Facet joint arthrosis. Normal central canal and bilateral lateral recesses. Normal bilateral intervertebral neural foramina. L1-2: Moderate end plate spondylosis. Right paracentral disc protrusion without central canal narrowing. Facet joint arthrosis. Right lateral recess narrowing with impingement. Right neural foraminal narrowing with impingement. Grade 1 degenerative spondylolisthesis. L2-3: Moderate/severe endplate spondylosis. Disc bulge with mild/moderate central canal narrowing. Facet joint arthrosis/bone graft. Bilateral lateral recess narrowing without impingement. Bilateral neural foraminal narrowing with impingement. Grade 1 degenerative spondylolisthesis. L3-4: Mild end plate spondylosis. Shallow disc bulge with central canal decompression. Facet joint arthrosis/bone graft. Normal central canal and bilateral lateral recesses. Bilateral neural foraminal narrowing without impingement. L4-5: Mild end plate spondylosis. Disc bulge with central canal decompression. Facet joint arthrosis/bone graft. Normal central canal and bilateral lateral recesses. Bilateral neural foraminal narrowing with impingement on the left. Vacuum phenomenon. L5-S1: Moderate and plate spondylosis. Central cephalad disc extrusion with canal decompression. Facet joint arthrosis. Normal central canal and bilateral lateral recesses. Bilateral neural foraminal narrowing with impingement. Vacuum phenomenon. Postsurgical scar. Paraspinal muscle atrophy. Normal aorta. Bilateral extrarenal pelvis versus small parapelvic cysts. MRI/Spine Lumbar (Routine) IMPRESSION: Multilevel intervertebral disc disease with central canal narrowing predominating at L2-3 Multilevel neural foraminal narrowing with impingement of the right L1, bilateral L2, left L4 and bilateral L5 nerve roots Multilevel lateral recess narrowing with impingement of the right descending L2 nerve root Multilevel degenerative/postsurgical changes, as above Electronically Signed: Tyrell Brady DO at 11:19 EDT Tel , Service support ,
== END ==
PROVIDERS: Family Provider Family Medicine; PCP Family Medicine; Referring Provider Anesthesiology Pain Medicine; Visit Provider Anesthesiology Pain Medicine
DX: Z01.812 Encounter for preprocedural laboratory examination (principal); M51.37 Other intervertebral disc degeneration, lumbosacral region; M96.1 Postlaminectomy syndrome, not elsewhere classified
CPT/HCPCS: 36415; 72148; 80048

== ENCOUNTER → 2019-05-09 10:50 | Outpatient (CLI) | payer MEDICARE, SELFPAY ==
[2018-10-29 08:08] VITALS: BMI 27.2
[2019-05-09 11:31] LABS: BUN 18 mg/dL (7-18); Creatinine, Serum 1.24 mg/dL (0.55-1.02); EST Glomerular Filtration Rate 44 mL/min (>60); Est Glom Filt Rate - Afr Amer 53 mL/min (>60)
== END ==
PROVIDERS: Family Provider Family Medicine; PCP Family Medicine; Referring Provider Urology; Visit Provider Urology
DX: R94.4 Abnormal results of kidney function studies (principal)
CPT/HCPCS: 36415; 82565; 84520

== ENCOUNTER → 2019-05-23 | Outpatient (CLI) | payer MEDICARE, SELFPAY ==
[2018-10-29 08:08] VITALS: BMI 27.2
[2019-05-23 12:54] LABS: Vitamin D,25 Hydroxy 53.6 ng/mL (29.95-100.01)
[2019-05-23 13:01] LABS: ALB/GLOB Ratio 1.1 RATIO (0.9-2.4); AST(SGOT) 19 U/L (15-37); Alanine Aminotransfer ALT/SGPT 30 U/L (13-56); Albumin, Serum 3.8 g/dL (3.2-5.0); Alkaline Phosphatase 55 U/L (45-117); Anion Gap 8 (5-15); BUN 19 mg/dL (7-18); BUN/Creat Ratio 16.2 RATIO (10-20); Calcium,Total 8.9 mg/dL (8.5-10.1); Chloride 104 mmol/L (98-107); Cholesterol 153 mg/dL (200); Creatinine, Serum 1.17 mg/dL (0.55-1.02); EST Glomerular Filtration Rate 47 mL/min (>60); Est Glom Filt Rate - Afr Amer 57 mL/min (>60); Globulin 3.4 g/dL (2.2-4.2); Glucose 94 mg/dL (74-106); High Density Lipoprotein 85 mg/dL; Potassium 4.2 mmol/L (3.5-5.1); Protein, Total 7.2 g/dL (6.4-8.2); Sodium Level 139 mmol/L (136-145); Thyroid Stim Hormone (TSH) 1.27 uIU/mL (0.358-3.74); Triglycerides 87 mg/dL; Very Low Density Lipoprotein 17 mg/dL (5-40)
== END | disposition home or self-care (01) ==
LOC: BFHLAB 10:28
PROVIDERS: PCP Internal Medicine Endocrinology, Diabetes & Metabolism; Visit Provider Family Medicine
DX: E03.8 Other specified hypothyroidism (principal); E78.5 Hyperlipidemia, unspecified; E55.9 Vitamin D deficiency, unspecified
CPT/HCPCS: 36415; 80053; 80061; 82306; 84443

== ENCOUNTER → 2019-11-18 11:14 | Outpatient (CLI) | payer MEDICARE, SELFPAY ==
[2019-06-28 10:11] VITALS: BMI 28.5
[2019-11-18 13:07] LABS: ALB/GLOB Ratio 1.3 RATIO (0.9-2.4); AST(SGOT) 19 U/L (15-37); Alanine Aminotransfer ALT/SGPT 38 U/L (13-56); Alkaline Phosphatase 48 U/L (45-117); Anion Gap 4 (5-15); BUN 16 mg/dL (7-18); BUN/Creat Ratio 15.8 RATIO (10-20); Calcium,Total 8.9 mg/dL (8.5-10.1); Chloride 106 mmol/L (98-107); Creatinine, Serum 1.01 mg/dL (0.55-1.02); EST Glomerular Filtration Rate 56 mL/min (>60); Est Glom Filt Rate - Afr Amer 67 mL/min (>60); Globulin 3.1 g/dL (2.2-4.2); Glucose 92 mg/dL (74-106); Potassium 3.8 mmol/L (3.5-5.1); Protein, Total 7.1 g/dL (6.4-8.2); Sodium Level 138 mmol/L (136-145); Thyroid Stim Hormone (TSH) 1.32 uIU/mL (0.358-3.74); Vitamin D,25 Hydroxy 63.7 ng/mL (29.95-100.01)
== END ==
PROVIDERS: Family Provider Family Medicine; PCP Family Medicine; Referring Provider Internal Medicine Endocrinology, Diabetes & Metabolism; Visit Provider Internal Medicine Endocrinology, Diabetes & Metabolism
DX: E03.8 Other specified hypothyroidism (principal); E55.9 Vitamin D deficiency, unspecified
CPT/HCPCS: 36415; 80053; 82306; 84443

== ENCOUNTER → 2020-01-06 11:34 | Outpatient (CLI) | payer MEDICARE, SELFPAY ==
[2019-06-28 10:11] VITALS: BMI 28.5
--- NOTE | 2020-01-06 11:36 | RAD_ITS ---
STUDY: X-RAY CHEST REASON FOR EXAM: Female, 84 years old. PRODUCTIVE COUGH, CONGESTION X 3 DAYS TECHNIQUE: PA and lateral views of the chest. COMPARISON: 12/24/2016 FINDINGS: The lungs are clear and expanded. There is no demonstrated pleural abnormality. Normal size heart. Normal mediastinum and naheed. Normal visualized pulmonary arteries. Normal visualized aortic arch and descending thoracic aorta. Normal visualized thoracic spine. Normal visualized ribs, clavicles, and shoulders. There is no demonstrated abnormality of the visualized soft tissue structures of the upper abdomen. RAD/Chest PA and Lateral IMPRESSION: Normal x-ray examination of the chest. Electronically Signed: Rell Moyer DO at 12:00 EST Tel , Service support ,
== END ==
PROVIDERS: PCP Family Medicine; Referring Provider Family Medicine; Visit Provider Family Medicine
DX: R05 Cough (principal)
CPT/HCPCS: 71046

== ENCOUNTER → 2020-03-01 09:42 | Outpatient (CLI) | payer MEDICARE, SELFPAY ==
[2019-06-28 10:11] VITALS: BMI 28.5
--- NOTE | 2020-03-01 09:43 | BI_ITS ---
MAMMOGRAPHY - BILATERAL SCREENING REASON FOR EXAM: Female, 84 years old. Routine annual screening examination. PERTINENT HISTORY: Aunt with breast cancer. TECHNIQUE: Digital bilateral breast ludy (3D mammographic acquisition) in the CC and MLO projections. 2-D mediolateral oblique (MLO) and craniocaudad (CC) views of both breasts were obtained. CAD: Full Field Digital Mammography with Computer Added Detection was performed. COMPARISON: Comparison is made with prior examination of January 25, 2019 and December 25, 2017. FINDINGS: Breast Composition: The breasts are almost entirely fatty. There are no dominant masses or suspicious calcifications. Surgical clips are seen in the left axillary region. No other significant abnormalities are identified. There has been no significant change since the prior study. BI/SCREEN MAMM (CAD) W/LUDY BILAT IMPRESSION: Stable bilateral screening mammogram. Yearly follow-up mammogram recommended. (A) ASSESSMENT CATEGORY: BIRADS Category 2: Benign. A letter regarding these results will be sent to the patient by the facility within 30 days. Approximately 10% of breast cancers are not detected by mammography. A normal mammogram should not delay biopsy of a clinically suspicious abnormality. [id number] Electronically Signed: Garry Dalal, at 13:42 EDT , Service support ,
== END ==
PROVIDERS: PCP Family Medicine; Referring Provider Family Medicine; Visit Provider Family Medicine
DX: Z12.31 Encounter for screening mammogram for malignant neoplasm of breast (principal)
CPT/HCPCS: 77063; 77067

== ENCOUNTER 2020-03-12 06:45 | Day surgery (SDC) | payer MEDICARE, SELFPAY ==
[2019-06-28 10:11] VITALS: BMI 28.5
[2020-03-12 07:05] VITALS: BP 135/72; PULSE 71; RESP 15; TEMP 37; O2SAT 98; BMI 27.8
[2020-03-12] MEDS: Lactated Ringers 1,000 ML 100 ML IV (07:19)
--- NOTE | 2020-03-12 08:10 | RAD_ITS ---
PROCEDURE: Left sacroiliac joint injection. DATE OF EXAMINATION: March 12, 2020. INDICATION: Female, 84 years old. Chronic pain. FLUOROSCOPY TIME (if supplied): (8 seconds) minutes/seconds Intraoperative imaging provided for left sacroiliac joint injection. RAD/Fluoro Guided Needle Placement IMPRESSION: Intraoperative imaging provided for left SI joint injection. Electronically Signed: Garry Dalal, at 10:18 EDT , Service support ,
--- NOTE | 2020-03-12 08:25 | RAD_ITS ---
PROCEDURE: Right sacroiliac joint injection. DATE OF EXAMINATION: March 12, 2020. INDICATION: Female, 84 years old. Pain. FLUOROSCOPY TIME (if supplied): (8 seconds) minutes/seconds Intraoperative imaging provided for right SI joint injection. RAD/Fluoro Guided Needle Placement IMPRESSION: Intraoperative imaging provided for right SI joint injection. Electronically Signed: Garry Dalal, at 10:17 EDT , Service support ,
[2020-03-12] MEDS: Bupivacaine 0.25% 30 ML Vial (08:30)
[2020-03-12] MEDS: MethylPREDNISolone Acetate 80 MG/ML Vial (08:30)
[2020-03-12 08:40] VITALS: BP 101/52; BP 135/72; PULSE 68; RESP 16; TEMP 36.6; O2SAT 100
[2020-03-12 08:45] VITALS: BP 112/61; BP 135/72; PULSE 64; RESP 16; O2SAT 100
--- NOTE | 2020-03-12 08:49 | PCM.OPRPT ---
Report of Operation Description of Surgical Findings:: PREOPERATIVE DIAGNOSES: 1. Sacroiliitis. 2. Sacroiliac joint dysfunction. POSTOPERATIVE DIAGNOSES: 1. Sacroiliitis. 2. Sacroiliac joint dysfunction. PROCEDURE PERFORMED: Bilateral sacroiliac joint steroid injection under fluoroscopy guidance. ANESTHESIA: MAC. BLOOD LOSS: Minimal. COMPLICATIONS: None. DESCRIPTION OF PROCEDURE: History and physical of today was reviewed. Risks and benefits of the procedure were explained. The patient understood and agreed to the procedure. Informed consent was obtained. IV inserted per routine protocol. The patient was taken to the operating room and placed in the prone position with a pillow positioned underneath the abdomen. The lower back and buttock area was prepped and draped in a sterile fashion using iodine x3. Under fluoroscopy guidance on an AP view, the bilateral SI joint was visualized. The skin and subcutaneous tissue was anesthetized with approximately 3 mL of 1% lidocaine using a 25-gauge regular needle. Under direct visualization with fluoroscopy at approximately 15-degree angle, using a 22-gauge 3-1/2-inch spinal needle, the needle was advanced via the skin. The tip of the needle was maneuvered and directed towards the inferior one-third of the posterior SI joint. Once the tip of the needle was at the vicinity of the joint, after negative aspiration for blood or CSF, a total of 1 mL of contrast was injected to confirm correct placement of the needle as well as cephalocaudal spread. Confirmation was obtained on AP as well as oblique view. After repeated negative aspiration and confirmation, a total of 10 mL of preservative-free 0.25% Marcaine with 80 mg of Depo-Medrol was injected in and around the SI joint in divided doses. The needle was then removed intact. The patient experienced no sign or symptoms of intrathecal or intravascular injection. The patient experienced no paresthesia. The procedure was completed without any apparent difficulty or any complications. The patient appeared to tolerate it well. ASSESSMENT AND PLAN: This is an 84-year-old female with sacroiliitis, sacroiliac joint dysfunction status post bilateral sacroiliac joint steroid injection under fluoroscopic guidance patient will continue her current medications, patient will phone approximately 2 weeks for reevaluation.
[2020-03-12 08:50] VITALS: BP 117/61; BP 135/72; PULSE 64; RESP 16; O2SAT 96
[2020-03-12 08:55] VITALS: BP 116/61; BP 135/72; PULSE 64; RESP 16; TEMP 36.6; O2SAT 97
[2020-03-12 09:20] VITALS: BP 135/72
== END 2020-03-12 09:34 | disposition home or self-care (01) ==
LOC: SDC 06:47 → AC 06:47
PROVIDERS: PCP Family Medicine; Referring Provider Family Medicine; Visit Provider Anesthesiology Pain Medicine
PROC: 3E0U3GC Introduction of Other Therapeutic Substance into Joints, Percutaneous Approach (ICD-10-PCS; CPT 27096; principal; 2020-03-12 08:05)
DX: M46.1 Sacroiliitis, not elsewhere classified (principal); M53.3 Sacrococcygeal disorders, not elsewhere classified; I10 Essential (primary) hypertension; K21.9 Gastro-esophageal reflux disease without esophagitis; E78.00 Pure hypercholesterolemia, unspecified; E07.9 Disorder of thyroid, unspecified; E11.9 Type 2 diabetes mellitus without complications; J45.909 Unspecified asthma, uncomplicated; M79.7 Fibromyalgia; M19.90 Unspecified osteoarthritis, unspecified site; M41.9 Scoliosis, unspecified; G47.33 Obstructive sleep apnea (adult) (pediatric); M81.0 Age-related osteoporosis without current pathological fracture; Z79.899 Other long term (current) drug therapy; Z79.82 Long term (current) use of aspirin
CPT/HCPCS: 64451; 76000; 77002; J7120

== ENCOUNTER → 2020-03-22 09:18 | Outpatient (CLI) | payer MEDICARE, SELFPAY ==
[2020-03-12 07:05] VITALS: BMI 27.8
[2020-03-22 10:52] LABS: AST(SGOT) 16 U/L (15-37); Alanine Aminotransfer ALT/SGPT 26 U/L (13-56); Alkaline Phosphatase 52 U/L (45-117); Bilirubin, Direct 0.45 mg/dL (0.00-0.30); Cholesterol 169 mg/dL (200); Globulin 3.3 g/dL (2.2-4.2); High Density Lipoprotein 108 mg/dL; Protein, Total 7.3 g/dL (6.4-8.2); Triglycerides 68 mg/dL; Very Low Density Lipoprotein 14 mg/dL (5-40)
== END ==
PROVIDERS: PCP Family Medicine; Referring Provider Internal Medicine Cardiovascular Disease; Visit Provider Internal Medicine Cardiovascular Disease
DX: E78.00 Pure hypercholesterolemia, unspecified (principal); E78.5 Hyperlipidemia, unspecified
CPT/HCPCS: 36415; 80061; 80076

== ENCOUNTER → 2020-04-30 09:29 | Outpatient (CLI) | payer MEDICARE, SELFPAY ==
[2020-03-29 10:38] VITALS: BMI 27.4
[2020-04-30 10:55] LABS: ALB/GLOB Ratio 1.2 RATIO (0.9-2.4); AST(SGOT) 17 U/L (15-37); Alanine Aminotransfer ALT/SGPT 28 U/L (13-56); Albumin, Serum 3.7 g/dL (3.2-5.0); Alkaline Phosphatase 56 U/L (45-117); Anion Gap 4 (5-15); BUN 21 mg/dL (7-18); BUN/Creat Ratio 19.3 RATIO (10-20); Chloride 107 mmol/L (98-107); Creatinine, Serum 1.09 mg/dL (0.55-1.02); EST Glomerular Filtration Rate 51 mL/min (>60); Est Glom Filt Rate - Afr Amer 61 mL/min (>60); Globulin 3.2 g/dL (2.2-4.2); Glucose 110 mg/dL (74-106); Potassium 3.8 mmol/L (3.5-5.1); Protein, Total 6.9 g/dL (6.4-8.2); Sodium Level 141 mmol/L (136-145); Thyroid Stim Hormone (TSH) 1.43 uIU/mL (0.358-3.74)
== END ==
PROVIDERS: PCP Family Medicine; Referring Provider Internal Medicine Endocrinology, Diabetes & Metabolism; Visit Provider Internal Medicine Endocrinology, Diabetes & Metabolism
DX: E03.8 Other specified hypothyroidism (principal)
CPT/HCPCS: 36415; 80053; 84443

== ENCOUNTER → 2020-05-04 08:21 | Outpatient (CLI) | payer MEDICARE, SELFPAY ==
[2020-03-29 10:38] VITALS: BMI 27.4
--- NOTE | 2020-05-04 08:25 | CT_ITS ---
STUDY: CT LEFT ANKLE WITHOUT CONTRAST REASON FOR EXAM: Female, 84 years old. FALL MARCH 03, PAIN SINCE, NUMBNESS, WEAKNESS RADIATION DOSAGE (If Supplied By Facility): CTDIvol = ( 6.13 ) mGy, DLP = ( 181.15 ) mGycm TECHNIQUE: Thin section transaxial imaging of the ankle was obtained, with sagittal and coronal reconstructed images. Individualized dose optimization techniques were used for this CT. COMPARISON: None. FINDINGS: Normal visualized distal tibia and fibula. Normal tibiotalar articulation and talar dome. Normal talus, calcaneus, navicular and cuboid tarsal bones. Normal subtalar, talonavicular and calcaneocuboid articulations. Normal navicular-cuneiform, cuneiform tarsal bones and intercuneiform articulations. Normal tarsometatarsal articulations and visualized metatarsi. There is minor anteromedial soft tissue swelling of the distal lower leg. There is no demonstrated acute fracture. CT/Extremity Lower without Contra IMPRESSION: Normal CT examination of the left ankle. Electronically Signed: Surjit Xiao MD at 14:56 EDT , Service support ,
== END ==
PROVIDERS: PCP Family Medicine; Referring Provider Family Medicine; Visit Provider Family Medicine
DX: M25.572 Pain in left ankle and joints of left foot (principal); R20.8 Other disturbances of skin sensation; S99.912A Unspecified injury of left ankle, initial encounter
CPT/HCPCS: 73700

== ENCOUNTER → 2020-06-13 10:37 | Outpatient (CLI) | payer MEDICARE, SELFPAY ==
[2020-03-29 10:38] VITALS: BMI 27.4
--- NOTE | 2020-06-13 10:51 | ART_ITS ---
Reason For Study: PERONEAL TENDONITIS Procedure A bilateral lower extremity continuous wave Doppler with analog waveform analysis,segmental pressures,and ankle brachial indexes without exercise. Left Segmental Pressures Left brachial= N/AmmHg. Left posterior tibial artery = 167mmHg. Left dorsalis pedis artery = 166mmHg. Left digit = 136 mmHg. The left dorsalis pedis waveforms are triphasic. The left posterior tibial artery waveforms are triphasic. Right Segmental Pressures Right brachial= 146mmHg. Right posterior tibial artery = 174mmHg. Right dorsalis pedis artery = 185mmHg. Right digit = 135 mmHg. The right dorsalis pedis waveforms are triphasic. The right posterior tibial artery waveforms are triphasic. Indices The right ankle brachial index by the posterior tibial artery is 1.19. The right ankle brachial index by the dorsalis pedis is 1.27. The right digital-brachial index is .92. The left ankle brachial index by the posterior tibial artery is 1.14. The left ankle brachial index by the dorsalis pedis is 1.14. The left digital-brachial index is .93. Interpretation Summary Triphasic Doppler waveforms are noted at ankle level bilaterally. Pulse-volume recordings appear satisfactory at all levels bilaterally, including low-thigh, calf, ankle, and digital levels bilaterally. Resting ankle-brachial indices are normal bilaterally. Digital-brachial indices are normal bilaterally. There is no evidence of significant arterial occlusive disease in the lower extremities bilaterally. Ordering Physician: Leo Madrid Referring Physician: PURVI LYMAN Performed By: KESHAWN MALIK RDCS
== END ==
PROVIDERS: PCP Family Medicine; Referring Provider Podiatrist Foot & Ankle Surgery; Visit Provider Podiatrist Foot & Ankle Surgery
DX: M76.72 Peroneal tendinitis, left leg (principal); I73.9 Peripheral vascular disease, unspecified
CPT/HCPCS: 93923

== ENCOUNTER → 2020-07-12 12:12 | Outpatient (CLI) | payer MEDICARE, SELFPAY ==
[2020-03-29 10:38] VITALS: BMI 27.4
--- NOTE | 2020-07-12 12:19 | MRI_ITS ---
STUDY: MRI LEFT ANKLE WITHOUT CONTRAST REASON FOR EXAM: Ankle pain and swelling, fall 03/04/2020. TECHNIQUE: Standardized fat and water weighted pulse sequences were obtained in all 3 orthogonal planes. COMPARISON: CT images 05/04/2020. FINDINGS: There is edema in the subcutis adipose space. Normal posterior tibialis tendon. Normal flexor digitorum longus tendon. Normal flexor hallucis longus tendon. There is a longitudinal split of the perimalleolar peroneus brevis tendon (T2 axial images 11-18). Normal peroneus longus tendon. Normal tibialis anterior tendon. Normal extensor hallucis longus tendon. Normal extensor digitorum longus tendons. Normal Achilles tendon and teno-osseous insertion. There is thickening and interstitial edema of the central cord of the plantar fascia (inversion recovery sagittal image 9). Normal plantar calcaneal tubercles. Normal intrinsic muscles of the rearfoot. Normal distal tibiofibular syndesmotic ligamentous complex. Normal lateral ligamentous complex. Normal subtalar ligaments and sinus tarsi. Normal deltoid ligamentous complexes. Normal plantar calcaneonavicular (spring) ligament. Normal tibiotalar articulation. Normal talar dome. There is a small posterior subtalar joint effusion (inversion recovery sagittal images 13, 14). Normal talonavicular articulation. Normal calcaneocuboid articulation. Normal navicular-cuneiform articulations. There is bone edema of the proximal second and third metatarsals (inversion recovery sagittal images 9, 11). MRI/Lower Ext Joint Only (Routine) IMPRESSION: Longitudinal split of the peroneus brevis tendon. Plantar fasciitis. Bone edema of the proximal second and third metatarsals, a stress phenomenon. Small posterior subtalar joint effusion. Electronically Signed: Lyndon Chakraborty MD at 14:15 EDT Tel , Service support ,
== END ==
PROVIDERS: PCP Family Medicine; Referring Provider Family Medicine; Visit Provider Podiatrist Foot & Ankle Surgery
DX: M76.72 Peroneal tendinitis, left leg (principal)
CPT/HCPCS: 73721

== ENCOUNTER → 2020-07-23 09:40 | Outpatient (CLI) | payer MEDICARE, SELFPAY ==
[2020-03-29 10:38] VITALS: BMI 27.4
--- NOTE | 2020-07-23 12:07 | NEURO_ITS ---
NCS and/or EMG Patient Report Ordering Doctor: Leo Madrid DATE OF SERVICE: 07/23/20 Indication: History of chronic lower back pain status post decompression and fusion approximately 10 years ago. Now with constant low back discomfort with occasional radiation to the posterior lower extremities. The patient also repor ts a tightness around her left lower leg. She has pain involving both heels and the arches of both feet. Findings: Nerve conduction studies were performed in the right and left lower extremity. The right peroneal motor study recording the extensor digitorum brevis showed a normal amplitude, normal distal latency and normal conduction velocity. No conduction block or focal slowing was present across the fibular neck. The right tibial motor study recording the abductor hallucis brevis showed a normal amplitude, normal distal latency and normal conduction velocity. Right sural sensory response showed a normal amplitude and conduction velocity. Right superficial peroneal sensory response showed a normal amplitude and conduction velocity. Right plantar sensory responses were not obtainable. The left peroneal motor study recording the extensor digitorum brevis showed a markedly reduced amplitude, normal distal latency and normal conduction velocity. No conduction block or focal slowing was present across the fibular neck. The left peroneal motor study recording the tibialis anterior showed a normal amplitude, normal distal latency and normal conduction velocity. No conduction block or focal slowing was present across the fibular neck. The left tibial motor study recording the abductor hallucis brevis showed a reduced amplitude, normal distal latency and normal conduction velocity. Left left tibial amplitude was significantly reduced compared to the right. Left sural sensory response showed a normal amplitude and conduction velocity. Left superficial peroneal sensory response showed a normal amplitude and conduction velocity. Left plantar sensory responses were not obtainable. Needle EMG of the left lower extremity was performed. The lumbar paraspinal muscles were not examined due to the patient's history of lumbar surgery. No denervation was present in any distal muscles. The extensor hallucis longus and tensor fascia abi revealed motor units which were large amplitude and long duration with normal recruitment. The medial gastrocnemius muscle demonstrated similar morphological changes, but recruitment could not be assessed due to poor activation. The vastus medialis motor units were unremarkable. Needle EMG of the right lower extremity was performed. The lumbar paraspinal muscles were not examined due to the patient's history of lumbar surgery. No denervation was present in any distal muscles. The extensor hallucis longus, medial gastrocnemius and tibialis posterior revealed motor units which were large amplitude and long duration with with reduced recruitment. The vastus medialis motor units were unremarkable. Impression: This is an abnormal study. 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 There was no active denervation to suggest ongoing axonal injury. There is no evidence of peripheral polyneuropathy of either the right or left lower extremity. The absent plantar responses are not considered to be pathological given the patient's age. Please note: the stimulator induced significant local tenderness at the calcaneus bilaterally. Rakesh Mott D.O.
== END ==
PROVIDERS: PCP Family Medicine; Referring Provider Podiatrist Foot & Ankle Surgery; Visit Provider Podiatrist Foot & Ankle Surgery
DX: G60.3 Idiopathic progressive neuropathy (principal); M79.672 Pain in left foot
CPT/HCPCS: 95886; 95913

== ENCOUNTER → 2020-09-18 09:55 | Outpatient (CLI) | payer MEDICARE, SELFPAY ==
[2020-03-29 10:38] VITALS: BMI 27.4
[2020-09-18 10:48] LABS: AST(SGOT) 19 U/L (15-37); Alanine Aminotransfer ALT/SGPT 35 U/L (13-56); Albumin, Serum 3.9 g/dL (3.2-5.0); Alkaline Phosphatase 68 U/L (45-117); Bilirubin, Direct 0.35 mg/dL (0.00-0.30); Cholesterol 144 mg/dL (200); High Density Lipoprotein 82 mg/dL; Protein, Total 6.9 g/dL (6.4-8.2); Triglycerides 77 mg/dL; Very Low Density Lipoprotein 15 mg/dL (5-40)
== END ==
PROVIDERS: PCP Family Medicine; Referring Provider Internal Medicine Cardiovascular Disease; Visit Provider Internal Medicine Cardiovascular Disease
DX: E78.00 Pure hypercholesterolemia, unspecified (principal); E78.5 Hyperlipidemia, unspecified
CPT/HCPCS: 36415; 80061; 80076

== ENCOUNTER → 2020-11-13 09:16 | Outpatient (CLI) | payer MEDICARE, SELFPAY ==
[2020-03-29 10:38] VITALS: BMI 27.4
[2020-11-13 10:39] LABS: Vitamin D,25 Hydroxy 64.2 ng/mL
[2020-11-13 10:50] LABS: ALB/GLOB Ratio 1.1 RATIO (0.9-2.4); AST(SGOT) 16 U/L (15-37); Alanine Aminotransfer ALT/SGPT 29 U/L (13-56); Albumin, Serum 3.6 g/dL (3.2-5.0); Alkaline Phosphatase 82 U/L (45-117); Anion Gap 6 (5-15); BUN 14 mg/dL (7-18); BUN/Creat Ratio 12.7 RATIO (10-20); Calcium,Total 8.8 mg/dL (8.5-10.1); Chloride 105 mmol/L (98-107); Cholesterol 143 mg/dL (200); EST Glomerular Filtration Rate 50 mL/min (>60); Est Glom Filt Rate - Afr Amer 61 mL/min (>60); Globulin 3.4 g/dL (2.2-4.2); Glucose 100 mg/dL (74-106); High Density Lipoprotein 76 mg/dL; Magnesium 2.2 mg/dL (1.6-2.6); Sodium Level 141 mmol/L (136-145); Thyroid Stim Hormone (TSH) 1.46 uIU/mL (0.358-3.74); Triglycerides 80 mg/dL; Very Low Density Lipoprotein 16 mg/dL (5-40)
== END ==
PROVIDERS: PCP Family Medicine; Referring Provider Internal Medicine Endocrinology, Diabetes & Metabolism; Visit Provider Internal Medicine Endocrinology, Diabetes & Metabolism
DX: M81.0 Age-related osteoporosis without current pathological fracture (principal); E03.8 Other specified hypothyroidism; E61.2 Magnesium deficiency; E78.2 Mixed hyperlipidemia
CPT/HCPCS: 36415; 80053; 80061; 82306; 83735; 84443

== ENCOUNTER → 2021-03-04 09:49 | Outpatient (CLI) | payer MEDICARE, SELFPAY ==
[2020-03-29 10:38] VITALS: BMI 27.4
--- NOTE | 2021-03-04 09:51 | BI_ITS ---
MAMMOGRAPHY - BILATERAL SCREENING REASON FOR EXAM: Female, 85 years old. Routine annual screening examination. PERTINENT HISTORY: Aunt with breast cancer. Prior left axillary lymph node resection. TECHNIQUE: Digital bilateral breast ludy (3D mammographic acquisition) in the CC and MLO projections. 2-D mediolateral oblique (MLO) and craniocaudad (CC) views of both breasts were obtained. CAD: Full Field Digital Mammography with Computer Added Detection was performed. COMPARISON: Comparison is made with prior study of 03/01/2020 and 01/25/2019. FINDINGS: Breast Composition: There are scattered areas of fibroglandular density. There are no dominant masses or suspicious calcifications. Surgical clips are once again seen in the left axillary region. No other significant abnormalities are identified. There has been no significant change since the prior study. BI/SCRN MAMM (CAD)W/LUDY BILAT IMPRESSION: Stable bilateral screening mammogram. Yearly follow-up mammogram recommended. (A) ASSESSMENT CATEGORY: BIRADS Category 2: Benign. A letter regarding these results will be sent to the patient by the facility within 30 days. Approximately 10% of breast cancers are not detected by mammography. A normal mammogram should not delay biopsy of a clinically suspicious abnormality. [id number] Electronically Signed: Garry Dalal MD at 13:02 EDT , Service support ,
== END ==
PROVIDERS: PCP Family Medicine; Referring Provider Family Medicine; Visit Provider Family Medicine
DX: Z12.31 Encounter for screening mammogram for malignant neoplasm of breast (principal)
CPT/HCPCS: 77063; 77067

== ENCOUNTER → 2021-03-27 08:28 | Outpatient (CLI) | payer MEDICARE, SELFPAY ==
[2020-03-29 10:38] VITALS: BMI 27.4
[2021-03-27 09:16] LABS: AST(SGOT) 17 U/L (15-37); Alanine Aminotransfer ALT/SGPT 30 U/L (13-56); Albumin, Serum 3.7 g/dL (3.2-5.0); Alkaline Phosphatase 78 U/L (45-117); Bilirubin, Direct 0.26 mg/dL (0.00-0.30); Cholesterol 158 mg/dL (200); Globulin 3.5 g/dL (2.2-4.2); High Density Lipoprotein 94 mg/dL; Protein, Total 7.2 g/dL (6.4-8.2); Triglycerides 51 mg/dL; Very Low Density Lipoprotein 10 mg/dL (5-40)
== END ==
PROVIDERS: PCP Family Medicine; Referring Provider Internal Medicine Cardiovascular Disease; Visit Provider Internal Medicine Cardiovascular Disease
DX: E78.00 Pure hypercholesterolemia, unspecified (principal); E78.5 Hyperlipidemia, unspecified
CPT/HCPCS: 36415; 80061; 80076

== ENCOUNTER → 2021-05-27 08:56 | Outpatient (CLI) | payer MEDICARE, SELFPAY ==
[2021-04-02 08:32] VITALS: BMI 27.3
[2021-05-27 11:30] LABS: ALB/GLOB Ratio 1.3 RATIO (0.9-2.4); AST(SGOT) 21 U/L (15-37); Alanine Aminotransfer ALT/SGPT 31 U/L (13-56); Albumin, Serum 3.7 g/dL (3.2-5.0); Alkaline Phosphatase 85 U/L (45-117); Anion Gap 5 (5-15); BUN 17 mg/dL (7-18); Calcium,Total 8.9 mg/dL (8.5-10.1); Chloride 107 mmol/L (98-107); Creatinine, Serum 1.06 mg/dL (0.55-1.02); EST Glomerular Filtration Rate 52 mL/min (>60); Est Glom Filt Rate - Afr Amer 63 mL/min (>60); Globulin 2.9 g/dL (2.2-4.2); Glucose 89 mg/dL (74-106); Magnesium 2.2 mg/dL (1.6-2.6); Potassium 4.2 mmol/L (3.5-5.1); Protein, Total 6.6 g/dL (6.4-8.2); Sodium Level 142 mmol/L (136-145); Thyroid Stim Hormone (TSH) 1.41 uIU/mL (0.358-3.74)
== END ==
PROVIDERS: PCP Family Medicine; Visit Provider Internal Medicine Endocrinology, Diabetes & Metabolism
DX: M81.0 Age-related osteoporosis without current pathological fracture (principal); E03.8 Other specified hypothyroidism; E61.2 Magnesium deficiency
CPT/HCPCS: 36415; 80053; 83735; 84443

== ENCOUNTER → 2021-06-06 13:57 | Outpatient (CLI) | payer MEDICARE, SELFPAY ==
[2021-06-06 08:57] VITALS: BMI 27.3
--- NOTE | 2021-06-06 13:58 | VDLE_ITS ---
Reason For Study: swelling RIGHT LEFT GSV is normal. GSV is normal. CFV is compressible, spontaneous, phasic, CFV is compressible, spontaneous, phasic, competent and demonstrates normal competent, and demonstrates normal augmentation. augmentation. FV is compressible, spontaneous, phasic, FV is compressible, spontaneous, phasic, competent and demonstrates normal competent and demonstrates normal augmentation. augmentation. POP V is compressible, spontaneous, phasic, POP V is compressible, spontaneous, phasic, competent and demonstrates normal competent and demonstrates normal augmentation. augmentation. T/P Trunk is compressible. T/P Trunk is compressible. PTV is compressible. PTV is compressible. RT PerV is compressible. LT PerV is compressible. Procedure This is a venous duplex using B-mode, color flow and spectral Doppler. Exam performed in department. The exam was diagnostic. A preliminary report was called and/or faxed to Nini Lee. VL/Venous Duplex US - Rick Extrem Interpretation Summary No evidence for acute deep venous thrombosis bilateral lower extremities with p atent and compressible bilateral great saphenous veins. Ordering Physician: Nini Lee Performed By: Arias Schilling, RVT
== END ==
PROVIDERS: PCP Family Medicine; Referring Provider Physician Assistant Medical; Visit Provider Physician Assistant Medical
DX: R60.0 Localized edema (principal); R06.00 Dyspnea, unspecified
CPT/HCPCS: 36415; 83880; 93970

== ENCOUNTER → 2021-06-24 13:52 | Outpatient (CLI) | payer MEDICARE, SELFPAY ==
[2021-06-06 08:57] VITALS: BMI 27.3
--- NOTE | 2021-06-24 13:52 | ECHOD_ITS ---
Reason For Study: DYSPNEA/SOB Procedure This was a 2D Doppler, Color Flow transthoracic echocardiogram. Exam performed in department. Left Ventricle Normal LV size. Left ventricular systolic function is normal. The estimated ejection fraction is 60 %. Stage 1 diastolic dysfunction. No regional wall motion abnormalities noted. Right Ventricle Normal RV size. Normal systolic function. Atria Normal left atrium. Normal right atrium. Mitral Valve Normal mitral valve. Tricuspid Valve Normal tricuspid valve. Mild (1+) tricuspid valve insufficiency. Pulmonary artery systolic pressure is 30 mmHg. Aortic Valve Normal aortic valve. Trisinus/trileaflet aortic valve. Pulmonic Valve Normal pulmonic valve. Great Vessels Normal aortic root. The pulmonary artery is normal size. Normal inferior vena cava. Pericardium/Pleural No pericardial effusion. MMode/2D Measurements & Calculations LVIDd: 4.7 cm IVSd: 1.0 cm Ao root diam: 3.2 cm LVIDs: 2.7 cm LVPWd: 0.99 cm FS: 41.2 % LAV(MOD-bp): 40.1 ml LA A4 area: 14.7 cm2 LA dimension(2D): 3.3 cm LAV(MOD-bp) Indexed: 23.0 ml/m2 LAV(MOD-sp2): 40.6 ml LAV(MOD-sp4): 36.7 ml RA A4 area: 11.7 cm2 Time Measurements MV dec time: 0.18 sec Doppler Measurements & Calculations MV E max kieran: 80.2 cm/sec Lat Peak E' Kieran: 5.4 cm/sec Med Peak E' Kieran: 7.2 cm/sec MV A max kieran: 95.3 cm/sec E/E' lat: 14.8 E/E' med: 11.1 MV E/A: 0.84 PA V2 max: 80.6 cm/sec TR max kieran: 262.3 cm/sec TR max P.7 mmHg ECHO/Echo Complete Interpretation Summary Normal LV size. Left ventricular systolic function is normal. The estimated ejection fraction is 60 %. Stage 1 diastolic dysfunction. Compared to previous study, the left ventricular systolic function is the same. . Structurally normal valves. Ordering Physician: Rosa^Nini^David^^MAYA TREJO Referring Physician: Aaliyah De La Cruz Performed By: Qing Timmons, SILVIA, RVT
== END ==
PROVIDERS: PCP Family Medicine; Referring Provider Physician Assistant Medical; Visit Provider Physician Assistant Medical
DX: R06.00 Dyspnea, unspecified (principal)
CPT/HCPCS: 93306

== ENCOUNTER → 2021-09-02 10:50 | Outpatient (CLI) | payer MEDICARE, SELFPAY ==
[2021-09-02 11:56] LABS: Vitamin D,25 Hydroxy 56.4 ng/mL
[2021-09-02 12:03] LABS: AST(SGOT) 29 U/L (15-37); Alanine Aminotransfer ALT/SGPT 40 U/L (13-56); Albumin, Serum 3.6 g/dL (3.2-5.0); Alkaline Phosphatase 67 U/L (45-117); Anion Gap 7 (5-15); BUN 13 mg/dL (7-18); BUN/Creat Ratio 11.7 RATIO (10-20); Calcium,Total 8.5 mg/dL (8.5-10.1); Chloride 107 mmol/L (98-107); Cholesterol 142 mg/dL (200); Creatinine, Serum 1.11 mg/dL (0.55-1.02); EST Glomerular Filtration Rate 50 mL/min (>60); Est Glom Filt Rate - Afr Amer 60 mL/min (>60); Globulin 3.6 g/dL (2.2-4.2); Glucose 105 mg/dL (74-106); High Density Lipoprotein 84 mg/dL; Protein, Total 7.2 g/dL (6.4-8.2); Sodium Level 142 mmol/L (136-145); Thyroid Stim Hormone (TSH) 1.45 uIU/mL (0.358-3.74); Triglycerides 65 mg/dL; Very Low Density Lipoprotein 13 mg/dL (5-40)
== END ==
PROVIDERS: PCP Family Medicine; Referring Provider Internal Medicine Endocrinology, Diabetes & Metabolism; Visit Provider Internal Medicine Endocrinology, Diabetes & Metabolism
DX: M81.0 Age-related osteoporosis without current pathological fracture (principal); E78.2 Mixed hyperlipidemia; E03.8 Other specified hypothyroidism
CPT/HCPCS: 36415; 80053; 80061; 82306; 84443

== ENCOUNTER → 2021-11-26 | Outpatient (CLI) | payer MEDICARE, SELFPAY | END | disposition home or self-care (01) | LOC: LABSPEC 02-04 14:22 | PROVIDERS: PCP Family Medicine; Visit Provider Family Medicine | DX: U07.1 COVID-19 (principal) | CPT/HCPCS: 87635; U0003; U0005 ==

== ENCOUNTER 2021-11-27 18:15 | Outpatient (CLI) | payer MEDICARE, SELFPAY ==
[2021-11-27 18:34] VITALS: BP 147/82; PULSE 70; RESP 16; TEMP 36.9; O2SAT 96; BMI 26.8
[2021-11-27] MEDS: 0.9% Saline Lock 10 ML Syringe IV (18:40)
[2021-11-27 19:12] VITALS: BP 132/69; PULSE 64; RESP 16; TEMP 37.2; O2SAT 96
[2021-11-27 20:10] VITALS: BP 145/80; PULSE 68; RESP 16; TEMP 36.8; O2SAT 100
== END 2021-11-27 23:59 | disposition home or self-care (01) ==
LOC: MS3OUT 18:15 → MS3 18:16
PROVIDERS: PCP Family Medicine; Referring Provider Nurse Practitioner Adult Health; Visit Provider Nurse Practitioner Adult Health
DX: Z23 Encounter for immunization (principal); U07.1 COVID-19; I10 Essential (primary) hypertension
CPT/HCPCS: J7050; M0245; Q0245; A4216

== ENCOUNTER 2021-12-02 14:26 | Outpatient (CLI) | payer MEDICARE, SELFPAY ==
--- NOTE | 2021-12-02 14:28 | VDLE_ITS ---
Reason For Study: Swelling Procedure LEFT This is a venous duplex using B-mode, color Lt CFV is compressible flow and spectral Doppler. Lt SFJ is compressible Exam performed in department. Lt FV is compressible The exam was abbreviated due to the COVID 19 Lt PopV is compressible protocol. Lt T/P Trunk is compressible A preliminary report was called and/or faxed Lt PTV is compressible to Dr. De La Cruz. Lt PeroV is compressible Lt GSV is compressible. VL/Venous Duplex US, Unilateral Interpretation Summary There is no evidence of left lower extremity deep vein thrombosis. Left great s aphenous vein appears patent and compressible segmentally. Covid 19 protocol Ordering Physician: Aaliyah De La Cruz Referring Physician: Aaliyah De La Cruz Performed By: Katya Mathews, SILVIA, RVT
== END 2021-12-02 23:59 | disposition short-term general hospital (02) ==
PROVIDERS: PCP Family Medicine; Referring Provider Family Medicine; Visit Provider Family Medicine
DX: M79.606 Pain in leg, unspecified (principal); M79.89 Other specified soft tissue disorders
CPT/HCPCS: 93971

== ENCOUNTER → 2022-01-16 11:53 | Outpatient (CLI) | payer MEDICARE, SELFPAY ==
[2022-01-16 12:50] LABS: Vitamin D,25 Hydroxy 54.3 ng/mL
[2022-01-16 12:59] LABS: ALB/GLOB Ratio 1.3 RATIO (0.9-2.4); AST(SGOT) 52 U/L (15-37); Alanine Aminotransfer ALT/SGPT 74 U/L (13-56); Albumin, Serum 3.9 g/dL (3.2-5.0); Alkaline Phosphatase 59 U/L (45-117); Anion Gap 6 (5-15); BUN 28 mg/dL (7-18); BUN/Creat Ratio 24.3 RATIO (10-20); Chloride 109 mmol/L (98-107); Creatinine, Serum 1.15 mg/dL (0.55-1.02); EST Glomerular Filtration Rate 48 mL/min (>60); Est Glom Filt Rate - Afr Amer 58 mL/min (>60); Globulin 3.1 g/dL (2.2-4.2); Glucose 97 mg/dL (74-106); Magnesium 2.3 mg/dL (1.6-2.6); Potassium 4.1 mmol/L (3.5-5.1); Sodium Level 140 mmol/L (136-145); Thyroid Stim Hormone (TSH) 0.29 uIU/mL (0.358-3.74)
== END ==
PROVIDERS: PCP Family Medicine
DX: M81.0 Age-related osteoporosis without current pathological fracture (principal); E03.8 Other specified hypothyroidism; E55.9 Vitamin D deficiency, unspecified; E61.2 Magnesium deficiency
CPT/HCPCS: 36415; 80053; 82306; 83735; 84443

== ENCOUNTER → 2022-03-10 | Outpatient (CLI) | payer MEDICARE, SELFPAY ==
--- NOTE | 2022-03-10 12:31 | BI_ITS ---
MAMMOGRAPHY - BILATERAL SCREENING REASON FOR EXAM: Female, 86 years old. Routine annual screening examination. PERTINENT HISTORY: Aunt with breast cancer. History of prior left axillary rupali resection. TECHNIQUE: Digital bilateral breast ludy (3D mammographic acquisition) in the CC and MLO projections. 2-D mediolateral oblique (MLO) and craniocaudad (CC) views of both breasts were obtained. CAD: Full Field Digital Mammography with Computer Added Detection was performed. COMPARISON: Comparison is made with prior study dated 03/04/2021 and 03/01/2020. FINDINGS: Breast Composition: There are scattered areas of fibroglandular density. There are no dominant masses or suspicious calcifications. Surgical clips are seen in the left axillary region. No other significant abnormalities are identified. There has been no significant change since the prior study. BI/SCRN MAMM (CAD)W/LUDY BILAT IMPRESSION: Stable bilateral screening mammogram. Yearly follow-up mammogram recommended. (A) ASSESSMENT CATEGORY: BIRADS Category 2: Benign. A letter regarding these results will be sent to the patient by the facility within 30 days. Approximately 10% of breast cancers are not detected by mammography. A normal mammogram should not delay biopsy of a clinically suspicious abnormality. [id number] Electronically Signed: Garry Dalal MD at 13:11 EDT ,
== END | disposition home or self-care (01) ==
LOC: OPBI 12:30
PROVIDERS: PCP Family Medicine; Referring Provider Family Medicine; Visit Provider Family Medicine
DX: Z12.31 Encounter for screening mammogram for malignant neoplasm of breast (principal)
CPT/HCPCS: 77063; 77067

== ENCOUNTER → 2022-03-24 | Outpatient (CLI) | payer MEDICARE, SELFPAY ==
[2022-03-24 09:34] LABS: AST(SGOT) 24 U/L (15-37); Alanine Aminotransfer ALT/SGPT 31 U/L (13-56); Albumin, Serum 3.6 g/dL (3.2-5.0); Alkaline Phosphatase 46 U/L (45-117); Bilirubin, Direct 0.36 mg/dL (0.00-0.30); Cholesterol 141 mg/dL (200); High Density Lipoprotein 87 mg/dL; Protein, Total 6.6 g/dL (6.4-8.2); Triglycerides 62 mg/dL; Very Low Density Lipoprotein 12 mg/dL (5-40)
== END | disposition home or self-care (01) ==
LOC: LAB 08:45
PROVIDERS: PCP Family Medicine; Referring Provider Internal Medicine Cardiovascular Disease; Visit Provider Internal Medicine Cardiovascular Disease
DX: E78.5 Hyperlipidemia, unspecified (principal)
CPT/HCPCS: 36415; 80061; 80076

== ENCOUNTER → 2022-04-14 | Outpatient (CLI) | payer MEDICARE, SELFPAY ==
[2022-04-14 11:08] LABS: ALB/GLOB Ratio 1.3 RATIO (0.9-2.4); AST(SGOT) 20 U/L (15-37); Alanine Aminotransfer ALT/SGPT 33 U/L (13-56); Albumin, Serum 3.9 g/dL (3.2-5.0); Alkaline Phosphatase 51 U/L (45-117); Anion Gap 7 (5-15); BUN 20 mg/dL (7-18); Calcium,Total 8.7 mg/dL (8.5-10.1); Chloride 106 mmol/L (98-107); Cholesterol 163 mg/dL (200); Creatinine, Serum 1.05 mg/dL (0.55-1.02); EST Glomerular Filtration Rate 53 mL/min (>60); Est Glom Filt Rate - Afr Amer 64 mL/min (>60); Globulin 3.1 g/dL (2.2-4.2); Glucose 98 mg/dL (74-106); High Density Lipoprotein 95 mg/dL; Sodium Level 140 mmol/L (136-145); T4 Free Direct 1.32 ng/dL (0.76-1.46); Thyroid Stim Hormone (TSH) 1.45 uIU/mL (0.358-3.74); Triglycerides 69 mg/dL; Very Low Density Lipoprotein 14 mg/dL (5-40)
== END | disposition home or self-care (01) ==
PROVIDERS: PCP Family Medicine; Referring Provider Nurse Practitioner Adult Health; Visit Provider Nurse Practitioner Adult Health
DX: E03.8 Other specified hypothyroidism (principal); E78.2 Mixed hyperlipidemia; M81.0 Age-related osteoporosis without current pathological fracture
CPT/HCPCS: 36415; 80053; 80061; 84439; 84443

== ENCOUNTER → 2022-04-21 | Outpatient (CLI) | payer MEDICARE, SELFPAY ==
[2022-04-21 07:48] LABS: ALB/GLOB Ratio 1.5 RATIO (0.9-2.4); AST(SGOT) 18 U/L (15-37); Alanine Aminotransfer ALT/SGPT 27 U/L (13-56); Albumin, Serum 3.9 g/dL (3.2-5.0); Alkaline Phosphatase 46 U/L (45-117); Anion Gap 4 (5-15); BUN 21 mg/dL (7-18); BUN/Creat Ratio 18.4 RATIO (10-20); Calcium,Total 8.8 mg/dL (8.5-10.1); Chloride 109 mmol/L (98-107); Creatinine, Serum 1.14 mg/dL (0.55-1.02); EST Glomerular Filtration Rate 48 mL/min (>60); Est Glom Filt Rate - Afr Amer 58 mL/min (>60); Globulin 2.6 g/dL (2.2-4.2); Glucose 102 mg/dL (74-106); Potassium 3.9 mmol/L (3.5-5.1); Protein, Total 6.5 g/dL (6.4-8.2); Sodium Level 142 mmol/L (136-145)
== END | disposition home or self-care (01) ==
LOC: LAB 06:48
PROVIDERS: PCP Family Medicine; Referring Provider Nurse Practitioner Adult Health; Visit Provider Nurse Practitioner Adult Health
DX: M81.0 Age-related osteoporosis without current pathological fracture (principal)
CPT/HCPCS: 36415; 80053

== ENCOUNTER → 2022-05-27 | Outpatient (CLI) | payer MEDICARE, SELFPAY ==
[2022-05-27 09:35] LABS: BUN 17 mg/dL (7-18); Glucose 97 mg/dL (74-106)
[2022-05-27 09:36] LABS: ALB/GLOB Ratio 1.2 RATIO (0.9-2.4); AST(SGOT) 25 U/L (15-37); Alanine Aminotransfer ALT/SGPT 30 U/L (13-56); Albumin, Serum 3.6 g/dL (3.2-5.0); Alkaline Phosphatase 54 U/L (45-117); Anion Gap 7 (5-15); BUN/Creat Ratio 15.7 RATIO (10-20); Calcium,Total 9.3 mg/dL (8.5-10.1); Chloride 107 mmol/L (98-107); Creatinine, Serum 1.08 mg/dL (0.55-1.02); EST Glomerular Filtration Rate 51 mL/min (>60); Est Glom Filt Rate - Afr Amer 62 mL/min (>60); Globulin 3.1 g/dL (2.2-4.2); Potassium 3.5 mmol/L (3.5-5.1); Protein, Total 6.7 g/dL (6.4-8.2); Sodium Level 142 mmol/L (136-145)
== END | disposition home or self-care (01) ==
PROVIDERS: PCP Family Medicine; Referring Provider Nurse Practitioner Adult Health; Visit Provider Nurse Practitioner Adult Health
DX: M81.0 Age-related osteoporosis without current pathological fracture (principal)
CPT/HCPCS: 36415; 80053

== ENCOUNTER → 2022-06-20 | Outpatient (CLI) | payer MEDICARE, SELFPAY ==
--- NOTE | 2022-06-20 09:25 | RAD_ITS ---
INDICATION: GERD -- 12 MM TABLET EXAMINATION/TECHNIQUE: Barium thin and thick oral contrast , barium pill, and gas bubbles were administered to the patient. Total Fluoroscopic Time: 14 seconds AND number of Fluoroscopic Images: 11 COMPARISON: None. FINDINGS: No masses or strictures are identified. Small to moderate-sized hiatal hernia. The mucosal pattern is unremarkable. There is normal motility. Mild gastroesophageal reflux. RAD/Esophagus Dual Contrast IMPRESSION: Small to moderate size hiatal hernia with gastroesophageal reflux. Electronically Signed: Aditya Dang, at 10:29 EDT ,
== END | disposition home or self-care (01) ==
LOC: RAD 09:13
PROVIDERS: PCP Family Medicine; Visit Provider Internal Medicine Gastroenterology
DX: K44.9 Diaphragmatic hernia without obstruction or gangrene (principal); K21.9 Gastro-esophageal reflux disease without esophagitis
CPT/HCPCS: 74221

== ENCOUNTER → 2022-06-24 | Outpatient (CLI) | payer MEDICARE, SELFPAY ==
[2022-06-24 12:35] LABS: ALB/GLOB Ratio 1.1 RATIO (0.9-2.4); AST(SGOT) 21 U/L (15-37); Alanine Aminotransfer ALT/SGPT 33 U/L (13-56); Albumin, Serum 3.6 g/dL (3.2-5.0); Alkaline Phosphatase 57 U/L (45-117); Anion Gap 5 (5-15); BUN 15 mg/dL (7-18); BUN/Creat Ratio 13.3 RATIO (10-20); Calcium,Total 8.9 mg/dL (8.5-10.1); Chloride 107 mmol/L (98-107); Creatinine, Serum 1.13 mg/dL (0.55-1.02); EST Glomerular Filtration Rate 48 mL/min (>60); Est Glom Filt Rate - Afr Amer 59 mL/min (>60); Globulin 3.4 g/dL (2.2-4.2); Glucose 101 mg/dL (74-106); Potassium 4.2 mmol/L (3.5-5.1); Sodium Level 141 mmol/L (136-145)
== END | disposition home or self-care (01) ==
LOC: LAB 11:30
PROVIDERS: PCP Family Medicine; Referring Provider Internal Medicine Endocrinology, Diabetes & Metabolism; Visit Provider Internal Medicine Endocrinology, Diabetes & Metabolism
DX: E03.8 Other specified hypothyroidism (principal); M81.0 Age-related osteoporosis without current pathological fracture
CPT/HCPCS: 36415; 80053; 84443

== ENCOUNTER → 2022-08-25 | Outpatient (CLI) | payer MEDICARE, SELFPAY ==
[2022-08-25 11:26] LABS: Absolute Lymphocyte Count 2.38 X10^3/uL (0.83-4.51); Absolute Neutrophil Count 2.9 X10^3/uL (2.0-7.7); Basophil# 0.03 X10^3/uL; Basophil% 0.5 % (0-1); Eosinophil# 0.23 X10^3/uL; Eosinophils% 3.8 % (0-5); Hematocrit 45.6 % (37-47); Hemoglobin 15.5 g/dL (12.0-15.0); Lymphocyte # 2.38 X10^3/ul (0.83-4.51); Lymphocyte % 38.9 % (19-41); Mean Corpuscular Hgb 30.8 pg (27.0-32.0); Mean Corpuscular Volume 90.5 fL (81-99); Mean Platelet Vol. 11.8 fl (6.2-12.0); Monocyte# 0.59 X10^3/uL; Monocyte% 9.6 % (0-10); NRBC Flagged by Analyzer 0 % (0-5); Neutrophil # 2.88 X10^3/uL (2.7-7.7); Platelet Count 199 K/mm3 (150-450); RBC Distribution Width CV 13.2 % (11.6-14.6); RBC Distribution Width SD 43.6 fl (35.1-43.9); Red Blood Count 5.04 M/mm3 (4.2-5.4); White Blood Count 6.1 K/mm3 (4.4-11.0)
[2022-08-25 12:38] LABS: ALB/GLOB Ratio 1.1 RATIO (0.9-2.4); AST(SGOT) 23 U/L (15-37); Alanine Aminotransfer ALT/SGPT 32 U/L (13-56); Albumin, Serum 3.6 g/dL (3.2-5.0); Alkaline Phosphatase 54 U/L (45-117); Anion Gap 8 (5-15); BUN 15 mg/dL (7-18); BUN/Creat Ratio 12.7 RATIO (10-20); Bilirubin, Direct 0.31 mg/dL (0.00-0.30); Calcium,Total 8.9 mg/dL (8.5-10.1); Chloride 107 mmol/L (98-107); Cholesterol 140 mg/dL (200); Creatinine, Serum 1.18 mg/dL (0.55-1.02); EST Glomerular Filtration Rate 46 mL/min (>60); Est Glom Filt Rate - Afr Amer 56 mL/min (>60); Free T3 2.9 pg/mL (2.18-3.98); Globulin 3.2 g/dL (2.2-4.2); Glucose 99 mg/dL (74-106); High Density Lipoprotein 83 mg/dL; Protein, Total 6.8 g/dL (6.4-8.2); Sodium Level 142 mmol/L (136-145); Thyroid Stim Hormone (TSH) 1.42 uIU/mL (0.358-3.74); Triglycerides 70 mg/dL; Very Low Density Lipoprotein 14 mg/dL (5-40)
== END | disposition home or self-care (01) ==
LOC: LAB 09:54
PROVIDERS: Internal Medicine Cardiovascular Disease; PCP Family Medicine; Referring Provider Family Medicine; Visit Provider Family Medicine
DX: E03.9 Hypothyroidism, unspecified (principal); Z51.81 Encounter for therapeutic drug level monitoring
CPT/HCPCS: 80053; 80061; 82248; 84439; 84443; 84481; 85025

== ENCOUNTER → 2022-11-24 | Outpatient (CLI) | payer MEDICARE, SELFPAY ==
--- NOTE | 2022-11-24 13:14 | RAD_ITS ---
STUDY: X-RAY - PELVIS AND LEFT HIP REASON FOR EXAM: Female, 87 years old. Left hip pain. TECHNIQUE: 3 views of the pelvis and hip. COMPARISON: October 31, 2020. FINDINGS: There is a non-specific bowel gas pattern. Normal visualized soft tissue structures. Osteopenia. Lower lumbosacral laminectomies with posterior fusion at L4-5 with bone graft. Mild arthrosis of the sacroiliac joints. Normal bilateral superior and inferior pubic rami. Mild arthrosis of the symphysis pubis. Normal bilateral ischial tuberosities. Mild arthrosis of both hips unchanged from prior study. RAD/HIP, UNI W/ Pelvis 2-3 Views IMPRESSION: Stable pelvis and hips with no new finding. Mild arthrosis of both hips unchanged. Electronically Signed: Sly Child, at 14:28 EST ,
== END | disposition home or self-care (01) ==
PROVIDERS: PCP Family Medicine; Visit Provider Nurse Practitioner Family
DX: M25.552 Pain in left hip (principal)
CPT/HCPCS: 73502

== ENCOUNTER → 2023-01-26 | Outpatient (CLI) | payer MEDICARE, SELFPAY ==
[2023-01-26 11:17] LABS: Vitamin D,25 Hydroxy 57.6 ng/mL
[2023-01-26 11:31] LABS: ALB/GLOB Ratio 1.1 RATIO (0.9-2.4); AST(SGOT) 23 U/L (15-37); Alanine Aminotransfer ALT/SGPT 30 U/L (13-56); Albumin, Serum 3.7 g/dL (3.2-5.0); Alkaline Phosphatase 61 U/L (45-117); Anion Gap 6 (5-15); BUN 20 mg/dL (7-18); BUN/Creat Ratio 16.4 RATIO (10-20); Calcium,Total 9.1 mg/dL (8.5-10.1); Chloride 107 mmol/L (98-107); Creatinine, Serum 1.22 mg/dL (0.55-1.02); EST Glomerular Filtration Rate 44 mL/min (>60); Est Glom Filt Rate - Afr Amer 54 mL/min (>60); Globulin 3.3 g/dL (2.2-4.2); Glucose 111 mg/dL (74-106); Potassium 3.9 mmol/L (3.5-5.1); Sodium Level 142 mmol/L (136-145); Thyroid Stim Hormone (TSH) 1.56 uIU/mL (0.358-3.74)
== END | disposition home or self-care (01) ==
LOC: LAB 10:36
PROVIDERS: PCP Family Medicine; Referring Provider Internal Medicine Endocrinology, Diabetes & Metabolism; Visit Provider Internal Medicine Endocrinology, Diabetes & Metabolism
DX: M81.0 Age-related osteoporosis without current pathological fracture (principal); E03.9 Hypothyroidism, unspecified; E55.9 Vitamin D deficiency, unspecified
CPT/HCPCS: 36415; 80053; 82306; 84443

== ENCOUNTER → 2023-02-24 | Outpatient (CLI) | payer MEDICARE, SELFPAY ==
--- NOTE | 2023-02-24 10:24 | RAD_ITS ---
INDICATION: Left knee pain, no recent injury EXAMINATION/TECHNIQUE: X-RAY - LEFT XR Knee Complete 4 Views or More 4 VIEWS COMPARISON: None. FINDINGS: SOFT TISSUES: No soft tissue swelling or gas. Knee prosthesis without pathologic lucency. BONES/JOINTS: No acute fracture. Joint spaces anatomically aligned. No sclerotic or destructive changes observed. RAD/Knee 4 or More Views IMPRESSION: Status post left knee replacement. No acute abnormality. Electronically Signed: Tolu Bowman MD at 19:16 EDT ,
--- NOTE | 2023-02-24 10:24 | RAD_ITS ---
STUDY: X-RAY - RIGHT KNEE REASON FOR EXAM: Female, 87 years old. Bilateral knee pain right greater than left. Cracking sounds in both knees. Recent history. Knee replacement 6-7 years ago. TECHNIQUE: 4 view(s) of the knee. COMPARISON: March 24, 2018 FINDINGS: There is a total knee replacement. The prosthetic components are intact and articulate normally with each other. There is no evidence of loosening from the underlying bone. There is no evidence of osseous fracture or destructive osseous pathology. No joint effusion. The soft tissue structures are unremarkable. RAD/Knee 4 or More Views IMPRESSION: Right artificial knee without acute abnormality or major interval change. Electronically Signed: Santosh Valero DO at 17:02 EDT Reading Location ID and State: [id number] Tel [phone], Service support ,
== END | disposition home or self-care (01) ==
PROVIDERS: PCP Family Medicine; Referring Provider Family Medicine; Visit Provider Family Medicine
DX: M25.561 Pain in right knee (principal); M25.562 Pain in left knee
CPT/HCPCS: 73564

== ENCOUNTER → 2023-03-11 | Outpatient (CLI) | payer MEDICARE, SELFPAY ==
--- NOTE | 2023-03-11 10:21 | BI_ITS ---
MAMMOGRAPHY - BILATERAL SCREENING REASON FOR EXAM: Female, 87 years old. Routine annual screening examination. PERTINENT HISTORY: Aunt with breast cancer. History of prior left axillary rupali dissection. TECHNIQUE: Digital bilateral breast ludy (3D mammographic acquisition) in the CC and MLO projections. 2-D mediolateral oblique (MLO) and craniocaudad (CC) views of both breasts were obtained. CAD: Full Field Digital Mammography with Computer Added Detection was performed. COMPARISON: Comparison is made with prior study of March 10, 2022 and March 04, 2021. FINDINGS: Breast Composition: There are scattered areas of fibroglandular density. There are no dominant masses or suspicious calcifications. Surgical clips are once again seen in the left axillary region. No other significant abnormalities are identified. There has been no significant change since the prior study. BI/SCRN MAMM (CAD)W/LUDY BILAT IMPRESSION: Stable bilateral screening mammogram. Yearly follow-up mammogram recommended. (A) ASSESSMENT CATEGORY: BIRADS Category 2: Benign. A letter regarding these results will be sent to the patient by the facility within 30 days. Approximately 10% of breast cancers are not detected by mammography. A normal mammogram should not delay biopsy of a clinically suspicious abnormality. [id number] Electronically Signed: Garry Dalal MD at 11:24 EDT ,
== END | disposition home or self-care (01) ==
LOC: OPBI 10:20
PROVIDERS: PCP Family Medicine; Referring Provider Family Medicine; Visit Provider Family Medicine
DX: Z12.31 Encounter for screening mammogram for malignant neoplasm of breast (principal)
CPT/HCPCS: 77063; 77067

== ENCOUNTER → 2023-03-27 | Outpatient (CLI) | payer MEDICARE, SELFPAY ==
--- NOTE | 2023-03-27 16:15 | RAD_ITS ---
INDICATION: back pain EXAMINATION/TECHNIQUE: X-RAY - XR Spine Lumbar 2 or 3 Views COMPARISON: MRI 03/29/2019. X-ray 11/04/2016. FINDINGS: Mild lumbar levoscoliosis. Prior L3-L4 laminectomy and posterior fusion. No acute fracture. Vertebral body heights are well-maintained. L1-2: Marked disc space narrowing. 5 mm retrolisthesis is new compared to 2019. L2-3: Disc space narrowing. L3-4: Prior laminectomy with posterior instrumentation. L4-5: Disc space narrowing with vacuum phenomenon. Facet arthrosis. L5-S1: Disc space narrowing with vacuum phenomenon. INCLUDED ABDOMEN: Included bowel gas pattern is non-obstructive. RAD/Lumbar Spine 2 or 3 Views IMPRESSION: L1-2 retrolisthesis is new compared to 2019. Multilevel degenerative disc changes. Electronically Signed: Lina Montanez MD at 23:22 EDT Reading Location ID and State: [id number] / Tel , Service support ,
== END | disposition home or self-care (01) ==
PROVIDERS: PCP Family Medicine; Referring Provider Nurse Practitioner Acute Care; Visit Provider Nurse Practitioner Acute Care
DX: M46.96 Unspecified inflammatory spondylopathy, lumbar region (principal); M51.36 Other intervertebral disc degeneration, lumbar region; M51.37 Other intervertebral disc degeneration, lumbosacral region; M48.061 Spinal stenosis, lumbar region without neurogenic claudication; M53.3 Sacrococcygeal disorders, not elsewhere classified
CPT/HCPCS: 72100

== ENCOUNTER → 2023-04-04 | Outpatient (CLI) | payer MEDICARE, SELFPAY ==
--- NOTE | 2023-04-04 07:27 | MRI_ITS ---
MR lumbar spine routine protocol. Sagittal T2, T1, STIR, axial T1 and T2-weighted imaging. Comparison examination March 29, 2019. FINDINGS: This patient has pedicle screws identified at L3 and L4. Stable retrolisthesis is present at L1 on L2. Multilevel anterior osteophytosis is once again identified. Compared to prior study there is some signal posterior to the T12 vertebral body measuring 10 mm craniocaudal at the midline. Image 30 series 6. This appears new from prior study and could reflect disc extrusion. T12/L1: Mild broad-based disc bulge with ligamentum flavum and facet degenerative change. Central canal mildly narrowed. There is severe bilateral foraminal narrowing right greater than left. L1/L2: Focal right-sided paracentral disc protrusion. This has somewhat increased in conspicuity compared to prior study, and contributes to narrowing at the right lateral recess. There is a moderate broad-based bulge with foraminal components. Severe right and moderate left-sided neural foraminal narrowing identified. Similar appearance of spinal canal. L2/L3: Moderate broad-based bulge with ligamentum flavum and facet degenerative change. Slight increase in crowding of central nerve roots compared to prior study. Moderate central canal stenosis. Allowing for artifact there is probably severe bilateral foraminal narrowing. L3/L4: Postsurgical change. Mild to moderate bilateral foraminal narrowing. No significant disc bulge. L4/L5: Mild broad-based bulge. Bilateral facet disease. Moderate to severe bilateral foraminal narrowing. No significant central canal stenosis. L5/S1: Central disc protrusion. Bilateral facet disease. Moderate bilateral foraminal narrowing identified. Renal sinus cysts bilaterally. Paraspinal muscle signal intensity within normal limits. MRI/Spine Lumbar (Routine) IMPRESSION: Lumbar spine degenerative change as above with canal stenosis and foraminal narrowing. Findings suggesting possible central disc extrusion, partially imaged in the axial plane posterior to T12. Slight interval increase in size of discal pathology at L1/L2. Slight increase in central canal narrowing L2/L3. Electronically Signed: Chandu Soliz MD at 23:44 EDT ,
== END | disposition home or self-care (01) ==
LOC: MRI 07:13
PROVIDERS: PCP Family Medicine; Referring Provider Nurse Practitioner Acute Care; Visit Provider Nurse Practitioner Acute Care
DX: M46.96 Unspecified inflammatory spondylopathy, lumbar region (principal); M51.36 Other intervertebral disc degeneration, lumbar region; M51.37 Other intervertebral disc degeneration, lumbosacral region; M48.061 Spinal stenosis, lumbar region without neurogenic claudication; M53.3 Sacrococcygeal disorders, not elsewhere classified; M96.1 Postlaminectomy syndrome, not elsewhere classified; M54.16 Radiculopathy, lumbar region; M47.816 Spondylosis without myelopathy or radiculopathy, lumbar region; M47.817 Spondylosis without myelopathy or radiculopathy, lumbosacral region
CPT/HCPCS: 72148

== ENCOUNTER → 2023-05-20 | Outpatient (CLI) | payer MEDICARE, SELFPAY ==
--- NOTE | 2023-05-20 14:48 | VDLE_ITS ---
Reason For Study: Rule Out DVT RIGHT LEFT FV is compressible, spontaneous, phasic, GSV is normal. competent and demonstrates normal CFV is compressible, spontaneous, phasic, augmentation. competent, and demonstrates normal Procedure augmentation. This is a venous duplex using B-mode, color FV is compressible, spontaneous, phasic, flow and spectral Doppler. competent and demonstrates normal Exam performed in department. augmentation. The exam was diagnostic. POP V is compressible, spontaneous, phasic, A preliminary report was called and/or faxed competent and demonstrates normal to Katya Lara office. augmentation. T/P Trunk is compressible. PTV is compressible. LT PerV is compressible. VL/Venous Duplex US, Unilateral Interpretation Summary There is no evidence of left lower extremity deep vein thrombosis. Left great s aphenous vein appears patent and compressible segmentally. Normal flow patterns right femoral vein Ordering Physician: Katya Lara Referring Physician: Aaliyah De La Cruz Performed By: Bin Alberto RVT
== END | disposition home or self-care (01) ==
LOC: CVS 14:46
PROVIDERS: PCP Family Medicine; Referring Provider Nurse Practitioner Family; Visit Provider Nurse Practitioner Family
DX: M79.89 Other specified soft tissue disorders (principal); M79.662 Pain in left lower leg
CPT/HCPCS: 93971

== ENCOUNTER → 2023-06-29 | Outpatient (CLI) | payer MEDICARE, SELFPAY ==
[2023-06-29 14:59] LABS: AST(SGOT) 21 U/L (15-37); Alanine Aminotransfer ALT/SGPT 29 U/L (13-56); Albumin, Serum 3.7 g/dL (3.2-5.0); Alkaline Phosphatase 109 U/L (45-117); Anion Gap 5 (5-15); BUN 14 mg/dL (7-18); BUN/Creat Ratio 12.3 RATIO (10-20); Calcium,Total 9.5 mg/dL (8.5-10.1); Chloride 106 mmol/L (98-107); Creatinine, Serum 1.14 mg/dL (0.55-1.02); EST Glomerular Filtration Rate 48 mL/min (>60); Est Glom Filt Rate - Afr Amer 58 mL/min (>60); Globulin 3.6 g/dL (2.2-4.2); Glucose 104 mg/dL (74-106); Potassium 3.7 mmol/L (3.5-5.1); Protein, Total 7.3 g/dL (6.4-8.2); Sodium Level 139 mmol/L (136-145); Thyroid Stim Hormone (TSH) 0.95 uIU/mL (0.358-3.74)
[2023-06-29 20:55] LABS: Vitamin D,25 Hydroxy 82.4 ng/mL
[2023-06-30 08:45] LABS: PTHIN 25.1 pg/mL (18.4-80.1)
== END | disposition home or self-care (01) ==
LOC: LAB 13:55
PROVIDERS: PCP Family Medicine; Referring Provider Internal Medicine Endocrinology, Diabetes & Metabolism; Visit Provider Internal Medicine Endocrinology, Diabetes & Metabolism
DX: M81.0 Age-related osteoporosis without current pathological fracture (principal); E03.8 Other specified hypothyroidism; E55.9 Vitamin D deficiency, unspecified
CPT/HCPCS: 36415; 80053; 82306; 83970; 84443

== ENCOUNTER 2023-08-06 10:30 | Outpatient (RCR) | payer MEDICARE, SELFPAY ==
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
--- NOTE | 2023-08-06 11:15 | HP.PTDCSUM_ITS ---
Discharge Summary D/C summary: It has been my pleasure to treat VLADIMIR BARAJAS referred by XU TOLEDO, with the diagnosis of LUMBAR SPINAL STENOSIS S/P SX 06/04/23 for a total of 10 visit(s). Discharge Date: Please see the following information for a summary of their discharge status. Subjective Subjective: PATIENT REPORTS SHE IS ABLE TO LIFT HER LEGS BETTER. SHE STATES SHE CAN WALK BETTER AND DOESN' NEED TO USE A CANE OR A WALKER BUT SHE IS STILL cautious. FOLLOW UP PLANNED WITH SURGEON SEP 14 2023. PATIENT REPORTS SHE WOULD LIKE TO CONTINUE ON HER OWN AT THIS POINT AND WILL CALL IF SHE FEELS SHE NEEDS TO COME BACK. PATIENT REPORTS L SHLD PAIN THAT STARTED AFTER DOING BAND EX'S. SHE REPORTS IT DIDN'T HURT WHILE SHE WAS DOING THEM BUT DID LATER. SHE STATES IT IS GETTING BETTER. SHE REPORTS SHE WILL HAVE DR. LYMAN LOOK AT IT IF IT CONTINUES. Pain Bilateral Back: Pain Intensity (Out of 10): 4 L LE: Pain Intensity (Out of 10): 7 Overall Improvement % Improvement: 70 Objective Objective/Function: PATIENT WAS SEEN TODAY FOR RE-ASSESSMENT OF PROGRESS TOWARD THE SET PT GOALS AND THE NEED FOR FURTHER PHYSICAL THERAPY VS READINESS FOR DISCHARGE. PATIENT HAS MADE GOOD PROGRESS WITH PT AND AND IS INDEP WITH A HEP. SHE IS LIVING ALONE AND WOULD LIKE TO BE D/C'D. UPON EXAM TODAY: THIS PATIENT AMBULATES INDEP'LY INTO PT WITHOUT ANY AD'S, FAIR CADANCE AND NO LOB WEARING LUMBAR BACK BRACE AND CARRYING HER PURSE. SHE IS ABLE TO TRANSFER IN DEP'LY FROM SIT TO STAND AND REVERSE WITHOUT UE ASSIST. Sensory deficit: HYPERSENSATIVITY OF L LATERAL THIGH AND LEG WITH TESTING TODAY. ROM deficit: JOIE HIP FLEXOR, HS AND GASTROC SOLEUS COMPLEX TIGHTNESS L>R. Motor deficit: R HIP 4-/5, KNEE 4/5, ANKLE 5/5. L HIP 3+/5, KNEE EXT 3+/5, KNEE FLEX 4-/5, ANKLE 4/5. PATIENT IS EXPRESSING APPRECIATION AND STATES SHE IS VERY HAPPY WITH THE THERAPY SHE HAS BEEN GIVEN AND THE THERAPISTS. Goals Goal 1:: DECREASE C/O LOW BACK AND LLE SX'S. Goal 2:: IMPROVE PERSONAL CARE, LIFTING, WALKING, SITTING, STANDING, SLEEP, SOCIAL LIFE, TRAVEL AND HOMEMAKING FUNCTION. Goal 3:: INSTRUCT IN PROPHYLAXIS Plan Plan: D/C TO INDEP EX AT PATIENTS REQUEST D/C Information d/c sentence: If there are questions or concerns regarding this patient's physical therapy, please feel free to call me at [phone]. Thank you for the referral of this patient. Sincerely, Naty Boucher, PT, Cert MDT Balance/Gait/Functional tests Balance/Special Test Scores Oswestry Low Back Score: 18 TUG Test Time Seconds: 25.52 Tug Test: 20-30sec.=variable mobility 30 Second Chair Rise Test Seconds: 6 Improvement % Improvement: 70
--- NOTE | 2023-08-06 11:16 | HP.PTDCSUM_ITS ---
Discharge Summary D/C summary: It has been my pleasure to treat VLADIMIR BARAJAS referred by XU TOLEDO, with the diagnosis of LUMBAR SPINAL STENOSIS S/P SX 06/04/23 for a total of 10 visit(s). Discharge Date: Please see the following information for a summary of their discharge status. Subjective Subjective: PATIENT REPORTS SHE IS ABLE TO LIFT HER LEGS BETTER. SHE STATES SHE CAN WALK BETTER AND DOESN' NEED TO USE A CANE OR A WALKER BUT SHE IS STILL cautious. FOLLOW UP PLANNED WITH SURGEON SEP 14 2023. PATIENT REPORTS SHE WOULD LIKE TO CONTINUE ON HER OWN AT THIS POINT AND WILL CALL IF SHE FEELS SHE NEEDS TO COME BACK. PATIENT REPORTS L SHLD PAIN THAT STARTED AFTER DOING BAND EX'S. SHE REPORTS IT DIDN'T HURT WHILE SHE WAS DOING THEM BUT DID LATER. SHE STATES IT IS GETTING BETTER. SHE REPORTS SHE WILL HAVE DR. LYMAN LOOK AT IT IF IT CONTINUES. Pain Bilateral Back: Pain Intensity (Out of 10): 4 L LE: Pain Intensity (Out of 10): 7 Overall Improvement % Improvement: 70 Objective Objective/Function: PATIENT WAS SEEN TODAY FOR RE-ASSESSMENT OF PROGRESS TOWARD THE SET PT GOALS AND THE NEED FOR FURTHER PHYSICAL THERAPY VS READINESS FOR DISCHARGE. PATIENT HAS MADE GOOD PROGRESS WITH PT AND AND IS INDEP WITH A HEP. SHE IS LIVING ALONE AND WOULD LIKE TO BE D/C'D. UPON EXAM TODAY: THIS PATIENT AMBULATES INDEP'LY INTO PT WITHOUT ANY AD'S, FAIR CADANCE AND NO LOB WEARING LUMBAR BACK BRACE AND CARRYING HER PURSE. SHE IS ABLE TO TRANSFER IN DEP'LY FROM SIT TO STAND AND REVERSE WITHOUT UE ASSIST. Sensory deficit: HYPERSENSATIVITY OF L LATERAL THIGH AND LEG WITH TESTING TODAY. ROM deficit: JOIE HIP FLEXOR, HS AND GASTROC SOLEUS COMPLEX TIGHTNESS L>R. Motor deficit: R HIP 4-/5, KNEE 4/5, ANKLE 5/5. L HIP 3+/5, KNEE EXT 3+/5, KNEE FLEX 4-/5, ANKLE 4/5. PATIENT IS EXPRESSING APPRECIATION AND STATES SHE IS VERY HAPPY WITH THE THERAPY SHE HAS BEEN GIVEN AND THE THERAPISTS. Goals Goal 1:: DECREASE C/O LOW BACK AND LLE SX'S. Goal Progress: Goal Met Goal 2:: IMPROVE PERSONAL CARE, LIFTING, WALKING, SITTING, STANDING, SLEEP, SOCIAL LIFE, TRAVEL AND HOMEMAKING FUNCTION. Goal Progress: Goal Met Goal 3:: INSTRUCT IN PROPHYLAXIS Goal Progress: Goal Met Plan Plan: D/C TO INDEP EX AT PATIENTS REQUEST D/C Information d/c sentence: If there are questions or concerns regarding this patient's physical therapy, please feel free to call me at [phone]. Thank you for the referral of this patient. Sincerely, Naty Bouhcer, PT, Cert MDT Balance/Gait/Functional tests Balance/Special Test Scores Oswestry Low Back Score: 18 TUG Test Time Seconds: 25.52 Tug Test: 20-30sec.=variable mobility 30 Second Chair Rise Test Seconds: 6 Improvement % Improvement: 70
== END 2023-08-06 19:00 | disposition home or self-care (01) ==
LOC: PT 10:30
PROVIDERS: PCP Family Medicine
DX: M48.061 Spinal stenosis, lumbar region without neurogenic claudication (principal)
CPT/HCPCS: 97110; 97162; 97164

== ENCOUNTER 2023-10-05 14:13 | Observation (INO) | payer MEDICARE, SELFPAY ==
[2023-10-05 14:16] VITALS: BP 162/83; PULSE 78; RESP 18; TEMP 36.2; O2SAT 99
[2023-10-05 15:06] VITALS: O2SAT 97
--- NOTE | 2023-10-05 15:10 | RAD_ITS ---
INDICATION: trauma EXAMINATION/TECHNIQUE: X-RAY - LEFT XR Wrist Min 3 Views 3 VIEWS COMPARISON: FINDINGS: No acute fracture or dislocation. No destructive bone changes. Osteoarthrosis of the scaphoid-trapezium and trapezium-first metacarpal joints with joint space narrowing and sclerosis. Mild spurring of the first CMC joint. Joint spaces are otherwise maintained. Normal alignment. Soft tissues are unremarkable. No radiopaque foreign body or soft tissue gas. RAD/Wrist min 3 Views IMPRESSION: No acute findings. Osteoarthrosis of the lateral wrist. Electronically Signed: Lina Montanez MD at 16:08 EST Reading Location ID and State: [id number] / Tel , Service support ,
--- NOTE | 2023-10-05 15:10 | RAD_ITS ---
INDICATION: trauma EXAMINATION/TECHNIQUE: X-RAY - XR Hip Unilateral with Pelvis when performed; 2-3 Views COMPARISON: FINDINGS: Question nondisplaced fracture of the left superior pubic ramus/medial acetabulum and left inferior pubic ramus near the symphysis. No destructive bone changes. Joint spaces are otherwise maintained. Normal alignment. Soft tissues are unremarkable. Prior lumbar laminectomy with posterior instrumentation. RAD/HIP, UNI W/ Pelvis 2-3 Views IMPRESSION: Suspected nondisplaced left pubic rami fractures. Electronically Signed: Lina Montanez MD at 16:16 EST Reading Location ID and State: [id number] / Tel , Service support ,
--- NOTE | 2023-10-05 15:11 | EDS_ITS ---
HPI HPI - Fall History of Present Illness Chief Complaint: Fall Informant: patient and family Occured/Mechanism Occurred: Today Mechanism/Context: Yes same level fall and Yes trip Usually ambulates: Walker Pain/Injury Pain Location: pelvis, upper extremity and lower extremity Quality of Pain: Sharp Current Severity: Mild Maximum Severity: Mild Associated Symptoms Associated Symptoms: Negative for Parasthesias, Weakness, Loss of function, Inability to ambulate, Loss of consciousness or Amnesia Narrative Narrative: 87-year-old female was in the radiology department having an x-ray on her left ankle due to recent falls and injury. She left was walking out in the parking lot to get to her car she went to change from her cane to a walker lost her balance and fell injuring her left wrist, left hip and left ankle. Did not hit her head. No LOC. Prior similar symptoms: Yes Recent Illness/Hospitalization: No PFSH PFSH Medical History COVID-19 (11/27/21) Essential (primary) hypertension Hyperlipidemia IBS (irritable bowel syndrome) Palpitation Parathyroid adenoma Septic shock Ureteral calculus, left Ureteral reflux Home Medications aspirin 81 mg chewable tablet 81 mg PO QHS blood thinner 08/28/16 [History Last Taken Unknown] flaxseed oil 1,000 mg capsule 1,400 mg PO QDAY supplement 06/25/18 [History Last Taken 10/05/18 08:00] magnesium oxide 400 mg (241.3 mg magnesium) tablet 400 mg PO QDAY supplement 06/25/18 [History Last Taken 10/05/18 08:00] pravastatin 20 mg tablet 20 mg PO QHS cholesterol 06/25/18 [History Last Taken 10/04/18 22:00] cholecalciferol (vitamin D3) 25 mcg (1,000 unit) capsule 1,000 unit PO BID suplement 10/05/18 [History Last Taken 10/05/18 08:00] cyanocobalamin (vitamin B-12) 500 mcg tablet 1,000 mcg PO DAILY@0800 supplement 10/05/18 [History Last Taken 10/05/18 08:00] acetaminophen 325 mg tablet 650 mg (2 x 325 mg) PO Q6H PRN PRN Fever > 100.4 10/09/18 [Rx Last Taken Unknown] naproxen sodium 220 mg capsule (Aleve) 220 mg PO BID PRN Pain Or Fever 06/28/19 [History Last Taken Unknown] tramadol 100 mg tablet 50 mg PO PRN PRN Pain Or Fever 03/09/20 [History Last Taken Unknown] amlodipine 2.5 mg tablet 2.5 mg PO DAILY #90 tabs 01/08/23 [Rx Last Taken Unknown] spironolactone 25 mg tablet 25 mg PO DAILY #90 tabs 03/09/23 [Rx Last Taken Unknown] calcium citrate 200 mg calcium-vitamin D3 6.25 mcg (250 unit) tablet 1 tab PO BID supplement 05/29/23 [History Last Taken Unknown] glucosamine 750 ix-[id number]-kdi no1 644 mg-C 30 mg-hue 1 mg tablet 1 tab PO BID 05/29/23 [History Last Taken Unknown] levothyroxine 50 mcg tablet 50 mcg PO DAILY thyroid 05/29/23 [History Last Taken Unknown] metoprolol succinate 50 mg tablet,extended release 24 hr 50 mg PO DAILY 05/29/23 [History Last Taken Unknown] omega-3 fatty acids 1,000 mg capsule (Fish Oil Concentrate) 1,000 mg PO BID supplement 05/29/23 [History Last Taken Unknown] lansoprazole 30 mg capsule,delayed release (Prevacid) 30 mg PO DAILY 10/05/23 [History Last Taken Unknown] Allergy/AdvReac Type Severity Reaction Status Date / Time codeine Allergy Rash Verified 10/05/23 14:15 hydrocodone bitartrate AdvReac Nausea Verified 10/05/23 14:15 [From Vicodin] meperidine HCl [From Demerol] AdvReac Nausea Verified 10/05/23 14:15 morphine AdvReac Vomiting Verified 10/05/23 14:15 oxycodone HCl [From Percocet] AdvReac Nausea Verified 10/05/23 14:15 Family History Father Heart disease Aunt Heart disease Grandfather Heart disease Grandmother Heart disease Mother Cancer Surgical History History of appendectomy History of back surgery History of bilateral knee replacement History of ERCP History of hysterectomy History of lithotripsy (10/2018) History of partial thyroidectomy History of tonsillectomy and adenoidectomy Hx of cholecystectomy Social History Smoking Status: Never smoker alcohol intake: current alcohol intake frequency: holidays/special occasions only Alcohol type: beer and wine ROS ROS ED ROS Narrative Denies recent illness. Review of Systems ROS Unobtainable: Denies due to encephalopathy Constitutional Constitutional ED: Denies chills or fever(s) Eyes Eyes: Denies blurry vision ENT ENT ED: Denies ear pain Cardiovascular Cardiovascular: Denies chest pain or palpitations Respiratory/Chest Respiratory/Chest: Denies cough, dyspnea or dyspnea on exertion Gastrointestinal Gastrointestinal: Denies abdominal pain, constipation, diarrhea or melena Genitourinary Genitourinary ED: Denies dysuria or hematuria Musculoskeletal Musculoskeletal: Denies arthralgias, back pain, myalgias or neck pain Integumentary Denies abscess or Abrasions Neurologic Neurologic: Denies headache(s) Psychiatric Psychiatric: Denies anxiety or depression Endocrine Endocrinology: Denies polydipsia or polyphagia Hematologic/Lymphatic Hematologic/Lymphatic: Denies easy bleeding Allergic/Immunologic Allergic/Immunologic ED: Denies mouth swelling, tongue swelling or urticaria EXAM Physical Exam Narrative Exam Narrative: 87-year-old female vital signs are stable afebrile. No acute distress. Sitting upright in bed. Daughter at bedside. H EENT exam unremarkable. Atraumatic. Pupils round reactive light. Nontender. Neck nontender. Back and spine nontender. Well-healed prior surgical incision. Lungs clear to auscultation. Heart regular rhythm no murmur rate about 80. Chest wall and ribs nontender. Abdomen soft nontender. Extremities right upper and right lower extremity nontender full range of motion no deformity. Left shoulder is normal range of motion nontender. Left elbow has full flexion extension nontender. Left wrist on the distal radius she has tenderness. Minimal swelling. Flexion extension intact. 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 She also has mild tenderness left hip. Normal r haley of motion. Normal flexion extension of left knee. Tenderness and swelling left lateral malleolus. Dorsi plantarflexion intact. Neurologically she is awake and alert with no focal motor deficits. Const Vital Signs: 10/05/23 14:16 10/05/23 15:06 Temperature 97.2 F L Temperature Source Temporal Pulse Rate 78 Respiratory Rate 18 Respiratory Effort Normal Non-Labored Respiratory Depth Normal Respiratory Pattern Normal Blood Pressure 162/83 H Blood Pressure Mean 109 Pulse Ox 99 97 Oxygen Delivery Method Room Air Room Air Positive well nourished and well developed; Negative for obese, cachectic, contractures or unkempt General Appearance ED: well developed and NAD; Negative for unkempt, cachectic or contractures Nutritional Appearance: Negative for cachectic or obese HEENT Reports normocephalic atraumatic; Negative for trauma, contusion, hematoma or tenderness Eyes PERRL and EOMs intact bilaterally General Eye ED: Negative for pale conjunctiva or scleral icterus Neck full ROM, no lymphadenopathy and supple General: Negative for tenderness Chest Wall inspection of chest normal and palpation of chest normal Resp normal respiratory effort, no retractions and clear to auscultation bilaterally Auscultation: Negative for rales, rhonchi or wheezes Cardio regular rate, regular rhythm, S1 normal heart sound, S2 normal heart sound and no murmurs Rate: Negative for bradycardia or tachycardic Rhythm: Negative for abnormal rhythm Bruits: Negative for other GI non-tender, non-distended and no masses Inspection: Negative for abdominal distention Auscultation: normoactive bowel sounds Palpation: soft; Negative for guarding or rebound tenderness present Back/Spine no CVA tenderness General Back: CVA tenderness; Negative for erythema, ecchymosis, swelling or tenderness Cervical Spine: Negative for cervical spine tenderness Lumbar Spine / Lower Back: Negative for lumbar spinal tenderness Extremity Extremity Narrative: Tender left wrist. Normal range of motion. Full range of motion left elbow and left shoulder. Right upper and lower extremity unremarkable. Tender left hip. No shortening or rotation normal range of motion. Tender left lateral ankle. Normal dorsi plantarflexion. Mild swelling. Neuro oriented x3, CN's II-XII intact bilaterally, moves all extremities and no focal motor deficits [place] Coma Scale: document GCS findings Spontaneous Obeys Commands Oriented 15 Sensorium / Orientation: alert, oriented to person, oriented to place and oriented to time; Negative for orientation impaired, confused, lethargic or stuporous Motor Exam: strength 5/5 throughout Psych mental status grossly normal and thought process normal Appearance: Negative for unkempt Attitude: No agitated Mood & Affect: Negative for depressed, anxious or tearful Skin General Skin Exam: Negative for other Lesions: no lesions Rashes: no rashes Trauma: Negative for abrasion or laceration MDM MDM MDM Narrative Medical decision making narrative: 87-year-old female tripped and fell injuring her left wrist, hip and ankle. X- rays being obtained. She did not want a thing at this time for pain. Repeat exam patient is doing well at 4:45 PM. I went over her initial x-rays with her and her daughter they understand that she is getting get a CAT scan of her pelvis. CAT scan shows a left inferior pubic rami fracture. Repeat exam at 7:55 PM I informed patient and her daughter she does have a pubic ramus fracture. I try to stand her she had pain and difficulty ambulating she is already fallen twice in the last week. She will be admitted for falls and physical therapy. I have the hospitalist on page. History & Record Review Discussion w/independent historian: Patient and Family Additional record(s) reviewed:: Prior inpatient record, Prior outpatient record, Prior ED visit, Prior labs and No prior records Lab Data Attestation: I reviewed the patient's lab results. Lab results narrative: CBC shows a white count 11.6. H&H of 15 and 48. Platelets are unremarkable. BMP unremarkable. Normal gap of 5. Normal BUN and creatinine. Radiography Diagnostic Testing: Clinical Impression(s) from Imaging Studies Hip/Pelvis X-Ray 10/05/23 15:10 IMPRESSION: Suspected nondisplaced left pubic rami fractures. Electronically Signed: Lina Montanez MD at 16:16 EST Reading Location ID and State: [place] MD Tel , Service support , Wrist X-Ray 10/05/23 15:10 IMPRESSION: No acute findings. Osteoarthrosis of the lateral wrist. Electronically Signed: Lina Montanez MD at 16:08 EST Reading Location ID and State: [place] Ar[place] MD Tel , Service support , Ankle X-Ray 10/05/23 15:32 IMPRESSION: Negative. Electronically Signed: Lina Montanez MD at 16:09 EST Reading Location ID and State: [place] / Tel , Service support , Pelvis CT 10/05/23 16:50 IMPRESSION: Acute, nondisplaced fracture of the left inferior pubic ramus. Electronically Signed: Lina Montanez MD at 18:18 EST Reading Location ID and State: [place] Ar[place] MD Tel , Service support , Left wrist x-ray, 3 views, interpreted both myself and the radiologist shows no acute fracture. Chronic arthritic changes. Left hip x-ray and pelvis shows possible left pubic rami fractures or a fracture. CAT scan going to be obtained. The left hip otherwise looks unremarkable. 3 views interpreted by myself and the radiologist. Left ankle x-ray, 3 views interpreted by myself and the radiologist shows no acute fracture. Arthritic changes. Discharge Plan Dx/Rx/DC Orders Clinical Impression: Closed fracture of left inferior pubic ramus, History of back surgery, Difficulty in walking, Falls Disposition Disposition: Acute Care [facility] Discharge Date/Time: 10/05/23 21:36
--- NOTE | 2023-10-05 15:32 | RAD_ITS ---
INDICATION: trauma. ATTN ISCHIUM EXAMINATION/TECHNIQUE: X-RAY - LEFT XR Ankle Min 3 Views 3 VIEWS COMPARISON: FINDINGS: No acute fracture or dislocation. No destructive bone changes. Joint spaces are well-maintained. Normal alignment. Soft tissues are unremarkable. No radiopaque foreign body or soft tissue gas. RAD/Ankle min 3 Views IMPRESSION: Negative. Electronically Signed: Lina Montanez MD at 16:09 EST Reading Location ID and State: [id number] / Tel , Service support ,
--- NOTE | 2023-10-05 16:50 | CT_ITS ---
EXAM: CT PELVIS WITHOUT INTRAVENOUS CONTRAST CLINICAL INDICATION: left pubic rami fractures s/p fall TECHNIQUE: Helically acquired images were obtained of the pelvis without intravenous contrast. This CT exam was performed using one or more of the following dose reduction techniques: automated exposure control, adjustment of the mA and/or kV according to patient size, and/or use of iterative reconstruction technique. COMPARISON: X-ray hip 10/05/2023. FINDINGS: BOWEL: Unremarkable as visualized. No bowel distention. No focal inflammatory change. APPENDIX: No evidence of acute appendicitis. INTRAPERITONEAL SPACE: Unremarkable. No ascites or other fluid collection. No free air. BLADDER: Unremarkable. REPRODUCTIVE: Unremarkable as visualized. No mass. BONES/JOINTS: Acute, nondisplaced fracture of the left inferior pubic ramus. No demonstrated superior ramus or acetabular fracture. No suspicious lytic or blastic abnormality. No sacral fracture. Prior lumbar laminectomy with posterior instrumentation. Degenerative changes of the lower lumbar spine. SOFT TISSUES: Unremarkable. No pelvic wall hernia. LYMPH NODES: Unremarkable. No enlarged lymph nodes. CT/Pelvis without IV Contrast IMPRESSION: Acute, nondisplaced fracture of the left inferior pubic ramus. Electronically Signed: Lina Montanez MD at 18:18 EST Reading Location ID and State: [id number] / Tel , Service support ,
--- NOTE | 2023-10-05 20:42 | PCM.HP.STD ---
HPI - General General Date of Admission: 10/05/23 Date of Service: 10/05/23 Chief Complaint: Fall HPI Narrative VLADIMIR BARAJAS, is a 87 F who presents with a fall. Patient had fallen while back and had an outpatient ankle x-ray scheduled for today. She went to that and as she was getting back into her car, she fell. Patient was sent to the emergency room and underwent imaging, including wrist and ankle x-rays that were unremarkable but pelvis CT showed nondisplaced inferior pubic rami fracture. Patient was unable to get up. When she stands up, she states that she cannot move forward. The hospital service was then contacted to bring patient in for further evaluation. [facility] Medical History COVID-19 (11/27/21) Essential (primary) hypertension Hyperlipidemia IBS (irritable bowel syndrome) Palpitation Parathyroid adenoma Septic shock Ureteral calculus, left Ureteral reflux Home Medications fluticasone propionate 50 mcg/actuation nasal spray,suspension 1 spray NARES DAILY PRN Allergies 12/29/14 [History Last Taken 10/05/18 08:00] aspirin 81 mg chewable tablet 81 mg PO QHS blood thinner 08/28/16 [History Last Taken Unknown] flaxseed oil 1,000 mg capsule 1,400 mg PO QDAY supplement 06/25/18 [History Last Taken 10/05/18 08:00] magnesium oxide 400 mg (241.3 mg magnesium) tablet 400 mg PO QDAY supplement 06/25/18 [History Last Taken 10/05/18 08:00] pravastatin 20 mg tablet 20 mg PO QHS cholesterol 06/25/18 [History Last Taken 10/04/18 22:00] cholecalciferol (vitamin D3) 25 mcg (1,000 unit) capsule 1,000 unit PO BID suplement 10/05/18 [History Last Taken 10/05/18 08:00] cyanocobalamin (vitamin B-12) 500 mcg tablet 1,000 mcg PO DAILY@0800 supplement 10/05/18 [History Last Taken 10/05/18 08:00] acetaminophen 325 mg tablet 650 mg (2 x 325 mg) PO Q6H PRN PRN Fever > 100.4 10/09/18 [Rx Last Taken Unknown] naproxen sodium 220 mg capsule (Aleve) 220 mg PO BID PRN Pain Or Fever 06/28/19 [History Last Taken Unknown] tramadol 100 mg tablet 50 mg PO PRN PRN Pain Or Fever 03/09/20 [History Last Taken Unknown] lansoprazole 30 mg capsule,delayed release 30 mg PO DAILY gerd 03/29/20 [History Last Taken Unknown] amlodipine 2.5 mg tablet 2.5 mg PO DAILY #90 tabs 01/08/23 [Rx Last Taken Unknown] spironolactone 25 mg tablet 25 mg PO DAILY #90 tabs 03/09/23 [Rx Last Taken Unknown] calcium citrate 200 mg calcium-vitamin D3 6.25 mcg (250 unit) tablet 1 tab PO BID supplement 05/29/23 [History Last Taken Unknown] glucosamine 750 hj-vcealyobvgq-zbt no1 644 mg-C 30 mg-hue 1 mg tablet 1 tab PO BID 05/29/23 [History Last Taken Unknown] levothyroxine 50 mcg tablet 50 mcg PO DAILY thyroid 05/29/23 [History Last Taken Unknown] metoprolol succinate 50 mg tablet,extended release 24 hr 50 mg PO DAILY 05/29/23 [History Last Taken Unknown] omega-3 fatty acids 1,000 mg capsule (Fish Oil Concentrate) 1,000 mg PO DAILY supplement 05/29/23 [History Last Taken Unknown] vitamins A,C,Y-jpkj-zjyimv 4,296 mcg-226 mg-90 mg capsule 2 cap PO DAILY 05/29/23 [History Last Taken Unknown] Allergy/AdvReac Type Severity Reaction Status Date / Time codeine Allergy Rash Verified 10/05/23 14:15 hydrocodone bitartrate AdvReac Nausea Verified 10/05/23 14:15 [From Vicodin] meperidine HCl [From Demerol] AdvReac Nausea Verified 10/05/23 14:15 morphine AdvReac Vomiting Verified 10/05/23 14:15 oxycodone HCl [From Percocet] AdvReac Nausea Verified 10/05/23 14:15 Family History Father Heart disease Aunt Heart disease Grandfather Heart disease Grandmother Heart disease Mother Cancer Surgical History History of appendectomy History of back surgery History of bilateral knee replacement History of ERCP History of hysterectomy History of lithotripsy (10/2018) History of partial thyroidectomy History of tonsillectomy and adenoidectomy Hx of cholecystectomy Social History Smoking Status: Never smoker alcohol intake: current alcohol intake frequency: holidays/special occasions only Alcohol type: beer and wine ROS ROS Narrative She stated that when she had rolled her ankle previously, there was actual bruising on the lateral aspect of her left foot. That is since resolved. All review of systems were negative except as mentioned above in the history of present illness and the other review of systems. Vital Signs Vital Signs Vital Signs: 10/05/23 14:16 10/05/23 15:06 Temperature 36.2 C L Temperature Source Temporal Pulse Rate 78 Respiratory Rate 18 Respiratory Effort Normal Non-Labored Respiratory Depth Normal Respiratory Pattern Normal Blood Pressure 162/83 H Blood Pressure Mean 109 Pulse Ox 99 97 Oxygen Delivery Method Room Air Room Air Physical Exam Const no apparent distress HEENT normocephalic Resp normal respiratory effort, no retractions, no use of accessory muscles and clear to auscultation bilaterally Cardio regular rate, regular rhythm, S1 normal heart sound and S2 normal heart sound GI normal to inspection, nondistended, normoactive bowel sounds, soft to palpation, non-tender and non-distended Extremity Extremity Narrative: More pronounced edema around the right ankle as compared to the left. No visible bruising noted on the left foot or ankle. Results Lab / Micro Data Attestation: I reviewed the patient's lab results. Imagaing Radiology Impression Hip/Pelvis X-Ray 10/05/23 15:10 IMPRESSION: Suspected nondisplaced left pubic rami fractures. Electronically Signed: Lina Montanez MD at 16:16 EST Reading Location ID and State: [place] Arbol[place] MD Tel , Service support , Wrist X-Ray 10/05/23 15:10 IMPRESSION: No acute findings. Osteoarthrosis of the lateral wrist. Electronically Signed: Lina Montanez MD at 16:08 EST Reading Location ID and State: [place] Arbol[place] MD Tel , Service support , Ankle X-Ray 10/05/23 15:32 IMPRESSION: Negative. Electronically Signed: Lina Montanez MD at 16:09 EST Reading Location ID and State: [place] / Tel , Service support , Pelvis CT 10/05/23 16:50 IMPRESSION: Acute, nondisplaced fracture of the left inferior pubic ramus. Electronically Signed: Lina Montanez MD at 18:18 EST Reading Location ID and State: [place] Arboleda MD Tel , Service support , Assessment & Plan Assessment/Plan (1) Difficulty in walking: PLAN: Plan Debility: Patient has had back surgery back in May performed by Dr. Murillo at the [facility]. Patient had been seeing therapy and was released from their services patient had progressed. Patient had a mechanical fall at [facility] and then sounds like she sprained her ankle and is been just slow to recover from that ankle. She fell today and sustained an inferior pubic rami fracture that is nondisplaced. She and her daughter explained that this is nonoperative. Patient unable to get up so patient be brought in to be evaluated for additional therapy services. Patient will have physical and Occupational Therapy. Case management to assist on disposition if it is determined that the patient would benefit from going to a halfway facility. VTE prophylaxis: Low risk given her observation status. Charges/Coding Visit Charges Inpatient E&M: 15394 Init Hosp L2
[2023-10-05 20:48] VITALS: BP 138/77; PULSE 55; RESP 18; O2SAT 97
[2023-10-05 20:48] LABS: Absolute Lymphocyte Count 2.59 X10^3/uL (0.83-4.51); Absolute Neutrophil Count 7.7 X10^3/uL (2.0-7.7); Basophil# 0.06 X10^3/uL; Basophil% 0.5 % (0-1); Eosinophil# 0.13 X10^3/uL; Eosinophils% 1.1 % (0-5); Hematocrit 48.3 % (37-47); Hemoglobin 15.9 g/dL (12.0-15.0); Lymphocyte # 2.59 X10^3/ul (0.83-4.51); Lymphocyte % 22.3 % (19-41); Mean Corp Hgb Conc 32.9 g/dL (32-36); Mean Corpuscular Hgb 28.9 pg (27.0-32.0); Mean Corpuscular Volume 87.7 fL (81-99); Mean Platelet Vol. 11.5 fl (6.2-12.0); Monocyte% 9.5 % (0-10); NRBC Flagged by Analyzer 0 % (0-5); Neutrophil # 7.69 X10^3/uL (2.7-7.7); Platelet Count 201 K/mm3 (150-450); RBC Distribution Width CV 14.2 % (11.6-14.6); RBC Distribution Width SD 45.9 fl (35.1-43.9); Red Blood Count 5.51 M/mm3 (4.2-5.4); White Blood Count 11.6 K/mm3 (4.4-11.0)
[2023-10-05 20:49] VITALS: BP 138/77; PULSE 55; RESP 18; TEMP 36.1; O2SAT 97
[2023-10-05 21:10] LABS: Anion Gap 5 (5-15); BUN 18 mg/dL (7-18); BUN/Creat Ratio 18.1 RATIO (10-20); Calcium,Total 8.9 mg/dL (8.5-10.1); Chloride 110 mmol/L (98-107); Creatinine, Serum 0.99 mg/dL (0.55-1.02); EST Glomerular Filtration Rate 56 mL/min (>60); Est Glom Filt Rate - Afr Amer 68 mL/min (>60); Glucose 108 mg/dL (74-106); Potassium 3.9 mmol/L (3.5-5.1); Sodium Level 143 mmol/L (136-145)
[2023-10-05 22:19] VITALS: BMI 26.4
[2023-10-05 22:42] VITALS: BP 127/64; PULSE 79; RESP 18; TEMP 36.8; O2SAT 94
[2023-10-05] MEDS: Aspirin 81 MG TAB.CHEW PO (22:56)
[2023-10-05] MEDS: Pravastatin 20 MG Tablet PO (22:56)
[2023-10-05] MEDS: Cholecalciferol (VIT D3) 25 MCG TABLET (1,000 UNITS) PO (22:56)
[2023-10-05] MEDS: Magnesium Chloride 64 MG Delay Rel.Tablet 128 MG PO (22:56)
[2023-10-05] MEDS: Acetaminophen 325 MG Tablet 650 MG PO (23:00)
[2023-10-05] MEDS: traMADol 50 MG Tablet PO (23:00)
[2023-10-06 04:45] VITALS: BP 100/63; PULSE 73; RESP 16; TEMP 36.7; O2SAT 92
[2023-10-06] MEDS: traMADol 50 MG Tablet PO (06:32)
[2023-10-06] MEDS: Levothyroxine 50 MCG Tablet PO (06:32)
[2023-10-06 08:50] VITALS: BP 113/70; PULSE 67; RESP 16; TEMP 36.8; O2SAT 95
--- NOTE | 2023-10-06 09:18 | CASEMGMT ---
Discharge Planning A list of?SNF providers including quality and resource use data and consistent with the patient's preferred geographic region, medical needs, and insurance network was created in [employer] Guide.? This list was provided to the SW. Billie Tiwari Discharge Planning Asst.
--- NOTE | 2023-10-06 10:24 | PN_ITS ---
Subjective Subjective Patient seen and examined. She was admitted with a complaint of mechanical fall. She denies any fever, chills, palpitations, dizziness, nausea, vomiting or any other symptoms. Her daughter was by her bedside. review of systems is otherwise negative. Objective Data Objective Data Vital Signs: Vital Signs Temp Pulse Resp BP Pulse Ox O2 Del Method 98.3 F 67 16 113/70 95 Room Air 10/06/23 08:50 10/06/23 08:50 10/06/23 08:50 10/06/23 08:50 10/06/23 08:50 10/06/23 08:50 Oxygen Delivery Method Room Air Weight: 143 lb 8.335 oz Body Mass Index (BMI) 26.4 Lab / Micro Data 10/05/23 20:42 10/05/23 20:42 Labs: Laboratory Results - last 24 hr 10/05/23 20:42: WBC 11.6 H, RBC 5.51 H, Hgb 15.9 H, Hct 48.3 H, MCV 87.7, MCH 28.9, MCHC 32.9, RDW Std Deviation 45.9 H, RDW Coeff of Jaiden 14.2, Plt Count 201, MPV 11.5, Immature Gran % (Auto) 0.600, Neut % (Auto) 66.0, Lymph % (Auto) 22.3, [place] % (Auto) 9.5, Eos % (Auto) 1.1, Baso % (Auto) 0.5, Absolute Neuts (auto) 7.7, Absolute Lymphs (auto) 2.59, Nucleated RBC % 0, Sodium 143, Potassium 3.9, Chloride 110 H, Carbon Dioxide 28.0, Anion Gap 5, BUN 18, Creatinine 0.99, Est GFR (MDRD) Af Amer 68, Est GFR (MDRD) Non-Af 56 L, BUN/Creatinine Ratio 18.1, Glucose 108 H, Calcium 8.9 Radiography Diagnostic Testing: Radiology Impression Hip/Pelvis X-Ray 10/05/23 15:10 IMPRESSION: Suspected nondisplaced left pubic rami fractures. Electronically Signed: Lina Montanez MD at 16:16 EST Reading Location ID and State: [id number] / Tel , Service support , Wrist X-Ray 10/05/23 15:10 IMPRESSION: No acute findings. Osteoarthrosis of the lateral wrist. Electronically Signed: Lina Montanez MD at 16:08 EST Reading Location ID and State: [place] Tel , Service support , Ankle X-Ray 10/05/23 15:32 IMPRESSION: Negative. Electronically Signed: Lina Montanez MD at 16:09 EST Reading Location ID and State: [place] / Tel , Service support , Pelvis CT 10/05/23 16:50 IMPRESSION: Acute, nondisplaced fracture of the left inferior pubic ramus. Electronically Signed: Lina Montanez MD at 18:18 EST Reading Location ID and State: [place] Tel , Service support , Physical Exam Const alert, oriented x3 and no apparent distress General Appearance: cooperative HEENT normocephalic, head/scalp atraumatic, moist oral mucous membranes and oropharynx normal Eyes PERRL and EOMs intact bilaterally Neck no lymphadenopathy and supple Lymph Lymphatic: no lymphadenopathy noted and no lymphedema noted Cardio regular rate, regular rhythm, S1 normal heart sound, S2 normal heart sound and no murmurs GI normal to inspection, nondistended, normoactive bowel sounds, soft to palpation, non-tender and non-distended Extremity no clubbing, cyanosis or edema and no calf tenderness General Extremity: no tenderness to palpation of joints or extremities Skin General Skin Exam: no breakdown Neuro CN's II-XII intact bilaterally, no focal motor deficits, no sensory deficits noted and deep tendon reflexes 2+ bilaterally Motor Exam: general weakness Psych thought process normal, cooperative and affect normal Appearance: appropriate Assessment & Plan Assessment/Plan (1) Falls: PLAN: Plan #Inferior pubic rami fracture due to mechanical fall * came to the hospital for outpatient xray; she subsequently fell whilst getting into her car. * imaging done showed nonodisplaced inferior pubic rami fracture. * PT.OT On board. Fall precautions * PO tylenol, oxycodone and IV morphine prn for pain * #Debility due to mechanical fall: as above. PT/OT on board. fall precautions #Hyperlipidemia: on pravastatin #Hypertension: on amlodiine and spironolactone as well as metoprolol #Hypothyroidism:on synthroid DVT prophylaxis: lovenox
[2023-10-06] MEDS: Calcium Carb/Vitamin D 1 TABLET Tablet PO ×2 (10:38→17:32)
[2023-10-06] MEDS: Pantoprazole Sodium 40 MG Tablet PO (10:38)
[2023-10-06] MEDS: Enoxaparin 40 MG/0.4 ML Syringe SC (10:38)
[2023-10-06] MEDS: Multivitamin (Healthy Eyes) Capsule 2 CAP PO (10:38)
[2023-10-06] MEDS: Omega-3 Acid Ethyl Esters 1 GM Capsule PO (10:38)
[2023-10-06] MEDS: Cyanocobalamin 500 MCG Tablet 1000 MCG PO (10:38)
[2023-10-06] MEDS: Cholecalciferol (VIT D3) 25 MCG TABLET (1,000 UNITS) PO ×2 (10:38→21:41)
[2023-10-06] MEDS: Spironolactone 25 MG Tablet PO (10:39)
[2023-10-06 10:41] VITALS: PULSE 67
[2023-10-06] MEDS: amLODIPine 2.5 MG Tablet PO (10:41)
[2023-10-06] MEDS: Metoprolol(XL)Succ 50 MG Tablet PO (10:41)
[2023-10-06] MEDS: Acetaminophen 325 MG Tablet 650 MG PO (10:47)
--- NOTE | 2023-10-06 12:20 | CASEMGMT ---
RUBEN SUN Assessment: Face to Face with pt for initial transition planning/care coordination assessment. RUBEN SUN introduced self and role at [facility], pt voices understanding and consents to assessment. Pt is A&O x4 and answers all questions appropriately at this time. Pt sitting up in chair with dtr at bedside. Pt agreeable to assessment with dtr present. Care providers, pharmacy, and demographics verified/updated. Admitting Dx: debility, pelvic fx PCP:Jono Specialists: Lidia, spine OR; Eladia, cardio; Liat, endo; Shailesh, uro; Yoni, opt Preferred Pharmacy: [facility] Insurance: [facility] [employer] Prescription Benefit: yes LNOK: Susanna Koley, friend; Loretta Bailon, dtr Living Arrangements: Pt lives alone in a single story home with 1 step to enter through the garage without a rail. Pt reports prior to this fall she was I in ADL's. She had MOW and was able to get a meal, did her own laundry and got her own groceries. Transportation: Pt drives self and denies concerns with transportation. DME: BSC, transport chair, FWW, cane, shower chair HHC/SNF: Denies hx of [facility], has been to [facility] rehab unit Pt states her dtr lives in [place] and her son lives in [place]. She states she has no one to assist her at home. Pt speaks of a poor experience at [facility] with her late . Pt states she does not want to go to a SNF. Discussed with pt that the plan would be for s/t therapy. Pt dtr states she cannot go home alone. Provided a list of SNFs created by dc residential living assistant. Pt called for assistance to use the restroom. Pt and dtr to review and they are aware that the SW will be back for their preferences. Pt asked when she will dc, she is aware that she will stay to get insurance approval to the next level of care for SNF. Pt aware that she could go home as early as tomorrow if she goes home if she is medically ready. Pt states that is unjust. She is aware that she is in observation status currently. Pt and dtr deny further needs at this time. CM to follow. Advised pt to ask CM if any further question/concerns/needs arise, voices understanding. Pt Goal: SNF Plan: SNF
[2023-10-06] MEDS: 0.9% Saline Lock 10 ML Syringe IV ×2 (12:59→21:40)
[2023-10-06] MEDS: Ondansetron 4 MG/2 ML Vial IV (12:59)
--- NOTE | 2023-10-06 14:36 | CHAPLAIN ---
Type of Pastoral Visit _x__ Initial Visit ___ Follow-up Visit ___ On-call Visit ___ General Patient Visit ___ Spiritual Assessment ___ Family Conference ___ Bereavement ___ Rapid Response ___ Code Blue ___ Other (describe below) Pastoral Care Referral From _x__ Patient ___ Family ___ Nurse ___ Physician ___ Senior Telecommunications Consultant ___ Strategy Analyst ___ Other (describe below) Sacrament/Intervention _x__ Active listening ___ Anointing ___ Mormon ___ Bereavement ___ Communion ___ Melani exploration ___ ___ Life review _x__ Prayer ___ Reconciliation ___ Sacrament of Sick _x__ Supportive presence ___ Wedding ___ Other (describe below) Pastoral Comments patient's response to how she is doing is with a ivonne answer of being upset and not happy about the situation; pt reports that she has no help as daughter is returning tomorrow to [place] and why can't I get in to the hospital program here, I don't want to go anywhere else; 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
--- NOTE | 2023-10-06 14:48 | CASEMGMT ---
Met with patient to complete GUTIERREZ form. GUTIERREZ form explained to patient who voiced understanding and signed form. Original form placed in pt?s chart and copy provided to?patient. Billie Tiwari, Discharge Planning Asst
[2023-10-06 15:07] VITALS: BP 106/62; PULSE 69; RESP 16; TEMP 37.2; O2SAT 98
--- NOTE | 2023-10-06 16:14 | CASEMGMT ---
Discharge Planning Referral sent via [facility] to [facility] and [facility]. Billie Tiwari, Discharge Planning Asst.
--- NOTE | 2023-10-06 19:13 | CASEMGMT ---
Social Work - Discharge Planning Met with patient as a follow up to discharge planning conversation patient had with RN DINO today. Reviewed therapy notes, and noted patient would benefit for continued therapy. Introduced self and role to the patient. Patient talkative, sharing recent life events and changes over the last year, including a 16.5 year break up in June. Allowed patient time to share thoughts and feelings related to life changes, as well as adjustment to need for increased care at time of discharge. Patient acknowledges going home at present time would not be safe, though would like to go home with [facility]. Reviewed with patient list of SNF choices. Patien'ts first choice is [facility]. Educated there are no beds available at this time, but patient asks if can be placed on a list should a bed become available during hospital stay. Message left for Molly in TCU of this request. Patient agreed to have SW check into [facility] and [facility], but would like to know options which ones can accept before deciding on which facility. Much emotional support offer to patient today, who was intermittently tearful during conversation. Patient expressed thanks for social work associate spending time and allowing patient time to share life events. Plan: Short term skilled level of care. 1 - [facility], and then either 2/3 - [facility] or [facility]. SW following. -TANNER Wood
[2023-10-06 21:38] VITALS: BP 111/56; PULSE 75; RESP 18; TEMP 36.8; O2SAT 94
[2023-10-06] MEDS: Aspirin 81 MG TAB.CHEW PO (21:40)
[2023-10-06] MEDS: Magnesium Chloride 64 MG Delay Rel.Tablet 128 MG PO (21:40)
[2023-10-06] MEDS: Pravastatin 20 MG Tablet PO (21:40)
[2023-10-06 23:09] VITALS: BP 115/58; PULSE 65; RESP 18; TEMP 36.8; O2SAT 94
[2023-10-06] MEDS: Naproxen 250 MG Tablet PO (23:11)
[2023-10-07 06:37] VITALS: BP 130/65; PULSE 71; RESP 18; TEMP 36.6; O2SAT 97
[2023-10-07] MEDS: Levothyroxine 50 MCG Tablet PO (06:46)
[2023-10-07] MEDS: Acetaminophen 325 MG Tablet 650 MG PO (07:55)
[2023-10-07] MEDS: Calcium Carb/Vitamin D 1 TABLET Tablet PO ×2 (07:55→18:39)
[2023-10-07] MEDS: Cyanocobalamin 500 MCG Tablet 1000 MCG PO (07:55)
[2023-10-07] MEDS: Pantoprazole Sodium 40 MG Tablet PO (07:55)
[2023-10-07 08:11] LABS: Absolute Lymphocyte Count 1.98 X10^3/uL (0.83-4.51); Absolute Neutrophil Count 4.6 X10^3/uL (2.0-7.7); Basophil# 0.05 X10^3/uL; Basophil% 0.7 % (0-1); Eosinophil# 0.27 X10^3/uL; Eosinophils% 3.5 % (0-5); Hemoglobin 14.5 g/dL (12.0-15.0); Lymphocyte # 1.98 X10^3/ul (0.83-4.51); Lymphocyte % 25.7 % (19-41); Mean Corp Hgb Conc 32.2 g/dL (32-36); Mean Corpuscular Hgb 28.7 pg (27.0-32.0); Mean Corpuscular Volume 88.9 fL (81-99); Mean Platelet Vol. 11.6 fl (6.2-12.0); Monocyte# 0.77 X10^3/uL; NRBC Flagged by Analyzer 0 % (0-5); Neutrophil % 59.8 % (47-70); Platelet Count 169 K/mm3 (150-450); RBC Distribution Width CV 14.5 % (11.6-14.6); RBC Distribution Width SD 47.1 fl (35.1-43.9); Red Blood Count 5.06 M/mm3 (4.2-5.4); White Blood Count 7.7 K/mm3 (4.4-11.0)
[2023-10-07 08:16] VITALS: BP 106/61; PULSE 64; RESP 16; TEMP 36.6; O2SAT 95
[2023-10-07 09:54] LABS: Anion Gap 2 (5-15); BUN 17 mg/dL (7-18); Calcium,Total 8.5 mg/dL (8.5-10.1); Chloride 111 mmol/L (98-107); EST Glomerular Filtration Rate 56 mL/min (>60); Est Glom Filt Rate - Afr Amer 67 mL/min (>60); Estimated Creatinine Clearance 29.91 ml/min; Glucose 99 mg/dL (74-106); Potassium 4.1 mmol/L (3.5-5.1); Sodium Level 141 mmol/L (136-145)
[2023-10-07] MEDS: Enoxaparin 40 MG/0.4 ML Syringe SC (09:55)
[2023-10-07 09:56] VITALS: PULSE 64
[2023-10-07] MEDS: Metoprolol(XL)Succ 50 MG Tablet PO (09:56)
[2023-10-07] MEDS: Cholecalciferol (VIT D3) 25 MCG TABLET (1,000 UNITS) PO ×2 (09:56→20:58)
[2023-10-07] MEDS: Omega-3 Acid Ethyl Esters 1 GM Capsule PO (09:56)
[2023-10-07] MEDS: Spironolactone 25 MG Tablet PO (09:56)
[2023-10-07] MEDS: amLODIPine 2.5 MG Tablet PO (09:56)
--- NOTE | 2023-10-07 11:45 | CASEMGMT ---
Social Work SW met with pt and pt's daughter and introduced self and role of SW. SW explained that TCU was called this morning and it was confirmed they still do not have a bed available. SW also informed pt that [facility] and [facility] are both able to accept. Pt and dgt choosing [facility] and requesting private room if possible. SW explained that precert will be needed and discharge date will be dependent on return of precert and when medically ready. Pt expressing understanding. DC clinical lab assistant updated on pt preference and to request precert be started. Plan: [facility], pending precert DEVAUGHN Pacheco
--- NOTE | 2023-10-07 11:56 | CHAPLAIN ---
Type of Pastoral Visit ___ Initial Visit _x__ Follow-up Visit ___ On-call Visit ___ General Patient Visit ___ Spiritual Assessment ___ Family Conference ___ Bereavement ___ Rapid Response ___ Code Blue ___ Other (describe below) Pastoral Care Referral From _x__ Patient ___ Family ___ Nurse ___ Physician ___ Wind Turbine Design Engineer ___ Methods Time Analyst ___ Other (describe below) Sacrament/Intervention _x__ Active listening ___ Anointing ___ Sikh ___ Bereavement ___ Communion ___ Melani exploration ___ ___ Life review ___ Prayer ___ Reconciliation ___ Sacrament of Sick _x__ Supportive presence ___ Wedding ___ Other (describe below) Pastoral Comments follow up to patient from yesterday who had concerns and frustrations; pt states that she is thankful to be able to stay in the hospital for now but is still waiting on answers for a future plan; daughter is still here with her; pt speaks of a friend who has cancer and remembers that other people have it worse off than I do; pt expresses thanks for the follow up
[2023-10-07] MEDS: Multivitamin (Healthy Eyes) Capsule 1 CAP PO (12:45)
--- NOTE | 2023-10-07 12:46 | PN_ITS ---
Subjective Subjective Patient seen and examined. She felt well and had no complaints. She had an uneventful night. Pain is fairly well-controlled. Review of systems otherwise negative. She has remained hemodynamically stable. She is awaiting placement. Objective Data Objective Data Vital Signs: Vital Signs Temp Pulse Resp BP Pulse Ox O2 Del Method 98 F 64 16 106/61 95 Room Air 10/07/23 08:16 10/07/23 09:56 10/07/23 08:16 10/07/23 08:16 10/07/23 08:16 10/07/23 08:16 Oxygen Delivery Method Room Air Weight: 143 lb 8.335 oz Body Mass Index (BMI) 26.4 Intake & Output: Intake and Output for Last 24 Hours 10/05/23 10/06/23 10/07/23 23:59 23:59 23:59 Intake Total 300 / 300 200 / 200 Balance 300 / 300 200 / 200 Lab / Micro Data 10/07/23 07:47 10/07/23 07:47 Labs: Laboratory Results - last 24 hr 10/07/23 07:47: WBC 7.7, RBC 5.06, Hgb 14.5, Hct 45.0, MCV 88.9, MCH 28.7, MCHC 32.2, RDW Std Deviation 47.1 H, RDW Coeff of Jaiden 14.5, Plt Count 169, MPV 11.6, Immature Gran % (Auto) 0.300, Neut % (Auto) 59.8, Lymph % (Auto) 25.7, [place] % ( Auto) 10.0, Eos % (Auto) 3.5, Baso % (Auto) 0.7, Absolute Neuts (auto) 4.6, Absolute Lymphs (auto) 1.98, Nucleated RBC % 0, Sodium 141, Potassium 4.1, Chloride 111 H, Carbon Dioxide 28.0, Anion Gap 2 L, BUN 17, Creatinine 1.00, Estim Creat Clear Calc 29.91, Est GFR (MDRD) Af Amer 67, Est GFR (MDRD) Non-Af 56 L, BUN/Creatinine Ratio 17.0, Glucose 99, Calcium 8.5 Physical Exam Const alert, oriented x3 and no apparent distress General Appearance: cooperative HEENT normocephalic, head/scalp atraumatic, moist oral mucous membranes and oropharynx normal Eyes PERRL and EOMs intact bilaterally Neck no lymphadenopathy and supple Lymph Lymphatic: no lymphadenopathy noted and no lymphedema noted Resp normal respiratory effort, no retractions, no use of accessory muscles and clear to auscultation bilaterally Cardio regular rate, regular rhythm, S1 normal heart sound, S2 normal heart sound and no murmurs GI normal to inspection, nondistended, normoactive bowel sounds, soft to palpation, non-tender and non-distended Extremity no clubbing, cyanosis or edema and no calf tenderness General Extremity: no tenderness to palpation of joints or extremities Skin General Skin Exam: no breakdown Neuro CN's II-XII intact bilaterally, no focal motor deficits, no sensory deficits noted and deep tendon reflexes 2+ bilaterally Motor Exam: general weakness Psych thought process normal, cooperative and affect normal Appearance: appropriate Assessment & Plan Assessment/Plan (1) Falls: PLAN: Plan #Inferior pubic rami fracture due to mechanical fall * came to the hospital for outpatient xray; she subsequently fell whilst getting into her car. * imaging done showed nonodisplaced inferior pubic rami fracture. * PT.OT On board. Fall precautions * PO tylenol, oxycodone and IV morphine prn for pain * #Debility due to mechanical fall: as above. PT/OT on board. fall precautions #Hyperlipidemia: on pravastatin #Hypertension: on amlodiine and spironolactone as well as metoprolol #Hypothyroidism:on synthroid DVT prophylaxis: lovenox Disposition: Awaiting placement. Charges/Coding Visit Charges Inpatient E&M: 35471 Subs Hosp L2
--- NOTE | 2023-10-07 13:22 | CASEMGMT ---
Discharge Planning Updated [facility] that they are foc and asked that precert be submitted. Billie Tiwari, Discharge Planning Asst.
[2023-10-07 14:35] VITALS: BP 104/52; PULSE 68; RESP 18; TEMP 37.2; O2SAT 94
[2023-10-07] MEDS: Naproxen 250 MG Tablet PO (14:36)
[2023-10-07] MEDS: traMADol 50 MG Tablet PO (20:30)
[2023-10-07] MEDS: Magnesium Chloride 64 MG Delay Rel.Tablet 128 MG PO (20:58)
[2023-10-07] MEDS: Pravastatin 20 MG Tablet PO (20:58)
[2023-10-07] MEDS: Aspirin 81 MG TAB.CHEW PO (20:58)
[2023-10-07] MEDS: MENTHOL 226.8 GM JAR 1 APPLIC TOPICAL (21:01)
[2023-10-07 21:15] VITALS: BP 113/63; PULSE 67; RESP 17; TEMP 36.8; O2SAT 95
[2023-10-08] MEDS: traMADol 50 MG Tablet PO (04:00)
[2023-10-08] MEDS: MENTHOL 226.8 GM JAR 1 APPLIC TOPICAL ×2 (04:01→12:05)
[2023-10-08 04:04] VITALS: BP 117/58; PULSE 65; RESP 18; TEMP 36.9; O2SAT 95
[2023-10-08] MEDS: Levothyroxine 50 MCG Tablet PO (05:03)
[2023-10-08 06:41] LABS: Absolute Lymphocyte Count 1.98 X10^3/uL (0.83-4.51); Absolute Neutrophil Count 4.3 X10^3/uL (2.0-7.7); Basophil# 0.03 X10^3/uL; Basophil% 0.4 % (0-1); Eosinophil# 0.27 X10^3/uL; Eosinophils% 3.7 % (0-5); Hematocrit 41.6 % (37-47); Hemoglobin 13.6 g/dL (12.0-15.0); Lymphocyte # 1.98 X10^3/ul (0.83-4.51); Mean Corp Hgb Conc 32.7 g/dL (32-36); Mean Corpuscular Hgb 28.8 pg (27.0-32.0); Mean Corpuscular Volume 88.1 fL (81-99); Mean Platelet Vol. 11.5 fl (6.2-12.0); Monocyte# 0.78 X10^3/uL; Monocyte% 10.6 % (0-10); NRBC Flagged by Analyzer 0 % (0-5); Neutrophil # 4.27 X10^3/uL (2.7-7.7); Neutrophil % 58.2 % (47-70); Platelet Count 161 K/mm3 (150-450); RBC Distribution Width CV 14.3 % (11.6-14.6); Red Blood Count 4.72 M/mm3 (4.2-5.4); White Blood Count 7.3 K/mm3 (4.4-11.0)
[2023-10-08 07:12] LABS: Anion Gap 2 (5-15); BUN 18 mg/dL (7-18); BUN/Creat Ratio 18.5 RATIO (10-20); Calcium,Total 8.4 mg/dL (8.5-10.1); Chloride 111 mmol/L (98-107); Creatinine, Serum 0.97 mg/dL (0.55-1.02); EST Glomerular Filtration Rate 57 mL/min (>60); Est Glom Filt Rate - Afr Amer 70 mL/min (>60); Estimated Creatinine Clearance 30.83 ml/min; Glucose 104 mg/dL (74-106); Potassium 3.7 mmol/L (3.5-5.1); Sodium Level 141 mmol/L (136-145)
[2023-10-08] MEDS: Cyanocobalamin 500 MCG Tablet 1000 MCG PO (08:10)
[2023-10-08] MEDS: Multivitamin (Healthy Eyes) Capsule 1 CAP PO ×2 (08:11→12:05)
[2023-10-08] MEDS: Spironolactone 25 MG Tablet PO (08:11)
[2023-10-08] MEDS: Omega-3 Acid Ethyl Esters 1 GM Capsule PO (08:12)
[2023-10-08] MEDS: Calcium Carb/Vitamin D 1 TABLET Tablet PO (08:12)
[2023-10-08 08:13] VITALS: BP 106/66; PULSE 62
[2023-10-08] MEDS: Metoprolol(XL)Succ 50 MG Tablet PO (08:13)
[2023-10-08] MEDS: Pantoprazole Sodium 40 MG Tablet PO (08:13)
[2023-10-08] MEDS: amLODIPine 2.5 MG Tablet PO (08:13)
[2023-10-08] MEDS: Enoxaparin 40 MG/0.4 ML Syringe SC (08:13)
[2023-10-08] MEDS: Cholecalciferol (VIT D3) 25 MCG TABLET (1,000 UNITS) PO (08:15)
[2023-10-08 10:00] VITALS: BP 106/66; PULSE 64; RESP 16; TEMP 36.7; O2SAT 99
[2023-10-08 11:28] VITALS: BP 103/66; PULSE 74; RESP 16; TEMP 36.7; O2SAT 100
--- NOTE | 2023-10-08 11:29 | PCM.TXEXTCAR ---
Diet Diet Order/Speech Therapy: 10/05/23 21:43 Diet: Regular - General Food consistency:: Regular Liquid Consistency:: Regular/Thin Routine Orders/Code Status Enema Type: Fleetz Enema Frequency: Daily PRN Suppository Type: Dulcolax 10mg Suppository Frequency: Daily PRN O2 Frequency: PRN Keep PO Greater than or Equal to (%): 90 Therapies Weight Bearing: Weight bearing as tolerated Physical Therapy: Eval and Treat Occupational Therapy: Eval and Treat Problem/Diagnosis (1) Falls: Status: Acute Code(s): W19.XXXA - Unspecified fall, initial encounter Plan #Inferior pubic rami fracture due to mechanical fall came to the hospital for outpatient xray; she subsequently fell whilst getting into her car. imaging done showed nonodisplaced inferior pubic rami fracture. PT.OT On board. Fall precautions PO tylenol, oxycodone and IV morphine prn for pain #Debility due to mechanical fall: as above. PT/OT on board. fall precautions #Hyperlipidemia: on pravastatin #Hypertension: on amlodiine and spironolactone as well as metoprolol #Hypothyroidism:on synthroid DVT prophylaxis: lovenox Disposition: Awaiting placement. Allergies/Procedures Done in Hospital Allergies codeine Allergy (Verified 10/05/23 14:15) Rash hydrocodone bitartrate [From Vicodin] Adverse Reaction (Verified 10/05/23 14:15) Nausea meperidine HCl [From Demerol] Adverse Reaction (Verified 10/05/23 14:15) Nausea morphine Adverse Reaction (Verified 10/05/23 14:15) Vomiting oxycodone HCl [From Percocet] Adverse Reaction (Verified 10/05/23 14:15) Nausea Procedures: None Type of Care/Length of Stay Estimated LOS: Convalescent Care Less Than 30 days Type of Care Needed: Skilled Rehab Potential: Fair Prognosis: Fair Additional Orders/Day of Discharge Day of Discharge: 10/08/23 Discharge Plan Admission Admit Date/Time: 10/05/23 20:37 Primary Reason for Your Visit: inferior putic rami fracture due to mechanical fall Attending Provider: Viri Dorsey Primary Care Provider: Aaliyah De La Cruz Consulting Providers: Tyrell Guardado Instructions Patient Instructions: ED Mechanical Fall Discharge Orders/Prescriptions Prescriptions: New tramadol 50 mg tablet 50 mg PO Q6H PRN (Reason: pain) 3 Days Qty: 12 0RF Continued pravastatin 20 mg tablet 20 mg PO QHS magnesium oxide 400 mg tablet 400 mg PO QDAY flaxseed oil 1,000 mg capsule 1,400 mg PO QDAY omega-3 fatty acids [Fish Oil Concentrate] 1,000 mg capsule 1,000 mg PO BID naproxen sodium [Aleve] 220 mg capsule 220 mg PO BID PRN (Reason: Pain Or Fever) amlodipine 2.5 mg tablet 2.5 mg PO DAILY Qty: 90 3RF aspirin 81 MG tablet,chewable 81 mg PO QHS cyanocobalamin (vitamin B-12) 500 MCG tablet 1,000 mcg PO DAILY@0800 cholecalciferol (vitamin D3) 1,000 UNIT capsule 1,000 unit PO BID acetaminophen 325 MG tablet 650 mg PO Q6H PRN PRN (Reason: Fever > 100.4) 0RF calcium citrate-vitamin D3 200 mg-6.25 mcg (250 unit) tablet 1 tab PO BID [id number] 750 mg-644 mg- 30 mg-1 mg tablet 1 tab PO BID lansoprazole [Prevacid] 30 mg capsule,delayed release(DR/EC) 30 mg PO DAILY spironolactone 25 mg tablet 25 mg PO DAILY Qty: 90 3RF levothyroxine 50 mcg tablet 50 mcg PO DAILY Patient Comments: thyroid metoprolol succinate 50 mg tablet extended release 24 hr 50 mg PO DAILY Discontinued tramadol 100 MG tablet 50 mg PO PRN PRN (Reason: Pain Or Fever) Referrals / Follow Up: Aaliyah De La Cruz DO [Primary Care Provider] - Within 2 Weeks Disposition Disposition (needs filled in before D/C Order can be placed): [facility] Facility
--- NOTE | 2023-10-08 11:33 | DS.PCM_ITS ---
Providers Date of Admission: 10/05/23 Date of Discharge: 10/08/23 Primary Care Physician: Dr. Aaliyah De La Cruz DO Reason For Visit: DEBILITY, PELVIC FXR. Diagnosis Discharge Diagnosis (1) Falls: Status: Acute Code(s): W19.XXXA - Unspecified fall, initial encounter Plan #Inferior pubic rami fracture due to mechanical fall * came to the hospital for outpatient xray; she subsequently fell whilst getting into her car. * imaging done showed nonodisplaced inferior pubic rami fracture. * PT.OT On board. Fall precautions * PO tylenol, oxycodone and IV morphine prn for pain * #Debility due to mechanical fall: as above. PT/OT on board. fall precautions #Hyperlipidemia: on pravastatin #Hypertension: on amlodiine and spironolactone as well as metoprolol #Hypothyroidism:on synthroid DVT prophylaxis: lovenox Disposition: Awaiting placement. Medications at Discharge Home Medications aspirin 81 mg chewable tablet 81 mg PO QHS blood thinner 08/28/16 flaxseed oil 1,000 mg capsule 1,400 mg PO QDAY supplement 06/25/18 magnesium oxide 400 mg (241.3 mg magnesium) tablet 400 mg PO QDAY supplement 06/25/18 pravastatin 20 mg tablet 20 mg PO QHS cholesterol 06/25/18 cholecalciferol (vitamin D3) 25 mcg (1,000 unit) capsule 1,000 unit PO BID supl ement 10/05/18 cyanocobalamin (vitamin B-12) 500 mcg tablet 1,000 mcg PO DAILY@0800 supplement 10/05/18 acetaminophen 325 mg tablet 650 mg (2 x 325 mg) PO Q6H PRN PRN Fever > 100.4 10/09/18 naproxen sodium 220 mg capsule (Aleve) 220 mg PO BID PRN Pain Or Fever 06/28/19 amlodipine 2.5 mg tablet 2.5 mg PO DAILY #90 tabs 01/08/23 spironolactone 25 mg tablet 25 mg PO DAILY #90 tabs 03/09/23 calcium citrate 200 mg calcium-vitamin D3 6.25 mcg (250 unit) tablet 1 tab PO BID supplement 05/29/23 glucosamine 750 ga-cekzydummmp-yed no1 644 mg-C 30 mg-hue 1 mg tablet 1 tab PO BID 05/29/23 levothyroxine 50 mcg tablet 50 mcg PO DAILY thyroid 05/29/23 metoprolol succinate 50 mg tablet,extended release 24 hr 50 mg PO DAILY 05/29/23 omega-3 fatty acids 1,000 mg capsule (Fish Oil Concentrate) 1,000 mg PO BID supplement 05/29/23 lansoprazole 30 mg capsule,delayed release (Prevacid) 30 mg PO DAILY 10/05/23 tramadol 50 mg tablet 50 mg PO Q6H PRN pain 3 days #12 tabs 10/08/23 Hospital Course Operations None Procedures None Summary of Care Provided Minutes Spent on Discharge: 55 Hospital Course: Patient is an 87-year-old female with past medical history as outlined was admitted through the ED on 10/05/2023 with a complaint of mechanical fall. Patient had had a previous fall and was coming to the hospital outpatient radiology for an ankle x-ray. She did have the x-ray done as she was getting into her car, she fell again. Pelvic imaging done in the ED showed nondisplaced inferior pubic rami fracture. Patient was unable to get up and ambulate on her own. She was therefore admitted to be managed for debility due to mechanical fall with resultant inferior pubic rami fracture. Management of this was deemed nonoperative. PT OT was consulted. She worked with physical therapy and was deemed as needing further skilled rehab. She was discharged to the skilled rehab facility on 10/08/2023. She is to follow-up with her PCP within 1 to 2 weeks. Patient was seen and examined prior to discharge. He had no active complaints and had an uneventful night. Review of systems was otherwise negative. Labs and vitals reviewed. Home medication reviewed and reconciled. She was given a prescription for p.o. tramadol 50 mg every 6 hours as needed with a total of 12 tablets for 3 days. OARRS score was checked and no red flags were seen. Physical Exam Const alert, oriented x3 and no apparent distress General Appearance: cooperative and comfortable HEENT normocephalic, head/scalp atraumatic, hearing grossly normal bilaterally, moist oral mucous membranes and oropharynx normal Mouth: oral and palatal mucosa normal Eyes PERRL, EOMs intact bilaterally and conjunctivae normal Neck no lymphadenopathy and supple Lymph Lymphatic: no lymphadenopathy noted and no lymphedema noted Resp normal respiratory effort, no retractions, no use of accessory muscles and clear to auscultation bilaterally Cardio regular rate, regular rhythm, S1 normal heart sound, S2 normal heart sound and no murmurs GI normal to inspection, nondistended, normoactive bowel sounds, soft to palpation, non-tender and non-distended Extremity no clubbing, cyanosis or edema and no calf tenderness General Extremity: no tenderness to palpation of joints or extremities Skin no rashes or lesions noted General Skin Exam: no breakdown Neuro oriented x3, CN's II-XII intact bilaterally, moves all extremities, no focal motor deficits, no sensory deficits noted and deep tendon reflexes 2+ bilaterally Sensorium / Orientation: awake Motor Exam: strength 5/5 throughout and general weakness Psych thought process normal, cooperative and affect normal Appearance: appropriate Weight / BMI Weight Weight: 143 lb 8.335 oz Body Mass Index (BMI) 26.4 ABG / Lab / Microbiology Data 10/08/23 06:14 10/08/23 06:14 Laboratory: Laboratory Results - last 24 hr 10/08/23 06:14: WBC 7.3, RBC 4.72, Hgb 13.6, Hct 41.6, MCV 88.1, MCH 28.8, MCHC 32.7, RDW Std Deviation 46.0 H, RDW Coeff of Jaiden 14.3, Plt Count 161, MPV 11.5, Immature Gran % (Auto) 0.100, Neut % (Auto) 58.2, Lymph % (Auto) 27.0, Anson % (Auto) 10.6 H, Eos % (Auto) 3.7, Baso % (Auto) 0.4, Absolute Neuts (auto) 4.3, Absolute Lymphs (auto) 1.98, Nucleated RBC % 0, Sodium 141, Potassium 3.7, Chloride 111 H, Carbon Dioxide 28.0, Anion Gap 2 L, BUN 18, Creatinine 0.97, Estim Creat Clear Calc 30.83, Est GFR (MDRD) Af Amer 70, Est GFR (MDRD) Non-Af 57 L, BUN/Creatinine Ratio 18.5, Glucose 104, Calcium 8.4 L D/C Instructions Discharge Diet: Low fat / Low cholesterol Discharge Activity: Return to Normal Activity Weight Bearing Status: Weight bearing as tolerated Call your doctor if you observe: Fever of 101 or Higher, Shortness of breath, D izziness, Swelling in the ankles and Chest pain Meaningful Use Info Meaningful Use Diagnoses (Choose all that apply): None applicable Discharge Plan Admission Admit Date/Time: 10/05/23 20:37 Primary Reason for Your Visit: inferior putic rami fracture due to mechanical fall Attending Provider: Viri Dorsey Primary Care Provider: Aaliyah De La Cruz Consulting Providers: Tyrell Guardado Instructions Patient Instructions: ED Mechanical Fall Discharge Orders/Prescriptions Prescriptions: New tramadol 50 mg tablet 50 mg PO Q6H PRN (Reason: pain) 3 Days Qty: 12 0RF Continued pravastatin 20 mg tablet 20 mg PO QHS magnesium oxide 400 mg tablet 400 mg PO QDAY flaxseed oil 1,000 mg capsule 1,400 mg PO QDAY omega-3 fatty acids [Fish Oil Concentrate] 1,000 mg capsule 1,000 mg PO BID naproxen sodium [Aleve] 220 mg capsule 220 mg PO BID PRN (Reason: Pain Or Fever) amlodipine 2.5 mg tablet 2.5 mg PO DAILY Qty: 90 3RF aspirin 81 MG tablet,chewable 81 mg PO QHS cyanocobalamin (vitamin B-12) 500 MCG tablet 1,000 mcg PO DAILY@0800 cholecalciferol (vitamin D3) 1,000 UNIT capsule 1,000 unit PO BID acetaminophen 325 MG tablet 650 mg PO Q6H PRN PRN (Reason: Fever > 100.4) 0RF calcium citrate-vitamin D3 200 mg-6.25 mcg (250 unit) tablet 1 tab PO BID xpglstkd-ctvx-mni7-C-hue-bosw 750 mg-644 mg- 30 mg-1 mg tablet 1 tab PO BID lansoprazole [Prevacid] 30 mg capsule,delayed release(DR/EC) 30 mg PO DAILY spironolactone 25 mg tablet 25 mg PO DAILY Qty: 90 3RF levothyroxine 50 mcg tablet 50 mcg PO DAILY Patient Comments: thyroid metoprolol succinate 50 mg tablet extended release 24 hr 50 mg PO DAILY Discontinued tramadol 100 MG tablet 50 mg PO PRN PRN (Reason: Pain Or Fever) Referrals / Follow Up: Aaliyah De La Cruz DO [Primary Care Provider] - Within 2 Weeks Disposition Disposition (needs filled in before D/C Order can be placed): Long Term Facility Charges/Coding Visit Charges Inpatient E&M: 89122 Disch Hosp >30min
--- NOTE | 2023-10-08 11:39 | PHA.DC.MR.R ---
Pharmacy PR Med Reconciliation Pharmacy Service has performed discharge medication reconciliation for this patient upon discharge to a SNF. The patient's discharge medication list was reviewed for discrepancies and discrepancies were resolved. Medications at Discharge Home Medications aspirin 81 mg chewable tablet 81 mg PO QHS blood thinner 08/28/16 flaxseed oil 1,000 mg capsule 1,400 mg PO QDAY supplement 06/25/18 magnesium oxide 400 mg (241.3 mg magnesium) tablet 400 mg PO QDAY supplement 06/25/18 pravastatin 20 mg tablet 20 mg PO QHS cholesterol 06/25/18 cholecalciferol (vitamin D3) 25 mcg (1,000 unit) capsule 1,000 unit PO BID suplement 10/05/18 cyanocobalamin (vitamin B-12) 500 mcg tablet 1,000 mcg PO DAILY@0800 supplement 10/05/18 acetaminophen 325 mg tablet 650 mg (2 x 325 mg) PO Q6H PRN PRN Fever > 100.4 10/09/18 naproxen sodium 220 mg capsule (Aleve) 220 mg PO BID PRN Pain Or Fever 06/28/19 amlodipine 2.5 mg tablet 2.5 mg PO DAILY #90 tabs 01/08/23 spironolactone 25 mg tablet 25 mg PO DAILY #90 tabs 03/09/23 calcium citrate 200 mg calcium-vitamin D3 6.25 mcg (250 unit) tablet 1 tab PO BID supplement 05/29/23 glucosamine 750 po-csyqvwyaydq-cgo no1 644 mg-C 30 mg-hue 1 mg tablet 1 tab PO BID 05/29/23 levothyroxine 50 mcg tablet 50 mcg PO DAILY thyroid 05/29/23 metoprolol succinate 50 mg tablet,extended release 24 hr 50 mg PO DAILY 05/29/23 omega-3 fatty acids 1,000 mg capsule (Fish Oil Concentrate) 1,000 mg PO BID supplement 05/29/23 lansoprazole 30 mg capsule,delayed release (Prevacid) 30 mg PO DAILY 10/05/23 tramadol 50 mg tablet 50 mg PO Q6H PRN pain 3 days #12 tabs 10/08/23
--- NOTE | 2023-10-08 12:21 | CASEMGMT ---
Social Work SW met with pt and daughter and updated that precert has been obtained. Physician updated and plans to discharge pt today. Pt's dgt plans to transport pt to [facility]. PASRR completed in [facility]. Plan: [facility], skilled level of care DEVAUGHN Pacheco
--- NOTE | 2023-10-08 13:52 | CASEMGMT ---
Discharge Planning Discharge orders and signed med list sent to [facility] via [facility]. Patients family will transport. [facility] aware. Billie Tiwari, Discharge Planning Asst.
== END 2023-10-08 14:39 | disposition skilled nursing facility (03) ==
LOC: ED 20:01 → MS3 21:01
PROVIDERS: Emergency Provider Emergency Medicine; PCP Family Medicine; Visit Provider Student in an Organized Health Care Education/Training Program
DX: S32.592A Other specified fracture of left pubis, initial encounter for closed fracture (principal); E78.5 Hyperlipidemia, unspecified; W18.30XA Fall on same level, unspecified, initial encounter; Y92.481 Parking lot as the place of occurrence of the external cause; Z86.16 Personal history of COVID-19; I10 Essential (primary) hypertension; Z79.82 Long term (current) use of aspirin; R26.2 Difficulty in walking, not elsewhere classified; R53.81 Other malaise; M25.572 Pain in left ankle and joints of left foot; E03.9 Hypothyroidism, unspecified; Z79.899 Other long term (current) drug therapy; Z79.890 Hormone replacement therapy; Y93.01 Activity, walking, marching and hiking
CPT/HCPCS: 36415; 72192; 73110; 73502; 73610; 80048; 85025; 96372; 96374; 97110; 97162; 97166; 97530; 97535; 99221; 99284; A4216; G0378; J2405

== ENCOUNTER → 2023-10-05 | Outpatient (CLI) | payer MEDICARE, SELFPAY ==
--- NOTE | 2023-10-05 13:45 | RAD_ITS ---
STUDY: X-RAY - LEFT ANKLE REASON FOR EXAM: Female, 87 years old. Inversion injury. Pain. TECHNIQUE: 3 view(s) of the ankle. COMPARISON: None. FINDINGS: Osteopenia. Normal visualized distal tibia and fibula. Normal medial and lateral malleoli. Normal tibiotalar articulation and ankle mortise. Normal visualized talus and calcaneus. The visualized subtalar, talonavicular, calcaneocuboid and tarsal articulations are normal. Diffuse mild soft tissue swelling. RAD/Ankle min 3 Views IMPRESSION: Osteopenia with no acute abnormality. Electronically Signed: Sly Child MD at 16:00 EST ,
== END | disposition home or self-care (01) ==
LOC: RAD 13:40
PROVIDERS: PCP Family Medicine; Visit Provider Family Medicine
DX: M25.572 Pain in left ankle and joints of left foot (principal)
CPT/HCPCS: 73610

== ENCOUNTER → 2023-10-16 | Outpatient (REF) | payer MEDICARE, SELFPAY ==
[2023-10-16 08:20] LABS: Hematocrit 40.6 % (37-47); Hemoglobin 13.2 g/dL (12.0-15.0); Mean Corp Hgb Conc 32.5 g/dL (32-36); Mean Corpuscular Hgb 28.5 pg (27.0-32.0); Mean Corpuscular Volume 87.7 fL (81-99); Mean Platelet Vol. 11.7 fl (6.2-12.0); Platelet Count 204 K/mm3 (150-450); RBC Distribution Width CV 14.2 % (11.6-14.6); RBC Distribution Width SD 45.2 fl (35.1-43.9); Red Blood Count 4.63 M/mm3 (4.2-5.4); White Blood Count 6.1 K/mm3 (4.4-11.0)
[2023-10-16 08:32] LABS: Anion Gap 1 (5-15); BUN 15 mg/dL (7-18); BUN/Creat Ratio 17.4 RATIO (10-20); Calcium,Total 8.2 mg/dL (8.5-10.1); Chloride 112 mmol/L (98-107); Creatinine, Serum 0.86 mg/dL (0.55-1.02); EST Glomerular Filtration Rate 66 mL/min (>60); Est Glom Filt Rate - Afr Amer 80 mL/min (>60); Glucose 96 mg/dL (74-106); Magnesium 2.1 mg/dL (1.6-2.6); Potassium 3.9 mmol/L (3.5-5.1); Sodium Level 140 mmol/L (136-145)
== END ==
LOC: OLS.SW 05:00
PROVIDERS: PCP Family Medicine; Visit Provider Internal Medicine
DX: I10 Essential (primary) hypertension (principal); E78.5 Hyperlipidemia, unspecified
CPT/HCPCS: 36415; 80048; 83735; 85027

== ENCOUNTER → 2023-12-01 | Outpatient (CLI) | payer MEDICARE, SELFPAY ==
--- OUTSIDE RECORDS SUMMARY | 2023-12-01 12:17 | XMS RPT_ITS | CCD ---
Author Name Unknown Address [address] [place] [address] Organization [facility] Care Team Providers Care Insole And Outsole Splitter Name Role Phone MD Eladia, Iker Maloney Unavailable JESSICA XAVIER Unavailable Unavailable Allergies Allergy Classification Reported Allergen(s) Allergy Type Date of Onset Reaction(s) Facility (3 sources) acetaminophen / HYDROcodone Drug Allergy 6 Nausea, rash [facility] [employer] [employer] [facility] Work Phone: (4 sources) codeine; Translations: [CODEINE] Drug Allergy 5 Rash, [facility] Work Phone: (3 sources) meperidine Drug Allergy 4 [facility] [employer] Work Phone: (1 source) acetaminophen / HYDROcodone; Translations: [HYDROCODONE-ACETA MINOPHEN] Drug Allergy 0 [facility] Repository (1 source) acetaminophen / oxyCODONE; Translations: [OXYCODONE-ACETAMI NOPHEN] Drug Allergy 5 [facility] Repository (1 source) HYDROmorphone; Translations: [HYDROMORPHONE] Drug Allergy 5 [facility] Repository (1 source) meperidine; Translations: [MEPERIDINE (PF)] Drug Allergy 6 [facility] Repository (1 source) oxyCODONE; Translations: [OXYCODONE] Drug Allergy 5 [facility] Repository Medications Completed/Discontinued Medications Medication Drug Class(es) Dates Sig (Normalized) Sig (Original) acetic acid 20 mg/ml / hydrocortisone 10 mg/ml otic solution (3 sources) Corticosteroid Start: 02-20-2016 HYDROCORTISONE-A CETIC ACID 1-2 % SOLN 3 drops in each ear three times a day as needed HYDROCORTISONE-A CETIC ACID [id number] Jean-Pierre Pulido DO ascorbic acid 500 mg oral tablet (6 sources) Start: 02-20-2011 End: 11-18-2011 take 1 tablet by mouth once daily VITAMIN C 500 MG TABS One tablet by mouth daily ASCORBIC ACID [id number] Billie Chavez RN aspirin 325 mg oral tablet (6 sources) Nonsteroidal Anti-inflammatory Drug Start: 02-20-2011 take 1 tablet by mouth once daily ASPIRIN 325 MG TABS One tablet by mouth daily ASPIRIN [id number] Juana Linder Problems Active Problems Problem Classification Problem Date Documented Da te Episodic/Chronic Disorders of lipid metabolism (3 sources) Hyperlipidemia; Translations: [Hyperlipidemia, unspecified] Onset: 02-20-2011 02-20-2011 Chronic Essential hypertension (3 sources) Essential (primary) hypertension; Translations: [Essential (primary) hypertension] Onset: 09-25-2016 09-25-2016 Chronic Heart valve disorders (3 sources) Mitral valve prolapse; Translations: [Nonrheumatic mitral (valve) prolapse] Onset: 02-20-2011 02-20-2011 Chronic Osteoporosis (3 sources) Osteoporosis; Translations: [Age-related osteoporosis without current pathological fracture] Onset: 02-20-2016 02-21-2016 Chronic Other gastrointestinal disorders (3 sources) Irritable bowel syndrome; Translations: [Irritable bowel syndrome without diarrhea] Onset: 02-20-2016 02-21-2016 Chronic Unclassified (6 sources) Long-term drug therapy; Translations: [Other shelter (current) drug therapy] Onset: 02-20-2011 02-20-2011 Unclassified (1 source) Unknown / UNK(Unknown) Onset: 07-28-2016 Past or Other Problems Problem Classification Problem Date Documented Date Episodic/Chronic Cardiac dysrhythmias (3 sources) Palpitations; Translations: [Palpitations] Onset: 06-20-2013 06-20-2013 Episodic Nonspecific chest pain (12 sources) Tight chest; Translations: [Precordial pain] Onset: 02-20-2011 Resolved: 08-27-2015 02-20-2011 Episodic Other diseases of kidney and ureters (3 sources) Vesicoureteric reflux; Translations: [Vesicoureteral-reflu x, unspecified] Onset: 02-20-2016 02-21-2016 Episodic Other ear and sense organ disorders (3 sources) Otitis externa; Translations: [Unspecified otitis externa, right ear] Onset: 02-20-2016 02-21-2016 Episodic Other lower respiratory disease (6 sources) Dyspnea; Translations: [Shortness of breath] Onset: 09-28-2012 Resolved: 08-27-2015 09-28-2012 Episodic Unclassified (6 sources) Body mass index (BMI) 25.0-25.9, adult; Translations: [Peripheral edema] Onset: 07-27-2013 07-27-2013 Episodic Unclassified (6 sources) Preoperative cardiovascular examination ; Translations: [Encounter for preprocedural cardiovascular examination] Onset: 05-17-2015 Resolved: 08-27-2015 08-27-2015 Varicose veins of lower extremity (3 sources) Varicose veins of lower extremity; Translations: [Asymptomatic varicose veins of unspecified lower extremity] Onset: 02-20-2016 02-20-2016 Episodic Results Test Name Value Interpretation Reference Range Facil ity Vital Signs Date Time Vital Sign Value Performing Clinician Faci lity 09-29-2017 07:43-0500 BMI (Body Mass Index) 26.29 kg/m2 MD [facility] Work Phone: 09-29-2017 07:43-0500 BP Diastolic 60 mm[Hg] [facility] Work Phone: 09-29-2017 07:43-0500 BP Systolic 116 mm[Hg] MD [facility] Work Phone: 09-29-2017 07:43-0500 Height 165.1 cm MD [facility] Work Phone: 09-29-2017 07:43-0500 Pulse (Heart Rate) 88 /min MD [facility] Work Phone: 09-29-2017 07:43-0500 Respiratory Rate 20 /min MD [facility] Work Phone: 09-29-2017 07:43-0500 Weight 71.67 kg MD [facility] Work Phone: 09-25-2016 15:37-0500 BMI (Body Mass Index) 24.93 kg/m2 MD [facility] Work Phone: 09-25-2016 15:37-0500 BP Diastolic 60 mm[Hg] MD [facility] Work Phone: 09-25-2016 15:37-0500 BP Systolic 130 mm[Hg] MD [facility] Work Phone: 09-25-2016 15:37-0500 BSA (Body Surface Area) 1.75 m2 MD [facility] Work Phone: 09-25-2016 15:37-0500 Pulse (Heart Rate) 64 /min MD [facility] Work Phone: 09-25-2016 15:37-0500 Respiratory Rate 20 /min MD [facility] Work Phone: 09-25-2016 15:37-0500 Weight 67.95 kg Iker Montilla MD [facility] Work Phone: 02-20-2016 09:10-0400 Body Temperature 98 [degF] MD [facility] Work Phone: 11-18-2011 11:43-0500 Height 165.1 cm MD [facility] Work Phone: Encounters Encounter Date Encounter Type Care Provider Facility Start: 07-28-2016 End: 07-29-2016 Ambulatory JESSICA XAVIER [facility] Procedures Date Procedure Procedure Detail Performing Clinician Start: 03-16-2017 End: 03-16-2017 *Hepatic Function Panel Nini navarrete PA-C Work Phone: Start: 03-16-2017 End: 03-16-2017 Lipid 1996 panel - Serum or Plasma Nini Lee PA-C Work Phone: Start: 09-25-2016 End: 09-25-2016 FRANCINE Montilla MD Start: 09-25-2016 End: 09-25-2016 Follow Up Appt 1 year Iker Montilla MD Start: 09-16-2016 End: 09-16-2016 *Hepatic Function Panel Nini navarrete PA-C Work Phone: Start: 09-16-2016 End: 09-16-2016 Lipid 1996 panel - Serum or Plasma Nini Lee PA-C Work Phone: Start: 02-21-2016 End: 09-16-2016 *Hepatic Function Panel Nini navarrete PA-C Work Phone: Start: 02-21-2016 End: 03-17-2016 Lipid Audrey panel - Serum or Plasma Nini Lee PA-C Work Phone: Start: 08-28-2015 End: 08-28-2015 FRANCINE Montilla MD Start: 08-28-2015 End: 08-29-2015 Documentation of current medications Iker Montilla MD Start: 08-28-2015 End: 08-28-2015 Follow Up Appt 1 year Iker Montilla MD Start: 07-18-2015 End: 08-21-2015 *Hepatic Function Panel Nini navarrete PA-C Work Phone: Start: 07-18-2015 End: 08-21-2015 Lipid 1996 panel - Serum or Plasma Nini Lee PA-C Work Phone: Start: 05-17-2015 End: 05-21-2015 Nuclear stress test -Nav Montilla MD Start: 03-01-2015 End: 03-01-2015 FRANCINE Montilla MD Start: 03-01-2015 End: 03-02-2015 Documentation of current medications Iker Montilla MD Start: 03-01-2015 End: 03-01-2015 Follow Up Appt 6 months David Sorenson Start: 01-15-2015 End: 01-15-2015 *Hepatic Function Panel David Sorenson Start: 01-15-2015 End: 01-15-2015 Lipid 1996 panel - Serum or Plasma Iker Montilla MD Start: 11-30-2014 End: 11-30-2014 AUTOMOTIVE UPHOLSTERER Iker Montilla MD Start: 11-30-2014 End: 12-01-2014 Documentation of current medications Iker Montilla MD Start: 11-30-2014 End: 11-30-2014 Follow Up Appt 3 months David Sorenson Start: 07-25-2014 End: 07-25-2014 FRANCINE Montilla MD Start: 07-25-2014 End: 07-25-2014 Follow Up Appt 1 year Iker Montilla MD Start: 07-10-2014 End: 07-18-2014 *Hepatic Function Panel David Sorenson Start: 07-10-2014 End: 07-18-2014 Lipid 1996 panel - Serum or Plasma Iker Montilla MD Start: 07-27-2013 End: 07-27-2013 FRANCINE Montilla MD Start: 07-27-2013 End: 07-27-2013 Follow Up Appt 1 year Iker Montilla MD Start: 07-10-2013 End: 07-22-2013 *Hepatic Function Panel David Sorenson Start: 07-10-2013 End: 07-18-2014 Lipid 1996 panel - Serum or Plasma Iker Montilla MD Start: 06-20-2013 End: 06-28-2013 24 hour holter monitor Iker Montilla MD Start: 02-01-2013 End: 02-01-2013 AUTOMOTIVE UPHOLSTERER Iker Montilla MD Start: 02-01-2013 End: 02-01-2013 Ecg routine ecg w/least 12 lds w/i&r Iker Montilla MD Start: 02-01-2013 End: 02-01-2013 Follow Up Appt 6 months David Sorenson Start: 01-07-2013 End: 01-19-2013 *Hepatic Function Panel David Sorenson Start: 01-07-2013 End: 01-19-2013 Lipid 1996 panel - Serum or Plasma Iker Montilla MD Start: 09-28-2012 End: 06-28-2013 Fibrin D-dimer FEU [Mass/volume] in Platelet poor plasma Iker Montilla MD Start: 09-28-2012 End: 06-28-2013 Follow Up Appt Other Iker Montilla MD Start: 09-28-2012 End: 06-28-2013 Natriuretic peptide B [Mass/volume] in Blood Iker Montilla MD Start: 09-28-2012 End: 06-28-2013 Stress Echocardiogram (treadmill) Iekr Montilla MD Start: 08-03-2012 End: 07-27-2013 Follow Up Appt 6 months David Sorenson Start: 05-20-2012 End: 07-27-2012 *Hepatic Function Panel David Sorenson Start: 05-20-2012 End: 07-27-2012 Lipid 1996 panel - Serum or Plasma Iker Montilla MD Start: 11-18-2011 End: 11-18-2011 Follow Up Appt 6 months David Sorenson Plan of Treatment Date Care Activity Detail Author Start: 04-01-2018 End: 04-01-2018 Appointment Appointment [facility] Work Phone: Start: 09-29-2017 End: 09-29-2017 AUTOMOTIVE UPHOLSTERER AUTOMOTIVE UPHOLSTERER [facility] Work Phone: Start: 09-29-2017 End: 09-29-2017 Follow Up Appt 6 months Follow Up Appt 6 months [facility] Work Phone: Start: 09-29-2017 End: 09-29-2017 Appointment Appointment [facility] Work Phone: Start: 09-16-2017 End: 03-28-2017 *Hepatic Function Panel *Hepatic Function Panel [facility] Work Phone: Start: 09-16-2017 End: 03-28-2017 Lipid panel [AGGREGATE] *Lipid Profile CC PCP [facility] Work Phone: Start: 03-16-2017 End: 03-16-2017 *Hepatic Function Panel *Hepatic Function Panel [facility] Work Phone: Start: 03-16-2017 End: 03-16-2017 Lipid panel [AGGREGATE] *Lipid Profile CC PCP [facility] Work Phone: Start: 09-25-2016 End: 09-25-2016 AUTOMOTIVE UPHOLSTERER AUTOMOTIVE UPHOLSTERER [facility] Work Phone: Start: 09-25-2016 End: 09-25-2016 Follow Up Appt 1 year Follow Up Appt 1 year [facility] Work Phone: Start: 09-17-2016 End: 09-16-2016 *Hepatic Function Panel *Hepatic Function Panel [facility] Work Phone: Start: 09-17-2016 End: 09-16-2016 Lipid panel [AGGREGATE] *Lipid Profile CC PCP [facility] Work Phone: Start: 02-21-2016 End: 09-16-2016 *Hepatic Function Panel *Hepatic Function Panel [facility] Work Phone: Start: 02-21-2016 End: 03-17-2016 Lipid panel [AGGREGATE] *Lipid Profile CC PCP [facility] Work Phone: Start: 02-20-2016 End: 02-25-2016 Vascular Surgery Vascular Surgery Hudson Garcia, [address] [place], [address] [facility] Work Phone: Start: 08-28-2015 End: 08-28-2015 AUTOMOTIVE UPHOLSTERER AUTOMOTIVE UPHOLSTERER [facility] Work Phone: Start: 08-28-2015 End: 08-28-2015 Follow Up Appt 1 year Follow Up Appt 1 year [facility] Work Phone: Start: 07-18-2015 End: 08-21-2015 *Hepatic Function Panel *Hepatic Function Panel [facility] Work Phone: Start: 07-18-2015 End: 08-21-2015 Lipid panel [AGGREGATE] *Lipid Profile CC PCP [facility] Work Phone: Start: 05-17-2015 End: 05-17-2015 Nuclear stress test -Lexiscan Nuclear stress test -Lexiscan [facility] Work Phone: Start: 03-01-2015 End: 03-01-2015 AUTOMOTIVE UPHOLSTERER AUTOMOTIVE UPHOLSTERER [facility] Work Phone: Start: 03-01-2015 End: 03-01-2015 Follow Up Appt 6 months Follow Up Appt 6 months [facility] Work Phone: Start: 01-15-2015 End: 01-15-2015 *Hepatic Function Panel *Hepatic Function Panel [facility] Work Phone: Start: 01-15-2015 End: 01-15-2015 Lipid panel [AGGREGATE] *Lipid Profile CC PCP [facility] Work Phone: Start: 11-30-2014 End: 11-30-2014 AUTOMOTIVE UPHOLSTERER AUTOMOTIVE UPHOLSTERER [facility] Work Phone: Start: 11-30-2014 End: 11-30-2014 Follow Up Appt 3 months Follow Up Appt 3 months [facility] Work Phone: Start: 07-25-2014 End: 07-25-2014 AUTOMOTIVE UPHOLSTERER AUTOMOTIVE UPHOLSTERER [facility] Work Phone: Start: 07-25-2014 End: 07-25-2014 Follow Up Appt 1 year Follow Up Appt 1 year [facility] Work Phone: Start: 07-10-2014 End: 07-18-2014 *Hepatic Function Panel *Hepatic Function Panel [facility] Work Phone: Start: 07-10-2014 End: 07-18-2014 Lipid panel [AGGREGATE] *Lipid Profile CC PCP [facility] Work Phone: Start: 07-27-2013 End: 07-27-2013 AUTOMOTIVE UPHOLSTERER AUTOMOTIVE UPHOLSTERER [facility] Work Phone: Start: 07-27-2013 End: 07-27-2013 Follow Up Appt 1 year Follow Up Appt 1 year [facility] Work Phone: Start: 07-10-2013 End: 07-22-2013 *Hepatic Function Panel *Hepatic Function Panel [facility] Work Phone: Start: 07-10-2013 End: 07-18-2014 Lipid panel [AGGREGATE] *Lipid Profile [facility] Work Phone: Start: 06-20-2013 End: 06-20-2013 24 hour holter monitor 24 hour holter monitor [facility] Work Phone: Start: 02-01-2013 End: 02-01-2013 AUTOMOTIVE UPHOLSTERER AUTOMOTIVE UPHOLSTERER [employer] Work Phone: Start: 02-01-2013 End: 02-01-2013 Ecg routine ecg w/least 12 lds w/i&r EKG (In office) [facility] Work Phone: Start: 02-01-2013 End: 02-01-2013 Follow Up Appt 6 months Follow Up Appt 6 months [facility] Work Phone: Start: 01-07-2013 End: 01-19-2013 *Hepatic Function Panel *Hepatic Function Panel [facility] Work Phone: Start: 01-07-2013 End: 01-19-2013 Lipid panel [AGGREGATE] *Lipid Profile [facility] Phone: Start: 09-28-2012 End: 06-28-2013 BNP *Brain Natriuretic Peptide BNP [facility] Work Phone: Start: 09-28-2012 End: 06-28-2013 Fibrin D-dimer FEU *DDIMQ - Fibrin Degrd Ultrsens Qual/Semiquan [facility] Work Phone: Start: 09-28-2012 End: 06-28-2013 Follow Up Appt Other Follow Up Appt Other [facility] Phone: Start: 09-28-2012 End: 09-28-2012 Stress Echocardiogram (treadmill) Stress Echocardiogram (treadmill) [facility] Phone: Start: 08-03-2012 End: 07-27-2013 Follow Up Appt 6 months Follow Up Appt 6 months [facility] Work Phone: Start: 05-20-2012 End: 07-27-2012 *Hepatic Function Panel *Hepatic Function Panel [facility] Work Phone: Start: 05-20-2012 End: 07-27-2012 Lipid panel [AGGREGATE] *Lipid Profile [facility] Phone: Start: 11-18-2011 End: 11-18-2011 Follow Up Appt 6 months Follow Up Appt 6 months [facility] Work Phone: Patient Education [facility] Work Phone: Summary Purpose Family History No Family History Records Found Advance Directives No Advanced Directives Records Found Additional Source Comments INFORMATION SOURCE (unrecogn ized section and content) FOR RECORDS PERTAINING TO PATIENTS WHO ARE OR HAVE BEEN ENROLLED IN A CHEMICAL DEPENDENCY/SUBSTANCEABUSE PROGRAM, SOME INFORMATION MAY BE OMITTED. This clinical summary was aggregated from multiple sources. Caution should be exercised in using it in the provision of clinical care. This summary normalizes information from multiple sources, and as a consequence, information in this document may materially change the coding, format and clinical context of patient data. In addition, data may be omitted in some cases. CLINICAL DECISIONS SHOULD BE BASED ON THE PRIMARY CLINICAL RECORDS. [facility]. provides no warranty or guarantee of the accuracy or completeness of information in this document.
[2023-12-01 14:01] LABS: ALB/GLOB Ratio 1.3 RATIO (0.9-2.4); AST(SGOT) 17 U/L (15-37); Alanine Aminotransfer ALT/SGPT 26 U/L (13-56); Albumin, Serum 3.9 g/dL (3.2-5.0); Alkaline Phosphatase 80 U/L (45-117); Anion Gap 2 (5-15); BUN 23 mg/dL (7-18); BUN/Creat Ratio 22.5 RATIO (10-20); Calcium,Total 9.4 mg/dL (8.5-10.1); Chloride 108 mmol/L (98-107); Creatinine, Serum 1.02 mg/dL (0.55-1.02); EST Glomerular Filtration Rate 54 mL/min (>60); Est Glom Filt Rate - Afr Amer 66 mL/min (>60); Glucose 97 mg/dL (74-106); Potassium 4.5 mmol/L (3.5-5.1); Protein, Total 6.9 g/dL (6.4-8.2); Sodium Level 140 mmol/L (136-145); Thyroid Stim Hormone (TSH) 1.97 uIU/mL (0.358-3.74)
== END | disposition home or self-care (01) ==
LOC: LAB 11:32
PROVIDERS: PCP Family Medicine; Referring Provider Internal Medicine Endocrinology, Diabetes & Metabolism; Visit Provider Internal Medicine Endocrinology, Diabetes & Metabolism
DX: M81.0 Age-related osteoporosis without current pathological fracture (principal); E03.8 Other specified hypothyroidism
CPT/HCPCS: 36415; 80053; 84443

== ENCOUNTER 2023-12-17 15:30 | Outpatient (RCR) | payer MEDICARE, SELFPAY ==
--- NOTE | 2023-11-17 10:18 | HP.PTEVAL ---
Patient's Visit Information Visit Information Visit Information: VLADIMIR BARAJAS is a 88 year old F referred to Physical Therapy by Dr. Aaliyah De La Cruz DO with a diagnosis of S/P PELVIC FRACTURE 10/05/23. Date of Evaluation: 11/16/23 Physical Therapist: Naty Boucher, PT, Cert MDT Visit Plan Frequency: 2-3x /Week Duration: 4-6 Weeks Plan: *OSTEOPOROSIS* PROGRESS SLOWLY. START WITH LIGHT WEIGHTS/BANDS. GAIT TRAINING. CORE (NEUTRAL SPINE) AND JOIE LE STRENGTHEING. JOIE LE STRETCHING. Subjective Subjective: Work/Leisure: RETIRED. LIVES ALONE IN [facility] STORY HOME. ONE STEP IN/OUT WITH GRAB BAR. Present symptoms: L GROIN AND BUTTOCK PAIN. PAIN, NUMBNESS AND TINGLING DOWN L LEG TO TOES - CONSTANT. Present since: Sep - WHEN GROIN PAIN STARTED. L LE SX'S ARE CHRONIC. Pain Scale: WORST 9/10, LEAST 6/10 Currently: 8/10 Is it getting better, worse or staying the same: STAYING THE SAME Commenced as a result of: L ANKLE GAVE OUT COMING OUT OF [facility] AND FELL - PELVIC FX. Symptoms at onset: L GROIN PAIN Worse: STANDING, EXCESSIVE WALKING, DOING THE HOME EX'S FROM [facility]. Better: LYING DOWN WITH LLE ELEVATED. SITTING AND LYING WITH PRESSURE OFF OF LLE. Disturbed sleep: YES Previous history/Previous treatment: JUNE [address] MADDOX. PAIN MGMT WITH DR. DAHL - N. ABLASION FEBRUARY 2023. CHRONIC LLE PAIN, NUMBNESS, TINGLING AND WEAKNESS. FOLLOW UP WITH DR. MADDOX SEP [address] MADDOX PRESCRIBED LYRICA WITH SOME BENEFIT AND STILL TAKING IT. PATIENT REPORTS SHE HAD BACK X-RAYS SEP 14 2023 AND HE WAS HAPPY WITH HOW SHE WAS HEALING. STILL WEARING BONE STIMULATOR AND MAY WEAR IT UP TO A YEAR POST SURGERY. PATIENT REPORTS THE ONLY RESTICTION SHE KNOWS OF THAT SHE HAS IS NO LIFTING MORE THAN 10 LBS. Treatment this episode: Oct CAUDAL BY DR. DAHL - WITHOUT BENEFIT PER PATIENT REPORT. NOV [address] DAHL AND NERVE ABLASION RECOMMENDED AND HAS BEEN SUBMITTED FOR APPROVAL BUT DATE NOT SET YET. HAS NOT SEEN DR. MADDOX SINCE FALL. Coughing/sneezing/straining: NOT CURRENTLY POSITIVE FOR INCREASED PAIN. Gait: USING FWW OUT OF HOUSE AND AT NIGHT. NOT USING AD MOST OF THE TIME IN HOUSE DURING THE DAY. Bowel or Bladder Dysfunction: NO Accidents: NO OTHERS REPORTED. Unexplained weight loss: NO Imaging: RECENT BACK X-RAYS - SEE ABOVE. PELVIC X-RAYS AT TIME OF FALL. PATIENT REPORTS SHE LANDED ON HER LEFT SIDE AND HAD X-RAYS OF HER L UE AND ANKLE THAT WERE NEGATIVE. PMH/Recent major surgery: MITRAL VALVE PROLAPSE. HYPOTHYROIDISM. OSTEOPOROSIS. JOIE KNEE SX'S, L FOOT SX - PINS 4TH AND 5TH DIGITS 1986. L CTS, BACK SURGERY - HARDWARE REMOVED L3-4, FUSION T11-L5 MAY 2023. OTHER: PATIENT REPORTS SHE IS BACK TO DRIVING. STATES SHE DROVE TO [employer] AND [place] AND STATES SHE IS PROUD OF THAT. Objective Objective: Sitting/Standing Posture: R SHLD LEVEL HIGHER THAN LEFT. FH. RSH'S. JOIE HIP AND KNEE FLEXION IN STANDING. REDUCED LORDOSIS. Active Correction of posture: ONLY ABLE TO PARTIALLY CORRECT AND C/O INCREASED JOIE LBP L >R WITH ATTEMPTS TO CORRECT IN SITTING AND STANDING Other Observations: THIS PATIENT AMBULATES INDEP'LY INTO PT WITH FWW X APPROX 300 FEET WITH LIGHT PRESSURE ON WALKER. SHE WALKS WITH INCREASED TRUNK FLEXION AND DECREASED JOIE STRIDE LENGTH BUT EQUAL WEIGHT BEARING TIME JOIE LE'S. Sensory deficit: HYPERSENSATIVIEY REPORTED L LATERAL THIGH AND NUMBNESS L LATERAL ANKLE WITH TESTING TODAY COMPARED TO THE R LE. ROM deficit: PATIENT WITH JOIE LE HIP FLEXOR, HS AND CALF TIGHTNESS. Motor deficit: R HIP 4/5, KNEE 5/5, ANKLE 5/5. L HIP 3+/5, KNEE 4-/5, ANKLE 4-/5. Lumbar mvmt loss: flex - MOD ext - RICKIE R SG - RICKIE L SG - RICKIE PATIENT C/O LOW BACK PAIN L>R AND L LE PAIN WITH LUMBAR ROM TESING ALL PLANES. Core strength: POOR Palpation: PATIENT HAS MILD SWELLING JOIE ANKLES AND NO ACUTE TENDERNESS. TREATMENT: RECOMMENDED CONTINUED USE OF WALKER AT ALL TIMES FOR SAFETY DUE TO PAIN AND LLE WEAKNESS. PATIENT AGREEABLE AND COMMUNICATED A GOOD UNDERSTANDING OF INSTRUCTONS GIVEN. Balance/Special Test Scores Lower Extremity Functional Score: 29 Goals Goal 1:: PATIENT WILL BE INDEP AND SAFE WITH GAIT ON LEVEL SURFACES X AT LEAST 500 FEET WITHOUT AD. Goal Time Frame: 4-6 Weeks Goal 2:: PATIENT WILL HAVE INCREASED BLE AND CORE STRENGTH BY 1/2 GRADE OF ALL EFFECTED MUSCULATURE. Goal Time Frame: 4-6 Weeks Goal 3:: PATIENT WILL BE ABLE TO NEGOTIATE STEPS WITH 1 HR WITH RECIPROCAL PATTERN WITHOUT LIMITATIONS Goal Time Frame: 4-6 Weeks Goal 4:: PATIENT TO REPORT 4/10 BACK AND LLE PAIN OR LESS WITH ALL ACTIVITIES. Goal Time Frame: 4-6 Weeks Goal 5:: PATIENT WILL BE INDEP WITH A HEP FOR CONTINUED IMPROVEMENT ONCE FORMAL PHYSICAL THERAPY CONCLUDES. Goal Time Frame: 4-6 Weeks Rehabilitation Potential Physical Therapy Diagnosis: THIS PATIENT PRESENTS TO PT 6 WKS S/P PELVIC FRACTURE WITH PAIN, HYPOMOBILITY, CORE AND JOIE LE WEAKNESS. Rehabilitation Potential: Good Anticipated Interventions Patient/Client Instruction: Educate patient on: Condition, Plan of Care and Risk Factors For the Purpose of:: To improve safety with gait, To improve safety, To improve self management and To prevent re-injury Therapeutic Exercise to Include: Strength training, Balance training, Body mechanics, Postural training, Flexibilty training, Gait and locomotor training, Neuromotor development and Dynamic Lumbar Stabilization Text: Thank you for the opportunity to evaluate your patient. For Medicare and Medicare HMO plans, please review the plan of care and approve it. It will need to be FAXED BACK to us at [phone] for Medicare purposes. For Medicare only, by signing this I certify the plan of care. Please let me know if there are questions or concerns regarding this plan of care. Physician Signature: Date:
--- NOTE | 2023-12-21 15:42 | HP.PTDCSUM ---
Discharge Summary D/C summary: It has been my pleasure to treat VLADIMIR BARAJAS referred by Dr. Aaliyah De La Cruz DO, with the diagnosis of S/P PELVIC FRACTURE 10/05/23 for a total of 10 visit(s). Discharge Date: Please see the following information for a summary of their discharge status. Subjective Subjective: PATIENT REPORTS 80% IMPROVEMENT. I CAN MOVE BETTER WALK BETTER AND STAND BETTER . SHE REPORTS SHE HAS TRIED TO LEARN TO USE THE CANE BUT IT CONFUSES HER. SHE STATES SHE FEELS THE MOST SAFE WITH THE WALKER. NOT USING ANY AD'S IN THE HOUSE EXCEPT WALKER AT NIGHT BY THE BED. WHEN OUT OF HOUSE USES THE WALKER AND PLANS TO CONTINUE BECAUSE JUST DOESN'T FEELS SAFE WITHOUT IT. SHE REPORTS ONLY TWO INSTANCES OF PAIN WITH HER PELVIS SINCE SEEING DR. MCBRIDE 12/10/23 SENDING PAIN INTO THE LEFT GROIN: ONCE TURNING OVER IN BED AND ONCE RISING FROM SITTING. SHE REPORTS THE PAIN WAS FLEETING. CARDIAC FOLLOW UP 12/11/23 - PATIENT DENIES ANY FURTHER TESTING OR TREATMENT CHANGES RECOMMENDED. PATIENT REPORTS SHE IS DOING GOOD WITH HER HOME EX'S AND WANTS TO CONTINUE ON HER OWN AT THIS POINT. Pain L BUTTOCKS: Pain Intensity (Out of 10): 8 L THIGH: Pain Intensity (Out of 10): 0 L CALF: Pain Intensity (Out of 10): 8 L FOOT: Pain Intensity (Out of 10): 0 LOW BACK: Pain Intensity (Out of 10): 8 Overall Improvement % Improvement: 80 Objective Objective/Function: PATIENT WAS SEEN TODAY FOR RE-ASSESSMENT OF PROGRESS TOWARD THE SET PT GOALS AND THE NEED FOR FURTHER PHYSICAL THERAPY VS READINESS FOR DISCHARGE. UPON EXAM TODAY: PATIENT AMBULATES INDEP'LY INTO PT WITH CARRYING HER PURSE, CANE AND COAT WHILE TALKING ABOUT THE SUPER BOWL HALF TIME SHOW. NO LOSS OF BALANCE NOTED. SHE WALKS WITH GOOD CADANCE AND IS LOOKING UP AND AROUND WHILE WALKING. Sensory deficit: JOIE LE LIGHT TOUCH SENSATION GROSSLY INTACT AND SYMMETRICAL. PATIENT DENIES HYPERSENSATIVITY AND NUMBNESS THROUGHOUT. ROM: JOIE LE'S WFL AND PATIENT DENIES PAIN WITH TESTING. Motor deficit: R HIP 4/5, KNEE 5/5, ANKLE 5/5. L HIP 4-/5, KNEE 4/5, ANKLE 4/5. LE Dural Test: NEG JOIE LE'S Lumbar mvmt loss: flex - MIN ext - RICKIE R SG - RICKIE L SG - RICKIE PATIENT C/O INCREASED JOIE LOW BACK PAIN WITH LUMBAR ROM TESING ALL PLANES TODAY. Core strength: FAIR Palpation: PATIENT HAS MILD SWELLING JOIE ANKLES AND NO ACUTE TENDERNESS. PATIENT REPORTS HER CARDIAC DR. THINKS HER ANKLE SWELLING IS VASCULAR RELATED AND RECOMMENDS SHE SEE'S A VASCULAR SPECIALIST BUT SHE WANTS TO WAIT DUE TO HAVING SO MANY OTHER THINGS GOING ON RIGHT NOW. OTHER: SLS - PATIENT IS ONLY ABLE TO SLS ON EA LEG FOR A SECOND OR TWO EA WITHOUT UE ASSIST. SHE IS NOW ABLE TO TRANSFER INDEP'LY FROM SIT TO STAND WITHOUT UE ASSIST. UPON TESTING, SHE IS NOT ABLE TO SEQUENCE PROPER WITH A CANE DESPITE TRAINING AND THIS PT RECOMMENDS NOT USING IT FOR THESE REASONS. RECOMMEND WALKER FOR SAFETY AND PATIENT AGREEABLE. SHE DOES NOT HAVE HER WALKER WITH HER TODAY AND THIS PT OFFERED TO WALK HER TO THE VAN WHEN IT ARRIVES FOR SAFETY AND SHE DECLINED STATING - I WILL BE FINE . WILL D/C FROM PT TO HEP AT PATIENTS REQUEST. Goals Goal 1:: PATIENT WILL BE INDEP AND SAFE WITH GAIT ON LEVEL SURFACES X AT LEAST 500 FEET WITHOUT AD. Goal Progress: Not Progressing Goal 2:: PATIENT WILL HAVE INCREASED BLE AND CORE STRENGTH BY 1/2 GRADE OF ALL EFFECTED MUSCULATURE. Goal Progress: Goal Met Goal 3:: PATIENT WILL BE ABLE TO NEGOTIATE STEPS WITH 1 HR WITH RECIPROCAL PATTERN WITHOUT LIMITATIONS Goal Progress: Goal Met Goal 4:: PATIENT TO REPORT 4/10 BACK AND LLE PAIN OR LESS WITH ALL ACTIVITIES. Goal Progress: Not Progressing Goal 5:: PATIENT WILL BE INDEP WITH A HEP FOR CONTINUED IMPROVEMENT ONCE FORMAL PHYSICAL THERAPY CONCLUDES. Goal Progress: Goal Met Plan Plan: *OSTEOPOROSIS* NO SLANT BOARD STRETCH. PROGRESS SLOWLY. START WITH LIGHT WEIGHTS/BANDS. HOLD HEEL TOE RAISES - CAN TRY AGAIN AFTER ABLASION. GAIT TRAINING. CORE (NEUTRAL SPINE) AND JOIE LE STRENGTHEING. JOIE LE STRETCHING. D/C Information d/c sentence: If there are questions or concerns regarding this patient's physical therapy, please feel free to call me at [phone]. Thank you for the referral of this patient. Sincerely, Naty Boucher, PT, Cert MDT Balance/Gait/Functional tests Balance/Special Test Scores Lower Extremity Functional Score: 47 Improvement % Improvement: 80
== END 2023-12-17 19:00 | disposition home or self-care (01) ==
LOC: PT 15:30
PROVIDERS: PCP Family Medicine; Referring Provider Family Medicine; Visit Provider Family Medicine
DX: S32.9XXD Fracture of unspecified parts of lumbosacral spine and pelvis, subsequent encounter for fracture with routine healing (principal)
CPT/HCPCS: 97110; 97162; 97530

== ENCOUNTER → 2023-12-30 | Outpatient (CLI) | payer MEDICARE, SELFPAY ==
--- NOTE | 2023-12-30 11:06 | RAD_ITS ---
INDICATION: PAIN/PELVIC FRACTURE EXAMINATION/TECHNIQUE: X-RAY - XR Spine Lumbar Min 4 Views COMPARISON: 03/27/2023 FINDINGS: 1. VERTEBRAE: 2. There has been interval revision of the previous posterior fixation lumbar spine, currently with pedicle screw posterior fixation extending from T11 through L5. No pedicle screw noted at L3. 3. Pedicle screws and extends through the superior endplate at T11, and there has been interval compression of the T11 vertebral body with loss of approximately 50% anterior vertebral body height of on certain acuity. The pedicle screws however appear to extend into the disc space at, and may be extending into the inferior endplate of T10. 4. No fracture or hardware noted. 5. Extensive facet and disc changes are noted from L1 to L5. Mild chronic loss of vertebral body height at L1. DISCS: Significant disc height loss and endplate sclerosis at L1-2 and L2-3. Marginal osteophyte formation and endplate changes at remaining levels. INCLUDED ABDOMEN: Included bowel gas pattern is non-obstructive. RAD/L/S Spine Min 4 Views IMPRESSION: 1. Interval revision of previous of posterior fixation extending from T11 through L5. 2. There has been interval compression of the superior endplate at T11 of uncertain acuity however the pedicle screws at this level extending through the L3 vertebral body into the disc space and may contact the inferior endplate of T10. 3. No acute fractures or hardware failure noted. 4. Extensive multilevel degenerative disc changes. Electronically Signed: Azael Alvares MD at 22:32 EST ,
--- NOTE | 2023-12-30 11:23 | RAD_ITS ---
INDICATION: PAIN/PELVIC FRACTURE EXAMINATION/TECHNIQUE: X-RAY - XR Pelvis 1 or 2 Views COMPARISON: None. FINDINGS: PELVIC BONES: There is a minimally displaced fracture involving the body of the LEFT ilium at the level of the acetabulum. Additional nondisplaced LEFT inferior pubic ramus fracture with callus formation. No other fractures identified. There are extensive postoperative changes involving lumbar spine with pedicle screw posterior fixation laminectomy defects. HIPS: No dislocation noted. The LEFT femoral neck has a mildly irregular configuration which appears to be due to positioning. Consider repeat imaging versus CT imaging to exclude occult LEFT femoral neck fracture. SOFT TISSUES: No soft tissue swelling or gas. RAD/Pelvis 1 or 2 Views IMPRESSION: 1. Minimally displaced fracture involving the body of the LEFT ilium at the level of the acetabulum. Additional healing LEFT inferior pubic ramus fracture is noted. No displacement. 2. Mildly irregular appearance of the LEFT femoral neck which can be contributed by positioning. Consider follow-up imaging for clear definition of the LEFT femoral neck alternatively evaluation with CT is 3. Remote postoperative changes involving the lumbar spine. Electronically Signed: Azael Alvares MD at 22:17 EST ,
--- OUTSIDE RECORDS SUMMARY | 2023-12-30 11:28 | XMS RPT_ITS | CCD ---
Author Name Unknown Address [address] [place] [address] Organization [facility] Care Team Providers Care Correction Officer Head Name Role Phone MD Eladia, Iker Maloney Unavailable JESSICA XAVIER Unavailable Unavailable Allergies Allergy Classification Reported Allergen(s) Allergy Type Date of Onset Reaction(s) Facility (3 sources) acetaminophen / HYDROcodone Drug Allergy 6 Nausea, rash [facility] Work Phone: (4 sources) codeine; Translations: [CODEINE] Drug Allergy 5 Rash, [facility] Work Phone: (3 sources) meperidine Drug Allergy 4 [facility] Work Phone: (1 source) acetaminophen / HYDROcodone; Translations: [HYDROCODONE-ACETA MINOPHEN] Drug Allergy 0 [facility] (1 source) acetaminophen / oxyCODONE; Translations: [OXYCODONE-ACETAMI NOPHEN] Drug Allergy 5 [facility] (1 source) HYDROmorphone; Translations: [HYDROMORPHONE] Drug Allergy 5 [facility] (1 source) meperidine; Translations: [MEPERIDINE (PF)] Drug Allergy 6 [facility] (1 source) oxyCODONE; Translations: [OXYCODONE] Drug Allergy 5 [facility] Medications Completed/Discontinued Medications Medication Drug Class(es) Dates Sig (Normalized) Sig (Original) acetic acid 20 mg/ml / hydrocortisone 10 mg/ml otic solution (3 sources) Corticosteroid Start: 02-20-2016 HYDROCORTISONE-A CETIC ACID 1-2 % SOLN 3 drops in each ear three times a day as needed HYDROCORTISONE-A CETIC ACID [id number] Jean-Pierre Pulido DO ascorbic acid 500 mg oral tablet (6 sources) Start: 02-20-2011 End: 11-18-2011 take 1 tablet by mouth once daily VITAMIN C 500 MG TABS One tablet by mouth daily ASCORBIC ACID [id number] Billie Chavez RN aspirin 325 mg oral tablet (6 sources) Nonsteroidal Anti-inflammatory Drug Start: 02-20-2011 take 1 tablet by mouth once daily ASPIRIN 325 MG TABS One tablet by mouth daily ASPIRIN [id number] Juana Linder Problems Active Problems Problem Classification [...] (6 sources) Long-term drug therapy; Translations: [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] Onset: 02-20-2011 02-20-2011 Unclassified [...] BP Systolic 116 mm[Hg] MD [facility] Work Phone: 09-29-2017 07:43-0500 Height 165.1 cm MD [facility] Zaval[facility] Work Phone: 09-29-2017 07:43-0500 Pulse (Heart Rate) 88 /min MD [facility] Zaval[facility] Work Phone: 09-29-2017 07:43-0500 Respiratory Rate [...] 15:37-0500 Weight 67.95 kg Iker Montilla MD [facility] Work Phone: 02-20-2016 09:10-0400 Body Temperature 98 [degF] MD [facility] Work Phone: 11-18-2011 11:43-0500 Height 165.1 cm MD [facility] Work Phone: Encounters Encounter Date Encounter Type Care Provider Facility Start: 07-28-2016 End: 07-29-2016 Ambulatory JESSICA XAVIER [facility] Procedures Date Procedure Procedure Detail Performing Clinician [...] Iker Montilla MD Start: 11-30-2014 End: 11-30-2014 ASSISTANT PROFESSOR OF ARCHAEOLOGY Iker Montilla MD Start: 11-30-2014 End: 12-01-2014 [...] Iker Montilla MD Start: 02-01-2013 End: 02-01-2013 ASSISTANT PROFESSOR OF ARCHAEOLOGY Iker Montilla MD Start: 02-01-2013 End: 02-01-2013 Ecg routine ecg w/least 12 lds w/i&r Iker Montilla MD Start: 02-01-2013 End: 02-01-2013 Follow Up Appt 6 months David Sorenson Start: 01-07-2013 End: 01-19-2013 *Hepatic Function Panel David Sorenson Start: 01-07-2013 End: 01-19-2013 Lipid 1996 panel - Serum or Plasma Iker Monitlla MD Start: 09-28-2012 End: 06-28-2013 Fibrin D-dimer FEU [Mass/volume] in Platelet poor plasma Iker Montilla MD Start: 09-28-2012 End: 06-28-2013 Follow Up Appt Other Iker Montilla MD Start: 09-28-2012 End: 06-28-2013 Natriuretic peptide B [Mass/volume] in Blood Iker Montilla MD Start: 09-28-2012 End: 06-28-2013 Stress Echocardiogram (treadmill) Iker Montilla MD Start: 08-03-2012 End: 07-27-2013 Follow Up Appt 6 months David Sorenson Start: 05-20-2012 End: 07-27-2012 *Hepatic Function Panel David Sorenson Start: 05-20-2012 End: 07-27-2012 Lipid 1996 panel - Serum or Plasma Iker Montilla MD Start: 11-18-2011 End: 11-18-2011 Follow Up Appt 6 months David Sorenson Plan of Treatment Date Care Activity Detail Author Start: 04-01-2018 End: 04-01-2018 Appointment Appointment [facility] Work Phone: Start: 09-29-2017 End: 09-29-2017 ASSISTANT PROFESSOR OF ARCHAEOLOGY ASSISTANT PROFESSOR OF ARCHAEOLOGY [facility] Work Phone: Start: 09-29-2017 End: 09-29-2017 Follow Up Appt 6 months Follow Up Appt 6 months [facility] Work Phone: Start: 09-29-2017 End: 09-29-2017 Appointment Appointment [facility] Work Phone: Start: 09-16-2017 End: 03-28-2017 *Hepatic Function Panel *Hepatic Function Panel [facility] Work Phone: Start: 09-16-2017 End: 03-28-2017 Lipid panel [AGGREGATE] *Lipid Profile CC PCP [facility] Work Phone: Start: 03-16-2017 End: 03-16-2017 *Hepatic Function Panel *Hepatic Function Panel [facility] Work Phone: Start: 03-16-2017 End: 03-16-2017 Lipid panel [AGGREGATE] *Lipid Profile CC PCP [facility] Work Phone: Start: 09-25-2016 End: 09-25-2016 ASSISTANT PROFESSOR OF ARCHAEOLOGY ASSISTANT PROFESSOR OF ARCHAEOLOGY [facility] Work Phone: Start: 09-25-2016 End: 09-25-2016 Follow Up Appt 1 year Follow Up Appt 1 year [facility] Work Phone: Start: 09-17-2016 End: 09-16-2016 *Hepatic Function Panel *Hepatic Function Panel [facility] Work Phone: Start: 09-17-2016 End: 09-16-2016 Lipid panel [AGGREGATE] *Lipid Profile CC PCP [facility] Work Phone: Start: 02-21-2016 End: 09-16-2016 *Hepatic Function Panel *Hepatic Function Panel [facility] Work Phone: Start: 02-21-2016 End: 03-17-2016 Lipid panel [AGGREGATE] *Lipid Profile CC PCP [facility] Work Phone: Start: 02-20-2016 End: 02-25-2016 Vascular Surgery Vascular Surgery Hudson Garcia, [address] [place], [address] [facility] Work Phone: Start: 08-28-2015 End: 08-28-2015 ASSISTANT PROFESSOR OF ARCHAEOLOGY ASSISTANT PROFESSOR OF ARCHAEOLOGY [facility] Work Phone: Start: 08-28-2015 End: 08-28-2015 Follow Up Appt 1 year Follow Up Appt 1 year [facility] Work Phone: Start: 07-18-2015 End: 08-21-2015 *Hepatic Function Panel *Hepatic Function Panel [facility] Work Phone: Start: 07-18-2015 End: 08-21-2015 Lipid panel [AGGREGATE] *Lipid Profile CC PCP [facility] Work Phone: Start: 05-17-2015 End: 05-17-2015 Nuclear stress test -Lexiscan Nuclear stress test -Lexiscan [facility] Work Phone: Start: 03-01-2015 End: 03-01-2015 ASSISTANT PROFESSOR OF ARCHAEOLOGY ASSISTANT PROFESSOR OF ARCHAEOLOGY [facility] Work Phone: Start: 03-01-2015 End: 03-01-2015 Follow Up Appt 6 months Follow Up Appt 6 months [facility] Work Phone: Start: 01-15-2015 End: 01-15-2015 *Hepatic Function Panel *Hepatic Function Panel [facility] Work Phone: Start: 01-15-2015 End: 01-15-2015 Lipid panel [AGGREGATE] *Lipid Profile CC PCP [facility] Work Phone: Start: 11-30-2014 End: 11-30-2014 ASSISTANT PROFESSOR OF ARCHAEOLOGY ASSISTANT PROFESSOR OF ARCHAEOLOGY [facility] Work Phone: Start: 11-30-2014 End: 11-30-2014 Follow Up Appt 3 months Follow Up Appt 3 months [facility] Work Phone: Start: 07-25-2014 End: 07-25-2014 ASSISTANT PROFESSOR OF ARCHAEOLOGY ASSISTANT PROFESSOR OF ARCHAEOLOGY [facility] Work Phone: Start: 07-25-2014 End: 07-25-2014 Follow Up Appt 1 year Follow Up Appt 1 year [facility] Work Phone: Start: 07-10-2014 End: 07-18-2014 *Hepatic Function Panel *Hepatic Function Panel [facility] Work Phone: Start: 07-10-2014 End: 07-18-2014 Lipid panel [AGGREGATE] *Lipid Profile CC PCP [facility] Work Phone: Start: 07-27-2013 End: 07-27-2013 ASSISTANT PROFESSOR OF ARCHAEOLOGY ASSISTANT PROFESSOR OF ARCHAEOLOGY [facility] Work Phone: Start: 07-27-2013 End: 07-27-2013 Follow Up Appt 1 year Follow Up Appt 1 year [facility] Work Phone: Start: 07-10-2013 End: 07-22-2013 *Hepatic Function Panel *Hepatic Function Panel [facility] Work Phone: Start: 07-10-2013 End: 07-18-2014 Lipid panel [AGGREGATE] *Lipid Profile [facility] Work Phone: Start: 06-20-2013 End: 06-20-2013 24 hour holter monitor 24 hour holter monitor [facility] Work Phone: Start: 02-01-2013 End: 02-01-2013 ASSISTANT PROFESSOR OF ARCHAEOLOGY ASSISTANT PROFESSOR OF ARCHAEOLOGY [employer] [facility] Work Phone: Start: 02-01-2013 End: 02-01-2013 Ecg routine ecg w/least 12 lds w/i&r EKG (In office) [facility] Work Phone: Start: 02-01-2013 End: 02-01-2013 Follow Up Appt 6 months Follow Up Appt 6 months [employer] [facility] Work Phone: Start: 01-07-2013 End: 01-19-2013 *Hepatic Function Panel *Hepatic Function Panel [employer] [facility] Work Phone: Start: 01-07-2013 End: 01-19-2013 Lipid panel [AGGREGATE] *Lipid Profile [employer] [employer] Phone: Start: 09-28-2012 End: 06-28-2013 BNP *Brain Natriuretic Peptide BNP [employer] [facility] Work Phone: Start: 09-28-2012 End: 06-28-2013 Fibrin D-dimer FEU *DDIMQ - Fibrin Degrd Ultrsens Qual/Semiquan [employer] [facility] Work Phone: Start: 09-28-2012 End: 06-28-2013 Follow Up Appt Other Follow Up Appt Other [employer] Phone: Start: 09-28-2012 End: 09-28-2012 Stress Echocardiogram (treadmill) Stress Echocardiogram (treadmill) [employer] [employer] Phone: Start: 08-03-2012 End: 07-27-2013 Follow Up Appt 6 months Follow Up Appt 6 months [employer] [facility] Work Phone: Start: 05-20-2012 End: 07-27-2012 *Hepatic Function Panel *Hepatic Function Panel [employer] [facility] Work Phone: Start: 05-20-2012 End: 07-27-2012 Lipid panel [AGGREGATE] *Lipid Profile [employer] Phone: Start: 11-18-2011 End: 11-18-2011 Follow Up [...] BE BASED ON THE PRIMARY CLINICAL RECORDS. [employer] provides no warranty or guarantee of the accuracy or completeness of information in this document.
== END | disposition home or self-care (01) ==
PROVIDERS: PCP Family Medicine; Referring Provider Family Medicine; Visit Provider Family Medicine
DX: S32.599D Other specified fracture of unspecified pubis, subsequent encounter for fracture with routine healing (principal); R10.2 Pelvic and perineal pain
CPT/HCPCS: 72110; 72170

== ENCOUNTER → 2024-01-22 | Outpatient (CLI) | payer MEDICARE, SELFPAY ==
--- NOTE | 2024-01-22 13:34 | CT_ITS ---
STUDY: CT LEFT HIP WITHOUT CONTRAST REASON FOR EXAM: Female, 88 years old. Unspecified fracture of left ilium, initial encounter for closed RADIATION DOSAGE (If Supplied By Facility): CTDIvol = ( 18.99 ) mGy, DLP = ( 523.06 ) mGycm TECHNIQUE: Transaxial CT imaging of the left hip was performed. Sagittal and coronal images were reconstructed. Individualized dose optimization techniques were used for this CT. COMPARISON: X-ray pelvis December 30, 2023. FINDINGS: There is diffuse demineralization of the osseous structures. There fractures of the left superior and inferior pubic rami with mild periosteal reaction and partial callus. There is mild joint space narrowing of the left hip. Normal visualized soft tissue structure. Normal bladder. Uterus is not seen consistent with hysterectomy. 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 Electronically Signed: Raffy Liang MD at 14:49 EDT ,
== END | disposition home or self-care (01) ==
LOC: CT 13:33
PROVIDERS: PCP Family Medicine; Referring Provider Family Medicine; Visit Provider Family Medicine
DX: R93.89 Abnormal findings on diagnostic imaging of other specified body structures (principal); S32.302A Unspecified fracture of left ilium, initial encounter for closed fracture
CPT/HCPCS: 73700

== ENCOUNTER → 2024-01-26 | Outpatient (CLI) | payer MEDICARE, SELFPAY ==
--- NOTE | 2024-01-26 13:29 | VDLE_ITS ---
Reason For Study: Bilateral leg pain RIGHT LEFT CFV is compressible, spontaneous, phasic, CFV is compressible, spontaneous, phasic, competent and demonstrates normal competent, and demonstrates normal augmentation. augmentation. FV is compressible, spontaneous, phasic, FV is compressible, spontaneous, phasic, competent and demonstrates normal competent and demonstrates normal augmentation. augmentation. POP V is compressible, spontaneous, phasic, POP V is compressible, spontaneous, phasic, competent and demonstrates normal competent and demonstrates normal augmentation. augmentation. T/P Trunk is compressible. T/P Trunk is compressible. PTV is compressible. PTV is compressible. RT PerV is compressible. LT PerV is compressible. SFJ is competent and measures 0.74 x 0.72 cm. SFJ is competent and measures 0.54 x 0.52 cm. GSV proximal thigh measures 0.16 x 0.16 cm. GSV proximal thigh measures 0.34 x 0.37 cm. GSV above knee is competent. GSV at knee measures 0.21 x 0.23 cm. GSV at knee measures 0.25 x 0.26 cm. GSV is competent throughout. GSV INCOMPETENT throughout for greater than SSV proximal calf is competent and measures 0.5 seconds. 0.09 x 0.11 cm. SSV at junction is competent and measures 0.23 x 0.22 cm. Procedure This is a venous duplex using B-mode, color flow and spectral Doppler. Exam performed in department. Patient was scanned in reverse Trendelenburg position during reflux assessment. VL/Venous Duplex US - Rick Extrem Interpretation Summary Deep veins of the bilateral lower extremities are patent and compressible segme ntally. There is no evidence of bilateral lower extremity deep vein thrombosis. The bilateral great saphenous veins appear patent and compressible segmentally. Positive for reflux in the right great saphenous vein throughout Ordering Physician: Porsche Tobin Referring Physician: Aaliyah De La Cruz Performed By: Willinger, Charisse, RVT
== END | disposition home or self-care (01) ==
LOC: CVS 13:27
PROVIDERS: PCP Family Medicine; Referring Provider Physician Assistant; Visit Provider Physician Assistant
DX: R60.0 Localized edema (principal); I83.93 Asymptomatic varicose veins of bilateral lower extremities
CPT/HCPCS: 93970

== ENCOUNTER → 2024-02-09 | Outpatient (CLI) | payer MEDICARE, SELFPAY ==
[2024-02-09 09:39] LABS: Absolute Lymphocyte Count 2.06 X10^3/uL (0.83-4.51); Absolute Neutrophil Count 3.6 X10^3/uL (2.0-7.7); Basophil# 0.04 X10^3/uL; Basophil% 0.6 % (0-1); Eosinophil# 0.19 X10^3/uL; Eosinophils% 2.9 % (0-5); Hematocrit 45.2 % (37-47); Hemoglobin 14.5 g/dL (12.0-15.0); Lymphocyte # 2.06 X10^3/ul (0.83-4.51); Lymphocyte % 31.1 % (19-41); Mean Corp Hgb Conc 32.1 g/dL (32-36); Mean Corpuscular Hgb 28.1 pg (27.0-32.0); Mean Corpuscular Volume 87.6 fL (81-99); Mean Platelet Vol. 11.9 fl (6.2-12.0); Monocyte% 10.6 % (0-10); NRBC Flagged by Analyzer 0 % (0-5); Neutrophil # 3.61 X10^3/uL (2.7-7.7); Neutrophil % 54.5 % (47-70); Platelet Count 210 K/mm3 (150-450); RBC Distribution Width CV 14.2 % (11.6-14.6); Red Blood Count 5.16 M/mm3 (4.2-5.4); White Blood Count 6.6 K/mm3 (4.4-11.0)
[2024-02-09 10:29] LABS: ALB/GLOB Ratio 1.3 RATIO (0.9-2.4); AST(SGOT) 21 U/L (15-37); Alanine Aminotransfer ALT/SGPT 25 U/L (13-56); Albumin, Serum 3.8 g/dL (3.2-5.0); Alkaline Phosphatase 67 U/L (45-117); Anion Gap 2 (5-15); BUN 21 mg/dL (7-18); BUN/Creat Ratio 19.6 RATIO (10-20); Calcium,Total 8.8 mg/dL (8.5-10.1); Chloride 110 mmol/L (98-107); Cholesterol 146 mg/dL (200); Creatinine, Serum 1.07 mg/dL (0.55-1.02); EST Glomerular Filtration Rate 51 mL/min (>60); Est Glom Filt Rate - Afr Amer 62 mL/min (>60); Glucose 93 mg/dL (74-106); High Density Lipoprotein 80 mg/dL; Potassium 4.1 mmol/L (3.5-5.1); Protein, Total 6.8 g/dL (6.4-8.2); Sodium Level 141 mmol/L (136-145); Triglycerides 77 mg/dL; Very Low Density Lipoprotein 15 mg/dL (5-40)
== END | disposition home or self-care (01) ==
LOC: LAB 08:36
PROVIDERS: Nurse Practitioner Family; PCP Family Medicine; Referring Provider Family Medicine; Visit Provider Family Medicine
DX: M81.0 Age-related osteoporosis without current pathological fracture (principal); E78.00 Pure hypercholesterolemia, unspecified; Z51.81 Encounter for therapeutic drug level monitoring
CPT/HCPCS: 36415; 80053; 80061; 85025

== ENCOUNTER → 2024-03-14 | Outpatient (CLI) | payer MEDICARE, SELFPAY ==
--- NOTE | 2024-03-14 10:23 | BI_ITS ---
MAMMOGRAPHY - BILATERAL SCREENING REASON FOR EXAM: Female, 88 years old. Routine annual screening examination. PERTINENT HISTORY: Aunt with breast cancer. TECHNIQUE: Digital bilateral breast ludy (3D mammographic acquisition) in the CC and MLO projections. 2-D mediolateral oblique (MLO) and craniocaudad (CC) views of both breasts were obtained. CAD: Full Field Digital Mammography with Computer Added Detection was performed. COMPARISON: Comparison is made with prior study dated March 11, 2023 and March 14, 2024. FINDINGS: Breast Composition: There are scattered areas of fibroglandular density. There are no dominant masses or suspicious calcifications. Surgical clips are once again seen in the left axilla. No other significant abnormalities are identified. There has been no significant change since the prior study. BI/SCRN MAMM (CAD)W/LUDY BILAT IMPRESSION: Stable bilateral screening mammogram. Yearly follow-up mammogram recommended. (A) ASSESSMENT CATEGORY: BIRADS Category 2: Benign. A letter regarding these results will be sent to the patient by the facility within 30 days. Approximately 10% of breast cancers are not detected by mammography. A normal mammogram should not delay biopsy of a clinically suspicious abnormality. [id number] Electronically Signed: Garry Dalal MD at 11:18 EDT ,
== END | disposition home or self-care (01) ==
LOC: OPBI 10:22
PROVIDERS: PCP Family Medicine; Referring Provider Family Medicine; Visit Provider Family Medicine
DX: Z12.31 Encounter for screening mammogram for malignant neoplasm of breast (principal)
CPT/HCPCS: 77063; 77067

== ENCOUNTER → 2024-03-21 | Outpatient (CLI) | payer MEDICARE, SELFPAY ==
--- NOTE | 2024-03-21 11:00 | RAD_ITS ---
STUDY: X-RAY - LEFT FOOT CLINICAL: Female, 88 years old. PAIN TECHNIQUE: 3 views of the left foot. COMPARISON: None. FINDINGS: Normal talus, calcaneus, and tarsal bones. Normal visualized subtalar, talonavicular, calcaneocuboid, tarsal and tarsometatarsal articulations. Normal metatarsi. There is degenerative arthrosis of the metatarsophalangeal joint of the hallux. Normal tibial and fibular sesamoid bones. Normal interphalangeal joint of the great toe. Normal phalanges of the great toe. Normal second through fifth metatarsophalangeal joints. Normal interphalangeal joints and phalanges of the lesser toes. The soft tissue structures are unremarkable. There is no demonstrated fracture. RAD/Foot min 3 Views IMPRESSION: Degenerative arthrosis of the metatarsophalangeal joint of the hallux. Electronically Signed: Bolivar Tapia MD at 11:29 EDT ,
== END | disposition home or self-care (01) ==
LOC: MTRAD 10:59
PROVIDERS: PCP Family Medicine; Referring Provider Family Medicine; Visit Provider Family Medicine
DX: M79.672 Pain in left foot (principal)
CPT/HCPCS: 73630

== ENCOUNTER → 2024-04-22 | Outpatient (CLI) | payer MEDICARE, SELFPAY ==
[2024-04-22 12:53] LABS: Anion Gap 9 (5-15); BUN 18 mg/dL (7-18); BUN/Creat Ratio 16.2 RATIO (10-20); Calcium,Total 9.1 mg/dL (8.5-10.1); Chloride 108 mmol/L (98-107); Creatinine, Serum 1.11 mg/dL (0.55-1.02); EST Glomerular Filtration Rate 49 mL/min (>60); Est Glom Filt Rate - Afr Amer 60 mL/min (>60); Glucose 132 mg/dL (74-106); Potassium 3.9 mmol/L (3.5-5.1); Sodium Level 144 mmol/L (136-145)
== END | disposition home or self-care (01) ==
LOC: LAB 11:58
PROVIDERS: PCP Family Medicine; Referring Provider Nurse Practitioner Family; Visit Provider Nurse Practitioner Family
DX: R60.0 Localized edema (principal); Z51.81 Encounter for therapeutic drug level monitoring; Z79.899 Other long term (current) drug therapy
CPT/HCPCS: 36415; 80048

== ENCOUNTER → 2024-05-09 | Outpatient (CLI) | payer MEDICARE, SELFPAY ==
[2024-05-09 12:34] LABS: Vitamin D,25 Hydroxy 72.9 ng/mL
[2024-05-09 12:48] LABS: ALB/GLOB Ratio 1.1 RATIO (0.9-2.4); AST(SGOT) 19 U/L (15-37); Alanine Aminotransfer ALT/SGPT 24 U/L (13-56); Albumin, Serum 3.5 g/dL (3.2-5.0); Alkaline Phosphatase 58 U/L (45-117); Anion Gap 8 (5-15); BUN 26 mg/dL (7-18); BUN/Creat Ratio 23.6 RATIO (10-20); Calcium,Total 8.8 mg/dL (8.5-10.1); Chloride 109 mmol/L (98-107); EST Glomerular Filtration Rate 50 mL/min (>60); Est Glom Filt Rate - Afr Amer 60 mL/min (>60); Globulin 3.1 g/dL (2.2-4.2); Glucose 101 mg/dL (74-106); Potassium 4.1 mmol/L (3.5-5.1); Protein, Total 6.6 g/dL (6.4-8.2); Sodium Level 142 mmol/L (136-145); Thyroid Stim Hormone (TSH) 1.91 uIU/mL (0.358-3.74)
== END | disposition home or self-care (01) ==
LOC: LAB 10:47
PROVIDERS: PCP Family Medicine; Referring Provider Internal Medicine Endocrinology, Diabetes & Metabolism; Visit Provider Internal Medicine Endocrinology, Diabetes & Metabolism
DX: M81.0 Age-related osteoporosis without current pathological fracture (principal); E03.8 Other specified hypothyroidism; E55.9 Vitamin D deficiency, unspecified
CPT/HCPCS: 36415; 80053; 82306; 84443

== ENCOUNTER → 2024-06-13 | Outpatient (CLI) | payer MEDICARE, SELFPAY ==
--- NOTE | 2024-06-13 12:45 | MRI_ITS ---
INDICATION: POST LAMINECTOMY EXAMINATION: MRI - MR Spine Lumbar W/O Contrast TECHNIQUE: Multiplanar and multisequence MR images of the lumbar spine. IV Contrast Dosage and Agent: None. COMPARISON: MRI lumbar spine without contrast 04/04/2023. Lumbar spine radiographs 04/04/2023. FINDINGS: VERTEBRAE: Moderate anterior wedge compression fracture of the upper T11 vertebral body. Mild old central compression fracture across the upper L3 vertebral body and minimal old anterior wedge compression fracture of the upper L4 vertebral body. Normal remaining lumbar vertebral body heights. Metallic rods and pedicular screws causing extensive metallic signal distortion artifacts at T10-T11 down to L5 vertebral body levels. VERTEBRAL ALIGNMENT: Mild right lateral degenerative subluxation of T12 on L1, minimal left lateral degenerative subluxation of L1 on L2, grade 1 left lateral degenerative subluxation of L2 on L3 and mild right lateral degenerative subluxation of L4 on L5. Mild degenerative retrolisthesis of L1 on L2. There is preservation of the normal lumbar lordosis. CORD: Normal position and signal intensity of the conus medullaris. L1/L2: Pronounced disc narrowing. Normal central canal and lateral recesses. Signal distortion artifacts on the neuroforamina. L2/L3: Pronounced disc space height narrowing. Prominent ventral extradural defect may represent small calcified extruded disc fragment. Suboptimal visualization of the neuroforamina due to signal distortion artifacts. L3/L4: Mild disc space height narrowing. Normal central canal. Mild asymmetric stenosis of the intervertebral neuroforamina. L4/L5: Pronounced disc space height narrowing. Normal central canal and lateral recesses. Mild stenosis of the right intervertebral neuroforamen. Signal distortion obliteration of the left intervertebral neuroforamen. L5/S1: Pronounced disc space height narrowing. Mild ventral extradural defect due to posterior marginal spur. Normal central canal and lateral recesses. Signal distortion artifacts on the intervertebral neuroforamina. SOFT TISSUES: Unremarkable. MRI/Spine Lumbar (Routine) IMPRESSION: 1. Limited study due to extensive metallic signal distortion artifacts at T10-T11 disc space level down to L5 vertebral body level. 2. Interval development of moderate anterior wedge compression fracture of the upper T11 vertebral body when compared to 04/04/2023 but was present on lumbar spine radiographs of 12/30/2023. 3. Mild old central compression fracture across the upper L3 vertebral body and minimal old anterior wedge compression fracture of the upper L4 vertebral body are unchanged. 4. Prominent ventral extradural defect at L2-L3 disc space level may represent an extruded disc fragment. This was present previously. Suboptimal visualization of the neuroforamina due to metallic signal distortion artifacts. 5. Signal distortion artifacts on the intervertebral neuroforamina at L1-L2, L2-L3, left L4-L5 and L5-S1 disc space levels. 6. Mild asymmetric stenosis of the L3-L4 intervertebral neuroforamina and mild stenosis of the right L4-L5 intervertebral neuroforamen. Electronically Signed: Roldan Pineda MD at 13:23 EDT ,
== END | disposition home or self-care (01) ==
LOC: MRI 11:29
PROVIDERS: PCP Family Medicine; Referring Provider Anesthesiology Pain Medicine; Visit Provider Anesthesiology Pain Medicine
DX: M96.1 Postlaminectomy syndrome, not elsewhere classified (principal)
CPT/HCPCS: 72148

== ENCOUNTER 2024-07-02 11:40 | Emergency (ER) | payer MEDICARE, SELFPAY ==
[2024-07-02 11:41] VITALS: BP 178/85; PULSE 82; RESP 16; TEMP 36.2; O2SAT 98; BMI 27.2
--- NOTE | 2024-07-02 12:13 | EDS_ITS ---
HPI History of Present Illness Chief Complaint: Headache Informant: patient Onset/Context/Timing Onset: Days (4) Context: Gradual Timing: Continuous Quality -Headache: Positive for Dull Location: Right occipital Worsened by: Stress Relieved by: Nothing Associated Symptoms/Injury Associated Symptoms: Positive for Nausea and Vomiting; Negative for Fever, Sore Throat, Sinus Pressure, Numbness, Tingling, Preceding Aura, Visual Changes, Blurred Vision, Photophobia or Visual Loss Injury - [place]: Negative for Direct Trauma or Fall Narrative Narrative: Patient presents with a headache that has been getting worse over the last 4 days. Patient states it is gradually gotten worse. Patient states it is over the right occipital area. Patient states that today she noted some redness to her right eye. Patient states that someone told her with her eye redness and her headache she should probably go to the urgent care or emergency department. Patient states she went to the urgent care and was referred to the emergency department. Patient states her headache is worse with increasing stress. Patient does admit to some nausea and vomiting. Patient also admits to some diarrhea. Patient denies any visual changes. Patient denies any scotoma. Patient denies any photophobia. Patient denies any neck pain. [facility] Medical History Falls Difficulty in walking Closed fracture of left inferior pubic ramus COVID-19 (11/27/21) Essential (primary) hypertension Septic shock Ureteral calculus, left IBS (irritable bowel syndrome) Palpitation Parathyroid adenoma Ureteral reflux Hyperlipidemia Home Medications ?Medication ?Instructions ?Recorded ?Last Taken ?Type aspirin 81 mg chewable tablet 81 mg PO QHS blood thinner 08/28/16 Unknown History flaxseed oil 1,000 mg capsule 1,400 mg PO QDAY supplement 06/25/18 10/05/18 08:00 History magnesium oxide 400 mg (241.3 mg 400 mg PO QDAY supplement 06/25/18 10/05/18 08:00 History magnesium) tablet pravastatin 20 mg tablet 20 mg PO QHS cholesterol 06/25/18 10/04/18 22:00 History cholecalciferol (vitamin D3) 25 1,000 unit PO BID suplement 10/05/18 10/05/18 08:00 History mcg (1,000 unit) capsule cyanocobalamin (vitamin B-12) 500 1,000 mcg PO DAILY@0800 supplement 10/05/18 10/05/18 08:00 History mcg tablet acetaminophen 325 mg tablet 650 mg (2 x 325 mg) PO Q6H PRN PRN 10/09/18 Unknown Rx Fever > 100.4 naproxen sodium 220 mg capsule 220 mg PO BID PRN Pain Or Fever 06/28/19 Unknown History (Aleve) calcium citrate 200 mg 1 tab PO BID supplement 05/29/23 Unknown History calcium-vitamin D3 6.25 mcg (250 unit) tablet levothyroxine 50 mcg tablet 50 mcg PO DAILY thyroid 05/29/23 Unknown History omega-3 fatty acids 1,000 mg 1,000 mg PO BID supplement 05/29/23 Unknown History capsule (Fish Oil Concentrate) lansoprazole 30 mg capsule,delayed 30 mg PO DAILY 10/05/23 Unknown History release (Prevacid) tramadol 50 mg tablet 50 mg PO Q6H PRN pain 3 days #12 10/08/23 Unknown Rx tabs pregabalin 75 mg capsule (Lyrica) 75 mg PO BID 01/14/24 Unknown History spironolactone 25 mg tablet 25 mg PO DAILY #90 tabs 04/22/24 Unknown Rx metoprolol succinate 50 mg 50 mg PO DAILY #90 tabs 06/16/24 Unknown Rx tablet,extended release 24 hr Allergy/AdvReac Type Severity Reaction Status Date / Time codeine Allergy Rash Verified 07/02/24 11:41 hydrocodone bitartrate (From AdvReac Nausea Verified 07/02/24 11:41 Vicodin) meperidine HCl (From Demerol) AdvReac Nausea Verified 07/02/24 11:41 morphine AdvReac Vomiting Verified 07/02/24 11:41 oxycodone HCl (From Percocet) AdvReac Nausea Verified 07/02/24 11:41 Family History Father Heart disease Aunt Heart disease Grandfather Heart disease Grandmother Heart disease Mother Cancer Surgical History History of back surgery History of lithotripsy (10/2018) History of partial thyroidectomy History of hysterectomy History of appendectomy History of tonsillectomy and adenoidectomy History of back surgery History of ERCP Hx of cholecystectomy History of bilateral knee replacement Social History Smoking Status: Never smoker alcohol intake: current alcohol intake frequency: holidays/special occasions only Alcohol type: beer and wine ROS ROS ED Constitutional Constitutional ED: Denies chills or fever(s) Eyes Eyes: Denies blurry vision or change in vision ENT ENT ED: Denies rhinorrhea or sore throat Cardiovascular Cardiovascular: Reports palpitations; Denies chest pain Respiratory/Chest Respiratory/Chest: Denies cough or dyspnea Gastrointestinal Gastrointestinal: Reports diarrhea, nausea and vomiting Genitourinary Genitourinary ED: Denies dysuria or hematuria Musculoskeletal Musculoskeletal: Reports back pain; Denies neck pain Integumentary Denies abscess or rash Neurologic Neurologic: Reports headache(s); Denies weakness Allergic/Immunologic Allergic/Immunologic ED: Denies mouth swelling or urticaria EXAM Physical Exam Const Vital Signs: 07/02/24 11:41 07/02/24 13:10 Temperature 97.2 F L Temperature Source Temporal Pulse Rate 82 Respiratory Rate 16 18 Blood Pressure 178/85 H 127/68 H Blood Pressure Mean 116 87 Pulse Ox 98 96 Oxygen Delivery Method Room Air Room Air Positive well nourished and well developed General Appearance ED: well developed and NAD HEENT Reports normocephalic and moist mucous membranes Eyes PERRL and EOMs intact bilaterally Eyes Narrative: There is a some conjunctival hemorrhage over the medial sclera of the right eye. There is no hyphema noted. Otherwise, conjunctiva are clear. Neck supple, no meningeal signs and no JVD Resp normal respiratory effort and clear to auscultation bilaterally Cardio regular rate and regular rhythm GI non-tender and non-distended Palpation: soft Extremity normal to inspection and full ROM Neuro oriented x3, CN's II-XII intact bilaterally and no sensory deficits noted [place] Coma Scale: document GCS findings Spontaneous Obeys Commands Oriented 15 Sensorium / Orientation: awake and alert Speech: speech normal Motor Exam: strength 5/5 throughout Psych mental status grossly normal MDM MDM MDM Narrative Medical decision making narrative: Differential diagnosis includes tension headache, intracranial bleeding, stroke, migraine headache, and anxiety. CT scan of the brain will be obtained to assess for intracranial bleeding and stroke. CBC will be obtained to assess for leukocytosis and anemia. Basic metabolic profile will be obtained to assess for electrolyte abnormality and renal function. History & Record Review Additional record(s) reviewed:: Prior labs Lab Data Attestation: I reviewed the patient's lab results. Lab results narrative: CBC was reviewed and was within normal limits. Basic metabolic profile was reviewed. Creatinine was slightly elevated at 1.17. This is consistent with previous results. The remainder is within normal limits. Labs: Laboratory Results - last 24 hr 07/02/24 12:25 WBC 7.3 RBC 5.37 Hgb 15.7 H Hct 46.5 MCV 86.6 MCH 29.2 MCHC 33.8 RDW Std Deviation 41.9 RDW Coeff of Jaiden 13.3 Plt Count 239 MPV 11.4 Immature Gran % (Auto) 0.400 Neut % (Auto) 72.4 H Lymph % (Auto) 17.7 L [place] % (Auto) 8.9 Eos % (Auto) 0.3 Baso % (Auto) 0.3 Absolute Neuts (auto) 5.3 Absolute Lymphs (auto) 1.30 Nucleated RBC % 0 Sodium 137 Potassium 3.7 Chloride 103 Carbon Dioxide 26.0 Anion Gap 8 BUN 15 Creatinine 1.17 H Estim Creat Clear Calc 29.96 Est GFR (MDRD) Af Amer 56 L Est GFR (MDRD) Non-Af 46 L BUN/Creatinine Ratio 12.8 Glucose 108 H Calcium 9.0 Radiography Diagnostic Testing: Clinical Impression(s) from Imaging Studies Brain CT 07/02/24 12:19 IMPRESSION: 1. 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 Age is indeterminate. This was not present previously. MRI brain without clarify if acute CVA is a clinical consideration. 2. No CT evidence of intracranial bleeding. 3. No other additional findings or changes. Electronically Signed: Roldan Pineda MD at 13:16 EDT , CT scan of the brain was obtained. There is no intracranial bleeding noted. There is an age indeterminant lacunar infarct in the left anterior internal capsule. This was interpreted by the radiologist and was also independently reviewed by myself. Treatment and Re-Evaluation Narrative: Patient was given IV fluids, Reglan, and Benadryl. Patient was feeling better on reevaluation. Patient was advised of her findings. Since the patient is not having any stroke symptoms, I do not feel the lacunar infarct is acute. Patient was instructed to follow-up with her primary care physician in 5 to 7 days for further evaluation. Patient understood and was agreeable with the plan. All questions were answered. Discharge Plan Triage Chief Complaint: Headache ED Provider: Tyrell Valdes Dx/Rx/DC Orders Clinical Impression: Headache, Subconjunctival hemorrhage of right eye Instructions: ED Headache Unspecified Prescriptions: No Action pravastatin 20 mg tablet 20 mg PO QHS magnesium oxide 400 mg tablet 400 mg PO QDAY flaxseed oil 1,000 mg capsule 1,400 mg PO QDAY omega-3 fatty acids [Fish Oil Concentrate] 1,000 mg capsule 1,000 mg PO BID naproxen sodium [Aleve] 220 mg capsule 220 mg PO BID PRN (Reason: Pain Or Fever) pregabalin [Lyrica] 75 mg capsule 75 mg PO BID aspirin 81 MG tablet,chewable 81 mg PO QHS cyanocobalamin (vitamin B-12) 500 MCG tablet 1,000 mcg PO DAILY@0800 cholecalciferol (vitamin D3) 1,000 UNIT capsule 1,000 unit PO BID acetaminophen 325 MG tablet 650 mg PO Q6H PRN PRN (Reason: Fever > 100.4) 0RF calcium citrate-vitamin D3 200 mg-6.25 mcg (250 unit) tablet 1 tab PO BID lansoprazole [Prevacid] 30 mg capsule,delayed release(DR/EC) 30 mg PO DAILY tramadol 50 mg tablet 50 mg PO Q6H PRN (Reason: pain) 3 Days Qty: 12 0RF levothyroxine 50 mcg tablet 50 mcg PO DAILY Patient Comments: thyroid spironolactone 25 mg tablet 25 mg PO DAILY Qty: 90 3RF metoprolol succinate 50 mg tablet extended release 24 hr 50 mg PO DAILY Qty: 90 3RF Primary Care Provider: Aaliyah De La Cruz Referrals: Aaliyah De La Cruz DO [Primary Care Provider] - 5-7 Days Print Language: Guyanese Disposition Disposition: Home, Self Care
--- NOTE | 2024-07-02 12:19 | CT_ITS ---
EXAM: CT HEAD WITHOUT INTRAVENOUS CONTRAST CLINICAL INDICATION: Pain. TECHNIQUE: Multiple axial images were obtained of the head without intravenous contrast. This CT exam was performed using one or more of the following dose reduction techniques: automated exposure control, adjustment of the mA and/or kV according to patient size, and/or use of iterative reconstruction technique. RADIATION DOSE: CTDIvol = 44.99 mGy, DLP = 796.11 mGy-cm COMPARISON: CT head without contrast 03/24/2018. FINDINGS: BRAIN AND EXTRA-AXIAL SPACES: Hypodense ischemic infarct in the left anterior internal capsule. Age is indeterminate. No intra- or extra-axial hemorrhage. No intracranial mass or mass effect. Posterior fossa structures are unremarkable. Ventricles are appropriate for age. No hydrocephalus. Basal cisterns are patent. BONES/JOINTS: Unremarkable. No discrete lytic or blastic abnormalities. SINUSES: Unremarkable as visualized. Clear. MASTOID AIR CELLS: Unremarkable. Clear. ORBITS: Visualized globes, extraocular muscles, optic nerves and retrobulbar fat appear unremarkable. CT/Brain/Head without Contrast IMPRESSION: 1. 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 Age is indeterminate. This was not present previously. MRI brain without clarify if acute CVA is a clinical consideration. 2. No CT evidence of intracranial bleeding. 3. No other additional findings or changes. Electronically Signed: Roldan Pineda MD at 13:16 EDT ,
[2024-07-02] MEDS: 0.9% Normal Saline (1000mL) 1,000 ML 999 ML IV (12:27)
[2024-07-02] MEDS: Metoclopramide 10 MG/2 ML Vial IV (12:28)
[2024-07-02] MEDS: DiphenhydrAMINE 50 MG/ML Syringe 25 MG IV (12:30)
[2024-07-02 12:34] LABS: Absolute Neutrophil Count 5.3 X10^3/uL (2.0-7.7); Basophil# 0.02 X10^3/uL; Basophil% 0.3 % (0-1); Eosinophil# 0.02 X10^3/uL; Eosinophils% 0.3 % (0-5); Hematocrit 46.5 % (37-47); Hemoglobin 15.7 g/dL (12.0-15.0); Lymphocyte % 17.7 % (19-41); Mean Corp Hgb Conc 33.8 g/dL (32-36); Mean Corpuscular Hgb 29.2 pg (27.0-32.0); Mean Corpuscular Volume 86.6 fL (81-99); Mean Platelet Vol. 11.4 fl (6.2-12.0); Monocyte# 0.65 X10^3/uL; Monocyte% 8.9 % (0-10); NRBC Flagged by Analyzer 0 % (0-5); Neutrophil # 5.31 X10^3/uL (2.7-7.7); Neutrophil % 72.4 % (47-70); Platelet Count 239 K/mm3 (150-450); RBC Distribution Width CV 13.3 % (11.6-14.6); RBC Distribution Width SD 41.9 fl (35.1-43.9); Red Blood Count 5.37 M/mm3 (4.2-5.4); White Blood Count 7.3 K/mm3 (4.4-11.0)
[2024-07-02 12:52] LABS: Anion Gap 8 (5-15); BUN 15 mg/dL (7-18); BUN/Creat Ratio 12.8 RATIO (10-20); Chloride 103 mmol/L (98-107); Creatinine, Serum 1.17 mg/dL (0.55-1.02); EST Glomerular Filtration Rate 46 mL/min (>60); Est Glom Filt Rate - Afr Amer 56 mL/min (>60); Estimated Creatinine Clearance 29.96 ml/min; Glucose 108 mg/dL (74-106); Potassium 3.7 mmol/L (3.5-5.1); Sodium Level 137 mmol/L (136-145)
[2024-07-02 13:10] VITALS: BP 127/68; RESP 18; O2SAT 96
[2024-07-02 13:41] VITALS: BP 125/65; PULSE 65; RESP 18; TEMP 36.2; O2SAT 96
--- NOTE | 2024-07-02 13:53 | ED.RN ---
did not finish IV bag of fluids but states she is drinking PO and also was up to void while in ED.
== END 2024-07-02 13:53 | disposition home or self-care (01) ==
PROVIDERS: Emergency Provider Emergency Medicine; PCP Family Medicine; Visit Provider Emergency Medicine
DX: R51.9 Headache, unspecified (principal); H11.31 Conjunctival hemorrhage, right eye; Z86.16 Personal history of COVID-19
CPT/HCPCS: 70450; 80048; 85025; 96361; 96374; 96375; 96376; 99282

== ENCOUNTER → 2024-11-21 | Outpatient (CLI) | payer MEDICARE, SELFPAY ==
[2024-11-21 10:20] LABS: ALB/GLOB Ratio 1.4 RATIO (0.9-2.4); AST(SGOT) 19 U/L (15-37); Alanine Aminotransfer ALT/SGPT 25 U/L (13-56); Albumin, Serum 3.9 g/dL (3.2-5.0); Alkaline Phosphatase 51 U/L (45-117); Anion Gap 5 (5-15); BUN 21 mg/dL (7-18); BUN/Creat Ratio 19.1 RATIO (10-20); Calcium,Total 8.9 mg/dL (8.5-10.1); Chloride 109 mmol/L (98-107); Cholesterol 132 mg/dL (200); EST Glomerular Filtration Rate 50 mL/min (>60); Est Glom Filt Rate - Afr Amer 60 mL/min (>60); Globulin 2.8 g/dL (2.2-4.2); Glucose 98 mg/dL (74-106); High Density Lipoprotein 89 mg/dL; Protein, Total 6.7 g/dL (6.4-8.2); Sodium Level 142 mmol/L (136-145); Triglycerides 65 mg/dL; Very Low Density Lipoprotein 13 mg/dL (5-40)
== END | disposition home or self-care (01) ==
LOC: LAB 09:07
PROVIDERS: PCP Family Medicine; Referring Provider Internal Medicine Endocrinology, Diabetes & Metabolism; Visit Provider Internal Medicine Endocrinology, Diabetes & Metabolism
DX: E78.2 Mixed hyperlipidemia (principal); E03.8 Other specified hypothyroidism; M81.0 Age-related osteoporosis without current pathological fracture
CPT/HCPCS: 36415; 80053; 80061; 84443

== ENCOUNTER → 2024-12-05 | Outpatient (CLI) | payer MEDICARE, SELFPAY ==
[2024-12-05 11:05] LABS: Absolute Neutrophil Count 8.6 X10^3/uL (2.0-7.7); Basophil# 0.05 X10^3/uL; Basophil% 0.4 % (0-1); Eosinophil# 0.04 X10^3/uL; Eosinophils% 0.4 % (0-5); Hematocrit 49.1 % (37-47); Hemoglobin 16.4 g/dL (12.0-15.0); Lymphocyte % 15.8 % (19-41); Mean Corp Hgb Conc 33.4 g/dL (32-36); Mean Corpuscular Hgb 29.9 pg (27.0-32.0); Mean Corpuscular Volume 89.6 fL (81-99); Mean Platelet Vol. 11.6 fl (6.2-12.0); Monocyte# 0.87 X10^3/uL; Monocyte% 7.6 % (0-10); NRBC Flagged by Analyzer 0 % (0-5); Neutrophil # 8.61 X10^3/uL (2.7-7.7); Neutrophil % 75.4 % (47-70); Platelet Count 190 K/mm3 (150-450); RBC Distribution Width CV 13.7 % (11.6-14.6); RBC Distribution Width SD 45.2 fl (35.1-43.9); Red Blood Count 5.48 M/mm3 (4.2-5.4); White Blood Count 11.4 K/mm3 (4.4-11.0)
[2024-12-05 11:27] LABS: Vitamin B12 1209 pg/mL (211-911); Vitamin D,25 Hydroxy 66.7 ng/mL
[2024-12-05 11:28] LABS: Ferritin 20 ng/mL (8-252); Iron 122 ug/dL (50-170)
== END | disposition home or self-care (01) ==
LOC: LAB 10:46
PROVIDERS: PCP Family Medicine; Referring Provider Nurse Practitioner Adult Health; Visit Provider Nurse Practitioner Adult Health
DX: D50.9 Iron deficiency anemia, unspecified (principal); E55.9 Vitamin D deficiency, unspecified; D51.3 Other dietary vitamin B12 deficiency anemia
CPT/HCPCS: 36415; 82306; 82607; 82728; 83540; 85025

== ENCOUNTER → 2024-12-21 | Outpatient (CLI) | payer MEDICARE, SELFPAY ==
[2024-12-21 15:13] LABS: Absolute Lymphocyte Count 0.52 X10^3/uL (0.83-4.51); Absolute Neutrophil Count 10.5 X10^3/uL (2.0-7.7); Basophil# 0.01 X10^3/uL; Basophil% 0.1 % (0-1); Hematocrit 49.3 % (37-47); Lymphocyte # 0.52 X10^3/ul (0.83-4.51); Lymphocyte % 4.3 % (19-41); Mean Corp Hgb Conc 32.5 g/dL (32-36); Mean Corpuscular Hgb 28.6 pg (27.0-32.0); Mean Platelet Vol. 12.2 fl (6.2-12.0); Monocyte# 1.04 X10^3/uL; Monocyte% 8.6 % (0-10); NRBC Flagged by Analyzer 0 % (0-5); Neutrophil # 10.47 X10^3/uL (2.7-7.7); Neutrophil % 86.8 % (47-70); POSITIVE DIFFERENTIAL YES; Platelet Count 179 K/mm3 (150-450); RBC Distribution Width CV 13.7 % (11.6-14.6); RBC Distribution Width SD 44.4 fl (35.1-43.9); White Blood Count 12.1 K/mm3 (4.4-11.0)
== END | disposition home or self-care (01) ==
LOC: BFHLAB 12:01
PROVIDERS: PCP Family Medicine; Visit Provider Internal Medicine Endocrinology, Diabetes & Metabolism
DX: R79.9 Abnormal finding of blood chemistry, unspecified (principal)
CPT/HCPCS: 36415; 85025

== ENCOUNTER → 2024-12-28 | Outpatient (CLI) | payer MEDICARE, SELFPAY ==
--- NOTE | 2024-12-28 08:47 | RAD_ITS ---
PROCEDURE: Chest radiographs REASON FOR EXAM: Shortness of breath, pneumonia TECHNIQUE: Two views of the chest COMPARISON: 01/06/2020 FINDINGS: Cardiomediastinal silhouette is within normal limits. Mild coarse interstitial lung markings bilaterally likely related to chronic changes. No focal consolidation, pleural effusion or sizable pneumothorax. RAD/Chest PA and Lateral IMPRESSION: No acute airspace abnormality. Reading Location: [facility]
== END | disposition home or self-care (01) ==
LOC: MTRAD 08:45
PROVIDERS: PCP Family Medicine; Referring Provider Nurse Practitioner Family; Visit Provider Nurse Practitioner Family
DX: R05.9 Cough, unspecified (principal)
CPT/HCPCS: 71046

== ENCOUNTER → 2025-01-18 | Outpatient (CLI) | payer MEDICARE, SELFPAY ==
--- NOTE | 2025-01-18 11:13 | RAD_ITS ---
PROCEDURE: CHEST PA AND LATERAL REASON FOR EXAM: RULE OUT PNEUMONIA TECHNIQUE: Frontal and lateral views of the chest. COMPARISON: 28 December 2024 FINDINGS: Long segment spinal fusion. Small right pleural effusion. Right midlung airspace opacity noted. Pneumonia suspected. No pneumothorax. Hyperinflated lungs. Tortuous thoracic aorta. RAD/Chest PA and Lateral IMPRESSION: Right mid lung airspace opacity and small right pleural effusion. Pneumonia mittal spected. Follow-up is advised. Reading Location: [id number]
== END | disposition home or self-care (01) ==
LOC: MTRAD 11:13
PROVIDERS: PCP Family Medicine; Referring Provider Nurse Practitioner Family; Visit Provider Nurse Practitioner Family
DX: R05.9 Cough, unspecified (principal); R06.2 Wheezing
CPT/HCPCS: 71046

== ENCOUNTER → 2025-03-20 | Outpatient (CLI) | payer MEDICARE, SELFPAY ==
--- NOTE | 2025-03-20 09:50 | BI_ITS ---
EXAM: SCRN MAMM (CAD)W/LUDY BILAT DATE: 03/20/2025 CLINICAL HISTORY: F, Age 89 y/o , SCREENING BREAST CANCER RISK ASSESSMENT: Has not been calculated. TECHNIQUE: Bilateral screening digital breast tomosynthesis with 2D and 3D images. Computer aided detection. COMPARISON: Prior exam(s) dated 03/14/2024, 03/11/2023, and 03/10/2022. FINDINGS: TISSUE DENSITY: The breast tissue is composed of scattered area of fibroglandular density. Bilateral Breast Mammographic Findings: There are no suspicious masses, suspicious clustered microcalcifications, architectural distortion or secondary signs of malignancy identified in either breast. Benign vascular calcifications and round microcalcifications are seen in both breasts. Surgical clips are seen in the left axillary region. This appears stable. BI/SCRN MAMM (CAD)W/LUDY BILAT IMPRESSION: OVERALL FINAL ASSESSMENT: BIRADS 2 BENIGN FINDING RECOMMENDATION: Routine annual follow-up in 1 Year A letter with findings and recommendations will be mailed to the patient. Reading Location: [id number]
== END | disposition home or self-care (01) ==
LOC: OPBI 09:49
PROVIDERS: PCP Family Medicine; Referring Provider Family Medicine; Visit Provider Family Medicine
DX: Z12.31 Encounter for screening mammogram for malignant neoplasm of breast (principal)
CPT/HCPCS: 77063; 77067

== ENCOUNTER → 2025-03-29 | Outpatient (CLI) | payer MEDICARE, SELFPAY ==
--- NOTE | 2025-03-29 13:14 | ART_ITS ---
Reason For Study Reason For Study: Bilateral leg pain, PVD Procedure A bilateral lower extremity continuous wave Doppler with analog waveform analysis and ankle brachial indexes. Left Segmental Pressures Left posterior tibial artery = 169mmHg. Left dorsalis pedis artery = 162mmHg. The left dorsalis pedis waveforms are triphasic. The left posterior tibial artery waveforms are triphasic. Right Segmental Pressures Right brachial= 135mmHg. Right posterior tibial artery = 172mmHg. Right dorsalis pedis artery = 145mmHg. The right dorsalis pedis waveforms are triphasic. The right posterior tibial artery waveforms are triphasic. Indices The right ankle brachial index by the dorsalis pedis is 1.07. The right ankle brachial index by the posterior tibial artery is 1.27. The left ankle brachial index by the dorsalis pedis is 1.20. The left ankle brachial index by the posterior tibial artery is 1.25. VL/Ankle Brachial Index Interpretation Summary Triphasic Doppler waveforms are noted at ankle level bilaterally. Pulse-volume recordings appear satisfactory at ankle and digital level bilaterally. Resting ankle-brachial indices are normal biater ally. There is no evidence of significant arterial occlusive disease in the lower ext remities bilaterally. Ordering Physician: Aaliyah De La Cruz Referring Physician: AALIYAH DE LA CRUZ MD Performed By: Charisse Jimenez RVT
--- NOTE | 2025-03-29 13:14 | ADU_ITS ---
Reason For Study Reason For Study: Bilateral leg pain, PVD Right Velocities Left Velocities Int. Iliac Artery, prox. = 130.8 cm./sec. Ext Iliac Artery, dist = 117.8 cm./sec. Common Femoral Artery, mid = 127.1 cm./sec. Common Femoral Artery, mid = 107.3 cm./sec. Supf Femoral Artery, prox = 111.2 cm./sec. Supf. Femoral Artery, prox = 89.8 cm./sec. Supf Femoral Artery, mid = 83.8 cm./sec. Supf. Femoral Artery, mid = 80.2 cm./sec. Supf Femoral Artery, dist. = 69.2 cm./sec. Supf. Femoral Artery, dist = 76.5 cm./sec. Profunda Femoral Artery = 67.4 cm./sec. Profunda Femoral Artery = 54.7 cm./sec. Popliteal Artery, mid = 54.8 cm./sec. Popliteal Artery, mid = 76.5 cm./sec. Post. Tibial Artery, prox = 60.3 cm./sec. Post. Tibial Artery, prox = 50.4 cm./sec. Post. Tibial Artery, mid = 63.6 cm./sec. Post Tibial Artery, mid = 53.7 cm./sec. Post. Tibial Artery, dist = 57 cm./sec. Post Tibial Artery, dist. = 58.1 cm./sec. Peroneal Artery, prox = 55.9 cm./sec. Peroneal Artery, prox = 42.8 cm./sec. Peroneal Artery, mid = 50.4 cm./sec. Peroneal Artery, mid = 50.4 cm./sec. Peroneal Artery,dist = 49.3 cm./sec. Peroneal Artery,dist. = 38.4 cm./sec. Ant. Tibial Artery, prox = 52.6 cm./sec. Ant.Tibial Artery, prox = 75.7 cm./sec. Ant. Tibial Artery, mid = 55.9 cm./sec. Ant Tibial Artery, mid = 60.3 cm./sec. Ant. Tibial Artery, dist = 65.8 cm./sec. Ant. Tibial Artery, distal = 59.2 cm./sec. Procedure Exam performed in department. /US Art Duplex Bilat Lower Ext Interpretation Summary Color-flow imaging and Doppler signal assessment was performed of the arterial system in the lower extremities bilaterally. Arterial flow is noted throughout the arterial tree bilaterally,wi thout evidence of significant stenosis or occlusion. Normal, pulsatile arterial waveforms and normal systolic velocities are noted in the lower extremities bilaterally. Ordering Physician: Aaliyah De La Cruz Referring Physician: Aaliyah De La Cruz Performed By: Charisse Jimenez RVT
== END | disposition home or self-care (01) ==
LOC: CVS 13:12
PROVIDERS: PCP Family Medicine; Referring Provider Family Medicine; Visit Provider Family Medicine
DX: I70.213 Atherosclerosis of native arteries of extremities with intermittent claudication, bilateral legs (principal); M79.604 Pain in right leg; M79.605 Pain in left leg
CPT/HCPCS: 93922; 93925

== ENCOUNTER → 2025-05-02 | Outpatient (CLI) | payer MEDICARE, SELFPAY ==
--- NOTE | 2025-05-02 13:08 | CDU_ITS ---
Reason For Study Reason For Study: bruit, vision changes Rt. Velocities/BP Lt. Velocities/BP Prox CCA 65.8/11.0 cm/sec. Prox CCA 69.5/11.9 cm/sec. Mid CCA 66.7/12.8 cm/sec. Mid CCA 67.6/12.8 cm/sec. Dist CCA 49.7/10.0 cm/sec. Dist CCA 63.9/13.8 cm/sec. Prox ICA 54.4/8.1 cm/sec. Prox ICA 45.9/10.1 cm/sec. Mid ICA 106.3/17.9 cm/sec. Mid ICA 55.5/10.1 cm/sec. Dist ICA 101.4/21.6 cm/sec. Dist ICA 36.2/6.9 cm/sec. Rt. ICA/CCA = 101.4/66.7=1.5. Lt. ICA/CCA = 55.5/67.6=0.8. Prox ECA 57.2/4.3 cm/sec. Prox ECA 84.6/4.3 cm/sec. Rt. Vert. 33.9/10.4 cm/sec. Lt. Vert. 56.3/11.0 cm/sec. Right Extracranial There is intimal thickening but no significant atherosclerotic plaque noted in the right common carotid artery. There is intimal thickening but no significant atherosclerotic plaque noted in the right internal carotid artery. The right internal carotid artery is not well visualized. The right internal carotid artery is very tortuous. There is no significant atherosclerotic plaque noted in the right external carotid artery. Antegrade flow is noted in the right vertebral artery. Left Extracranial There is homogeneous, smooth atherosclerotic plaque noted in the left common carotid artery. There is intimal thickening but no significant atherosclerotic plaque noted in the left internal carotid artery. The left internal carotid artery is very tortuous. There is no significant atherosclerotic plaque noted in the left external carotid artery. Antegrade flow is noted in the left vertebral artery. Procedure Carotid Duplex [id number]. This is a Carotid Duplex examination using B-mode, color flow and specral Doppler. Exam performed in department. VL/Carotid Duplex Ultrasound Interpretation Summary Normal right extracranial internal carotid. Normal left extracranial internal carotid. Patent and antegrade vertebrals bilaterally. Ordering Physician: Unruly Mathews Referring Physician: Aaliyah De La Cruz Performed By: Qing Timmons, SILVIA, RVT
== END | disposition home or self-care (01) ==
LOC: CVS 12:59
PROVIDERS: PCP Family Medicine; Referring Provider Nurse Practitioner Family; Visit Provider Nurse Practitioner Family
DX: I65.22 Occlusion and stenosis of left carotid artery (principal)
CPT/HCPCS: 93880

== ENCOUNTER → 2025-06-26 | Outpatient (CLI) | payer MEDICARE, SELFPAY ==
[2025-06-26 12:45] LABS: AST(SGOT) 29 U/L (<=31); Alanine Aminotransfer ALT/SGPT 19 U/L (<=34); Albumin, Serum 4.3 g/dL (3.4-4.8); Alkaline Phosphatase 53 U/L (35-104); Anion Gap 14 (5-15); BUN 20 mg/dL (4-19); BUN/Creat Ratio 16.3 RATIO (10-20); Calcium,Total 9.5 mg/dL (7.6-11.0); Carbon Dioxide 22.5 mmol/L (21.0-32.0); Chloride 103 mmol/L (98-108); Globulin 2.3 g/dL (2.2-4.2); Glucose 128 mg/dL (70-99); Potassium 4.2 mmol/L (3.3-5.1)
== END | disposition home or self-care (01) ==
LOC: LAB 11:39
PROVIDERS: PCP Family Medicine; Referring Provider Internal Medicine Endocrinology, Diabetes & Metabolism; Visit Provider Internal Medicine Endocrinology, Diabetes & Metabolism
DX: M81.0 Age-related osteoporosis without current pathological fracture (principal); E03.8 Other specified hypothyroidism
CPT/HCPCS: 36415; 80053; 84443

== ENCOUNTER → 2025-07-03 | Outpatient (CLI) | payer MEDICARE, SELFPAY ==
[2025-07-03 16:02] LABS: AST(SGOT) 23 U/L (<=31); Alanine Aminotransfer ALT/SGPT 19 U/L (<=34); Albumin, Serum 4.4 g/dL (3.4-4.8); Alkaline Phosphatase 48 U/L (35-104); Anion Gap 13 (5-15); BUN 17 mg/dL (4-19); BUN/Creat Ratio 14.8 RATIO (10-20); Calcium,Total 9.1 mg/dL (7.6-11.0); Carbon Dioxide 24.5 mmol/L (21.0-32.0); Chloride 104 mmol/L (98-108); Globulin 1.5 g/dL (2.2-4.2); Glucose 97 mg/dL (70-99); Potassium 4.4 mmol/L (3.3-5.1)
== END | disposition home or self-care (01) ==
LOC: LAB.FUTURE 11:49 → BFHLAB 12:11
PROVIDERS: PCP Family Medicine; Visit Provider Family Medicine
DX: Z51.81 Encounter for therapeutic drug level monitoring (principal)
CPT/HCPCS: 36415; 80053

== ENCOUNTER → 2025-08-11 | Outpatient (CLI) | payer MEDICARE, SELFPAY ==
[2025-08-09 14:11] LABS: Anion Gap 12 (5-15); BUN 25 mg/dL (4-19); BUN/Creat Ratio 23.3 RATIO (10-20); Calcium,Total 9.1 mg/dL (7.6-11.0); Carbon Dioxide 24.2 mmol/L (21.0-32.0); Chloride 105 mmol/L (98-108); Glucose 117 mg/dL (70-99); Potassium 4.0 mmol/L (3.3-5.1)
--- NOTE | 2025-08-11 08:52 | MRI_ITS ---
PROCEDURE: SPINE LUMBAR W/WO CONTRAST 08/11/2025 REASON FOR EXAM: SPINAL STENOSIS TECHNIQUE: Procedure Code: [id number] Modality: MR Procedure: SPINE LUMBAR W/WO CONTRAST Multiplanar and multisequence images were obtained without and with intravenous gadolinium-based contrast administration. CONTRAST: Grayscale VOLUME: 15 mL COMPARISON: MRI lumbar spine 06/13/2024. FINDINGS: Vertebrae: Status post posterior fusion of T11 through L5. status post laminectomies L3, L4 and L5. Alignment: Unremarkable. Conus Medullaris: Unremarkable. T11-T10: Disc bulge. Facet joint arthropathy. Severe left and moderate right foramina stenosis. Mild canal stenosis. T10-T11: Disc bulge. Facet joint arthropathy. No significant foraminal or canal stenosis. T11-T12: Disc bulge. Facet joint arthropathy. Mild bilateral foramina stenosis. Mild canal stenosis. T12- L1: Disc bulge. Disc desiccation. Facet joint arthropathy. Mild bilateral foramina stenosis. Mild canal stenosis. L1-2: Disc bulge. Facet joint arthropathy. Mild bilateral foramina stenosis. Mild canal stenosis. L2-3: Disc desiccation. Disc bulge. Right paracentral disc protrusion measures 2 mm. Mild bilateral foramina stenosis. Mild canal stenosis. L3-4: Disc bulge. Facet joint arthropathy. Mild canal stenosis. Moderate bilateral foramina stenosis. L4-5: Status post laminectomies. Facet joint arthropathy. No significant foramina stenosis. L5-S1: Disc bulge. Facet joint arthropathy. Moderate bilateral foramina stenosis. Sacrum: Unremarkable. Postcontrast images: Unremarkable. No abnormal enhancement. MRI/Spine Lumbar W/WO Contrast IMPRESSION: Similar postsurgical and degenerative changes compared to MRI 06/13/2024. No significant canal stenosis. Multilevel foramina stenosis as detailed. No abnormal enhancement or acute process. Reading Location: [id number]
== END | disposition home or self-care (01) ==
PROVIDERS: PCP Family Medicine; Referring Provider Clinical Nurse Specialist Adult Health; Visit Provider Clinical Nurse Specialist Adult Health
DX: M48.061 Spinal stenosis, lumbar region without neurogenic claudication (principal)
CPT/HCPCS: 36415; 72158; 80048; A9575; A4216